=== PATIENT | male | born 1970 | race Caucasian/White ===

== ENCOUNTER 2019-11-02 18:11 | Emergency (ER) | payer SELFPAY ==
[2019-11-02 18:19] VITALS: BP 185/120; PULSE 126; RESP 20; TEMP 36.9; O2SAT 95; BMI 58.6
--- NOTE | 2019-11-02 18:25 | XR_ITS ---
WS: [id number] RIGHT FOOT: 3 VIEW(S) TECHNIQUE: AP, oblique and lateral. HISTORY: injury COMPARISON: None available. No acute fracture or dislocation. Normal tarsal/metatarsal alignment. Large amount soft tissue swelling and edema around the ankle and foot. Small calcaneal spur. XR/XR foot RT min 3V* [id number] IMPRESSION: No fracture identified but there is a large amount of soft tissue edema around the foot.
--- NOTE | 2019-11-02 18:25 | XR_ITS ---
WS: [id number] RIGHT ANKLE: 3 VIEW(S) TECHNIQUE: AP, oblique(s) and lateral. HISTORY: injury COMPARISON: None available. Normal anatomic alignment with no fracture or dislocation. No joint effusion or widening of the ankle mortise. No significant degenerative changes at the joint spaces. Large amount of edema surrounding the ankle. No joint effusion. XR/XR ankle RT min 3V* [id number] IMPRESSION: No fracture identified but there is a large amount of soft tissue edema around the ankle.
--- NOTE | 2019-11-02 21:53 | W.ED.EXTPRO ---
HPI - Extremity Problem General: Chief complaint: Extremity Injury, Lower Stated complaint: foot pain Time Seen by Provider: 11/02/19 21:53 Source: patient Mode of arrival: ambulatory Limitations: no limitations History of Present Illness: HPI Narrative: Patient comes in today for complaints of right foot redness pain and swelling since last week. Patient reports the pain goes up into his calf on the right side. Patient states about a week ago he felt that pop in his foot and at first he did not notice much difference but over the past 2 to 3 days he has had increasing redness and swelling to the extremity. Patient denies any fever. Patient does state that he always tries to wear shoes or flip-flops when he is walking around. Patient has a history of diabetes and hypertension. Review of Systems General: Reports: 10 or more systems reviewed and unremarkable except in HPI and below Musc: Reports: extremity pain PFSH ED PFSH: Social History Smoking and tobacco status: current every day smoker Physical Exam Const: COMMON NORMALS: no acute distress and patient oriented x3 GENERAL APPEARANCE: cooperative HENMT: COMMON NORMALS: normocephalic, TM's normal bilaterally and Normal external nose present HEAD & SCALP: normal to inspection and normocephalic NOSE: Normal external nose present TYMPANIC MEMBRANE: TM's normal bilaterally MOUTH: Normal oral and palatal mucosa present THROAT: posterior oropharynx normal Eye: GENERAL EYE: appearance normal, both eyes and all related structures Neck/C-Spine: COMMON NORMALS: full ROM Lymph: LYMPHATIC: no lymphadenopathy noted Chest: COMMONS NORMALS: normal inspection of the chest Resp: COMMON NORMALS: normal respiratory effort EFFORT & INSPECTION: Yes able to speak in complete sentences Cardio: COMMON NORMALS: regular rate and regular rhythm RATE: regular rate RHYTHM: regular rhythm GI: COMMON NORMALS: non-tender : COMMON NORMALS: Yes no CVA tenderness BLADDER/KIDNEY EXAM: Yes no CVA tenderness Back/Pelvis: COMMON NORMALS: no CVA tenderness and thoracic and lumbar spine normal to inspection Extremity: NARRATIVE EXTREMITY EXAM: Redness and swelling to the right lower leg and foot with swelling. Neuro: COMMON NORMALS: patient oriented x3 and moves all extremities Psych: COMMON NORMALS: mental status grossly normal and cooperative Skin: COMMON NORMALS: no rashes or lesions noted GENERAL SKIN EXAM: no rashes or lesions noted Course ED course: 2239, ultrasound for DVT was negative. Vital Signs: Vital signs: Vital Signs Temperature 98.4 F 11/02/19 18:19 Pulse Rate 126 H 11/02/19 18:19 Respiratory Rate 20 H 11/02/19 18:19 Blood Pressure 185/120 11/02/19 18:19 Pulse Oximetry 95 11/02/19 18:19 MDM - Extremity (Nontraumatic) MDM Narrative: Medical decision making narrative: Patient comes in with redness and swelling to the right lower leg after an injury over 1 week ago. On exam no obvious deformity is noted, patient is weightbearing. Vital signs are noticeable for a slight elevation in pulse at 126, and blood pressure at 185 systolic. Lungs are clear to auscultation. Patient is morbidly obese. Differential diagnosis includes DVT, cellulitis, fracture, gout. Ultrasound was negative for DVT. Patient has mild leukocytosis at 11. Reviewed exam with patient recommended treatment for cellulitis. Patient given naproxen for pain and inflammation and cephalexin for antibiotic treatment. Patient reported understanding agreed to plan. Lab Data: Labs: Lab Results 11/02/19 Range/Units 23:00 WBC 11.4 H (4.0-10.0) 10^3/ uL RBC 5.17 (4.1-5.3) 10^6/u L Hgb 14.4 (11.7-16.6) g/dL Hct 45.2 (42.0-52.0) % MCV 87.4 (80-94) fL MCH 27.9 L (28.0-34.0) pg MCHC 31.9 (30.0-36.0) g/dL RDW 13.5 (12.1-15.1) % Plt Count 251 (130-400) 10^3/c mm MPV 10.9 H (7.4-10.4) fL Neut % (Auto) 71.0 % Lymph % (Auto) 21.1 % [place] % (Auto) 5.6 % Eos % (Auto) 1.7 % Baso % (Auto) 0.3 % Neut # (Auto) 8.1 H (1.8-7.7) 10^3/u L Lymph # (Auto) 2.4 (0.8-4.8) 10^3/u L [place] # (Auto) 0.6 (0.2-0.9) 10^3/u L Eos # (Auto) 0.2 (0.0-0.8) 10^3/u L Baso # (Auto) 0.0 (0.0-0.1) 10^3/u L Nucleated RBC % (a uto) 0 % Nucleated RBCs # 0.0 /100WBC Discharge Plan Discharge Patient Disposition: Home, Self-Care Clinical Impression: Cellulitis and abscess of right leg Condition: Stable Prescriptions: New cephalexin 500 mg capsule 500 mg PO QID 10 Days Qty: 40 RF: 0 naproxen 500 mg tablet 500 mg PO BID Qty: 14 RF: 0 Discharge Orders: Discharge Order (Routine); Ordered 11/02/19 Ordered By: Luis Foss Discharge Diet: Usual diet Discharge Activity: Increase activity as tolerated Patient Instructions: Cellulitis (ED) Activity Restrictions/Additional Instructions: Take antibiotics as directed. Use naproxen twice a day for pain and swelling. Follow-up with primary care in 1 week. Return to the ER for worsening symptoms, high fever, or new concerns. Coding Level of Care Code ED Archival Records Clerk for Ruchi Fwd Exam Comprehensive
--- NOTE | 2019-11-02 21:58 | USCV_ITS ---
Bennie Ho Age: 49 Gender: M : 1970 Exam Date: 11/02/2019 22:28 Ordering Phys: Luis Foss Technologist: Beck Stephenson [place]am Location[place] [facility] [place]: swelling HISTORY: Lower extremity swelling. PROCEDURES: Venous duplex imaging was performed in only the right lower extremity. The following venous structures were evaluated: common femoral vein, profunda vein, proximal portion of the greater saphenous vein, superficial femoral vein, and the popliteal vein. In addition, the posterior tibial and peroneal trunk were evaluated. Serial compression, augmentation maneuvers, and spectral Doppler flow evaluation were performed. FINDINGS: Normal 2-D Doppler and augmentation and compressibility throughout the lower extremity venous structures. Additional imaging through the proximal calf veins also reveals no thrombus. Limited evaluation of the greater saphenous vein is patent with no thrombus. CONCLUSIONS No DVT right lower extremity. Dr. Krissy Franks DO (Electronically Signed) Final Date: 03 Nov 2019 10:49 S
[2019-11-02 23:08] LABS: Basophils % 0.3 %; Eosinophils # 0.2 10^3/uL (0.0-0.8); Eosinophils % 1.7 %; Hematocrit 45.2 % (42.0-52.0); Hemoglobin 14.4 g/dL (11.7-16.6); Lymphocytes # 2.4 10^3/uL (0.8-4.8); Lymphocytes % 21.1 %; Mean Corpuscular HGB Conc 31.9 g/dL (30.0-36.0); Mean Corpuscular Hemoglobin 27.9 pg (28.0-34.0); Mean Corpuscular Volume 87.4 fL (80-94); Mean Platelet Volume 10.9 fL (7.4-10.4); Monocytes # 0.6 10^3/uL (0.2-0.9); Monocytes % 5.6 %; Neutrophils # 8.1 10^3/uL (1.8-7.7); Nucleated Red Blood Cells % 0 %; Platelet Count 251 10^3/cmm (130-400); Red Blood Count 5.17 10^6/uL (4.1-5.3); Red Cell Distribution Width 13.5 % (12.1-15.1); White Blood Count 11.4 10^3/uL (4.0-10.0)
[2019-11-02 23:28] LABS: Alanine Aminotransferase 23 U/L (0-41); Albumin Level 3.7 g/dL (3.5-5.2); Alkaline Phosphatase 122 IU/L (40-130); Aspartate Amino Transferase 17 U/L (0-40); Blood Urea Nitrogen 10 mg/dL (6-20); Calcium 9.1 mg/dL (8.5-10.5); Carbon Dioxide 29 mmol/L (22-29); Chloride 94 mmol/L (98-107); Creatinine Clr Calc Pharmacy 221.5732; Globulin 3.4 g/dL (1.3-4.6); Glomerular Filtration Rate 120.4 mL/min (90-130); Glucose 325 mg/dL (65-115); Osmolality Calculated 287 mOsm/kg (285-295); Sodium 134 mmol/L (136-145); Total Bilirubin 0.3 mg/dL (0.15-1.2); Total Protein 7.1 g/dL (6.6-8.7); Uric Acid 4.8 mg/dL (3.4-7.0)
[2019-11-03] MEDS: naproxen 500 mg Tablet PO (00:25)
[2019-11-03] MEDS: cephALEXin 500 mg Capsule PO (00:25)
[2019-11-03 00:29] VITALS: BP 158/84; PULSE 86; RESP 16; O2SAT 99
== END 2019-11-03 00:31 | disposition home or self-care (01) ==
PROVIDERS: Emergency Provider Nurse Practitioner Family
DX: L03.115 Cellulitis of right lower limb (principal); L02.415 Cutaneous abscess of right lower limb; F17.210 Nicotine dependence, cigarettes, uncomplicated
CPT/HCPCS: 12345; 73610; 73630; 80053; 84550; 85025; 93971; 99281

== ENCOUNTER 2019-11-14 12:26 | Emergency (ER) | payer SELFPAY ==
[2019-11-14 12:31] VITALS: BP 170/76; PULSE 118; RESP 14; TEMP 35.9; O2SAT 95; BMI 58.6
--- NOTE | 2019-11-14 12:36 | W.ED.EXTPRO ---
HPI - Extremity Problem General: Chief complaint: Extremity Problem,Nontraumatic Stated complaint: r foot pain/swelling Time Seen by Provider: 11/14/19 12:35 History of Present Illness: HPI Narrative: Patient is a 49-year-old male who comes to the ED with right foot pain, redness and swelling. He was seen for same complaint 12 days ago and was diagnosed with cellulitis of right foot put on a prescription of cephalexin. Patient says pain, warmth and redness has not really improved. Patient does admit that he has not been taking his antibiotic as prescribed for the past couple days. Patient has a follow-up appointment scheduled with his PCP in the next week. Associated symptoms: Reports rash (Right foot swelling, erythema and warmth.); Deny chest pain or fever(s) Review of Systems Const: Denies: fever(s), chills or fatigue Eyes: Denies: change in vision or eye discomfort ENMT: Denies: throat pain, odynophagia, nasal discharge or nasal congestion Card: Denies: chest pain, palpitations, edema, swelling of feet/ankles, dyspnea on exertion or orthopnea Resp: Denies: dyspnea, productive cough or non-productive cough GI: Denies: abdominal pain, nausea, vomiting, diarrhea, constipation or hematochezia : Denies: flank pain, difficulty urinating, dysuria or hematuria Musc: Denies: neck pain, back pain or extremity swelling Skin/Breast: Reports: rash (Right foot swelling, erythema and warmth.), skin pain, skin tenderness and skin swelling; Denies: new lesions Neuro: Denies: headache(s), numbness in extremities or weakness in extremities [facility] ED PFSH: Social History Smoking and tobacco status: current every day smoker Physical Exam Const: COMMON NORMALS: patient oriented x3 and alert NUTRITIONAL APPEARANCE: obese HENMT: COMMON NORMALS: normocephalic HEAD & SCALP: normocephalic MOUTH: Normal oral and palatal mucosa present THROAT: posterior oropharynx normal and uvula midline Eye: COMMON NORMALS: Equal, round and reactive pupils present PUPIL: Yes Equal, round and reactive pupils present Neck/C-Spine: COMMON NORMALS: supple GENERAL: Yes normal visual inspection Resp: COMMON NORMALS: normal respiratory effort, No retractions, No use of accessory muscles and clear to auscultation bilaterally AUSCULTATION: clear to auscultation bilaterally Cardio: COMMON NORMALS: regular rate, regular rhythm, S1 normal heart sound present, S2 normal heart sound present, No gallops present (Cardio), No clicks present (Cardio), No murmurs present (Cardio) and Peripheral pulses 2+ throughout RATE: regular rate RHYTHM: regular rhythm HEART SOUNDS: S1 normal heart sound present and S2 normal heart sound present PERIPHERAL PULSES: Peripheral pulses 2+ throughout GI: COMMON NORMALS: Normal to inspection, nondistended, normoactive bowel sounds present, Soft to palpation, non-tender and no masses INSPECTION: Yes central obesity PALPATION: Yes Soft to palpation : COMMON NORMALS: Yes no CVA tenderness BLADDER/KIDNEY EXAM: Yes no CVA tenderness Back/Pelvis: COMMON NORMALS: no CVA tenderness Extremity: RIGHT LOWER EXTREMITY: Yes foot & digits Right foot and digits: Yes inspection (Swelling of entire right foot with warmth throughout the foot and erythema. No erythema or warmth noted above ankle.), Yes palpation (mild tenderness), Yes ROM (full) and Yes neurovascular exam (intact) Neuro: COMMON NORMALS: patient oriented x3 and moves all extremities SENSORIUM/ORIENTATION: Yes alert Skin: GENERAL SKIN EXAM: dry skin LESIONS: lesion noted Right foot Lesion location: Right foot Lesion color: Yes erythematous and Yes red Lesion surface: Yes dry, Yes flat, Yes shiny and Yes warm Lesion finding consistent with: Yes cellulitis Course Vital Signs: Vital signs: Vital Signs Temperature 96.6 F L 11/14/19 12:31 Pulse Rate 118 H 11/14/19 12:31 Respiratory Rate 14 11/14/19 12:31 Blood Pressure 170/76 11/14/19 12:31 Pulse Oximetry 95 11/14/19 12:31 MDM - Extremity (Nontraumatic) MDM Narrative: Medical decision making narrative: Patient is a 49-year-old male comes to the ED with right foot pain, erythema and swelling. Patient was seen here in the ED 12 days ago for same complaint and was diagnosed with cellulitis and put on a prescription of cephalexin. Patient return to the ED today because erythema, warmth and pain in right foot has not really improved since taking antibiotic. Physical exam showed redness warmth and swelling of the right foot. No erythema or swelling above ankle. Patient was given a prescription for Bactrim and told to take full course of antibiotic as prescribed. He was told to finish out the last couple doses of cephalexin and start Bactrim. Patient has a PCP appointment within the next week. He was told to return to the ED for reevaluation if symptoms do not improve after 3 days of being on Bactrim. Patient understood and agreed with plan. Discharge Plan Discharge Patient Disposition: Home, Self-Care Clinical Impression: Cellulitis Qualifiers: Site of cellulitis: extremity Site of cellulitis of extremity: lower extremity Laterality: right Qualified Code(s): L03.115 - Cellulitis of right lower limb Condition: Stable Prescriptions: New Bactrim DS 800-160 mg tablet 1 tab PO BID 7 Days Qty: 14 RF: 0 No Action naproxen 500 mg tablet 500 mg PO BID Qty: 14 RF: 0 lisinopril 20 mg Tablet 20 mg PO DAILY RF: 0 Novolin 70/30 U-100 Insulin 100 unit/mL (70-30) Suspension See Rx Instructions .ROUTE .COMPLEX RF: 0 Lantus Solostar U-100 Insulin 100 unit/mL (3 mL) Insulin Pen 10 unit SUBCUT DAILY RF: 0 Trulicity 1.5 mg/0.5 mL Pen Injector 1.5 mg SUBCUT Q7D RF: 0 Discharge Orders: Discharge Order (Routine); Ordered 11/14/19 Ordered By: Bin Dias Discharge Diet: Regular Discharge Activity: Resume usual activity Patient Instructions: Cellulitis (ED) Activity Restrictions/Additional Instructions: Follow-up with your PCP for reevaluation at your next scheduled appointment. Finish out prescription of cephalexin and start the Bactrim antibiotic course. Take ibuprofen or Tylenol for any pain. Return to ED if symptoms continue to worsen after 3 days of being treated on Bactrim. Discharge Date/Time: 11/14/19 13:38 Coding Level of Care Code ED Carpet Or Rug Layer Helper for Ruchi Velez Exam Comprehensive
[2019-11-14] MEDS: ketorolac 30 mg/mL INJ IM (13:06)
== END 2019-11-14 13:38 | disposition home or self-care (01) ==
PROVIDERS: Emergency Provider Physician Assistant
DX: L03.115 Cellulitis of right lower limb (principal); Z79.4 Long term (current) use of insulin; F17.210 Nicotine dependence, cigarettes, uncomplicated
CPT/HCPCS: 12345; 96372; 99281; 99283; J1885

== ENCOUNTER 2019-11-28 17:17 | Inpatient (IN) | payer MEDICARE, MEDICAID, SELFPAY ==
[2019-11-28] VITALS (7 sets, daily range): BP systolic 129–184; BP diastolic 62–73; PULSE 123–148; RESP 15–28; TEMP 37.9; O2SAT 92–98; BMI 59.3
--- NOTE | 2019-11-28 17:52 | XR_ITS ---
WS: [id number] Portable AP upright chest, 11/28/2019 Clinical Data: dyspnea/cough Comparison: Portable chest, 09/29/2017. Findings: No nodules, masses or effusions are seen. The heart is normal. The pulmonary vascularity is not increased. No pneumonia or pneumothorax is seen. XR/XR chest 1V portable [id number] Impression: Negative chest.
--- NOTE | 2019-11-28 17:52 | ECG_ITS ---
Measurements Intervals [place] Rate: 68 P: ND: 0 QRS: 44 QRSD: 161 T: -51 QT: 472 QTc: 503 ATRIAL FIBRILLATION INTRAVENTRICULAR CONDUCTION DELAY [130+ ms QRS DURATION] Compared to ECG 09/29/2017 19:21:23 Intraventricular conduction delay now present Sinus tachycardia no longer present Left anterior fascicular block no longer present Myocardial infarct finding no longer present Electronically Signed On 11-29-2019 7:00:31 CDT by Иван Nunes M.D. [email or web address]
--- NOTE | 2019-11-28 17:52 | XRR_ITS ---
PROCEDURE INFORMATION: Exam: XR Right Foot Complete Exam date and time: 11/28/2019 6:35 PM Age: 49 years old Clinical indication: Pain; Foot; Right; Additional info: Pain swelling TECHNIQUE: Imaging protocol: XR Right foot. Views: 3 or more views. COMPARISON: No relevant prior studies available. FINDINGS: Bones/joints: There is apparent midfoot dislocation with ventral displacement of the posterior midfoot. The forefoot is subluxed dorsally. This finding correlates with a posttraumatic injury. Correlation for mechanism of injury is recommended. This finding requires orthopedic consultation. A bone spur present on the inferior calcaneus. Soft tissues: Diffuse soft tissue edema is seen in the dorsal and lateral aspect of the foot. XR/XR foot RT min 3V* [id number] IMPRESSION: 1. ventral dislocation of the proximal midfoot with dorsal subluxation of the forefoot. 2. No additional acute bony abnormalities seen. 3. Severe soft tissue edema dorsal and lateral foot
--- NOTE | 2019-11-28 18:00 | W.ED.WOUNDLC ---
Documented by User: David Lange DO 11/29/19 14:15 HPI - Wound/Laceration General: Chief Complaint: Wound/Laceration Stated Complaint: wound on foot/feet Time Seen by Provider: 11/28/19 17:32 History of Present Illness: HPI narrative: 49-year-old male presents to the emergency room with a temp of 100.3 reports a temp at home of 101.3. He has a wound on his foot that happened while he was walking he tore some skin off and got like a puncture wound about a month ago never really completely healed he is diabetic that increased swelling and pain especially over the last week. He set up to see wound clinic but has not been there yet is an insulin-dependent diabetic. He initially was placed on Keflex subsequently placed on Bactrim now for last 5 days has been on clindamycin none of it seems to really help very much unfortunately. He has had a little bit of drainage from his been keeping a topical bandage on it. Onset (ago): month(s) (1) Extremity Location: Right: foot Place: home Patient tetanus UTD: No Context: accidental Associated symptoms: Reports chills and fever(s); Denies nausea or vomiting Treatments prior to arrival: bandage and other (Several different antibiotics Keflex Bactrim and clindamycin) Review of Systems Const: Reports: fever(s) and chills ENMT: Denies: throat pain, ear or mastoid pain, nasal discharge or nasal congestion Card: Denies: chest pain, edema, dyspnea on exertion or orthopnea Resp: Denies: dyspnea, productive cough or non-productive cough GI: Denies: abdominal pain, nausea, vomiting, hematemesis, coffee ground emesis, diarrhea, constipation, bloating, hematochezia or melena : Denies: flank pain, dysuria, urinary frequency or urinary urgency Skin/Breast: Denies: rash or pruritus PFSH ED PFSH: Medical History (Updated 11/29/19 @ 09:25 by Jennifer Hernandes MD) Chronic back pain Diabetes mellitus GERD (gastroesophageal reflux disease) Hypertension Morbid obesity Ptosis of eyelid, right Recurrent infection of skin Sleep apnea Smoker Testicular abscess Surgical History History of incision and drainage 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 S/P right knee arthroscopy Family History Other CAD (coronary artery disease) Diabetes Social History Smoking and tobacco status: heavy tobacco smoker cigarettes [ Other cigarette details: 2 packs/day ] Alcohol intake: never Substance/Drug Use: never Household members: significant other Housing: House Physical Exam Const: COMMON NORMALS: no acute distress GENERAL APPEARANCE: cooperative and comfortable ORIENTATION/CONSCIOUSNESS: Yes awake, Yes oriented to person, Yes oriented to place and Yes oriented to time HENMT: COMMON NORMALS: normocephalic, atraumatic, hearing grossly normal bilaterally, external ears normal, EAC's normal, TM's normal bilaterally, Normal nasal mucous membranes and turbinates present, moist oral mucous membranes and oropharynx normal HEAD & SCALP: normocephalic and atraumatic NOSE: Normal nasal mucous membranes and turbinates present EXTERNAL EAR: Yes external ears normal EXTERNAL AUDITORY CANAL: EAC's normal TYMPANIC MEMBRANE: TM's normal bilaterally Eye: COMMON NORMALS: Equal, round and reactive pupils present, EOMs intact bilaterally, conjunctivae normal and no scleral icterus CONJUNCTIVA: Yes conjunctivae normal PUPIL: Yes Equal, round and reactive pupils present Neck/C-Spine: COMMON NORMALS: full ROM, no lymphadenopathy, supple and no JVD Lymph: LYMPHATIC: no lymphadenopathy noted and no lymphedema noted Resp: COMMON NORMALS: normal respiratory effort, No retractions, No use of accessory muscles and clear to auscultation bilaterally AUSCULTATION: clear to auscultation bilaterally Cardio: COMMON NORMALS: no JVD, regular rate, regular rhythm and No murmurs present (Cardio) RATE: regular rate RHYTHM: regular rhythm GI: COMMON NORMALS: Soft to palpation and No hepatosplenomegaly present AUSCULTATION: Yes normoactive bowel sounds PALPATION: Yes Soft to palpation, No Tenderness to palpation present (GI), No Guarding due to palpation present (GI) and Yes No hepatosplenomegaly present Extremity: NARRATIVE EXTREMITY EXAM: Right lower leg warm to the touch tender to palpation with a positive Homans sign the sole of the foot itself is a large portion of skin that is denuded with an underlying erythema and some dry mucousy eschar looks to be healing puncture wound no active drainage with palpation no subcu air palpated. Neuro: SENSORIUM/ORIENTATION: Yes oriented to person, Yes oriented to place and Yes oriented to time Skin: COMMON NORMALS: no rashes or lesions noted GENERAL SKIN EXAM: no rashes or lesions noted Course Vital Signs: Vital signs: Vital Signs Temperature 98.7 F 11/29/19 12:00 Pulse Rate 119 H 11/29/19 12:00 Respiratory Rate 23 H 11/29/19 12:00 Blood Pressure 156/88 11/29/19 12:00 Pulse Oximetry 95 11/29/19 12:00 MDM - Wound/Laceration MDM Narrative: Medical decision making narrative: Care turned over to Dr. Nevarez at change of shift Lab Data: Labs: Lab Results 11/28/19 11/28/19 11/28/19 Range/Units 00:15 18:15 18:17 WBC 17.5 H (4.0-10.0) 10^3/ uL RBC 5.37 H (4.1-5.3) 10^6/u L Hgb 14.7 (11.7-16.6) g/dL Hct 46.9 (42.0-52.0) % MCV 87.3 (80-94) fL MCH 27.4 L (28.0-34.0) pg MCHC 31.3 (30.0-36.0) g/dL RDW 12.9 (12.1-15.1) % Plt Count 333 (130-400) 10^3/c mm MPV 10.8 H (7.4-10.4) fL Neut % (Auto) 89.0 % Lymph % (Auto) 6.0 % Lasalle % (Auto) 4.2 % Eos % (Auto) 0.2 % Baso % (Auto) 0.3 % Neut # (Auto) 15.5 H (1.8-7.7) 10^3/u L Lymph # (Auto) 1.0 (0.8-4.8) 10^3/u L [place] # (Auto) 0.7 (0.2-0.9) 10^3/u L Eos # (Auto) 0.0 (0.0-0.8) 10^3/u L Baso # (Auto) 0.1 (0.0-0.1) 10^3/u L Nucleated RBC % (a uto) 0 % Nucleated RBCs # 0.0 /100WBC Specimen Type Arterial Sample Site Radial, left ABG pH 7.46 H (7.35-7.45) ABG pCO2 42.1 (35-45) mmHg ABG pO2 54.4 L (80.0-100.0) mmH g ABG HCO3 29.8 H (22-26) mmol/L ABG O2 Saturation 91.8 ABG Base Excess 5.3 H (-2.0-2.0) mmol/ L Wesley Test Pos A-a O2 Gradient 40.5 H (5-10) mmHg Hematocrit 46.4 (42-52) % Hgb O2 Saturation 86.0 L (95-100) % Carboxyhemoglobin 5.5 (0.4-20.1) %THgb Methemoglobin 0.9 (0.4-1.5) % Total Hemoglobin 15.2 (14-18) g/dL Sodium 133.0 (131-143) mmol/L Potassium 4.3 (3.5-5.0) mmol/L Glucose 350.0 H (70-115) mg/dL Ionized Calcium 1.2 (1.1-1.4) mmol/L O2 Delivery Device None FiO2 21.0 % Associate Professor Of Pathology ID ed Chloride (98-107) mmol/L Carbon Dioxide (22-29) mmol/L Anion Gap (5-19) BUN (6-20) mg/dL Creatinine (0.7-1.2) mg/dL GFR Calculation (90-130) mL/min Estimat Average Gl ucose Hemoglobin A1c (4.0-6.0) % Calculated Osmolal ity (285-295) mOsm/k g Lactate (0.5-2.2) mmol/L Calcium (8.5-10.5) mg/dL Total Bilirubin (0.15-1.2) mg/dL AST (0-40) U/L ALT (0-41) U/L Alkaline Phosphata se (40-130) IU/L Lactate Dehydrogen ase 185 (135-225) U/L Troponin T Baselin e (0-15) ng/L Troponin T 120 Min nondalton (0-15) ng/L Delta Troponin T (0-10) ABS# Total Protein (6.6-8.7) g/dL Albumin (3.5-5.2) g/dL Globulin (1.3-4.6) g/dL Procalcitonin 0.36 (0-0.5) ng/mL Urine Color (Yellow) Urine Appearance (CLEAR) Urine pH (5-7) Ur Specific Gravit y (1.005-1.030) Urine Protein (Negative) Urine Glucose (UA) (Normal) Urine Ketones (Negative) Urine Blood (Negative) Urine Nitrate (Negative) Urine Bilirubin (NEGATIVE) Urine Urobilinogen (Negative) mg/dL Ur Leukocyte Leanna ase (Negative) Serum Ketones (Negative) 11/28/19 11/28/19 11/28/19 Range/Units 18:17 18:17 18:17 WBC (4.0-10.0) 10^3/ uL RBC (4.1-5.3) 10^6/u L Hgb (11.7-16.6) g/dL Hct (42.0-52.0) % MCV (80-94) fL MCH (28.0-34.0) pg MCHC (30.0-36.0) g/dL RDW (12.1-15.1) % Plt Count (130-400) 10^3/c mm MPV (7.4-10.4) fL Neut % (Auto) % Lymph % (Auto) % [place] % (Auto) % Eos % (Auto) % Baso % (Auto) % Neut # (Auto) (1.8-7.7) 10^3/u L Lymph # (Auto) (0.8-4.8) 10^3/u L [place] # (Auto) (0.2-0.9) 10^3/u L Eos # (Auto) (0.0-0.8) 10^3/u L Baso # (Auto) (0.0-0.1) 10^3/u L Nucleated RBC % (a uto) % Nucleated RBCs # /100WBC Specimen Type Sample Site ABG pH (7.35-7.45) ABG pCO2 (35-45) mmHg ABG pO2 (80.0-100.0) mmH g ABG HCO3 (22-26) mmol/L ABG O2 Saturation ABG Base Excess (-2.0-2.0) mmol/ L Wesley Test A-a O2 Gradient (5-10) mmHg Hematocrit (42-52) % Hgb O2 Saturation (95-100) % Carboxyhemoglobin (0.4-20.1) %THgb Methemoglobin (0.4-1.5) % Total Hemoglobin (14-18) g/dL Sodium 130 L (131-143) mmol/L Potassium 4.6 (3.5-5.0) mmol/L Glucose 386 H (70-115) mg/dL Ionized Calcium (1.1-1.4) mmol/L O2 Delivery Device FiO2 % Associate Professor Of Pathology ID Chloride 91 L (98-107) mmol/L Carbon Dioxide 25 (22-29) mmol/L Anion Gap 18.6 (5-19) BUN 13 (6-20) mg/dL Creatinine 0.7 (0.7-1.2) mg/dL GFR Calculation 120.4 (90-130) mL/min Estimat Average Gl ucose Hemoglobin A1c (4.0-6.0) % Calculated Osmolal ity 282 L (285-295) mOsm/k g Lactate 2.0 (0.5-2.2) mmol/L Calcium 9.0 (8.5-10.5) mg/dL Total Bilirubin 0.4 (0.15-1.2) mg/dL AST 31 (0-40) U/L ALT 29 (0-41) U/L Alkaline Phosphata se 153 H (40-130) IU/L Lactate Dehydrogen ase (135-225) U/L Troponin T Baselin e (0-15) ng/L Troponin T 120 Min nondalton (0-15) ng/L Delta Troponin T (0-10) ABS# Total Protein 7.4 (6.6-8.7) g/dL Albumin 3.6 (3.5-5.2) g/dL Globulin 3.8 (1.3-4.6) g/dL Procalcitonin (0-0.5) ng/mL Urine Color (Yellow) Urine Appearance (CLEAR) Urine pH (5-7) Ur Specific Gravit y (1.005-1.030) Urine Protein (Negative) Urine Glucose (UA) (Normal) Urine Ketones (Negative) Urine Blood (Negative) Urine Nitrate (Negative) Urine Bilirubin (NEGATIVE) Urine Urobilinogen (Negative) mg/dL Ur Leukocyte Leanna ase (Negative) Serum Ketones Negative (Negative) 11/28/19 11/28/19 11/28/19 Range/Units 18:17 18:19 19:58 WBC (4.0-10.0) 10^3/ uL RBC (4.1-5.3) 10^6/u L Hgb (11.7-16.6) g/dL Hct (42.0-52.0) % MCV (80-94) fL MCH (28.0-34.0) pg MCHC (30.0-36.0) g/dL RDW (12.1-15.1) % Plt Count (130-400) 10^3/c mm MPV (7.4-10.4) fL Neut % (Auto) % Lymph % (Auto) % [place] % (Auto) % Eos % (Auto) % Baso % (Auto) % Neut # (Auto) (1.8-7.7) 10^3/u L Lymph # (Auto) (0.8-4.8) 10^3/u L [place] # (Auto) (0.2-0.9) 10^3/u L Eos # (Auto) (0.0-0.8) 10^3/u L Baso # (Auto) (0.0-0.1) 10^3/u L Nucleated RBC % (a uto) % Nucleated RBCs # /100WBC Specimen Type Sample Site ABG pH (7.35-7.45) ABG pCO2 (35-45) mmHg ABG pO2 (80.0-100.0) mmH g ABG HCO3 (22-26) mmol/L ABG O2 Saturation ABG Base Excess (-2.0-2.0) mmol/ L Wesley Test A-a O2 Gradient (5-10) mmHg Hematocrit (42-52) % Hgb O2 Saturation (95-100) % Carboxyhemoglobin (0.4-20.1) %THgb Methemoglobin (0.4-1.5) % Total Hemoglobin (14-18) g/dL Sodium (131-143) mmol/L Potassium (3.5-5.0) mmol/L Glucose (70-115) mg/dL Ionized Calcium (1.1-1.4) mmol/L O2 Delivery Device FiO2 % Associate Professor Of Pathology ID Chloride (98-107) mmol/L Carbon Dioxide (22-29) mmol/L Anion Gap (5-19) BUN (6-20) mg/dL Creatinine (0.7-1.2) mg/dL GFR Calculation (90-130) mL/min Estimat Average Gl ucose 306 Hemoglobin A1c 12.3 H (4.0-6.0) % Calculated Osmolal ity (285-295) mOsm/k g Lactate (0.5-2.2) mmol/L Calcium (8.5-10.5) mg/dL Total Bilirubin (0.15-1.2) mg/dL AST (0-40) U/L ALT (0-41) U/L Alkaline Phosphata se (40-130) IU/L Lactate Dehydrogen ase (135-225) U/L Troponin T Baselin e 23 H (0-15) ng/L Troponin T 120 Min nondalton (0-15) ng/L Delta Troponin T (0-10) ABS# Total Protein (6.6-8.7) g/dL Albumin (3.5-5.2) g/dL Globulin (1.3-4.6) g/dL Procalcitonin (0-0.5) ng/mL Urine Color Yellow (Yellow) Urine Appearance Clear (CLEAR) Urine pH 5 (5-7) Ur Specific Gravit y 1.015 (1.005-1.030) Urine Protein Neg (Negative) Urine Glucose (UA) 4+ H (Normal) Urine Ketones Negative (Negative) Urine Blood Neg (Negative) Urine Nitrate Negative (Negative) Urine Bilirubin Neg (NEGATIVE) Urine Urobilinogen Norm (Negative) mg/dL Ur Leukocyte Leanna ase Negative (Negative) Serum Ketones (Negative) 11/28/19 Range/Units 20:20 WBC (4.0-10.0) 10^3/ uL RBC (4.1-5.3) 10^6/u L Hgb (11.7-16.6) g/dL Hct (42.0-52.0) % MCV (80-94) fL MCH (28.0-34.0) pg MCHC (30.0-36.0) g/dL RDW (12.1-15.1) % Plt Count (130-400) 10^3/c mm MPV (7.4-10.4) fL Neut % (Auto) % Lymph % (Auto) % [place] % (Auto) % Eos % (Auto) % Baso % (Auto) % Neut # (Auto) (1.8-7.7) 10^3/u L Lymph # (Auto) (0.8-4.8) 10^3/u L [place] # (Auto) (0.2-0.9) 10^3/u L Eos # (Auto) (0.0-0.8) 10^3/u L Baso # (Auto) (0.0-0.1) 10^3/u L Nucleated RBC % (a uto) % Nucleated RBCs # /100WBC Specimen Type Sample Site ABG pH (7.35-7.45) ABG pCO2 (35-45) mmHg ABG pO2 (80.0-100.0) mmH g ABG HCO3 (22-26) mmol/L ABG O2 Saturation ABG Base Excess (-2.0-2.0) mmol/ L Wesley Test A-a O2 Gradient (5-10) mmHg Hematocrit (42-52) % Hgb O2 Saturation (95-100) % Carboxyhemoglobin (0.4-20.1) %THgb Methemoglobin (0.4-1.5) % Total Hemoglobin (14-18) g/dL Sodium (131-143) mmol/L Potassium (3.5-5.0) mmol/L Glucose (70-115) mg/dL Ionized Calcium (1.1-1.4) mmol/L O2 Delivery Device FiO2 % Associate Professor Of Pathology ID Chloride (98-107) mmol/L Carbon Dioxide (22-29) mmol/L Anion Gap (5-19) BUN (6-20) mg/dL Creatinine (0.7-1.2) mg/dL GFR Calculation (90-130) mL/min Estimat Average Gl ucose Hemoglobin A1c (4.0-6.0) % Calculated Osmolal ity (285-295) mOsm/k g Lactate (0.5-2.2) mmol/L Calcium (8.5-10.5) mg/dL Total Bilirubin (0.15-1.2) mg/dL AST (0-40) U/L ALT (0-41) U/L Alkaline Phosphata se (40-130) IU/L Lactate Dehydrogen ase (135-225) U/L Troponin T Baselin e (0-15) ng/L Troponin T 120 Min nondalton 24.84 H (0-15) ng/L Delta Troponin T 1.84 (0-10) ABS# Total Protein (6.6-8.7) g/dL Albumin (3.5-5.2) g/dL Globulin (1.3-4.6) g/dL Procalcitonin (0-0.5) ng/mL Urine Color (Yellow) Urine Appearance (CLEAR) Urine pH (5-7) Ur Specific Gravit y (1.005-1.030) Urine Protein (Negative) Urine Glucose (UA) (Normal) Urine Ketones (Negative) Urine Blood (Negative) Urine Nitrate (Negative) Urine Bilirubin (NEGATIVE) Urine Urobilinogen (Negative) mg/dL Ur Leukocyte Leanna ase (Negative) Serum Ketones (Negative) Discharge Plan Discharge Patient Disposition: Admitted As Inpatient Admit Provider: Leoncio Saenz Clinical Impression: Sepsis Qualifiers: Sepsis type: sepsis due to unspecified organism Sepsis acute organ dysfunction status: unspecified Qualified Code(s): A41.9 - Sepsis, unspecified organism Cellulitis Qualifiers: Site of cellulitis: extremity Site of cellulitis of extremity: lower extremity Laterality: right Qualified Code(s): L03.115 - Cellulitis of right lower limb Closed dislocation of foot Qualifiers: Encounter type: initial encounter Laterality: right Qualified Code(s): S93.304A - Unspecified dislocation of right foot, initial encounter Condition: Stable Discharge Date/Time: 11/28/19 23:41 Sign Out Sign Out Data: Patient Sign Out occurred on 11/28/19 at 18:20. Patient's care was discussed, and care was transferred from David Lange DO to Mimi Whitfield. Sign Out Comment: Sepsis labs and imaging pending Last updated by David Lange DO at 11/28/19 18:13 Coding Level of Care Code ED [employer] for Chg Fwd Exam Comprehensive Documented by User: Mimi Sandhu Roseann 11/29/19 05:50 HPI - Wound/Laceration General: Chief Complaint: Wound/Laceration Stated Complaint: wound on foot/feet Time Seen by Provider: 11/28/19 17:32 PFSH ED PFSH: Medical History (Updated 11/29/19 @ 09:25 by Jennifer Hernandes MD) Chronic back pain Diabetes mellitus GERD (gastroesophageal reflux disease) Hypertension Morbid obesity Ptosis of eyelid, right Recurrent infection of skin Sleep apnea Smoker Testicular abscess Surgical History History of incision and drainage 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 S/P right knee arthroscopy Family History Other CAD (coronary artery disease) Diabetes Social History Smoking and tobacco status: heavy tobacco smoker cigarettes [ Other cigarette details: 2 packs/day ] Alcohol intake: never Substance/Drug Use: never Household members: significant other Housing: House Course Vital Signs: Vital signs: Vital Signs Temperature 98.7 F 11/29/19 12:00 Pulse Rate 119 H 11/29/19 12:00 Respiratory Rate 23 H 11/29/19 12:00 Blood Pressure 156/88 11/29/19 12:00 Pulse Oximetry 95 11/29/19 12:00 MDM - Wound/Laceration MDM Narrative: Medical decision making narrative: The case was reviewed with Drs. Saenz and Monserrat, they will admit and consult respectively. Patient was hemodynamically stable here and his heart rate improved after IV fluids and antibiotics. Lab Data: Attestation: I reviewed the patient's lab results. Labs: Lab Results 11/28/19 11/28/19 11/28/19 Range/Units 00:15 18:15 18:17 WBC 17.5 H (4.0-10.0) 10^3/ uL RBC 5.37 H (4.1-5.3) 10^6/u L Hgb 14.7 (11.7-16.6) g/dL Hct 46.9 (42.0-52.0) % MCV 87.3 (80-94) fL MCH 27.4 L (28.0-34.0) pg MCHC 31.3 (30.0-36.0) g/dL RDW 12.9 (12.1-15.1) % Plt Count 333 (130-400) 10^3/c mm MPV 10.8 H (7.4-10.4) fL Neut % (Auto) 89.0 % Lymph % (Auto) 6.0 % [place]alle % (Auto) 4.2 % Eos % (Auto) 0.2 % Baso % (Auto) 0.3 % Neut # (Auto) 15.5 H (1.8-7.7) 10^3/u L Lymph # (Auto) 1.0 (0.8-4.8) 10^3/u L [place] # (Auto) 0.7 (0.2-0.9) 10^3/u L Eos # (Auto) 0.0 (0.0-0.8) 10^3/u L Baso # (Auto) 0.1 (0.0-0.1) 10^3/u L Nucleated RBC % (a uto) 0 % Nucleated RBCs # 0.0 /100WBC Specimen Type Arterial Sample Site Radial, left ABG pH 7.46 H (7.35-7.45) ABG pCO2 42.1 (35-45) mmHg ABG pO2 54.4 L (80.0-100.0) mmH g ABG HCO3 29.8 H (22-26) mmol/L ABG O2 Saturation 91.8 ABG Base Excess 5.3 H (-2.0-2.0) mmol/ L Wesley Test Pos A-a O2 Gradient 40.5 H (5-10) mmHg Hematocrit 46.4 (42-52) % Hgb O2 Saturation 86.0 L (95-100) % Carboxyhemoglobin 5.5 (0.4-20.1) %THgb Methemoglobin 0.9 (0.4-1.5) % Total Hemoglobin 15.2 (14-18) g/dL Sodium 133.0 (131-143) mmol/L Potassium 4.3 (3.5-5.0) mmol/L Glucose 350.0 H (70-115) mg/dL Ionized Calcium 1.2 (1.1-1.4) mmol/L O2 Delivery Device None FiO2 21.0 % Associate Professor Of Pathology ID ed Chloride (98-107) mmol/L Carbon Dioxide (22-29) mmol/L Anion Gap (5-19) BUN (6-20) mg/dL Creatinine (0.7-1.2) mg/dL GFR Calculation (90-130) mL/min Estimat Average Gl ucose Hemoglobin A1c (4.0-6.0) % Calculated Osmolal ity (285-295) mOsm/k g Lactate (0.5-2.2) mmol/L Calcium (8.5-10.5) mg/dL Total Bilirubin (0.15-1.2) mg/dL AST (0-40) U/L ALT (0-41) U/L Alkaline Phosphata se (40-130) IU/L Lactate Dehydrogen ase 185 (135-225) U/L Troponin T Baselin e (0-15) ng/L Troponin T 120 Min nondalton (0-15) ng/L Delta Troponin T (0-10) ABS# Total Protein (6.6-8.7) g/dL Albumin (3.5-5.2) g/dL Globulin (1.3-4.6) g/dL Procalcitonin 0.36 (0-0.5) ng/mL Urine Color (Yellow) Urine Appearance (CLEAR) Urine pH (5-7) Ur Specific Gravit y (1.005-1.030) Urine Protein (Negative) Urine Glucose (UA) (Normal) Urine Ketones (Negative) Urine Blood (Negative) Urine Nitrate (Negative) Urine Bilirubin (NEGATIVE) Urine Urobilinogen (Negative) mg/dL Ur Leukocyte Leanna ase (Negative) Serum Ketones (Negative) 11/28/19 11/28/19 11/28/19 Range/Units 18:17 18:17 18:17 WBC (4.0-10.0) 10^3/ uL RBC (4.1-5.3) 10^6/u L Hgb (11.7-16.6) g/dL Hct (42.0-52.0) % MCV (80-94) fL MCH (28.0-34.0) pg MCHC (30.0-36.0) g/dL RDW (12.1-15.1) % Plt Count (130-400) 10^3/c mm MPV (7.4-10.4) fL Neut % (Auto) % Lymph % (Auto) % [place] % (Auto) % Eos % (Auto) % Baso % (Auto) % Neut # (Auto) (1.8-7.7) 10^3/u L Lymph # (Auto) (0.8-4.8) 10^3/u L [place] # (Auto) (0.2-0.9) 10^3/u L Eos # (Auto) (0.0-0.8) 10^3/u L Baso # (Auto) (0.0-0.1) 10^3/u L Nucleated RBC % (a uto) % Nucleated RBCs # /100WBC Specimen Type Sample Site ABG pH (7.35-7.45) ABG pCO2 (35-45) mmHg ABG pO2 (80.0-100.0) mmH g ABG HCO3 (22-26) mmol/L ABG O2 Saturation ABG Base Excess (-2.0-2.0) mmol/ L Wesley Test A-a O2 Gradient (5-10) mmHg Hematocrit (42-52) % Hgb O2 Saturation (95-100) % Carboxyhemoglobin (0.4-20.1) %THgb Methemoglobin (0.4-1.5) % Total Hemoglobin (14-18) g/dL Sodium 130 L (131-143) mmol/L Potassium 4.6 (3.5-5.0) mmol/L Glucose 386 H (70-115) mg/dL Ionized Calcium (1.1-1.4) mmol/L O2 Delivery Device FiO2 % Associate Professor Of Pathology ID Chloride 91 L (98-107) mmol/L Carbon Dioxide 25 (22-29) mmol/L Anion Gap 18.6 (5-19) BUN 13 (6-20) mg/dL Creatinine 0.7 (0.7-1.2) mg/dL GFR Calculation 120.4 (90-130) mL/min Estimat Average Gl ucose Hemoglobin A1c (4.0-6.0) % Calculated Osmolal ity 282 L (285-295) mOsm/k g Lactate 2.0 (0.5-2.2) mmol/L Calcium 9.0 (8.5-10.5) mg/dL Total Bilirubin 0.4 (0.15-1.2) mg/dL AST 31 (0-40) U/L ALT 29 (0-41) U/L Alkaline Phosphata se 153 H (40-130) IU/L Lactate Dehydrogen ase (135-225) U/L Troponin T Baselin e (0-15) ng/L Troponin T 120 Min nondalton (0-15) ng/L Delta Troponin T (0-10) ABS# Total Protein 7.4 (6.6-8.7) g/dL Albumin 3.6 (3.5-5.2) g/dL Globulin 3.8 (1.3-4.6) g/dL Procalcitonin (0-0.5) ng/mL Urine Color (Yellow) Urine Appearance (CLEAR) Urine pH (5-7) Ur Specific Gravit y (1.005-1.030) Urine Protein (Negative) Urine Glucose (UA) (Normal) Urine Ketones (Negative) Urine Blood (Negative) Urine Nitrate (Negative) Urine Bilirubin (NEGATIVE) Urine Urobilinogen (Negative) mg/dL Ur Leukocyte Leanna ase (Negative) Serum Ketones Negative (Negative) 11/28/19 11/28/19 11/28/19 Range/Units 18:17 18:19 19:58 WBC (4.0-10.0) 10^3/ uL RBC (4.1-5.3) 10^6/u L Hgb (11.7-16.6) g/dL Hct (42.0-52.0) % MCV (80-94) fL MCH (28.0-34.0) pg MCHC (30.0-36.0) g/dL RDW (12.1-15.1) % Plt Count (130-400) 10^3/c mm MPV (7.4-10.4) fL Neut % (Auto) % Lymph % (Auto) % [place] % (Auto) % Eos % (Auto) % Baso % (Auto) % Neut # (Auto) (1.8-7.7) 10^3/u L Lymph # (Auto) (0.8-4.8) 10^3/u L [place] # (Auto) (0.2-0.9) 10^3/u L Eos # (Auto) (0.0-0.8) 10^3/u L Baso # (Auto) (0.0-0.1) 10^3/u L Nucleated RBC % (a uto) % Nucleated RBCs # /100WBC Specimen Type Sample Site ABG pH (7.35-7.45) ABG pCO2 (35-45) mmHg ABG pO2 (80.0-100.0) mmH g ABG HCO3 (22-26) mmol/L ABG O2 Saturation ABG Base Excess (-2.0-2.0) mmol/ L Wesley Test A-a O2 Gradient (5-10) mmHg Hematocrit (42-52) % Hgb O2 Saturation (95-100) % Carboxyhemoglobin (0.4-20.1) %THgb Methemoglobin (0.4-1.5) % Total Hemoglobin (14-18) g/dL Sodium (131-143) mmol/L Potassium (3.5-5.0) mmol/L Glucose (70-115) mg/dL Ionized Calcium (1.1-1.4) mmol/L O2 Delivery Device FiO2 % Associate Professor Of Pathology ID Chloride (98-107) mmol/L Carbon Dioxide (22-29) mmol/L Anion Gap (5-19) BUN (6-20) mg/dL Creatinine (0.7-1.2) mg/dL GFR Calculation (90-130) mL/min Estimat Average Gl ucose 306 Hemoglobin A1c 12.3 H (4.0-6.0) % Calculated Osmolal ity (285-295) mOsm/k g Lactate (0.5-2.2) mmol/L Calcium (8.5-10.5) mg/dL Total Bilirubin (0.15-1.2) mg/dL AST (0-40) U/L ALT (0-41) U/L Alkaline Phosphata se (40-130) IU/L Lactate Dehydrogen ase (135-225) U/L Troponin T Baselin e 23 H (0-15) ng/L Troponin T 120 Min nondalton (0-15) ng/L Delta Troponin T (0-10) ABS# Total Protein (6.6-8.7) g/dL Albumin (3.5-5.2) g/dL Globulin (1.3-4.6) g/dL Procalcitonin (0-0.5) ng/mL Urine Color Yellow (Yellow) Urine Appearance Clear (CLEAR) Urine pH 5 (5-7) Ur Specific Gravit y 1.015 (1.005-1.030) Urine Protein Neg (Negative) Urine Glucose (UA) 4+ H (Normal) Urine Ketones Negative (Negative) Urine Blood Neg (Negative) Urine Nitrate Negative (Negative) Urine Bilirubin Neg (NEGATIVE) Urine Urobilinogen Norm (Negative) mg/dL Ur Leukocyte Leanna ase Negative (Negative) Serum Ketones (Negative) 11/28/19 Range/Units 20:20 WBC (4.0-10.0) 10^3/ uL RBC (4.1-5.3) 10^6/u L Hgb (11.7-16.6) g/dL Hct (42.0-52.0) % MCV (80-94) fL MCH (28.0-34.0) pg MCHC (30.0-36.0) g/dL RDW (12.1-15.1) % Plt Count (130-400) 10^3/c mm MPV (7.4-10.4) fL Neut % (Auto) % Lymph % (Auto) % [place] % (Auto) % Eos % (Auto) % Baso % (Auto) % Neut # (Auto) (1.8-7.7) 10^3/u L Lymph # (Auto) (0.8-4.8) 10^3/u L [place] # (Auto) (0.2-0.9) 10^3/u L Eos # (Auto) (0.0-0.8) 10^3/u L Baso # (Auto) (0.0-0.1) 10^3/u L Nucleated RBC % (a uto) % Nucleated RBCs # /100WBC Specimen Type Sample Site ABG pH (7.35-7.45) ABG pCO2 (35-45) mmHg ABG pO2 (80.0-100.0) mmH g ABG HCO3 (22-26) mmol/L ABG O2 Saturation ABG Base Excess (-2.0-2.0) mmol/ L Wesley Test A-a O2 Gradient (5-10) mmHg Hematocrit (42-52) % Hgb O2 Saturation (95-100) % Carboxyhemoglobin (0.4-20.1) %THgb Methemoglobin (0.4-1.5) % Total Hemoglobin (14-18) g/dL Sodium (131-143) mmol/L Potassium (3.5-5.0) mmol/L Glucose (70-115) mg/dL Ionized Calcium (1.1-1.4) mmol/L O2 Delivery Device FiO2 % Associate Professor Of Pathology ID Chloride (98-107) mmol/L Carbon Dioxide (22-29) mmol/L Anion Gap (5-19) BUN (6-20) mg/dL Creatinine (0.7-1.2) mg/dL GFR Calculation (90-130) mL/min Estimat Average Gl ucose Hemoglobin A1c (4.0-6.0) % Calculated Osmolal ity (285-295) mOsm/k g Lactate (0.5-2.2) mmol/L Calcium (8.5-10.5) mg/dL Total Bilirubin (0.15-1.2) mg/dL AST (0-40) U/L ALT (0-41) U/L Alkaline Phosphata se (40-130) IU/L Lactate Dehydrogen ase (135-225) U/L Troponin T Baselin e (0-15) ng/L Troponin T 120 Min nondalton 24.84 H (0-15) ng/L Delta Troponin T 1.84 (0-10) ABS# Total Protein (6.6-8.7) g/dL Albumin (3.5-5.2) g/dL Globulin (1.3-4.6) g/dL Procalcitonin (0-0.5) ng/mL Urine Color (Yellow) Urine Appearance (CLEAR) Urine pH (5-7) Ur Specific Gravit y (1.005-1.030) Urine Protein (Negative) Urine Glucose (UA) (Normal) Urine Ketones (Negative) Urine Blood (Negative) Urine Nitrate (Negative) Urine Bilirubin (NEGATIVE) Urine Urobilinogen (Negative) mg/dL Ur Leukocyte Leanna ase (Negative) Serum Ketones (Negative) Discharge Plan Discharge Patient Disposition: Admitted As Inpatient Admit Provider: Leoncio Saenz Clinical Impression: Sepsis Qualifiers: Sepsis type: sepsis due to unspecified organism Sepsis acute organ dysfunction status: unspecified Qualified Code(s): A41.9 - Sepsis, unspecified organism Cellulitis Qualifiers: Site of cellulitis: extremity Site of cellulitis of extremity: lower extremity Laterality: right Qualified Code(s): L03.115 - Cellulitis of right lower limb Closed dislocation of foot Qualifiers: Encounter type: initial encounter Laterality: right Qualified Code(s): S93.304A - Unspecified dislocation of right foot, initial encounter Condition: Stable Discharge Date/Time: 11/28/19 23:41 Sign Out Sign Out Data: Patient Sign Out occurred on 11/28/19 at 18:20. Patient's care was discussed, and care was transferred from David Lange DO to Mimi Whitfield. Sign Out Comment: Sepsis labs and imaging pending Last updated by David Lange DO at 11/28/19 18:13 Coding Level of Care Code ED Automotive Glass Mechanic for Chg Fwd Exam Comprehensive
--- NOTE | 2019-11-28 18:06 | USR_ITS ---
PROCEDURE INFORMATION: Exam: US Duplex Right Lower Extremity Veins, Limited Exam date and time: 11/28/2019 6:18 PM Age: 49 years old Clinical indication: Pain; Foot; Right; Additional info: Leg edema TECHNIQUE: Imaging protocol: Real-time Duplex ultrasound of the Right Lower Extremity with 2-D johns scale, color Doppler flow and spectral waveform analysis with image documentation. Limited exam was focused on the right lower extremity veins. COMPARISON: No relevant prior studies available. FINDINGS: Right deep veins: Unremarkable. The common femoral, femoral, proximal profunda femoral and popliteal veins are patent without thrombus. Normal Doppler waveforms. Normal compressibility and/or augmentation response. Right superficial veins: Unremarkable. Saphenofemoral junction is patent without thrombus. Soft tissues: Unremarkable. US/[place] [id number] IMPRESSION: No evidence of deep vein thrombosis.
--- NOTE | 2019-11-28 18:07 | ECG_ITS ---
Measurements Intervals [place] Rate: 134 P: 60 UT: 148 QRS: -59 QRSD: 110 T: 50 QT: 297 QTc: 444 SINUS TACHYCARDIA INDETERMINATE AXIS LOW QRS VOLTAGE IN PRECORDIAL LEADS [QRS DEFLECTION < 1.0 mV IN CHEST LEADS] INCOMPLETE RIGHT BUNDLE BRANCH BLOCK [90+ ms QRS DURATION, TERMINAL R IN V1 LEFT ANTERIOR FASCICULAR BLOCK [QRS AXIS <= -45, QR IN I, RS IN II] POSSIBLE ANTERIOR MYOCARDIAL INFARCTION , OF INDETERMINATE AGE [30 ms Q WAVE IN V3/V4, OR R < 0.2 mV IN V4] PROBABLE INFERIOR MYOCARDIAL INFARCTION , OF INDETERMINATE AGE [35 ms Q WAVE IN INTERPRETATION BASED ON A DEFAULT AGE OF 40 YEARS Compared to ECG 09/29/2017 19:21:23 Incomplete right bundle-branch block now present Myocardial infarct finding still present Electronically Signed On 11-29-2019 6:59:02 CDT by Иван Nunes M.D. [id number]
[2019-11-28 18:25] LABS: ABG PCO2 42.1 mmHg (35-45); ABG PH Result 7.46 (7.35-7.45); Arterial Blood Gas Hematocrit 46.4 % (42-52); Base Excess ABG 5.3 mmol/L (-2.0-2.0); Blood Gas Allen Test Pos; Blood Gas Sample Site Radial, left; Blood Gas Sample Type Arterial; Carboxyhemoglobin 5.5 %THgb (0.4-20.1); HCO3 ABG 29.8 mmol/L (22-26); Ionized Calcium Level - ABG 1.2 mmol/L (1.1-1.4); Methemoglobin 0.9 % (0.4-1.5); Oxygen Saturation ABG 91.8; PO2 ABG 54.4 mmHg (80.0-100.0); Potassium Level - ABG 4.3 mmol/L (3.5-5.0)
[2019-11-28 18:27] LABS: Basophils # 0.1 10^3/uL (0.0-0.1); Basophils % 0.3 %; Eosinophils % 0.2 %; Hematocrit 46.9 % (42.0-52.0); Hemoglobin 14.7 g/dL (11.7-16.6); Mean Corpuscular HGB Conc 31.3 g/dL (30.0-36.0); Mean Corpuscular Hemoglobin 27.4 pg (28.0-34.0); Mean Corpuscular Volume 87.3 fL (80-94); Mean Platelet Volume 10.8 fL (7.4-10.4); Monocytes # 0.7 10^3/uL (0.2-0.9); Monocytes % 4.2 %; Neutrophils # 15.5 10^3/uL (1.8-7.7); Nucleated Red Blood Cells % 0 %; Platelet Count 333 10^3/cmm (130-400); Red Blood Count 5.37 10^6/uL (4.1-5.3); Red Cell Distribution Width 12.9 % (12.1-15.1); White Blood Count 17.5 10^3/uL (4.0-10.0)
[2019-11-28] MEDS: ondansetron 2 mg/ML SDV 2 mL 4 MG IVP (18:36)
[2019-11-28] MEDS: morphine 4 mg/mL SDV 1 mL IVP (18:37)
[2019-11-28 18:48] LABS: Alanine Aminotransferase 29 U/L (0-41); Albumin Level 3.6 g/dL (3.5-5.2); Alkaline Phosphatase 153 IU/L (40-130); Anion Gap 18.6 (5-19); Aspartate Amino Transferase 31 U/L (0-40); Blood Urea Nitrogen 13 mg/dL (6-20); Carbon Dioxide 25 mmol/L (22-29); Chloride 91 mmol/L (98-107); Globulin 3.8 g/dL (1.3-4.6); Glomerular Filtration Rate 120.4 mL/min (90-130); Glucose 386 mg/dL (65-115); Osmolality Calculated 282 mOsm/kg (285-295); Potassium 4.6 mmol/L (3.5-5.1); Sodium 130 mmol/L (136-145); Total Bilirubin 0.4 mg/dL (0.15-1.2); Total Protein 7.4 g/dL (6.6-8.7)
[2019-11-28 18:49] LABS: Troponin(5th) Baseline 23 ng/L (0-15)
--- NOTE | 2019-11-28 18:54 | PC.NURSE ---
Ct unable to perform imaging on patient
[2019-11-28 18:59] LABS: Ketone (Acetest) Serum Negative (Negative)
--- NOTE | 2019-11-28 19:09 | PC.NURSE ---
report received from Roberto, Local Owner Operator Truck Driver, and care transferred to JAVIER Puga
--- NOTE | 2019-11-28 20:07 | ECG_ITS ---
Measurements Intervals [place] Rate: 129 P: 47 ME: 157 QRS: -34 QRSD: 108 T: 45 QT: 305 QTc: 447 SINUS TACHYCARDIA LEFT AXIS DEVIATION [QRS AXIS < -30] LOW QRS VOLTAGE IN PRECORDIAL LEADS [QRS DEFLECTION < 1.0 mV IN CHEST LEADS] POSSIBLE ANTERIOR MYOCARDIAL INFARCTION , OF INDETERMINATE AGE [30 ms Q WAVE IN V3/V4, OR R < 0.2 mV IN V4] POSSIBLE INFERIOR MYOCARDIAL INFARCTION , OF INDETERMINATE AGE [30 ms Q WAVE IN INTERPRETATION BASED ON A DEFAULT AGE OF 40 YEARS Compared to ECG 09/29/2017 19:21:23 Left-axis deviation now present Low QRS voltage now present Left anterior fascicular block no longer present Myocardial infarct finding still present Electronically Signed On 11-29-2019 7:01:30 CDT by Иван Nunes M.D. [id number]
[2019-11-28 20:14] LABS: Add Urine Microscopic? NO
[2019-11-28 20:21] LABS: Urine Appearance Clear (CLEAR); Urine Color Yellow (Yellow)
[2019-11-28 20:22] LABS: Bilirubin Urine Neg (NEGATIVE); Blood Urine Neg (Negative); Glucose Urine UA 4+ (Normal); Ketones Urine Negative (Negative); Leukocyte Esterase Urine Negative (Negative); Nitrate Urine Negative (Negative); Protein Urine Neg (Negative); Specific Gravity, Urine 1.015 (1.005-1.030); Urobilinogen Urine Norm (Negative); pH Urine 5 (5-7)
--- NOTE | 2019-11-28 20:28 | PM.HP ---
Providers/Chief Complaint Primary Care Provider: Oziel Dugan NP Chief Complaint: wound on foot/feet History of Present Illness Bennie Ho is a 49 year old male who has poorly controlled diabetes, hypertension, sleep apnea, morbid obesity recurrent skin abscesses mostly at the site of skin friction coming in today with worsening right foot swelling. Patient is stating that about 4 weeks ago he noticed a popping sensation underneath his right foot when he was in the parking lot of [employer], normally he does not feel much in his feet bilaterally because of diabetic neuropathy, he started noticing that his right foot was swelling gradually, he was seen in the ER initially and was prescribed Keflex, because of worsening swelling and redness, on second visit in the ER due to worsening redness he was started on Bactrim. While he was on Bactrim he went to a river, where he scraped his foot against something, there were a couple of snakes in the periphery but no snake bites, he noticed a small blister after this incident at the sole of his right foot. This blister was getting worse and was draining purulent discharge, he was seen by his primary care physician who started him on clindamycin. Today he started experiencing nausea, fever, generalized malaise, he decided to come to the ED for further evaluation, he is due to see wound care for skin debridement. Diagnosis in the ER revealed sepsis secondary to worsening purulent cellulitis of right foot, foot x-ray is not showing any gas formation, no crepitation on clinical exam, podiatry has been consulted, He has been started on vancomycin Zosyn and clindamycin Blood cultures obtained Not able to obtain CT of his foot because of BMI Hyperglycemia without ketones or acidosis Review of Systems Const: Reports: fever(s), chills, body aches and fatigue Eyes: Denies: change in vision ENMT: Denies: throat pain Card: Denies: chest pain Resp: Denies: dyspnea GI: Reports: nausea and bloating; Denies: abdominal pain or vomiting : Denies: flank pain Musc: Denies: neck pain Skin/Breast: Reports: rash, skin tenderness, skin swelling, new lesions and non-healing lesions Neuro: Denies: headache(s) Psych: Denies: anxiety Endo: Reports: polyuria Edgar/Lymph: Denies: easy bruising All/Imm: Denies: urticaria Medications/Allergies Home Medications Medication Instructions Recorded Confirmed Last Taken Type dulaglutide [Trulicity] 1.5 mg SUBCUT Q7D 11/14/19 11/28/19 11/21/19 History insulin NPH and regular human See Rx Instructions .ROUTE .COMPLEX 11/14/19 11/28/19 11/28/19 History [Novolin 70/30 U-100 Insulin] insulin glargine [Lantus Solostar 10 unit SUBCUT DAILY 11/14/19 11/28/19 11/28/19 History U-100 Insulin] lisinopril 20 mg PO DAILY 11/14/19 11/28/19 11/28/19 History aspirin 81 mg PO DAILY 11/28/19 11/28/19 11/28/19 History clindamycin HCl 300 mg PO TID 11/28/19 11/28/19 11/28/19 History Allergies Allergy/AdvReac Type Severity Reaction Status Date / Time No Known Allergies Allergy Verified 11/28/19 17:33 PFSH Acute PFSH: Medical History Chronic back pain Diabetes mellitus GERD (gastroesophageal reflux disease) Hypertension Morbid obesity Ptosis of eyelid, right Recurrent infection of skin Sleep apnea Smoker Testicular abscess Surgical History History of incision and drainage 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 S/P right knee arthroscopy Family History Other CAD (coronary artery disease) Diabetes Social History (Updated 11/28/19 @ 23:32 by Leoncio Saenz MD) Smoking and tobacco status: heavy tobacco smoker cigarettes [ Other cigarette details: 2 packs/day ] Alcohol intake: never Substance/Drug Use: never Household members: significant other Housing: House Vitals/I&O/Wt Last Vital Signs Temp 100.3 F H 11/28/19 17:26 Pulse 132 H 11/28/19 20:04 Resp 18 11/28/19 20:04 BP 162/62 11/28/19 19:25 Pulse Ox 97 11/28/19 20:04 Weight last 48 hrs Weight 192.777 kg Physical Exam Narrative: EXAM NARRATIVE: Head to toe examination Morbidly obese male in semi-holt position Hypertensive, febrile Tachycardia S1-S2 no signs of heart Hyperemia of lower back no satellite Cushingoid Abdomen soft, distended, bloated, bowel sounds present, nontender Bowel sounds Clear to auscultation Neurologically nonfocal exam Insensate state of lower extremities bilaterally Right foot with open wound exposed fat tissue, granulation tissue with mild purulent border, hyperemia and cellulitis with edema Without vascular compromise Skin is indurated No crepitation Left foot is normal No scrotal abscess Data : 11/28/19 18:17 11/28/19 18:17 Micro: Microbiology 11/28/19 18:19 Blood Culture - Preliminary Blood SPECIMEN COLLECTED 11/28/19 18:17 Blood Culture - Preliminary Blood SPECIMEN COLLECTED A&P Assessment and plan (1) Sepsis: Sepsis criteria met with fever, tachycardia, leukocytosis Sources right foot purulent cellulitis with concern for osteomyelitis No active signs of necrotizing fascia My concern is waterborne microorganisms such as hydrophilia aeromonas, Mycobacterium marinum Would cover him with vancomycin and Zosyn and for toxin suppression with clindamycin Blood cultures obtained Status: Acute (2) Subluxation of foot, acquired: Charcot foot, worsening cellulitis of diabetic foot Podiatry consult With this active sepsis I do not think he will be a candidate for immediate intervention I would continue his antibiotics, diet and DVT prophylaxis We had a lengthy discussion regarding worsening of cellulitis, osteomyelitis, bacteremia, risk of amputation, septic shock, questions were answered to the satisfaction Status: Acute (3) Poorly controlled diabetes mellitus: Hyperglycemia without ketones does not meet DKA criteria, would keep him on moderate dose sliding scale, start him on fluid Check A1c level 2018 A1c level was around 12.8 Status: Acute (4) Smoker: Counseled on smoking cessation and benefits on his health, I also explained potential complications of delayed wound healing He stopped taking Wellbutrin Status: Acute (5) Morbid obesity: Status: Acute Additional A&P Information DVT prophylaxis Would continue him on Lovenox for now, highly doubt surgical intervention in next 24-hour Consistent carbohydrate diet Attestations Medical Necessity Statement*: Anticipating stay in the hospital cross more than 2 midnights needs IV antibiotics and potential surgical intervention Time Spent in Patient Care: 60mins Coding Level of Care Code Acute Retail Marketing Executive for [facility] Diagnoses Sepsis A41.9 Subluxation of foot, acquired S93.303A Poorly controlled diabetes mellitus E11.65 Smoker F17.200 Morbid obesity E66.01
[2019-11-28 20:45] LABS: Troponin 5 2HR 24.84 ng/L (0-15); Troponin 5 2HR Delta 1.84 ABS# (0-10)
[2019-11-28] MEDS: piperacillin-tazobactam 3.375 GM in sodium chloride 0.9% (plus) 50 ML IV (21:19)
[2019-11-29] VITALS (20 sets, daily range): BP systolic 123–191; BP diastolic 54–100; PULSE 105–120; RESP 12–25; TEMP 36.9–37.2; O2SAT 92–97
--- NOTE | 2019-11-29 | PC.NURSE ---
Received report from JAVIER [place]. Patient received from JAVIER Puga. Patient in no apparent distress. Transferred to ICU bed. Orders acknowledged and assessment done. Patient resting in bed. Call light in place. Bed in lowest position.
--- NOTE | 2019-11-29 00:07 | ECG_ITS ---
Measurements Intervals [place] Rate: 118 P: PA: 0 QRS: -6 QRSD: 118 T: 47 QT: 330 QTc: 463 Sinus tachycardia INDETERMINATE AXIS LOW QRS VOLTAGE IN PRECORDIAL LEADS [QRS DEFLECTION < 1.0 mV IN CHEST LEADS] INCOMPLETE RIGHT BUNDLE BRANCH BLOCK [90+ ms QRS DURATION, TERMINAL R IN V1/V2, 40+ ms S IN I/aVL/V4/V5/V6] POSSIBLE ANTERIOR MYOCARDIAL INFARCTION [30 ms Q WAVE IN V3/V4, OR R < 0.2 mV IN V4], OF INDETERMINATE AGE INFERIOR MYOCARDIAL INFARCTION [40+ ms Q WAVE AND/OR ST/T ABNORMALITY IN II/aVF], OF INDETERMINATE AGE Compared to ECG 09/29/2017 19:21:23 Indeterminate axis now present Low QRS voltage now present Incomplete right bundle-branch block now present Left anterior fascicular block no longer present Myocardial infarct finding still present Electronically Signed On 11-29-2019 7:02:46 CDT by Иван Nunes M.D. [id number]
--- NOTE | 2019-11-29 00:27 | PC.PHAR ---
Vancomycin is dosed at 2000mg IVPB every 8 hours to produce a predicted trough level of 10.82 (population based pharmacokinetic analysis). A trough level has been ordered from the lab to be obtained before the fourth dose to confirm and adjust if needed. The Zosyn is dosed at 3.375gm IVPB every 8 hours, each dose to be infused over 4 hours per extended infusion protocol.
[2019-11-29 00:57] LABS: Troponin 5 6HR 26.92 ng/L (0-15); Troponin 5 6HR Delta 3.92 ng/L (0-12)
[2019-11-29] MEDS: enoxaparin 40 mg/0.4 mL Syringe SUBCUT ×2 (01:12→22:04)
[2019-11-29] MEDS: clindamycin 150 mg Capsule 300 MG PO ×4 (01:14→20:10)
[2019-11-29] MEDS: sodium chloride 0.9% 1,000 ML 75 ML IV (01:15)
[2019-11-29 01:19] LABS: Glucose Point of Care 359 mg/dL (70-110)
[2019-11-29 01:22] LABS: Estmated Average Glucose 306; Hemoglobin A1C 12.3 % (4.0-6.0)
[2019-11-29] MEDS: acetaminophen 325 mg Tablet 650 MG PO ×3 (01:26→20:10)
[2019-11-29 02:36] LABS: Procalcitonin 0.36 ng/mL (0-0.5)
[2019-11-29 03:11] LABS: Lactate Dehydrogenase 185 U/L (135-225)
[2019-11-29] MEDS: morphine 4 mg/mL SDV 1 mL IVP ×2 (04:27→09:15)
[2019-11-29 05:33] LABS: Basophils % 0.2 %; Eosinophils # 0.1 10^3/uL (0.0-0.8); Eosinophils % 0.3 %; Hematocrit 42.2 % (42.0-52.0); Hemoglobin 13.2 g/dL (11.7-16.6); Lymphocytes # 2.2 10^3/uL (0.8-4.8); Lymphocytes % 12.4 %; Mean Corpuscular HGB Conc 31.3 g/dL (30.0-36.0); Mean Corpuscular Hemoglobin 27.4 pg (28.0-34.0); Mean Corpuscular Volume 87.7 fL (80-94); Mean Platelet Volume 10.8 fL (7.4-10.4); Monocytes # 1.3 10^3/uL (0.2-0.9); Monocytes % 7.5 %; Neutrophils # 14.2 10^3/uL (1.8-7.7); Neutrophils % 79.2 %; Nucleated Red Blood Cells % 0 %; Platelet Count 267 10^3/cmm (130-400); Red Blood Count 4.81 10^6/uL (4.1-5.3); Red Cell Distribution Width 12.9 % (12.1-15.1); White Blood Count 17.9 10^3/uL (4.0-10.0)
[2019-11-29 05:54] LABS: Anion Gap 14.1 (5-19); Blood Urea Nitrogen 11 mg/dL (6-20); Calcium 9.5 mg/dL (8.5-10.5); Carbon Dioxide 28 mmol/L (22-29); Chloride 96 mmol/L (98-107); Glomerular Filtration Rate 103.2 mL/min (90-130); Glucose 311 mg/dL (65-115); Osmolality Calculated 286 mOsm/kg (285-295); Potassium 4.1 mmol/L (3.5-5.1); Sodium 134 mmol/L (136-145)
[2019-11-29] MEDS: lisinopril 20 mg Tablet PO (06:17)
--- NOTE | 2019-11-29 06:21 | PC.NURSE ---
Patient's blood pressure has been increasing over the last hour. It is currently 191/98. Notified Dr. Saenz who restarted patient's home Lisinopril. Will continue to monitor.
[2019-11-29 06:39] LABS: C Reactive Protein 162.9 mg/L (0.0-4.9)
--- NOTE | 2019-11-29 07:08 | P.CONIM_ITS ---
Providers/Reason For Consult Consulting Physican/Specialty*: Rolando Holcomb D.P.M. Reason for Consult*: Acute Charcot right foot with wound. Attending Physician: Leoncio Saenz MD Primary Care Provider: Oziel Dugan NP History of Present Illness History of Present Illness Bennie Ho is a 49 year old poorly controlled diabetic male A1c 12.3 taken 11/28/2019 with a one-month history of right foot pain and redness. Multiple visits to the emergency room over the past month. His first visit was 11/02/2019 he reports having stepped out of his car at the [facility] parking lot and heard a loud pop and felt some pain to his right foot states he was wearing sandals he was evaluated and discharge on cephalexin and naproxen with primary care follow- up. He returned approximately 2 weeks later this was November 14, 2019 to the emergency department with complaints of unimproved redness with continued swelling and warmth he states that he did take his antibiotics as prescribed. He was discharged on oral Bactrim for cellulitis of the right lower extremity at that time. He presented to the emergency department yesterday 11/28/2019 afebrile with chills and decreased appetite denied any improvement in redness and pain while taking cephalexin or Bactrim. X-ray significant for grossly dislocated midfoot the forefoot is dorsally dislocated on the midfoot. He was admitted to the ICU for sepsis. Patient endorses increased pain and difficulty walking. Patient is morbidly obese he weighs approximately 425 pounds. Review of Systems Const: Reports: fever(s), chills, body aches and fatigue Eyes: Denies: change in vision ENMT: Denies: throat pain Card: Denies: chest pain Resp: Denies: dyspnea GI: Reports: nausea and bloating; Denies: abdominal pain or vomiting : Denies: flank pain Musc: Reports: joint pain, joint stiffness and deformity; Denies: neck pain Skin/Breast: Reports: rash, erythema, skin tenderness, skin swelling, sores, new lesions, non-healing lesions and nail changes Neuro: Reports: numbness in extremities, sensory changes and difficulty walking; Denies: headache(s) Psych: Denies: anxiety Endo: Reports: polyuria Edgar/Lymph: Denies: easy bruising All/Imm: Denies: urticaria Meds/Allergies Home Medications and Allergies Home Medications Medication Instructions Recorded Confirmed Last Taken Type dulaglutide [Trulicity] 1.5 mg SUBCUT Q7D 11/14/19 11/28/19 11/21/19 History insulin NPH and regular human See Rx Instructions .ROUTE .COMPLEX 11/14/19 11/28/19 11/28/19 History [Novolin 70/30 U-100 Insulin] insulin glargine [Lantus Solostar 10 unit SUBCUT DAILY 11/14/19 11/28/19 11/28/19 History U-100 Insulin] lisinopril 20 mg PO DAILY 11/14/19 11/28/19 11/28/19 History aspirin 81 mg PO DAILY 11/28/19 11/28/19 11/28/19 History clindamycin HCl 300 mg PO TID 11/28/19 11/28/19 11/28/19 History Allergies Allergy/AdvReac Type Severity Reaction Status Date / Time No Known Allergies Allergy Verified 11/28/19 17:33 Current Medications Current Medications Generic Name Dose Route Start Last Admin Trade Name Freq PRN Reason Stop Dose Admin Acetaminophen 650 mg 11/28/19 23:56 11/29/19 01:26 Tylenol PO 650 mg Q4H PRN Administration MILD PAIN OR INCREASE TEMP Clindamycin HCl 300 mg 11/28/19 23:56 11/29/19 01:14 Cleocin PO 300 mg TID GONSALO Administration Protocol Enoxaparin Sodium 40 mg 11/28/19 23:56 11/29/19 01:12 Lovenox SUBCUT 40 mg Q24H GONSALO Administration Vancomycin HCl 2,000 mg/ 500 mls @ 250 mls/hr 11/29/19 01:00 11/29/19 03:49 Sodium Chloride IV Infused Q8H GONSALO Infusion Protocol As Directed Sodium Chloride 1,000 mls @ 75 mls/hr 11/28/19 23:56 11/29/19 01:15 Sodium Chloride 0.9% IV 75 mls/hr .[id number] GONSALO Administration Insulin Aspart 0 unit 11/28/19 23:56 11/29/19 01:26 Novolog SUBCUT 14 unit WM&BEDTIME GONSALO Administration Protocol Lisinopril 20 mg 11/29/19 06:10 06/10/20 06:17 Prinivil PO 20 mg DAILY GONSALO Administration Morphine Sulfate 4 mg 11/28/19 23:56 11/29/19 04:27 Morphine IVP 4 mg Q4H PRN Administration SEVERE PAIN PFSH Acute PFSH: Medical History Chronic back pain Diabetes mellitus GERD (gastroesophageal reflux disease) Hypertension Morbid obesity Ptosis of eyelid, right Recurrent infection of skin Sleep apnea Smoker Testicular abscess Surgical History History of incision and drainage 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 S/P right knee arthroscopy Family History Other CAD (coronary artery disease) Diabetes Social History Smoking and tobacco status: heavy tobacco smoker cigarettes [ Other cigarette details: 2 packs/day ] Alcohol intake: never Substance/Drug Use: never Household members: significant other Housing: House Vitals/I&O/Wt Last Vital Signs Temp 98.4 F 11/29/19 03:00 Pulse 115 H 11/29/19 06:00 Resp 18 11/29/19 06:00 BP 191/98 11/29/19 06:00 Pulse Ox 96 11/29/19 06:00 11/28/19 11/29/19 11/29/19 22:59 06:59 14:59 Intake Total 300 / 300 500 / 800 Output Total 2600 / 2600 Balance 300 / 300 -2100 / -1800 Weight last 48 hrs Weight 425 lb Physical Exam Narrative: EXAM NARRATIVE: GENERAL: Patient is alert and oriented ?3 and in no acute distress. The following is a focused bilateral lower extremity exam. VASCULAR: Dorsalis pedis and posterior tibial arteries palpable faintly likely secondary to edema. Capillary refill time less than 3 seconds to the distal hallux bilaterally. Calf is supple and nontender proximally and distally. Diminished hair growth bilateral feet. Significant edema to the right foot, it is red hot and swollen. NEUROLOGICAL: Protective sensation intact 0/10 sites, tested with [place] Bertin monofilament to bilateral feet. DERMATOLOGICAL: Full-thickness wound right plantar midfoot does not probe to bone there truly an area of eschar without fluctuance or purulence fibro- granular base with hyperkeratotic rim. Erythema at the plantar right midfoot coursing proximally up toward the medial malleolus. MUSCULOSKELETAL: Gross instability of the right forefoot to rear foot. There is hypermobility at the Lisfranc joint. Patient able to wiggle toes on command. No pain with right posterior calf squeeze. No pain at the medial or lateral malleolus. No pain at the right calcaneus. Data Micro: Micro: Microbiology 11/28/19 18:19 Blood Culture - Pr eliminary Blood SPECIMEN [facility] 11/28/19 18:17 Blood Culture - Pr eliminary Blood SPECIMEN [facility] A&P Assessment and plan (1) Type 2 diabetes mellitus with Charcot's joint of right foot: Status: Acute (2) Lisfranc dislocation: Status: Acute Qualifiers: Encounter type: initial encounter Laterality: right Qualified Code(s): S93.324A - Dislocation of tarsometatarsal joint of right foot, initial encounter (3) Morbid obesity: Status: Acute (4) Cellulitis: Status: Acute Qualifiers: Laterality: left Site of cellulitis: extremity Site of cellulitis of extremity: lower extremity Qualified Code(s): L03.116 - Cellulitis of left lower limb (5) Sepsis: Status: Acute Qualifiers: Sepsis acute organ dysfunction status: unspecified Sepsis type: sepsis due to unspecified organism Qualified Code(s): A41.9 - Sepsis, unspecified organism Patient examined and evaluated, findings and treatment options discussed with patient at length. Right plantar foot wound was sharply debrided excisional nature down to and including subcutaneous tissue. No zuri purulence appreciated, wound does not probe to bone at this time. Wound was flushed with saline solution, aerobic and anaerobic wound cultures were taken and sent to microbiology for culture and sensitivity. Patient has a grossly dislocated Lisfranc joint with instability this is secondary to Charcot arthropathy. Advised patient to be strict nonweightbearing at all times to his right foot. White blood count this morning 17.9, ESR 77, hemoglobin A1c 12.3. Per my read right foot x-ray significant for complete tarsometatarsal dislocation dorsally and proximally on tarsometatarsal joints 2 through 5 right foot with dorsal and proximal subluxation of the first metatarsal and medial cuneiform. Plantar dislocation of navicular, intermediate, lateral cuneiforms and cuboid. I do not appreciate any erosions or osteolysis indicative of osteomyelitis, no soft tissue emphysema, no foreign body. Recommendations: -Strict nonweightbearing to the right lower extremity. -Recommending MRI right foot with contrast to rule out early osteomyelitis, rule out abscess. -Recommend noninvasive arterial studies to include ankle-brachial index/toe brachial index and pulse volume recordings -No immediate plans for surgical intervention secondary to sepsis and poor soft tissue envelope with significant edema. I attempted closed reduction of his right foot dislocation in the ICU, patient was unable to tolerate this. Consult Attestations Medical Necessity Statement: Sepsis, diabetic foot infection, acute Charcot Coding Level of Care Code Acute Cytotechnologist/Cytology Supervisor for [facility] Diagnoses Type 2 diabetes mellitus with Charcot's joint of right foot E11.610 Lisfranc dislocation S93.324A Encounter type: initial encounter Laterality: right Morbid obesity E66.01 Cellulitis L03.116 Laterality: left Site of cellulitis: extremity Site of cellulitis of extremity: lower extremity Sepsis A41.9 Sepsis acute organ dysfunction status: unspecified Sepsis type: sepsis due to unspecified organism
[2019-11-29 07:29] LABS: Erythrocyte Sedimentation Rate 77 mm/hr (0-10)
[2019-11-29 08:45] LABS: Glucose Point of Care 327 mg/dL (70-110)
--- NOTE | 2019-11-29 09:06 | P.PN_ITS ---
Subjective Subjective: Interval history: Chart reviewed, patient known to me from previous admission, case discussed with Dr. Holcomb, low grade temp overnight of 100.3 F, tachycardic, tachypneic, hypertensive. Leukocytosis persists. Will order MRI and arterial studies. Patient resting in bed, no apparent distress. Unable to do MRI due to weight limit. Discussed possibility of transfer which raegan laws was reluctant to pursue but did not outright refuse. Had a more extensive discussion with Dr. Holcomb reiterating complicated wound, need for multidisciplinary approach, patient's reluctance to amputation currently and his medical comorbidities. Medications: Reviewed: Yes Medication Review Details: Active Medications Generic Name Dose Route Start Last Admin Trade Name Freq PRN Reason Stop Dose Admin Acetaminophen 650 mg 11/28/19 23:56 11/29/19 01:26 Tylenol PO 650 mg Q4H PRN Administration MILD PAIN OR INCR EASE TEMP Aspirin 81 mg 11/29/19 09:00 Aspirin Ec PO DAILY GONSALO Clindamycin HCl 300 mg 11/28/19 23:56 11/29/19 01:14 Cleocin PO 300 mg TID GONSALO Administration Protocol Dextrose 25 ml 11/28/19 23:56 D50w IVP ONCE PRN hypoglycemia prot ocol Protocol Dextrose 50 ml 11/28/19 23:56 D50w IVP PRN PRN hypoglycemia prot ocol Protocol Enoxaparin Sodium 40 mg 11/28/19 23:56 11/29/19 01:12 Lovenox SUBCUT 40 mg Q24H GONSALO Administration Glucagon 1 mg 11/28/19 23:56 Glucagen IM ONCE PRN Adult Acute Hypog lycemia Prot. Protocol Vancomycin HCl 2,0 00 mg/ 500 mls @ 250 mls /hr 11/29/19 01:00 11/29/19 03:49 Sodium Chloride IV Infused Q8H GONSALO Infusion Protocol As Directed Piperacillin Sod/T azobactam 50 mls @ 12.5 mls /hr 11/29/19 10:00 Sod 3.375 gm/ So dium Chloride IV Q8H GONSALO Protocol As Directed Dextrose 500 mls @ 100 mls /hr 11/28/19 23:56 D5w IV ONCE PRN Adult Acute Hypog lycemia Prot Protocol Sodium Chloride 1,000 mls @ 75 ml s/hr 11/28/19 23:56 11/29/19 01:15 Sodium Chloride 0.9% IV 75 mls/hr .[id number] GONSALO Administration Insulin Aspart 0 unit 11/28/19 23:56 11/29/19 08:34 Novolog SUBCUT 12 unit WM&BEDTIME GONSALO Administration Protocol Insulin Glargine 10 unit 11/29/19 21:00 Lantus SUBCUT BEDTIME GONSALO Lisinopril 20 mg 11/29/19 06:10 11/29/19 06:17 Prinivil PO 20 mg DAILY GONSALO Administration Morphine Sulfate 4 mg 11/28/19 23:56 11/29/19 04:27 Morphine IVP 4 mg Q4H PRN Administration SEVERE PAIN Ondansetron HCl 4 mg 11/28/19 23:56 Zofran IVP Q6H PRN NAUSEA AND VOMITI NG No Known Allergies Allergy (Verified 11/28/19 17:33) Vitals/I&O/Wt Last Vital Signs Temp 98.4 F 11/29/19 03:00 Pulse 117 H 11/29/19 08:00 Resp 20 H 11/29/19 08:00 BP 155/84 11/29/19 08:00 Pulse Ox 94 11/29/19 08:00 11/28/19 11/29/19 11/29/19 22:59 06:59 14:59 Intake Total 300 / 300 500 / 800 120 / 120 Output Total 2600 / 2600 Balance 300 / 300 -2100 / -1800 120 / 120 Weight last 48 hrs Weight 192.777 kg Physical Exam Const: COMMON NORMALS: no acute distress, patient oriented x3 and alert GENERAL APPEARANCE: cooperative and comfortable NUTRITIONAL APPEARANCE: obese morbidly obese ORIENTATION/CONSCIOUSNESS: Yes awake HENMT: COMMON NORMALS: normocephalic, atraumatic, hearing grossly normal bilaterally and moist oral mucous membranes HEAD & SCALP: normocephalic and atraumatic Eye: COMMON NORMALS: Equal, round and reactive pupils present, EOMs intact bilaterally and conjunctivae normal CONJUNCTIVA: Yes conjunctivae normal PUPIL: Yes Equal, round and reactive pupils present Neck/C-Spine: COMMON NORMALS: full ROM GENERAL: Yes normal visual inspection and Yes trachea midline OTHER: -short, thick neck Chest: CHEST: Yes Symmetrical chest wall rise Resp: COMMON NORMALS: normal respiratory effort, No retractions, No use of accessory muscles and clear to auscultation bilaterally EFFORT & INSPECTION: Yes able to speak in complete sentences, Yes symmetric chest movement and No tachypneic AUSCULTATION: clear to auscultation bilaterally OTHER: -on 2 L NC -Auscultation limited by body habitus Cardio: COMMON NORMALS: regular rhythm, S1 normal heart sound present, S2 normal heart sound present and No murmurs present (Cardio) RATE: tachycardic RHYTHM: regular rhythm HEART SOUNDS: S1 normal heart sound present and S2 normal heart sound present OTHER: -Auscultation limited by body habitus GI: COMMON NORMALS: Normal to inspection, nondistended, normoactive bowel sounds present, Soft to palpation and non-tender PALPATION: Yes Soft to palpation Extremity: NARRATIVE EXTREMITY EXAM: -bulky dressing in place on RLE; some tenderness on palpation of R calf Neuro: COMMON NORMALS: patient oriented x3, moves all extremities, no focal motor deficits and no sensory deficits noted SENSORIUM/ORIENTATION: Yes alert Psych: COMMON NORMALS: mental status grossly normal, Normal thought process present, cooperative and speech normal SPEECH: Yes normal speech MOOD & AFFECT: Yes Flat affect present THOUGHT PROCESS: Normal thought process present Skin: COMMON NORMALS: no rashes or lesions noted, no jaundice, no petechiae and no mottling NARRATIVE SKIN EXAM: -R foot wound; clean bulky dressing in place GENERAL SKIN EXAM: no rashes or lesions noted Data : 11/29/19 04:45 11/29/19 04:45 Micro: Microbiology 11/28/19 18:19 Blood Culture - Preliminary Blood SPECIMEN COLLECTED 11/28/19 18:17 Blood Culture - Preliminary Blood SPECIMEN COLLECTED A&P Assessment and plan (1) Cellulitis: -clinically has complicated cellulitis of R foot with underlying uncontrolled DM type II -has failed multiple oral antibiotics (Keflex, Bactrim, Clindamycin) -associated sepsis as evidenced by tachycardia, leukocytosis, fever; noted elevated inflammatory markers, tachypnea, -Podiatry consult by Dr. Holcomb appreciated; s/p bedside excisional debridement -imaging reviewed -order arterial studies; no CT or MRI due to body habitus. Venous duplex negative for DVT. Will try to get bone scan -on Zosyn, Vanc, Clindamycin; will need to monitor renal function with abx regimen, contrast study -on IVF hydration -f/u wound cx, blood cx -may need transfer to tertiary center due to complicated wound, underlying comorbidities, extent of surgical intervention required. Contacted [facility], declined transfer without confirmation of OM and formal ortho consult -may eventually need below-knee amputation which would need vascular surgery input Status: Acute Qualifiers: Laterality: right Site of cellulitis: extremity Site of cellulitis of extremity: lower extremity Qualified Code(s): L03.115 - Cellulitis of right lower limb (2) Sepsis: -as noted above -trend WBC Status: Acute Qualifiers: Sepsis acute organ dysfunction status: unspecified Sepsis type: sepsis due to unspecified organism Qualified Code(s): A41.9 - Sepsis, unspecified organism (3) 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 Holcomb -strict NWB on R foot -pain control as needed Status: Acute Qualifiers: Encounter type: initial encounter Laterality: right Qualified Code(s): S93.304A - Unspecified dislocation of right foot, initial encounter (5) Subluxation of foot, acquired: Status: Acute Qualifiers: Encounter type: initial encounter Laterality: right Qualified Code(s): S93.301A - Unspecified subluxation of right foot, initial encounter (6) Lisfranc dislocation: Status: Acute Qualifiers: Encounter type: initial encounter Laterality: right Qualified Code(s): S93.324A - Dislocation of tarsometatarsal joint of right foot, initial encounter (7) Hypertension: -hypertensive, continue to monitor vital signs -on Lisinopril; titrate as needed for optimal BP control Status: Chronic Qualifiers: Hypertension type: essential hypertension Qualified Code(s): I10 - Essential (primary) hypertension (8) Smoker: -heavy smoker, 2 PPD Status: Chronic (9) Morbid obesity: -BMI-59 kg/m2 Status: Chronic Additional A&P Information -FILOMENA; CPAP qhs -GI ppx with PPI -DVT ppx with Lovenox -Dispo: pending further workup -Code status: FULL code -ICU care due to sepsis and complicated R foot wound Attestations Medical Necessity Statement*: Patient requires hospitalization for continued IV antibiotic treatment for complicated cellulitis of right foot as well as foot dislocation pending further work-up. Time Spent in Patient Care: Greater than 35 minutes (>than 50% of time spent in counselling and/or direct pt care on unit) . 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
--- NOTE | 2019-11-29 09:07 | USCV_ITS ---
Bennie Ho Age: 49 Gender: M : 1970 Exam Date: 11/29/2019 14:27 Ordering Phys: Jennifer Hernandes MD Technologist: Letyt Bullock Exam Location: [facility] [place]_ Indication: FOOT WOUND Risk Factors: Previous Vascular Surgery: RIGHT LEFT BP: / BP: 142.0/ 0 Waveform Velocity (cm/s) Velocity (cm/s) Waveform Triphasic 103.8 Iliac Prox Triphasic 106.3 Iliac Mid Triphasic 100.0 Iliac Distal Triphasic SPLITTER MACHINE 103.8 Triphasic 97.5 SFA Prox Triphasic 57.9 SFA Mid Triphasic 65.9 SFA Dist Biphasic 38.6 POP Monophasic 84.9 ADMINISTRATIVE MANAGER Monophasic 102.5 DPA 1.0 KHADIJAH FINDINGS RT ADMINISTRATIVE MANAGER 120 RT DPA 140 CONCLUSIONS Normal resting KHADIJAH on the right side. Abnormal Doppler waveforms in the infrapopliteal vessels, may suggest non obstructive arterial disease Consider TBI or exercise KHADIJAH, to further evaluate, if clinically indicated Dr David Wright MD FACC (Electronically Signed) Final Date: 29 November 2019 19:26 S
[2019-11-29] MEDS: aspirin 81 mg EC Tablet PO (09:20)
[2019-11-29] MEDS: pantoprazole DR 40 mg Tablet PO (10:36)
[2019-11-29] MEDS: lactobacillus 1 Tablet 1 TAB PO ×3 (13:46→20:10)
[2019-11-29] MEDS: piperacillin-tazobactam 3.375 GM in sodium chloride 0.9% (plus) 50 ML IV ×2 (13:46→17:36)
--- NOTE | 2019-11-29 14:15 | PC.NURSE ---
1115 PT got patient up on edge of bed, pt became nauseated. Let patient set on edge until nausea went away, then ate lunch, then I helped him back into bed. No further c/o's.
--- NOTE | 2019-11-29 16:41 | PC.RESP ---
SMOKING CESSATION INFORMATION SENT TO PATIENT.
[2019-11-29 17:16] LABS: Glucose Point of Care 331 mg/dL (70-110)
[2019-11-29 17:16] LABS: Glucose Point of Care 453 mg/dL (70-110)
[2019-11-29 21:59] LABS: Glucose Point of Care 319 mg/dL (70-110)
[2019-11-29] MEDS: insulin glargine 100 units/1 mL 10 UNIT SUBCUT (22:03)
[2019-11-30] VITALS (14 sets, daily range): BP systolic 105–182; BP diastolic 69–100; PULSE 101–122; RESP 20; TEMP 36.9–37.6; O2SAT 91–97
[2019-11-30 00:53] LABS: Vancomycin Trough 16.6 ug/mL (10-15)
[2019-11-30] MEDS: piperacillin-tazobactam 3.375 GM in sodium chloride 0.9% (plus) 50 ML IV ×3 (03:34→17:09)
[2019-11-30 05:32] LABS: Basophils % 0.2 %; Eosinophils # 0.1 10^3/uL (0.0-0.8); Eosinophils % 0.4 %; Hematocrit 40.2 % (42.0-52.0); Hemoglobin 12.5 g/dL (11.7-16.6); Lymphocytes # 1.2 10^3/uL (0.8-4.8); Lymphocytes % 8.5 %; Mean Corpuscular HGB Conc 31.1 g/dL (30.0-36.0); Mean Corpuscular Hemoglobin 27.8 pg (28.0-34.0); Mean Corpuscular Volume 89.3 fL (80-94); Mean Platelet Volume 11.1 fL (7.4-10.4); Monocytes # 0.9 10^3/uL (0.2-0.9); Monocytes % 5.9 %; Neutrophils # 12.2 10^3/uL (1.8-7.7); Neutrophils % 84.6 %; Nucleated Red Blood Cells % 0 %; Platelet Count 243 10^3/cmm (130-400); Red Cell Distribution Width 12.9 % (12.1-15.1); White Blood Count 14.5 10^3/uL (4.0-10.0)
[2019-11-30 06:51] LABS: Anion Gap 17.5 (5-19); Blood Urea Nitrogen 9 mg/dL (6-20); Calcium 9.4 mg/dL (8.5-10.5); Carbon Dioxide 26 mmol/L (22-29); Chloride 94 mmol/L (98-107); Glomerular Filtration Rate 143.8 mL/min (90-130); Glucose 289 mg/dL (65-115); Osmolality Calculated 283 mOsm/kg (285-295); Potassium 4.5 mmol/L (3.5-5.1); Sodium 133 mmol/L (136-145)
[2019-11-30 08:01] LABS: Glucose Point of Care 312 mg/dL (70-110)
[2019-11-30] MEDS: sodium chloride 0.9% 1,000 ML 75 ML IV ×2 (08:19→08:23)
[2019-11-30] MEDS: lactobacillus 1 Tablet 1 TAB PO ×4 (08:21→20:50)
[2019-11-30] MEDS: lisinopril 20 mg Tablet PO (08:21)
[2019-11-30] MEDS: aspirin 81 mg EC Tablet PO (08:21)
[2019-11-30] MEDS: pantoprazole DR 40 mg Tablet PO (08:21)
[2019-11-30] MEDS: morphine 4 mg/mL SDV 1 mL IVP (08:24)
[2019-11-30] MEDS: clindamycin 150 mg Capsule 300 MG PO ×3 (09:25→20:49)
--- NOTE | 2019-11-30 09:25 | P.PN_ITS ---
Subjective Subjective: Interval history: BP better controlled, afebrile, had 1950 mL urine output overnight. Improved leukocytosis, accucheks reviewed. Case discussed with Dr. Richardson. Pending bone scan. Seen later in the afternoon, bone scan results reviewed, seems to be more agreeable to considering below-knee amputation but wants to discuss this further with his . Dr. Holcomb changed dressing earlier this morning at bedside. Medications: Reviewed: Yes Medication Review Details: Active Medications Generic Name Dose Route Start Last Admin Trade Name Freq PRN Reason Stop Dose Admin Acetaminophen 650 mg 11/28/19 23:56 11/29/19 20:10 Tylenol PO 650 mg Q4H PRN Administration MILD PAIN OR INCR EASE TEMP Aspirin 81 mg 11/29/19 09:00 11/30/19 08:21 Aspirin Ec PO 81 mg DAILY GONSALO Administration Clindamycin HCl 300 mg 11/28/19 23:56 11/29/19 20:10 Cleocin PO 300 mg TID GONSALO Administration Protocol Dextrose 25 ml 11/28/19 23:56 D50w IVP ONCE PRN hypoglycemia prot ocol Protocol Dextrose 50 ml 11/28/19 23:56 D50w IVP PRN PRN hypoglycemia prot ocol Protocol Enoxaparin Sodium 40 mg 11/28/19 23:56 11/29/19 22:04 Lovenox SUBCUT 40 mg Q24H GNOSALO Administration Glucagon 1 mg 11/28/19 23:56 Glucagen IM ONCE PRN Adult Acute Hypog lycemia Prot. Protocol Piperacillin Sod/T azobactam 50 mls @ 12.5 mls /hr 11/29/19 10:00 11/30/19 09:22 Sod 3.375 gm/ So dium Chloride IV 12.5 mls/hr Q8H GONSALO Administration Protocol As Directed Dextrose 500 mls @ 100 mls /hr 11/28/19 23:56 D5w IV ONCE PRN Adult Acute Hypog lycemia Prot Protocol Sodium Chloride 1,000 mls @ 75 ml s/hr 11/28/19 23:56 11/30/19 08:23 Sodium Chloride 0.9% IV 75 mls/hr .[id number] GONSALO Administration Vancomycin HCl 2,0 00 mg/ 500 mls @ 250 mls /hr 11/29/19 09:00 11/30/19 09:22 Sodium Chloride IV 260 mls/hr Q8H GONSALO Administration Protocol As Directed Insulin Aspart 0 unit 11/28/19 23:56 11/30/19 08:18 Novolog SUBCUT 12 unit WM&BEDTIME GONSALO Administration Protocol Insulin Glargine 10 unit 11/29/19 21:00 11/29/19 22:03 Lantus SUBCUT 10 unit BEDTIME GONSALO Administration Lactobacillus Acid ophilus 1 tab 11/29/19 13:00 11/30/19 08:21 Floranex PO 1 tab QID GONSALO Administration Lisinopril 20 mg 11/29/19 06:10 11/30/19 08:21 Prinivil PO 20 mg DAILY GONSALO Administration Morphine Sulfate 4 mg 11/28/19 23:56 11/30/19 08:24 Morphine IVP 4 mg Q4H PRN Administration SEVERE PAIN Ondansetron HCl 4 mg 11/28/19 23:56 Zofran IVP Q6H PRN NAUSEA AND VOMITI NG Pantoprazole Sodiu m 40 mg 11/29/19 09:30 11/30/19 08:21 Protonix PO 40 mg DAILY GONSALO Administration No Known Allergies Allergy (Verified 11/28/19 17:33) Vitals/I&O/Wt Last Vital Signs Temp 98.9 F 11/29/19 22:00 Pulse 115 H 11/30/19 08:07 Resp 20 H 11/30/19 08:24 BP 148/76 11/30/19 02:18 Pulse Ox 93 11/30/19 08:07 11/29/19 11/30/19 11/30/19 22:59 06:59 14:59 Intake Total 1317.917 / 3177.917 555 / 555 Output Total 1600 / 3100 1400 / 4500 Balance -282.083 / 77.917 -1400 / -1322.083 555 / 555 Weight last 48 hrs Weight 192.777 kg Physical Exam Const: COMMON NORMALS: no acute distress, patient oriented x3 and alert GENERAL APPEARANCE: cooperative and comfortable NUTRITIONAL APPEARANCE: obese morbidly obese ORIENTATION/CONSCIOUSNESS: Yes awake HENMT: COMMON NORMALS: normocephalic, atraumatic, hearing grossly normal bilaterally and moist oral mucous membranes HEAD & SCALP: normocephalic and atraumatic Eye: COMMON NORMALS: Equal, round and reactive pupils present, EOMs intact bilaterally and conjunctivae normal CONJUNCTIVA: Yes conjunctivae normal PUPIL: Yes Equal, round and reactive pupils present Neck/C-Spine: COMMON NORMALS: full ROM GENERAL: Yes normal visual inspection and Yes trachea midline OTHER: -short, thick neck Chest: CHEST: Yes Symmetrical chest wall rise Resp: COMMON NORMALS: normal respiratory effort, No retractions, No use of accessory muscles and clear to auscultation bilaterally EFFORT & INSPECTION: Yes able to speak in complete sentences, Yes symmetric chest movement and No tachypneic AUSCULTATION: clear to auscultation bilaterally OTHER: -on RA -Auscultation limited by body habitus Cardio: COMMON NORMALS: regular rhythm, S1 normal heart sound present, S2 normal heart sound present and No murmurs present (Cardio) RATE: tachycardic RHYTHM: regular rhythm HEART SOUNDS: S1 normal heart sound present and S2 normal heart sound present OTHER: -Auscultation limited by body habitus GI: COMMON NORMALS: Normal to inspection, nondistended, normoactive bowel sounds present, Soft to palpation and non-tender PALPATION: Yes Soft to palpation Extremity: COMMON NORMALS: normal to inspection, full ROM and no clubbing, cyanosis or edema; negative for no pedal edema NARRATIVE EXTREMITY EXAM: -significant non- pitting edema of R foot, dressing over open wound area, noted eschar on plantar surface; some tenderness on palpation of R calf Neuro: COMMON NORMALS: patient oriented x3, moves all extremities, no focal motor deficits and no sensory deficits noted SENSORIUM/ORIENTATION: Yes alert Psych: COMMON NORMALS: mental status grossly normal, Normal thought process present, cooperative and speech normal SPEECH: Yes normal speech MOOD & AFFECT: Yes Flat affect present THOUGHT PROCESS: Normal thought process present Skin: COMMON NORMALS: no rashes or lesions noted, no jaundice, no petechiae and no mottling NARRATIVE SKIN EXAM: -R foot wound; clean dressing in place GENERAL SKIN EXAM: no rashes or lesions noted Data : 11/30/19 04:47 11/30/19 06:25 Micro: Microbiology 11/28/19 18:19 Blood Culture - Preliminary Blood NEGATIVE TO DATE 11/28/19 18:17 Blood Culture - Preliminary Blood NEGATIVE TO DATE 11/29/19 07:30 Gram Stain - Final Other Source A&P Assessment and plan (1) Cellulitis: -clinically has complicated cellulitis of R foot with underlying uncontrolled DM type II -has failed multiple oral antibiotics (Keflex, Bactrim, Clindamycin) -associated sepsis as evidenced by tachycardia, leukocytosis, fever; noted el evated inflammatory markers, tachypnea, -Podiatry consult by Dr. Holcomb appreciated; s/p bedside excisional debridement -imaging reviewed -noted arterial duplex showing normal resting ABIs, abnormal waveforms in the infrapopliteal vessels which may suggest non-occlussive PAD; no CT or MRI due to body habitus. Venous duplex negative for DVT. Bone scan reported as unlikely to be osteomyelitis -on Zosyn, Vanc, Clindamycin; will need to continue to monitor renal function with abx regimen, contrast study -off IVF hydration -wound cx-mixed superficial ronal, gram stain negative; anaerobic cx-prelim negative -blood cx: prelim negative -may need transfer to tertiary center due to complicated wound, underlying comorbidities, extent of surgical intervention required. Contacted [facility], declined transfer without confirmation of OM and formal ortho consult -may eventually need below-knee amputation which would need vascular surgery input -discussed case and imaging with Dr. 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 Holcomb -strict NWB on R foot -pain control as needed Status: Acute Qualifiers: Encounter type: initial encounter Laterality: right Qualified Code(s): S93.304A - Unspecified dislocation of right foot, initial encounter (5) Subluxation of foot, acquired: Status: Acute Qualifiers: Encounter type: initial encounter Laterality: right Qualified Code(s): S93.301A - Unspecified subluxation of right foot, initial encounter (6) Lisfranc dislocation: Status: Acute Qualifiers: Encounter type: initial encounter Laterality: right Qualified Code(s): S93.324A - Dislocation of tarsometatarsal joint of right foot, initial encounter (7) Hypertension: -BP improved, continue to monitor vital signs -on Lisinopril; titrate as needed for optimal BP control Status: Chronic Qualifiers: Hypertension type: essential hypertension Qualified Code(s): I10 - Essential (primary) hypertension (8) Smoker: -heavy smoker, 2 PPD Status: Chronic (9) Morbid obesity: -BMI-59 kg/m2 Status: Chronic Additional A&P Information -FILOMENA; CPAP qhs -GI ppx with PPI -DVT ppx with Lovenox -Dispo: pending further workup -Code status: FULL code -ICU care due to sepsis and complicated R foot wound Attestations Medical Necessity Statement*: Patient requires hospitalization for continued broad-spectrum IV antibiotics secondary to complicated right lower extremity wound with foot dislocation pending further work-up versus potential transfer. Time Spent in Patient Care: 16 - 35 minutes (>than 50% of time spent in counselling and/or direct pt care on unit) . 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
--- NOTE | 2019-11-30 13:15 | PC.NURSE ---
PATIENT TANGLED IN BED, NO CUFF ON LEADS OFF. IV SITE INFILTRATED AT FIRST ASSESSMENT AND NEW SITE PLACED USING US. HE WAS GIVEN 4 GLASSES OF WATER AND HAS VOIDED 5X SINCE SHIFT START. BLOOD SUGARS REMAIN HIGH. HE DID WELL GETTING UP TO WC WITH A WALKER. BP AND HEART RATE REMAIN ELEVATED EVERN AFTER AM MEDS GIVEN .BONE SCAN COMPLETED ABOUT NOON
[2019-11-30 16:41] LABS: Glucose Point of Care 336 mg/dL (70-110)
[2019-11-30] MEDS: acetaminophen 325 mg Tablet 650 MG PO (17:09)
--- NOTE | 2019-11-30 18:01 | P.PN_ITS ---
Subjective Subjective: Interval history: Patient seen bedside this afternoon, denies any acute events overnight. States that he is not sleeping well. Pain is under control. Vitals/I&O/Wt Last Vital Signs Temp 98.4 F 11/30/19 13:12 Pulse 107 H 11/30/19 17:06 Resp 20 H 11/30/19 16:15 BP 177/85 11/30/19 17:06 Pulse Ox 95 11/30/19 17:06 11/30/19 11/30/19 11/30/19 06:59 14:59 22:59 Intake Total 2054 / 5 400 / 2455 Output Total 1400 / 4500 1500 / 1500 400 / 1900 Balance -1400 / -1322.083 555 / 555 0 / 555 Physical Exam Narrative: EXAM NARRATIVE: Patient is alert and oriented ?3 and in no acute distress. The following is a focused bilateral lower extremity exam. VASCULAR: Dorsalis pedis and posterior tibial arteries palpable faintly likely secondary to edema. Capillary refill time less than 3 seconds to the distal ilyah lux bilaterally. Calf is supple and nontender proximally and distally. Diminished hair growth bilateral feet. Significant edema to the right foot, it is red hot and swollen. NEUROLOGICAL: Protective sensation intact 0/10 sites, tested with [place] Bertin monofilament to bilateral feet. DERMATOLOGICAL: Full-thickness wound right plantar midfoot does not probe to bone there truly an area of eschar without fluctuance or purulence fibro- granular base with hyperkeratotic rim. Erythema at the plantar right midfoot coursing proximally up toward the medial malleolus this is less intense compared to yesterday's evaluation. MUSCULOSKELETAL: Gross instability of the right forefoot to rear foot. There is hypermobility at the Lisfranc joint. Patient able to wiggle toes on command. No pain with right posterior calf squeeze. No pain at the medial or lateral malleolus. No pain at the right calcaneus. Data : 11/30/19 04:47 11/30/19 06:25 Other Labs: Per my read right foot x-ray significant for complete tarsometatarsal dislocation dorsally and proximally on tarsometatarsal joints 2 through 5 right foot with dorsal and proximal subluxation of the first metatarsal and medial cuneiform. Plantar dislocation of navicular, intermediate, lateral cuneiforms and cuboid. I do not appreciate any erosions or osteolysis indicative of osteomyelitis, no soft tissue emphysema, no foreign body. 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 Increased risk factors include morbid obesity, uncontrolled diabetes A1c 12.3, inflammatory markers suggestive of osteomyelitis with ESR 77 mm/h and CRP elevated at 162.9 mg/L, bone scan does not strongly indicate osteomyelitis. Patient is not an operative candidate for a Charcot foot reconstruction and I am recommending a below-knee amputation as his most definitive option. Patient is reasonable with these recommendations he did not express any objection. Below-knee amputation is out of my scope of practice and privileging, would have to defer to my colleagues or another facility for this procedure. Recommendations: -Strict nonweightbearing to the right lower extremity. -Recommend noninvasive arterial studies to include ankle-brachial index/toe brachial index and pulse volume recordings -No immediate plans for surgical intervention secondary to sepsis and poor soft tissue envelope with significant edema. I attempted closed reduction of his right foot dislocation in the ICU, patient was unable to tolerate this. -Dressing change performed today, no purulence, improving cellulitis. Attestations Medical Necessity Statement*: Diabetic foot infection with sepsis, Charcot arthropathy Coding Level of Care Code Acute Stone Trimmer for [facility] Diagnoses Type 2 diabetes mellitus with Charcot's joint of right foot E11.610 Lisfranc dislocation S93.324A Encounter type: initial encounter Laterality: right Morbid obesity E66.01 Cellulitis L03.115 Laterality: right Site of cellulitis: extremity Site of cellulitis of extremity: lower extremity
--- NOTE | 2019-11-30 18:50 | NM_ITS ---
WS: [id number] Nuclear medicine 3 phase bone scan, 11/30/2019 Clinical Data: rule out osteomyelitis of R foot Comparison: Right foot, 11/28/2019. Findings: After the intravenous injection of 26.0 mCi of technetium 99m HDP blood flow imaging was ob tained in the feet. There is no abnormal increased blood flow. There was diminished blood flow over t he midportion of the right foot which corresponds to the site of the patient's dislocation injury. Th e blood pool imaging also shows slight increase in the blood pool images surrounding the right foot d islocation. There is normal blood pool imaging over the left foot. The delayed imaging shows increased activity over the midportion of the right foot which corresponds to the injury. The distribution of radionuclide normal throughout the remainder of the skeleton. No a bnormal increased activity is seen outside of the right foot. NM/NM bone 3 phase 33030 Impression: 1. Increased blood pool activity and delayed activity over the midportion of th e right foot which corresponds to the patient's injury. 2. This increased activity is probably within the soft tissue surrounding the m idportion of the right foot and osteomyelitis is not likely.
[2019-11-30 20:46] LABS: Glucose Point of Care 313 mg/dL (70-110)
[2019-11-30] MEDS: insulin glargine 100 units/1 mL 10 UNIT SUBCUT (20:50)
[2019-11-30] MEDS: ondansetron 2 mg/ML SDV 2 mL 4 MG IVP (22:44)
--- NOTE | 2019-11-30 22:49 | PC.NURSE ---
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 nurse brought patient a sandwich. approximately 15 min patient had thrown up in bed. patient states that he is not in pain, but that he thinks he ate too fast. PRN zofran given IV bby nurse. bed change and patient cleaned up. will continue to monitor.
[2019-12-01] VITALS (19 sets, daily range): BP systolic 91–184; BP diastolic 49–96; PULSE 98–121; RESP 18–26; TEMP 36.6–37.3; O2SAT 91–98
[2019-12-01] MEDS: enoxaparin 40 mg/0.4 mL Syringe SUBCUT (00:24)
[2019-12-01] MEDS: piperacillin-tazobactam 3.375 GM in sodium chloride 0.9% (plus) 50 ML IV ×3 (02:40→18:02)
[2019-12-01 05:59] LABS: Basophils % 0.2 %; Eosinophils # 0.1 10^3/uL (0.0-0.8); Eosinophils % 0.5 %; Hematocrit 36.3 % (42.0-52.0); Hemoglobin 11.3 g/dL (11.7-16.6); Lymphocytes # 1.1 10^3/uL (0.8-4.8); Lymphocytes % 9.1 %; Mean Corpuscular HGB Conc 31.1 g/dL (30.0-36.0); Mean Corpuscular Volume 89.9 fL (80-94); Mean Platelet Volume 10.7 fL (7.4-10.4); Monocytes % 7.7 %; Neutrophils # 10.3 10^3/uL (1.8-7.7); Nucleated Red Blood Cells % 0 %; Platelet Count 257 10^3/cmm (130-400); Red Blood Count 4.04 10^6/uL (4.1-5.3); Red Cell Distribution Width 12.9 % (12.1-15.1); White Blood Count 12.5 10^3/uL (4.0-10.0)
[2019-12-01] MEDS: acetaminophen 325 mg Tablet 650 MG PO (06:17)
[2019-12-01 06:19] LABS: Anion Gap 16.2 (5-19); Blood Urea Nitrogen 10 mg/dL (6-20); Calcium 9.3 mg/dL (8.5-10.5); Carbon Dioxide 28 mmol/L (22-29); Chloride 95 mmol/L (98-107); Glomerular Filtration Rate 120.4 mL/min (90-130); Glucose 285 mg/dL (65-115); Osmolality Calculated 286 mOsm/kg (285-295); Potassium 4.2 mmol/L (3.5-5.1); Sodium 135 mmol/L (136-145)
[2019-12-01 08:02] LABS: Glucose Point of Care 257 mg/dL (70-110)
--- NOTE | 2019-12-01 09:15 | PC.SOCIAL ---
IMM Page 2 of IMM explained to patient. Initialed, dated, and timed and placed in chart. Copy provided to patient.
[2019-12-01] MEDS: lisinopril 20 mg Tablet PO (09:28)
[2019-12-01] MEDS: clindamycin 150 mg Capsule 300 MG PO ×3 (09:28→22:47)
[2019-12-01] MEDS: aspirin 81 mg EC Tablet PO (09:28)
[2019-12-01] MEDS: pantoprazole DR 40 mg Tablet PO (09:28)
[2019-12-01] MEDS: lactobacillus 1 Tablet 1 TAB PO ×4 (09:28→22:47)
--- NOTE | 2019-12-01 12:00 | PC.NURSE ---
MAURA LATE DUE TO THIS RN HAVING TO HELP WITH CENTRAL LINE PLACEMENT ON ANOTHER PATIENT; WILL CONTINUE TO MONITOR
--- NOTE | 2019-12-01 12:24 | P.PN_ITS ---
Subjective Subjective: Interval history: Had 2350 mL urine output overnight, decreasing leukocytosis. No acute overnight events reported, blood pressure better controlled today. Discussed option of LTAC particularly in terms of discharge planning which he is agreeable to. Case discussed earlier with Dr. Harris and Dr. Holcomb who recommend getting an OrthoWedge shoe for offloading and assista nce with transfers in the interim pending amputation. Dressing change done by Dr. Holcomb at bedside. Medications: Reviewed: Yes Medication Review Details: Active Medications Generic Name Dose Route Start Last Admin Trade Name Freq PRN Reason Stop Dose Admin Acetaminophen 650 mg 11/28/19 23:56 12/01/19 06:17 Tylenol PO 650 mg Q4H PRN Administration MILD PAIN OR INCR EASE TEMP Aspirin 81 mg 11/29/19 09:00 12/01/19 09:28 Aspirin Ec PO 81 mg DAILY GONSALO Administration Clindamycin HCl 300 mg 11/28/19 23:56 12/01/19 09:28 Cleocin PO 300 mg TID GONSALO Administration Protocol Dextrose 25 ml 11/28/19 23:56 D50w IVP ONCE PRN hypoglycemia prot ocol Protocol Dextrose 50 ml 11/28/19 23:56 D50w IVP PRN PRN hypoglycemia prot ocol Protocol Enoxaparin Sodium 40 mg 11/28/19 23:56 12/01/19 00:24 Lovenox SUBCUT 40 mg Q24H GONSALO Administration Glucagon 1 mg 11/28/19 23:56 Glucagen IM ONCE PRN Adult Acute Hypog lycemia Prot. Protocol Piperacillin Sod/T azobactam 50 mls @ 12.5 mls /hr 11/29/19 10:00 12/01/19 11:59 Sod 3.375 gm/ So dium Chloride IV 12.5 mls/hr Q8H GONSALO Administration Protocol As Directed Dextrose 500 mls @ 100 mls /hr 11/28/19 23:56 D5w IV ONCE PRN Adult Acute Hypog lycemia Prot Protocol Vancomycin HCl 2,0 00 mg/ 500 mls @ 250 mls /hr 11/29/19 09:00 12/01/19 12:01 Sodium Chloride IV Infused Q8H GONSALO Infusion Protocol As Directed Insulin Aspart 0 unit 11/28/19 23:56 12/01/19 12:22 Novolog SUBCUT 10 unit WM&BEDTIME GONSALO Administration Protocol Insulin Glargine 10 unit 11/29/19 21:00 11/30/19 20:50 Lantus SUBCUT 10 unit BEDTIME GONSALO Administration Lactobacillus Acid ophilus 1 tab 11/29/19 13:00 12/01/19 12:22 Floranex PO 1 tab QID GONSALO Administration Lisinopril 20 mg 11/29/19 06:10 12/01/19 09:28 Prinivil PO 20 mg DAILY GONSALO Administration Morphine Sulfate 4 mg 11/28/19 23:56 11/30/19 08:24 Morphine IVP 4 mg Q4H PRN Administration SEVERE PAIN Ondansetron HCl 4 mg 11/28/19 23:56 11/30/19 22:44 Zofran IVP 4 mg Q6H PRN Administration NAUSEA AND VOMITI NG Pantoprazole Sodiu m 40 mg 11/29/19 09:30 12/01/19 09:28 Protonix PO 40 mg DAILY GONSALO Administration No Known Allergies Allergy (Verified 11/28/19 17:33) Vitals/I&O/Wt Last Vital Signs Temp 98.3 F 12/01/19 06:08 Pulse 112 H 12/01/19 07:43 Resp 18 12/01/19 06:08 BP 175/96 12/01/19 06:08 Pulse Ox 96 12/01/19 07:43 11/30/19 12/01/19 12/01/19 22:59 06:59 14:59 Intake Total 1200 / 3255 1430 / 4685 500 / 500 Output Total 1100 / 2600 1650 / 4250 Balance 100 / 655 -220 / 435 500 / 500 Physical Exam Const: COMMON NORMALS: no acute distress, patient oriented x3 and alert GENERAL APPEARANCE: cooperative and comfortable NUTRITIONAL APPEARANCE: obese morbidly obese ORIENTATION/CONSCIOUSNESS: Yes awake HENMT: COMMON NORMALS: normocephalic, atraumatic, hearing grossly normal bilaterally and moist oral mucous membranes HEAD & SCALP: normocephalic and atraumatic Eye: COMMON NORMALS: Equal, round and reactive pupils present, EOMs intact b ilaterally and conjunctivae normal CONJUNCTIVA: Yes conjunctivae normal PUPIL: Yes Equal, round and reactive pupils present Neck/C-Spine: COMMON NORMALS: full ROM GENERAL: Yes normal visual ins pection and Yes trachea midline OTHER: -short, thick neck Chest: CHEST: Yes Symmetrical chest wall rise Resp: COMMON NORMALS: normal respiratory effort, No retractions, No use of accessory muscles and clear to auscultation bilaterally EFFORT & INSPECTION: Yes able to speak in complete sentences, Yes symmetric chest movement and No tachypneic AUSCULTATION: clear to auscultation bilaterally OTHER: -on RA -Auscultation limited by body habitus Cardio: COMMON NORMALS: regular rhythm, S1 normal heart sound present, S2 normal heart sound present and No murmurs present (Cardio) RATE: tachycardic RHYTHM: regular rhythm HEART SOUNDS: S1 normal heart sound present and S2 normal heart sound present OTHER: -Auscultation limited by body habitus GI: COMMON NORMALS: Normal to inspection, nondistended, normoactive bowel sounds present, Soft to palpation and non-tender PALPATION: Yes Soft to palpation Extremity: COMMON NORMALS: normal to inspection, full ROM and no clubbing, cyanosis or edema; negative for no pedal edema NARRATIVE EXTREMITY EXAM: -significant non- pitting edema of R foot, dressing over open wound area, noted eschar on plantar surface; some tenderness on palpation of R calf Neuro: COMMON NORMALS: patient oriented x3, moves all extremities, no focal motor deficits and no sensory deficits noted SENSORIUM/ORIENTATION: Yes alert Psych: COMMON NORMALS: mental status grossly normal, Normal thought process present, cooperative and speech normal SPEECH: Yes normal speech MOOD & AFFECT: Yes Flat affect present THOUGHT PROCESS: Normal thought process present Skin: COMMON NORMALS: no rashes or lesions noted, no jaundice, no petechiae and no mottling NARRATIVE SKIN EXAM: -R foot wound; clean dressing in place GENERAL SKIN EXAM: no rashes or lesions noted Data : 12/01/19 05:28 12/01/19 05:28 Micro: Microbiology 11/29/19 07:30 Anaerobic Culture - Preliminary Foot - Right 11/29/19 07:30 Gram Stain - Final Other Source Wound Culture - Preliminary Staphylococcus aureus Enterococcus species A&P Assessment and plan (1) Cellulitis: -clinically has complicated cellulitis of R foot with underlying u ncontrolled DM type II -has failed multiple oral antibiotics (Keflex, Bactrim, Clindamycin) -associated sepsis as evidenced by tachycardia, leukocytosis, fever; noted elevated inflammatory markers, tachypnea, -Podiatry consult by Dr. Holcomb appreciated; s/p bedside excisional debridement -imaging reviewed -noted arterial duplex showing normal resting ABIs, abnormal waveforms in the infrapopliteal vessels which may suggest non-occlussive PAD; no CT or MRI due to body habitus. Venous duplex negative for DVT. Bone scan reported as unlikely to be osteomyelitis -on Zosyn, Vanc, Clindamycin; will need to continue to monitor renal function with abx regimen, contrast study -off IVF hydration -wound cx-mixed superficial ronal, gram stain negative; anaerobic cx-prelim negative -blood cx: prelim negative -may need transfer to tertiary center due to complicated wound, underlying comorbidities, extent of surgical intervention required. Contacted [facility], declined transfer without confirmation of OM and formal ortho consult Status: Acute Qualifiers: Laterality: right Site of cellulitis: extremity Site of cellulitis of extremity: lower extremity Qualified Code(s): L03.115 - Cellulitis of right lower limb (2) Sepsis: -as noted above -BP better controlled, tachycardia persists, afebrile; continue to monitor vital signs -trend WBC; leukocytosis improving Status: Acute Qualifiers: Sepsis acute organ dysfunction status: unspecified Sepsis type: sepsis due to unspecified organism Qualified Code(s): A41.9 - Sepsis, unspecified organism (3) Type 2 diabetes mellitus with Charcot's joint of right foot: -has poorly controlled DM type II, insulin dependent, complicated by peripheral neuropathy -A1c-12.3 -Accuchecks, ISS, hypoglycemia precautions; add meal time insulin, increase lantus -consistent carb diet -no evidence of DKA; no ketonuria or ketonemia, normal pH, closed anion gap; hyperglycemic -Charcot arthropathy of R foot; complicated and high risk for failure if pursue reconstructive surgery and would likely need BKA; wound healing will be very challenging with body habitus and uncontrolled DM. Discussed with Dr. Harris as well who concurs and recommends some type of off-loading in the interim for ambulation; will d/w PT -discussed case and imaging with Dr. Richardson, in light of complicated wound, imaging, would most likely need BKA Status: Chronic (4) Closed dislocation of foot: -noted on imaging, findings discussed with Dr. Holcomb -strict NWB on R foot -pain control as needed Status: Acute Qualifiers: Encounter type: initial encounter Laterality: right Qualified Code(s): S93.304A - Unspecified dislocation of right foot, initial encounter (5) Subluxation of foot, acquired: Status: Acute Qualifiers: Encounter type: initial encounter Laterality: right Qualified Code(s): S93.301A - Unspecified subluxation of right foot, initial encounter (6) Lisfranc dislocation: Status: Acute Qualifiers: Encounter type: initial encounter Laterality: right Qualified Code(s): S93.324A - Dislocation of tarsometatarsal joint of right foot, initial encounter (7) Hypertension: -BP improved though still uncontrolled, continue to monitor vital signs -on Lisinopril; titrate as needed for optimal BP control; due to tachycardia, will add BB Status: Chronic Qualifiers: Hypertension type: essential hypertension Qualified Code(s): I10 - Essential (primary) hypertension (8) Smoker: -heavy smoker, 2 PPD Status: Chronic (9) Morbid obesity: -BMI-59 kg/m2 Status: Chronic Additional A&P Information -FILOMENA; CPAP qhs -GI ppx with PPI -DVT ppx with Lovenox -Dispo: pending further workup, will look into LTAC as option -Code status: FULL code -transfer to floor for continued care Attestations Medical Necessity Statement*: Patient requires hospitalization for continued IV antibiotic treatment, BP control, pending amputation. Time Spent in Patient Care: 16 - 35 minutes (>than 50% of time spent in counselling and/or direct pt care on unit) . Coding Level of Care Code Acute Internal Auditor for Chg Fwd Exam Comprehensive Diagnoses Cellulitis L03.115 Laterality: right Site of cellulitis: extremity Site of cellulitis of extremity: lower extremity Sepsis A41.9 Sepsis acute organ dysfunction status: unspecified Sepsis type: sepsis due to unspecified organism 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
[2019-12-01 12:40] LABS: Glucose Point of Care 311 mg/dL (70-110)
[2019-12-01] MEDS: metoprolol tartrate 25 mg Tablet PO ×2 (15:24→17:28)
--- NOTE | 2019-12-01 15:25 | PC.NURSE ---
MEDICATION LATE DUE TO RN BEING TRIPLED AND IN ANOTHER PATIENT'S ROOM FOR AN EXTENDED PERIOD OF TIME; WILL CONTINUE TO MONITOR
[2019-12-01] MEDS: morphine 4 mg/mL SDV 1 mL IVP (15:33)
[2019-12-01 16:35] LABS: Vancomycin Trough 18.3 ug/mL (10-15)
[2019-12-01 16:42] LABS: Glucose Point of Care 332 mg/dL (70-110)
--- NOTE | 2019-12-01 17:08 | PM.PN ---
Vitals/I&O/Wt Last Vital Signs Temp 98.4 F 12/01/19 16:00 Pulse 114 H 12/01/19 16:00 Resp 22 H 12/01/19 16:00 BP 142/88 12/01/19 16:00 Pulse Ox 94 12/01/19 16:00 12/01/19 12/01/19 12/01/19 06:59 14:59 22:59 Intake Total 1430 / 4685 500 / 500 Output Total 1650 / 4250 700 / 700 Balance -220 / 435 500 / 500 -700 / -200 Physical Exam Narrative: EXAM NARRATIVE: Patient is alert and oriented ?3 and in no acute distress. The following is a focused bilateral lower extremity exam. VASCULAR: Dorsalis pedis and posterior tibial arteries palpable faintly likely secondary to edema. Capillary refill time less than 3 seconds to the distal hallux bilaterally. Calf is supple and nontender proximally and distally. Diminished hair growth bilateral feet. Significant edema to the right foot, it is red hot and swollen. NEUROLOGICAL: Protective sensation intact 0/10 sites, tested with [place] Bertin monofilament to bilateral feet. DERMATOLOGICAL: Full-thickness wound right plantar midfoot does not probe to bone there truly an area of eschar without fluctuance or purulence fibro-granular base with hyperkeratotic rim increased fibrotic tissue there is a fibro-granular base with macerated margin this is most significant at 12:00 to 6:00, serous drainage. Erythema at the plantar right midfoot coursing proximally up toward the medial malleolus significantly improved. MUSCULOSKELETAL: Gross instability of the right forefoot to rear foot. There is hypermobility at the Lisfranc joint. Patient able to wiggle toes on command. No pain with right posterior calf squeeze. No pain at the medial or lateral malleolus. No pain at the right calcaneus. No ankle instability. 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 Increased risk factors include morbid obesity, uncontrolled diabetes A1c 12.3, inflammatory markers suggestive of osteomyelitis with ESR 77 mm/h and CRP elevated at 162.9 mg/L, bone scan does not strongly indicate osteomyelitis. -Patient to be fitted with OrthoWedge heel offloading shoe this will enable him for weightbearing, may heel touch for transfers and to work with physical therapy at this time. -Recommend noninvasive arterial studies to include ankle-brachial index/toe brachial index and pulse volume recordings, KHADIJAH was performed, right lower extremity ankle-brachial index is normal. Toe brachial index and pulse 1 recordings would be beneficial. -Dressing change with debridement, patient tolerated well. Significant improvement in cellulitis and erythema. -Patient is not an operative candidate for a Charcot foot reconstruction. Recommend below-knee amputation. Patient is reasonable with these recommendations he did not express any objection. Below-knee amputation is out of my scope of practice and privileging, would have to defer to my colleagues or another facility for this procedure. Attestations Medical Necessity Statement*: Charcot, right foot, diabetic foot infection, right foot sepsis. Coding Level of Care Code Acute Digital Computer Operator for [facility] Diagnoses Type 2 diabetes mellitus with Charcot's joint of right foot E11.610 Lisfranc dislocation S93.324A Encounter type: initial encounter Laterality: right Morbid obesity E66.01 Cellulitis L03.115 Laterality: right Site of cellulitis: extremity Site of cellulitis of extremity: lower extremity
--- NOTE | 2019-12-01 20:02 | PC.NURSE ---
report given to JAVIER Contreras on [facility]. Patient updated on transfer to [facility]. patient has no complaints of pain at this time. resting in bed watching tv. all medications and patient belongings (clothes, patient cell phone/float remover) transferred to floor with patient. patient transferred in bed with O2.
[2019-12-01 22:41] LABS: Glucose Point of Care 353 mg/dL (70-110)
[2019-12-01] MEDS: insulin glargine 100 units/1 mL 20 UNIT SUBCUT (22:48)
[2019-12-02] MEDS: enoxaparin 40 mg/0.4 mL Syringe SUBCUT (01:31)
[2019-12-02 01:42] VITALS: BP 144/76; PULSE 104; RESP 19; TEMP 37.2; O2SAT 96
[2019-12-02] MEDS: acetaminophen 325 mg Tablet 650 MG PO (02:27)
[2019-12-02 04:00] VITALS: BP 182/98; PULSE 121; RESP 20; TEMP 36.7; O2SAT 94
[2019-12-02] MEDS: piperacillin-tazobactam 3.375 GM in sodium chloride 0.9% (plus) 50 ML IV ×2 (04:57→15:10)
[2019-12-02 06:23] LABS: Basophils % 0.2 %; Eosinophils # 0.1 10^3/uL (0.0-0.8); Hematocrit 39.8 % (42.0-52.0); Hemoglobin 12.2 g/dL (11.7-16.6); Lymphocytes # 1.3 10^3/uL (0.8-4.8); Lymphocytes % 11.8 %; Mean Corpuscular HGB Conc 30.7 g/dL (30.0-36.0); Mean Corpuscular Hemoglobin 27.2 pg (28.0-34.0); Mean Corpuscular Volume 88.8 fL (80-94); Mean Platelet Volume 10.5 fL (7.4-10.4); Monocytes # 0.8 10^3/uL (0.2-0.9); Monocytes % 6.8 %; Neutrophils # 8.7 10^3/uL (1.8-7.7); Neutrophils % 79.7 %; Nucleated Red Blood Cells % 0 %; Platelet Count 288 10^3/cmm (130-400); Red Blood Count 4.48 10^6/uL (4.1-5.3); Red Cell Distribution Width 13.1 % (12.1-15.1)
--- NOTE | 2019-12-02 06:28 | PC.NURSE ---
Shift Summary pt slept well tonight with only c/o headache. pt had good urine output. headache relieved with oral meds.
[2019-12-02 06:45] LABS: Anion Gap 15.2 (5-19); Blood Urea Nitrogen 12 mg/dL (6-20); Calcium 9.8 mg/dL (8.5-10.5); Carbon Dioxide 29 mmol/L (22-29); Chloride 96 mmol/L (98-107); Glomerular Filtration Rate 90.1 mL/min (90-130); Glucose 282 mg/dL (65-115); Osmolality Calculated 288 mOsm/kg (285-295); Potassium 4.2 mmol/L (3.5-5.1); Sodium 136 mmol/L (136-145)
[2019-12-02 06:55] LABS: Glucose Point of Care 268 mg/dL (70-110)
[2019-12-02 08:00] VITALS: BP 146/70; PULSE 116; RESP 20; TEMP 36.8; O2SAT 91
[2019-12-02] MEDS: pantoprazole DR 40 mg Tablet PO (08:28)
[2019-12-02] MEDS: metoprolol tartrate 25 mg Tablet PO (08:28)
[2019-12-02] MEDS: lisinopril 20 mg Tablet 40 MG PO (08:28)
[2019-12-02] MEDS: clindamycin 150 mg Capsule 300 MG PO ×2 (08:28→15:10)
[2019-12-02] MEDS: lactobacillus 1 Tablet 1 TAB PO ×2 (08:28→15:10)
[2019-12-02] MEDS: aspirin 81 mg EC Tablet PO (08:28)
[2019-12-02 11:17] LABS: Glucose Point of Care 329 mg/dL (70-110)
[2019-12-02 11:50] VITALS: BP 162/70; PULSE 107; RESP 20; TEMP 36.7; O2SAT 93
--- NOTE | 2019-12-02 13:34 | P.DS_ITS ---
Discharge Providers Date of Admission: 11/28/19 20:28 Date of Discharge: December 02, 2019 Attending Provider at Admission: Leoncio Saenz MD Attending Provider at Discharge: Jennifer Hernandes MD Primary Care Provider: Oziel Dugan NP Diagnoses at Discharge Discharge Diagnosis (1) Cellulitis: Status: Acute Problem details: -clinically has complicated cellulitis of R foot with underlying uncontrolled DM type II -has failed multiple oral antibiotics (Keflex, Bactrim, Clindamycin) -associated sepsis as evidenced by tachycardia, leukocytosis, fever; noted elevated inflammatory markers, tachypnea, -Podiatry consult by Dr. Holcomb appreciated; s/p bedside excisional debridement -imaging reviewed -noted arterial duplex showing normal resting ABIs, abnormal waveforms in the infrapopliteal vessels which may suggest non-occlussive PAD; no CT or MRI due to body habitus. Venous duplex negative for DVT. Bone scan reported as unlikely to be osteomyelitis -on Zosyn, Vanc, Clindamycin; will need to continue to monitor renal function with abx regimen, contrast study -off IVF hydration -wound cx-mixed superficial ronal, gram stain negative; anaerobic cx-prelim negative -blood cx: prelim negative -may need transfer to tertiary center due to complicated wound, underlying comorbidities, extent of surgical intervention required. Contacted [facility], declined transfer without confirmation of OM and formal ortho consult. 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 Discussed with Dr. Harris as well who concurs and recommends some type of off-loading in the interim for ambulation; will d/w PT -discussed case and imaging with Dr. Richardson, in light of complicated wound, imaging, would most likely need BKA (4) Closed dislocation of foot: Status: Acute Problem details: -noted on imaging, findings discussed with Dr. Holcomb -strict NWB on R foot -pain control as needed Qualifiers: Encounter type: initial encounter Laterality: right Qualified Code(s): S93.304A - Unspecified dislocation of right foot, initial encounter (5) Subluxation of foot, acquired: Status: Acute Qualifiers: Encounter type: initial encounter Laterality: right Qualified Code(s): S93.301A - Unspecified subluxation of right foot, initial encounter (6) Lisfranc dislocation: Status: Acute Qualifiers: Encounter type: initial encounter Laterality: right Qualified Code(s): S93.324A - Dislocation of tarsometatarsal joint of right foot, initial encounter (7) Hypertension: Status: Chronic Problem details: -BP improved though still uncontrolled, continue to monitor vital signs -on Lisinopril; titrate as needed for optimal BP control; due to tachycardia, BB added Qualifiers: Hypertension type: essential hypertension Qualified Code(s): I10 - Essential (primary) hypertension (8) Smoker: Status: Chronic Problem details: -heavy smoker, 2 PPD (9) Morbid obesity: Status: Chronic Problem details: -BMI-59 kg/m2 Other Information Additional DC diagnoses/information: -FILOMENA on CPAP qhs Reason for Visit Reason for Visit: wound on foot/feet, osteomyelitis Hospital Course Hospital Course: Patient was admitted to the ICU and started on broad-spectrum IV antibiotics for complicated right foot wound with associated sepsis and with underlying uncontrolled insulin-dependent diabetes. Podiatry was consulted and attempted bedside debridement of right foot wound with patient unable to tolerate closure of the wound. Daily dressing changes were done by Dr. Holcomb. Multiple discussions were had about patient's arthropathy, midfoot dislocation and complexity of surgical intervention that would be required to correct this. In the interim patient was continued to receive IV antibiotic treatment with close monitoring of his blood sugar. Unfortunately due to his body habitus we were unable to get CT scan or MRI of the foot. Bone scan was done instead and was not indicative of osteomyelitis. Following discussion with orthopedics and with Dr. Holcomb as well as some discussion with Dr. Harris it seems that below- knee amputation would be the most realistic option for this patient. Given extent of recovery process, need for medical optimization, need for multidisciplinary approach to this including input from infectious disease, vascular surgery, endocrinology which we do not have available at our facility currently decision was made to transfer patient. I initially attempted to transfer the patient to [facility] in [place], [facility]. Able to transfer patient to [facility] in [place] with understanding that patient would be continued on IV antibiotics with appropriate wound care to the right foot and with specialty consultation would then make decision for timing of below-knee amputation and then the appropriate setting for rehabilitation thereafter. This has been discussed with the patient extensively and he is agreeable to this. He will be discharged to this facility this afternoon. Printed prescriptions were provided for the sole purpose of allowing receiving facility to know what patient has been receiving particularly in terms of antibiotic and insulin regimen. Copy of imaging has also been included in discharge packed (CD). Physical Exam Const: COMMON NORMALS: no acute distress, patient oriented x3 and alert GENERAL APPEARANCE: cooperative and comfortable NUTRITIONAL APPEARANCE: obese morbidly obese ORIENTATION/CONSCIOUSNESS: Yes awake HENMT: COMMON NORMALS: normocephalic, atraumatic, hearing grossly normal bilaterally and moist oral mucous membranes HEAD & SCALP: normocephalic and atraumatic Eye: COMMON NORMALS: Equal, round and reactive pupils present, EOMs intact bilaterally and conjunctivae normal CONJUNCTIVA: Yes conjunctivae normal PUPIL: Yes Equal, round and reactive pupils present Neck/C-Spine: COMMON NORMALS: full ROM GENERAL: Yes normal visual inspection and Yes trachea midline OTHER: -short, thick neck Chest: CHEST: Yes Symmetrical chest wall rise Resp: COMMON NORMALS: normal respiratory effort, No retractions, No use of accessory muscles and clear to auscultation bilaterally EFFORT & INSPECTION: Yes able to speak in complete sentences, Yes symmetric chest movement and No tachypneic AUSCULTATION: clear to auscultation bilaterally OTHER: -on RA -Auscultation limited by body habitus Cardio: COMMON NORMALS: regular rhythm, S1 normal heart sound present, S2 normal heart sound present and No murmurs present (Cardio) RATE: tachycardic RHYTHM: regular rhythm HEART SOUNDS: S1 normal heart sound present and S2 normal heart sound present OTHER: -Auscultation limited by body habitus GI: COMMON NORMALS: Normal to inspection, nondistended, normoactive bowel sounds present, Soft to palpation and non-tender PALPATION: Yes Soft to palpation Extremity: COMMON NORMALS: normal to inspection, full ROM and no clubbing, cyanosis or edema; negative for no pedal edema NARRATIVE EXTREMITY EXAM: -significant non- pitting edema of R foot, dressing over open wound area, noted eschar on plantar surface; some tenderness on palpation of R calf Neuro: COMMON NORMALS: patient oriented x3, moves all extremities, no focal motor deficits and no sensory deficits noted SENSORIUM/ORIENTATION: Yes alert Psych: COMMON NORMALS: mental status grossly normal, Normal thought process present, cooperative and speech normal SPEECH: Yes normal speech MOOD & AFFECT: Yes Flat affect present THOUGHT PROCESS: Normal thought process present Skin: COMMON NORMALS: no rashes or lesions noted, no jaundice, no petechiae and no mottling NARRATIVE SKIN EXAM: -R foot wound; clean dressing in place GENERAL SKIN EXAM: no rashes or lesions noted Discharge Data Data Completed and Pending: Completed Studies During Hospitalization Category Date Time Status XR chest 1V bala ble [id number] Stat Exams 11/28/19 17:52 Completed XR foot RT min 3V * [id number] Stat Exams 11/28/19 17:52 Completed NM bone 3 phase 7 8315 Routine Nuc Med 11/30/19 18:50 [place] [id number] Rout ine Ultrasound 11/29/19 09:07 [place] [id number] Urgent Ultrasound 11/28/19 18:06 Completed Pending at discharge Category Date Time Status Anaerobic Culture Routine Lab 11/29/19 07:30 Results Blood Culture Sta t Lab 11/28/19 18:19 Results Wound Culture and Gram Stain Routin e Lab 11/29/19 07:30 Results Labs from last 24 hours 12/02/19 12/02/19 12/02/19 11:02 06:43 05:53 WBC RBC Hgb Hct MCV MCH MCHC RDW Plt Count MPV Neut % (Auto) Lymph % (Auto) [place] % (Auto) Eos % (Auto) Baso % (Auto) Neut # (Auto) Lymph # (Auto) [place] # (Auto) Eos # (Auto) Baso # (Auto) Nucleated RBC % (a uto) Nucleated RBCs # Sodium 136 Potassium 4.2 Chloride 96 L Carbon Dioxide 29 Anion Gap 15.2 BUN 12 Creatinine 0.9 GFR Calculation 90.1 Glucose 282 H POC Glucose 329 268 Calculated Osmolal ity 288 Calcium 9.8 Vancomycin Trough 12/02/19 12/01/19 12/01/19 05:53 22:39 16:28 WBC 11.0 H RBC 4.48 Hgb 12.2 Hct 39.8 L MCV 88.8 MCH 27.2 L MCHC 30.7 RDW 13.1 Plt Count 288 MPV 10.5 H Neut % (Auto) 79.7 Lymph % (Auto) 11.8 [place] % (Auto) 6.8 Eos % (Auto) 1.0 Baso % (Auto) 0.2 Neut # (Auto) 8.7 H Lymph # (Auto) 1.3 [place] # (Auto) 0.8 Eos # (Auto) 0.1 Baso # (Auto) 0.0 Nucleated RBC % (a uto) 0 Nucleated RBCs # 0.0 Sodium Potassium Chloride Carbon Dioxide Anion Gap BUN Creatinine GFR Calculation Glucose POC Glucose 353 332 Calculated Osmolal ity Calcium Vancomycin Trough 12/01/19 16:08 WBC RBC Hgb Hct MCV MCH MCHC RDW Plt Count MPV Neut % (Auto) Lymph % (Auto) [place] % (Auto) Eos % (Auto) Baso % (Auto) Neut # (Auto) Lymph # (Auto) [place] # (Auto) Eos # (Auto) Baso # (Auto) Nucleated RBC % (a uto) Nucleated RBCs # Sodium Potassium Chloride Carbon Dioxide Anion Gap BUN Creatinine GFR Calculation Glucose POC Glucose Calculated Osmolal ity Calcium Vancomycin Trough 18.3 H Vitals: Last Vital Signs Temp 98.0 F 12/02/19 11:50 Pulse 107 H 12/02/19 11:50 Resp 20 H 12/02/19 11:50 BP 162/70 12/02/19 11:50 Pulse Ox 93 12/02/19 11:50 Discharge Plan Discharge Patient Disposition: Xfer LT Condition: Stable Prescriptions: New Lantus U-100 Insulin 100 unit/mL Solution 20 unit SUBCUT BEDTIME Qty: 1 RF: 0 lisinopril 20 mg Tablet 40 mg PO DAILY Qty: 1 RF: 0 clindamycin HCl 150 mg Capsule 300 mg PO TID Qty: 1 RF: 0 Novolog U-100 Insulin aspart 100 unit/mL Solution 0 unit SUBCUT WM&BEDTIME Qty: 1 RF: 0 Novolog U-100 Insulin aspart 100 unit/mL Solution 10 unit SUBCUT TIDAC Qty: 1 RF: 0 pantoprazole 40 mg Tablet,Delayed Release (Dr/Ec) 40 mg PO DAILY Qty: 1 RF: 0 metoprolol tartrate 25 mg Tablet 25 mg PO BID Qty: 1 RF: 0 Zosyn 3.375 gram recon soln 3.375 gm IVP Q8H 10 Days RF: 0 vancomycin in 0.9 % sodium chl 2 gram/500 mL solution 2 gm IVP Q8H Qty: 3000 RF: 0 Lactobacillus acidoph-L.bulgar [Floranex] 1 million cell Tablet 1 tab PO QID Qty: 1 RF: 0 Continued clindamycin HCl 300 mg capsule 300 mg PO TID RF: 0 aspirin 81 mg Tablet,Delayed Release (Dr/Ec) 81 mg PO DAILY RF: 0 Discontinued lisinopril 20 mg Tablet 20 mg PO DAILY RF: 0 Novolin 70/30 U-100 Insulin 100 unit/mL (70-30) Suspension See Rx Instructions .ROUTE .COMPLEX RF: 0 Lantus Solostar U-100 Insulin 100 unit/mL (3 mL) Insulin Pen 10 unit SUBCUT DAILY RF: 0 Trulicity 1.5 mg/0.5 mL Pen Injector 1.5 mg SUBCUT Q7D RF: 0 Discharge Orders: Discharge Order (Routine); Ordered 12/02/19 Ordered By: Jennifer Hernandes Referrals: Oziel Dugan NP [Primary Care Provider] - (When discharged from hospital) Discharge Diet: Diabetic Discharge Activity: Limit activity as instructed Activity Restrictions/Additional Instructions: -Patient will need to continue IV antibiotics due to complicated R diabetic foot wound -He has an Ortho wedge shoe for off-loading and safe transfers Discharge Attestations Time Spent in Discharge Care*: greater than 30 min Specific Discharge Activities: Specific discharge activities: educating patient, educating and/or supporting family/caregiver, discussing with director of casework/social workers/dc planners, documenting/other paperwork and evaluating patient/reviewing data Status at Discharge: Cognitive status at discharge: cognitively intact , Behavioral status at discharge: cooperative , Functional status at discharge: other assisted ambulation Overall status at discharge: patient has a new baseline Quality Metrics Clinical Quality Measures During this hospital stay, did patient experience: None Coding Level of Care Code Acute Air Conditioning Unit Assembler for Chg Fwd Diagnoses Cellulitis L03.115 Laterality: right Site of cellulitis: extremity Site of cellulitis of extremity: lower extremity Sepsis A41.9 Sepsis acute organ dysfunction status: unspecified Sepsis type: sepsis due to unspecified organism 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
[2019-12-02 16:00] VITALS: BP 147/83; PULSE 101; RESP 18; TEMP 36.7; O2SAT 92
[2019-12-02 16:53] VITALS: BP 147/83; PULSE 101; RESP 18; TEMP 36.7; O2SAT 92
[2019-12-05 14:30] LABS: Alveolar-Arterial Oxygen Gradi 5.4 mmHg (5-10); Glucose Level-ABG 19.4 mg/dL (70-115); Total Hemoglobin 9.4 g/dL (14-18)
== END 2019-12-02 16:54 | DRG 872 ==
LOC: ER 18:20 → ICU 21:29 → MEDSURG 12-01 20:33
PROVIDERS: Emergency Medicine; Family Medicine; Admitting Provider Internal Medicine; PCP Nurse Practitioner Family; Visit Provider Family Medicine
DX: A41.9 Sepsis, unspecified organism (principal); L03.116 Cellulitis of left lower limb; Z68.43 Body mass index [BMI] 50.0-59.9, adult; E11.65 Type 2 diabetes mellitus with hyperglycemia; E11.610 Type 2 diabetes mellitus with diabetic neuropathic arthropathy; M14.671 Charcot's joint, right ankle and foot; S93.301A Unspecified subluxation of right foot, initial encounter; S93.304A Unspecified dislocation of right foot, initial encounter; S93.324A Dislocation of tarsometatarsal joint of right foot, initial encounter; I10 Essential (primary) hypertension; F17.210 Nicotine dependence, cigarettes, uncomplicated; E66.01 Morbid (severe) obesity due to excess calories; G47.33 Obstructive sleep apnea (adult) (pediatric); Z79.82 Long term (current) use of aspirin; Z79.4 Long term (current) use of insulin; G89.29 Other chronic pain; M54.9 Dorsalgia, unspecified; K21.9 Gastro-esophageal reflux disease without esophagitis; H02.401 Unspecified ptosis of right eyelid; X58.XXXA Exposure to other specified factors, initial encounter
CPT/HCPCS: 12345; 36415; 36416; 36600; 71045; 73630; 78315; 80048; 80051; 80053; 80202; 81003; 82009; 82810; 82962; 83036; 83605; 83615; 83986; 84145; 84484; 85025; 85651; 86140; 87040; 87070; 87075; 87077; 87186; 87205; 90686; 93005; 93926; 93971; 96372; 96375; 97161; 97530; 99283; A9270; A9561; J1650; J1815; J2270; J2405; J2543; J3370; J7030; J7040; J7050; L3260

== ENCOUNTER 2020-10-08 14:34 | Outpatient (CLI) | payer MEDICAID, SELFPAY ==
--- NOTE | 2020-10-08 | CT_ITS ---
WS: [id number] CT ORBITS WITH CONTRAST. HISTORY: LEFT ORBITAL EDEMA Technique: All CT scans at [facility] use at least one of these dose optimization techniq ues: automated exposure control; mA and/or kV adjustment per patient size (includes targeted exams wh ere dose is matched to clinical indication); or iterative reconstruction. DLP: 757.34 mGy-cm. COMPARISON: CT head 05/13/2018 Normal enhancement of the globes and orbits. There is no retro-orbital fat stranding or mass. Symmetr ic appearance to the optic nerves and the extraocular muscles. There is no evidence for optic neuriti s. Mild scattered plaque in the intracranial carotid arteries the cavernous sinuses and supraclinoid. No aneurysm is appreciated. There is no soft tissue abnormalities. No abscess. Visualized brain is similar to the prior study of 05/13/2018 which was performed noncontrast. There is mild asymmetry of the lateral ventricles which w as also present on that prior study. CT/CT orbit BI w con [id number] IMPRESSION: 1. No evidence for optic neuritis or mass in the retrobulbar region. 2. Mild atherosclerosis intracranial carotid arteries.
[2020-10-08] MEDS: iohexol 300 mg/mL 100 mL Btl IV (15:20)
== END 2020-10-08 14:35 | disposition home or self-care (01) ==
PROVIDERS: PCP Nurse Practitioner Family; Visit Provider Internal Medicine
DX: H05.222 Edema of left orbit (principal); I65.23 Occlusion and stenosis of bilateral carotid arteries
CPT/HCPCS: 70481; Q9967

== ENCOUNTER → 2022-02-19 08:43 | Outpatient (BNVA) | payer MEDICAID, SELFPAY | PROVIDERS: PCP Nurse Practitioner Family; Visit Provider Podiatrist Foot & Ankle Surgery | DX: B35.3 Tinea pedis (principal); L03.032 Cellulitis of left toe; E11.65 Type 2 diabetes mellitus with hyperglycemia; Z79.4 Long term (current) use of insulin | CPT/HCPCS: 11730 ==

== ENCOUNTER 2022-11-26 12:14 | Outpatient (CLI) | payer MEDICAID, SELFPAY ==
--- NOTE | 2022-11-26 | US_ITS ---
WS: [id number] ULTRASOUND THYROID TECHNIQUE: Ultrasound of the thyroid. CLINICAL INFORMATION: LOW TSH COMPARISON: None. FINDINGS: Thyroid: Enlarged RIGHT greater than LEFT thyroid lobe with heterogeneous echotexture. Dominant solid heterogeneous mid RIGHT thyroid nodule measuring 3.2 x 3.5 x 3.2 cm. A few tiny incidental cysts LEFT thyroid. Right thyroid lobe: 6.8 cm x 2.8 cm x 4.1 cm Left thyroid lobe: 6.6 cm x 2.7 cm x 2.5 cm. Isthmus: 0.7 mm. Cervical lymphadenopathy: None. US/US thyroid [id number] IMPRESSION: Heterogeneous mid RIGHT thyroid nodule measuring 3.2 x 3.5 x 3.2 cm. This can b e further evaluated with FNA.
== END 2022-11-26 12:15 | disposition home or self-care (01) ==
PROVIDERS: PCP Family Medicine; Visit Provider Family Medicine
DX: R94.6 Abnormal results of thyroid function studies (principal); E04.1 Nontoxic single thyroid nodule
CPT/HCPCS: 76536

== ENCOUNTER 2023-04-28 10:28 | Outpatient (CLI) | payer MEDICAID, SELFPAY ==
--- NOTE | 2023-04-28 10:43 | US_ITS ---
WS: [id number] ULTRASOUND THYROID FNA CLINICAL INFORMATION: R THYROID NODULE TECHNIQUE: Ultrasound-guided FNA FINDINGS: The procedure including risks, benefits, and complications were discussed with the patient who agreed to proceed. Timeout was performed. Using sterile technique patient was prepped and draped in usual sterile fashion. After 1% lidocaine, using ultrasound guidance, a 25-gauge needle was advanc ed into the RIGHT thyroid nodule. 4 passes were made with active aspiration. Pathology was present fo r slide preparation. No immediate complications. Patient remained in the ultrasound suite 10 minutes postprocedure with intermittent ultrasound to ens ure no hematoma. No hematoma 10 minutes postprocedure. IMPRESSION: Uncomplicated ultrasound-guided thyroid FNA of the RIGHT mid thyroid nodule
== END 2023-04-28 10:29 | disposition home or self-care (01) ==
LOC: RAD 10:28
PROVIDERS: PCP Family Medicine; Visit Provider Family Medicine
DX: E04.1 Nontoxic single thyroid nodule (principal)
CPT/HCPCS: 10005; 88173

== ENCOUNTER 2024-04-22 22:42 | Inpatient (IN) | payer MEDICARE, MEDICAID, SELFPAY ==
--- NOTE | 2024-04-22 22:41 | ECG_ITS ---
[facility] Date[facility] 2024-[facility]22 Pat Name: Bennie Ho Department: Room: Gender: Male Passenger Service Manager: : 1970 Requested By: Vargas Steward Order Number: [id number] Loco MD: Vic Clinton M.D. Measurements Intervals [place] Rate: 110 P: 58 [place]: 175 QRS: -61 QRSD: 113 T: 73 QT: 353 QTc: 478 Interpretive Statements SINUS TACHYCARDIA INCOMPLETE RIGHT BUNDLE BRANCH BLOCK LEFT ANTERIOR FASCICULAR BLOCK POSSIBLE ANTERIOR MYOCARDIAL INFARCTION , PROBABLY OLD Compared to ECG 11/29/2019 00:15:48 No significant change Electronically Signed On 04-23-2024 14:04:08 MEDICAL RECORD SPECIALIST by Vic Clinton M.D. [email or web address]
[2024-04-22 22:46] VITALS: BP 159/76; PULSE 111; RESP 20; TEMP 36.8; O2SAT 92; BMI 62.7
--- NOTE | 2024-04-22 22:51 | XRR_ITS ---
PROCEDURE INFORMATION: Exam: XR Chest Exam date and time: 04/22/2024 10:55 PM Age: 53 years old Clinical indication: Shortness of breath; Patient HX: C/O SOB TECHNIQUE: Imaging protocol: Radiologic exam of the chest. Views: 1 view. COMPARISON: CR XR chest 1V portable [id number] 11/28/2019 6:16 PM FINDINGS: Lungs: Minimal bibasilar atelectasis. Pleural spaces: Unremarkable. No pleural effusion. No pneumothorax. Heart/Mediastinum: Cardiomegaly with vascular congestion and interstitial edema. Bones/joints: Unremarkable. XR/XR chest 1V portable [id number] IMPRESSION: Cardiomegaly with vascular congestion and interstitial edema.
[2024-04-22] MEDS: FUROsemide 10 mg/mL SDV 10mL 80 MG IVP (23:08)
[2024-04-22 23:10] LABS: ABG PH Result 7.32 (7.35-7.45); Arterial Blood Gas Hematocrit 38.8 % (42-52); Base Excess ABG 4.8 mmol/L (-2.0-2.0); Blood Gas Allen Test Pos; Blood Gas Operator Identificat ED; Blood Gas Sample Site Radial, right; Blood Gas Sample Type Arterial; Carboxyhemoglobin 5.6 %THgb (0.4-20.1); HCO3 ABG 32.8 mmol/L (22-26); Methemoglobin 0.6 % (0.4-1.5); Oxygen Device NC; PO2 ABG 60.2 mmHg (80.0-100.0); PO2 FiO2 Ratio Arterial Blood 136; Total Hemoglobin 12.7 g/dL (14-18)
[2024-04-22 23:12] LABS: Basophils % 0.4 %; Eosinophils # 0.3 10^3/uL (0.0-0.8); Eosinophils % 2.7 %; Hematocrit 43.1 % (37-53); Lymphocytes # 1.4 10^3/uL (0.8-4.8); Lymphocytes % 13.4 %; Mean Corpuscular HGB Conc 29.7 g/dL (30-55); Mean Corpuscular Hemoglobin 26.8 pg (27-33); Mean Corpuscular Volume 90.2 fl (82-101); Mean Platelet Volume 10.7 fL (7.4-10.4); Monocytes # 0.5 10^3/uL (0.2-0.9); Monocytes % 4.4 %; Neutrophils # 8.37 10^3/uL (1.8-7.7); Neutrophils % 78.7 %; Nucleated Red Blood Cells % 0 %; Platelet Count 237 10^3/cmm (157-399); Red Blood Count 4.78 10^6/uL (3.85-5.65); Red Cell Distribution Width 14.6 % (12.1-15.1); White Blood Count 10.64 10^3/uL (3.29-11.43)
--- NOTE | 2024-04-22 23:21 | W.ED.SOB ---
HPI - SOB/Dyspnea General: Chief Complaint: Shortness of Breath/Dyspnea Stated Complaint: SOB/CP Time Seen by Provider: 04/22/24 22:44 History of Present Illness: HPI Narrative: 53-year-old male gentleman who has a history of diabetes and sleep apnea as well as obesity. He presents with chest pain, and significant shortness of breath with respiratory distress that developed at home. Proved now on oxygen from EMS. He is still somewhat short of breath and having pressure in his chest. He denies fever. He has had a bit of a cough. Minimal sputum production that is clear. He notes that his legs are always swollen. Related Data Home Medications Medication Instructions Recorded Confirmed aspirin 81 mg tablet,delayed 81 mg PO DAILY 11/28/19 12/07/22 release clindamycin HCl 300 mg capsule 300 mg PO TID 11/28/19 12/07/22 Previous Rx's Medication Instructions Recorded Lactobacillus acidoph-L.bulgaricus 1 tab PO QID #1 tab 12/02/19 1 million cell tablet (Floranex) clindamycin HCl 150 mg capsule 300 mg (2 x 150 mg) PO TID #1 cap 12/02/19 insulin aspart U-100 100 unit/mL 0 unit (0 mL) SUBCUT WM&BEDTIME #1 12/02/19 subcutaneous solution (Novolog vial U-100 Insulin aspart) insulin aspart U-100 100 unit/mL 10 unit (0.1 mL) SUBCUT TIDAC #1 12/02/19 subcutaneous solution (Novolog vial U-100 Insulin aspart) insulin glargine 100 unit/mL 20 unit (0.2 mL) SUBCUT BEDTIME #1 12/02/19 subcutaneous solution (Lantus vial U-100 Insulin) lisinopril 20 mg tablet 40 mg (2 x 20 mg) PO DAILY #1 tab 12/02/19 metoprolol tartrate 25 mg tablet 25 mg PO BID #1 tab 12/02/19 pantoprazole 40 mg tablet,delayed 40 mg PO DAILY #1 tab 12/02/19 release vancomycin 2 gram/500 mL in 0.9 % 2 gm (500 mL) IV Q8H #3,000 mL 12/02/19 sodium chloride intravenous mupirocin 2 % topical ointment 1 applic topical BID #15 grams 02/19/22 sulfamethoxazole 800 1 tab PO BID #14 tabs 02/19/22 mg-trimethoprim 160 mg tablet (Bactrim DS) Allergies Allergy/AdvReac Type Severity Reaction Status Date / Time No Known Allergies Allergy Verified 12/07/22 09:53 PFSH ED PFSH: Medical History Smoker -heavy smoker, 2 PPD Morbid obesity -BMI-59 kg/m2 Sepsis -as noted above -BP better controlled, tachycardia persists, afebrile; continue to monitor vital signs -trend WBC; leukocytosis improving Smoker Recurrent infection of skin Chronic back pain GERD (gastroesophageal reflux disease) Ptosis of eyelid, right Sleep apnea Morbid obesity Testicular abscess Hypertension -BP improved though still uncontrolled, continue to monitor vital signs -on Lisinopril; titrate as needed for optimal BP control; due to tachycardia, BB added Diabetes mellitus Surgical History History of incision and drainage 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 S/P right knee arthroscopy Family History Other CAD (coronary artery disease) Diabetes Social History Smoking and tobacco/nicotine status: heavy tobacco/nicotine user cigarettes [ Other cigarette details: 2 packs/day] Alcohol intake: never Substance/Drug Use: never Household members: significant other Housing: House Physical Exam Const: GENERAL APPEARANCE: cooperative and ill appearing; not frail appearing HENMT: COMMON NORMALS: normocephalic, atraumatic and Normal external nose present HEAD & SCALP: normocephalic and atraumatic FACE & SINUS: normal facial exam and face symmetric NOSE: Normal external nose present Eye: COMMON NORMALS: Equal, round and reactive pupils present and EOMs intact bilaterally PUPIL: Yes Equal, round and reactive pupils present Neck/C-Spine: GENERAL: Yes trachea midline Chest: CHEST: Yes Symmetrical chest wall rise Resp: EFFORT & INSPECTION: Yes tachypneic and Yes labored AUSCULTATION: rales and diminished lung sounds Cardio: COMMON NORMALS: regular rhythm RATE: tachycardic RHYTHM: regular rhythm GI: COMMON NORMALS: Normal to inspection, nondistended, normoactive bowel sounds present Extremity: GENERAL: Yes edema Neuro: SHAHAB COMA SCALE: document GCS findings Shahab coma scale eye opening: Spontaneous [place] coma scale verbal response: Orientated [place] coma scale motor response: Obey commands [place] coma scale total score: 15 SENSORY EXAM: Yes extremities (intact) Psych: COMMON NORMALS: speech normal SPEECH: Yes normal speech Skin: COMMON NORMALS: no rashes or lesions noted NARRATIVE SKIN EXAM: pressure ulcerations to B LE GENERAL SKIN EXAM: no rashes or lesions noted Course Vital Signs: Vital signs: Vital Signs Temperature 98.2 F 04/22/24 22:46 Pulse Rate 93 04/23/24 01:17 CS T Respiratory Rate 20 H 04/22/24 23:23 Blood Pressure 135/108 04/23/24 01:17 CS T Pulse Oximetry 96 04/23/24 01:17 CS T Oxygen Delivery Me thod BiPAP 04/23/24 01:17 CS T Oxygen Flow Rate 5 04/22/24 22:46 Fraction of Inspir ed Oxygen 40 04/23/24 01:54 CD T MDM - SOB/Dyspnea Medical Decision Making Patient with bilateral lower extremity edema, rales on exam, and pulmonary edema present on chest x-ray. Interestingly his BNP is not significantly elevated. COVID flu and RSV swabs are negative. His pH is 7.32 pCO2 is 64 and pO2 of 60. He is placed on BiPAP because of this with improvement. He is given IV Lasix, nitroglycerin. He is starting to diurese. He was also given a DuoNeb treatment which seems to help. Spoke with hospitalist. He will be admitted for hypoxic hypercapnic respiratory failure with pulmonary edema. Lab Data 04/22/24 22:58 04/22/24 22:58 Labs/Radiology: Radiology Impressions Chest X-Ray 04/22/24 22:51 IMPRESSION: Cardiomegaly with vascular congestion and interstitial edema. Laboratory Results WBC 10.64 10^3/uL (3.29-11.43) 04/22/24 22:58 RBC 4.78 10^6/uL (3.85-5.65) 04/22/24 22:58 Hgb 12.80 g/dL (11.27-16.99) 04/22/24 22:58 Hct 43.1 % (37-53) 04/22/24 22:58 MCV 90.2 fl (82-101) 04/22/24 22:58 MCH 26.8 pg (27-33) L 04/22/24 22:58 MCHC 29.7 g/dL (30-55) L 04/22/24 22:58 RDW 14.6 % (12.1-15.1) 04/22/24 22:58 Plt Count 237 10^3/cmm (157-399) 04/22/24 22:58 MPV 10.7 fL (7.4-10.4) H 04/22/24 22:58 Neut % (Auto) 78.7 % 04/22/24 22:58 Lymph % (Auto) 13.4 % 04/22/24 22:58 [place] % (Auto) 4.4 % 04/22/24 22:58 Eos % (Auto) 2.7 % 04/22/24 22:58 Baso % (Auto) 0.4 % 04/22/24 22:58 Neut # (Auto) 8.37 10^3/uL (1.8-7.7) H 04/22/24 22:58 Lymph # (Auto) 1.4 10^3/uL (0.8-4.8) 04/22/24 22:58 [place] # (Auto) 0.5 10^3/uL (0.2-0.9) 04/22/24 22:58 Eos # (Auto) 0.3 10^3/uL (0.0-0.8) 04/22/24 22:58 Baso # (Auto) 0.0 10^3/uL (0.0-0.1) 04/22/24 22:58 Nucleated RBC % (auto) 0 % 04/22/24 22:58 Nucleated RBCs # 0.0 /100WBC 04/22/24 22:58 Specimen Type Arterial 04/22/24 22:58 Sample Site Radial, right 04/22/24 22:58 ABG pH 7.32 (7.35-7.45) L 04/22/24 22:58 ABG pCO2 64.0 mmHg (35-45) H* 04/22/24 22:58 ABG pO2 60.2 mmHg (80.0-100.0) L 04/22/24 22:58 ABG PO2/FiO2 Ratio 136 04/22/24 22:58 ABG HCO3 32.8 mmol/L (22-26) H 04/22/24 22:58 ABG Base Excess 4.8 mmol/L (-2.0-2.0) H 04/22/24 22:58 Wesley Test Pos 04/22/24 22:58 Hematocrit 38.8 % (42-52) L 04/22/24 22:58 Hgb O2 Saturation 85.0 % (95-100) L 04/22/24 22:58 Carboxyhemoglobin 5.6 %THgb (0.4-20.1) 04/22/24 22:58 Methemoglobin 0.6 % (0.4-1.5) 04/22/24 22:58 Total Hemoglobin 12.7 g/dL (14-18) L 04/22/24 22:58 O2 Delivery Device Nc 04/22/24 22:58 O2 Liters/Min 6.0 % 04/22/24 22:58 FiO2 44.0 % 04/22/24 22:58 Burrer Operator ID Ed 04/22/24 22:58 Sodium 139 mmol/L (136-145) 04/22/24 22:58 Potassium 4.6 mmol/L (3.5-5.1) 04/22/24 22:58 Chloride 100 mmol/L (98-107) 04/22/24 22:58 Carbon Dioxide 30 mmol/L (22-29) H 04/22/24 22:58 Anion Gap 13.6 (5-19) 04/22/24 22:58 BUN 16 mg/dL (6-20) 04/22/24 22:58 Creatinine 1.1 mg/dL (0.7-1.2) 04/22/24 22:58 GFR Calculation 70.3 mL/min (90-130) L 04/22/24 22:58 Glucose 360 mg/dL (65-115) H 04/22/24 22:58 Calculated Osmolality 304 mOsm/kg (285-295) H 04/22/24 22:58 Lactic Acid 2.7 mmol/L (0.5-2.2) H 04/22/24 22:58 Calcium 8.1 mg/dL (8.5-10.5) L 04/22/24 22:58 Troponin T Baseline 33 ng/L (0-15) H 04/22/24 22:58 Troponin T 120 Minute 35.14 ng/L (0-15) H 04/23/24 00:53 Delta Troponin T 2.14 ABS# (0-10) 04/23/24 00:53 NT-Pro-B Natriuret Pep 103 pg/mL (0-125) 04/22/24 22:58 Coronavirus (PCR) Negative (Negative) 04/22/24 23:15 Influenza A (PCR) Negative (Negative) 04/22/24 23:15 Influenza Type B (PCR) Negative (Negative) 04/22/24 23:15 RSV (PCR) Negative (Negative) 04/22/24 23:15 All radiology interpretation(s) finalized by discharge Critical Care Time Critical Care Time: Critical Care Time: Yes Total Critical Care Time: 35 Attestation: This case had a high probability of a clinically significant, sudden, or life threatening deterioration of this patient's condition which required my full and direct attention, intervention and personal management. Time is independent of any procedures performed. Discharge Plan Discharge Patient Disposition: Admitted As Inpatient Admit Provider: José Antonio Gutierrez Clinical Impression: Acute respiratory failure with hypoxia and hypercapnia, Pulmonary edema Condition: Serious Coding Level of Care Code ED Fire Protection Inspector for Ruchi Velez
[2024-04-22 23:23] VITALS: PULSE 100; RESP 20; O2SAT 96
[2024-04-22] MEDS: ipratropium-albuterol 3 mL Neb INHALATION (23:23)
[2024-04-22 23:26] LABS: Lactic Sepsis W/Reflex 2.7 mmol/L (0.5-2.2)
[2024-04-22 23:29] LABS: Troponin(5th) Baseline 33 ng/L (0-15)
[2024-04-22 23:38] LABS: Blood Urea Nitrogen 16 mg/dL (6-20); Calcium 8.1 mg/dL (8.5-10.5); Carbon Dioxide 30 mmol/L (22-29); Chloride 100 mmol/L (98-107); Creatinine Clr Calc Pharmacy 140.9187; Glomerular Filtration Rate 70.3 mL/min (90-130); Glucose 360 mg/dL (65-115); NT Pro B Type Natriuretic Pept 103 pg/mL (0-125); Osmolality Calculated 304 mOsm/kg (285-295); Sodium 139 mmol/L (136-145)
[2024-04-22 23:45] LABS: Anion Gap 13.6 (5-19); Potassium 4.6 mmol/L (3.5-5.1)
[2024-04-22 23:51] VITALS: BP 159/76; PULSE 108; O2SAT 95
[2024-04-23] VITALS (25 sets, daily range): BP systolic 110–175; BP diastolic 72–108; PULSE 80–99; RESP 16–24; TEMP 36.6–37.6; O2SAT 91–99; BMI 62.7
[2024-04-23 00:35] LABS: Covid PCR NEGATIVE (Negative); Influenza A NEGATIVE (Negative); Influenza B NEGATIVE (Negative); Respiratory Syncytial Virus Ce NEGATIVE (Negative)
[2024-04-23 00:49] LABS: Reflex Lactate Order REFLEX LACTIC ORDERD
--- NOTE | 2024-04-23 00:56 | ECG_ITS ---
[facility] Test Date: 2024-04-23 Pat Name: Bennie Ho Department: Room: Gender: Male Silver Buffer: : 1970 Requested By: Vargas Steward Order Number: [id number] Loco MD: Vic Clinton M.D. Measurements Intervals [place] Rate: 93 P: 46 SD: 184 QRS: -48 QRSD: 117 T: 73 QT: 374 QTc: 467 Interpretive Statements SINUS RHYTHM INCOMPLETE RIGHT BUNDLE BRANCH BLOCK LEFT ANTERIOR FASCICULAR BLOCK POSSIBLE ANTERIOR MYOCARDIAL INFARCTION , OF INDETERMINATE AGE Compared to ECG 04/22/2024 22:41:48 Sinus tachycardia no longer present Myocardial infarct finding still present Electronically Signed On 04-23-2024 14:11:41 LINING REPAIRER by Vic Clinton M.D. [id number]
[2024-04-23 01:19] LABS: Troponin 5 2HR 35.14 ng/L (0-15); Troponin 5 2HR Delta 2.14 ABS# (0-10)
[2024-04-23 02:25] LABS: Lactic Acid level (Lactate) 0.9 mmol/L (0.5-2.2)
--- NOTE | 2024-04-23 03:26 | P.HP_ITS ---
Providers/Chief Complaint 2 Admitting Physician: José Antonio Gutierrez MD Primary Care Provider: Cindy Briggs DO Chief Complaint: SOB/CP History of Present Illness Bennie Ho is a 53 year old male with morbid obesity diabetes and sleep apnea states that his Medicare spin down would not cover his CPAP machine and it was taken away. He was wearing it nightly and's reported feeling more rested. Patient has had increasing leg swelling and shortness of breath. He has dyspnea on exertion just trying to walk 6 feet to his bathroom. He had chest pain and presented to the emergency department. Troponin minimally elevated and follow- up troponin no change. Patient was started on BiPAP with significant improvement. 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 once a year no smoking weed he does use Gummies for neuropathy on occasion. Denies meth or street narcotics. He wants full CODE STATUS and is accompanied by his Edna she reports have a 3-year-old child Review of Systems 2 Narrative: Positive for dyspnea on exertion pressure on the chest and shortness of breath has been coughing for 2 weeks worse when supine. With coughing fits that improved with sitting up. Medications/Allergies Home Medications Medication Instructions Recorded Confirmed Last Taken Type aspirin 81 mg tablet,delayed 81 mg PO DAILY 11/28/19 12/07/22 11/28/19 History release clindamycin HCl 300 mg capsule 300 mg PO TID 11/28/19 12/07/22 11/28/19 History Lactobacillus acidoph-L.bulgaricus 1 tab PO QID #1 tab 12/02/19 12/07/22 Unknown Rx 1 million cell tablet (Floranex) clindamycin HCl 150 mg capsule 300 mg (2 x 150 mg) PO TID #1 cap 12/02/19 12/07/22 Unknown Rx insulin aspart U-100 100 unit/mL 0 unit (0 mL) SUBCUT WM&BEDTIME #1 12/02/19 12/07/22 Unknown Rx subcutaneous solution (Novolog vial U-100 Insulin aspart) insulin aspart U-100 100 unit/mL 10 unit (0.1 mL) SUBCUT TIDAC #1 12/02/19 12/07/22 Unknown Rx subcutaneous solution (Novolog vial U-100 Insulin aspart) insulin glargine 100 unit/mL 20 unit (0.2 mL) SUBCUT BEDTIME #1 12/02/19 12/07/22 Unknown Rx subcutaneous solution (Lantus vial U-100 Insulin) lisinopril 20 mg tablet 40 mg (2 x 20 mg) PO DAILY #1 tab 12/02/19 12/07/22 Unknown Rx metoprolol tartrate 25 mg tablet 25 mg PO BID #1 tab 12/02/19 12/07/22 Unknown Rx pantoprazole 40 mg tablet,delayed 40 mg PO DAILY #1 tab 12/02/19 12/07/22 Unknown Rx release vancomycin 2 gram/500 mL in 0.9 % 2 gm (500 mL) IV Q8H #3,000 mL 12/02/19 12/07/22 Unknown Rx sodium chloride intravenous mupirocin 2 % topical ointment 1 applic topical BID #15 grams 02/19/22 12/07/22 Unknown Rx sulfamethoxazole 800 1 tab PO BID #14 tabs 02/19/22 12/07/22 Unknown Rx mg-trimethoprim 160 mg tablet (Bactrim DS) Allergies Allergy/AdvReac Type Severity Reaction Status Date / Time No Known Allergies Allergy Verified 12/07/22 09:53 PFSH Acute 2 PFSH: Medical History Smoker -heavy smoker, 2 PPD Morbid obesity -BMI-59 kg/m2 Sepsis -as noted above -BP better controlled, tachycardia persists, afebrile; continue to monitor vital signs -trend WBC; leukocytosis improving Smoker Recurrent infection of skin Chronic back pain GERD (gastroesophageal reflux disease) Ptosis of eyelid, right Sleep apnea Morbid obesity Testicular abscess Hypertension -BP improved though still uncontrolled, continue to monitor vital signs -on Lisinopril; titrate as needed for optimal BP control; due to tachycardia, BB added Diabetes mellitus Surgical History History of incision and drainage 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 S/P right knee arthroscopy Family History Other CAD (coronary artery disease) Diabetes Social History Smoking and tobacco/nicotine status: heavy tobacco/nicotine user cigarettes [ Other cigarette details: 2 packs/day] Alcohol intake: never Substance/Drug Use: never Household members: significant other Housing: House Vitals/I&O/Wt Last Vital Signs Temp 98.2 F 04/22/24 22:46 Pulse 93 04/23/24 01:17 WIRE HARNESS ASSEMBLER Resp 20 H 04/22/24 23:23 BP 135/108 04/23/24 01:17 WIRE HARNESS ASSEMBLER Pulse Ox 96 04/23/24 01:17 WIRE HARNESS ASSEMBLER O2 Del Method BiPAP 04/23/24 01:17 WIRE HARNESS ASSEMBLER O2 Flow Rate 5 04/22/24 22:46 FiO2 40 04/23/24 01:54 CDT Weight last 48 hrs Weight 204.117 kg Physical Exam 2 Narrative: General Well-developed morbidly obese male on BiPAP comfortable he is able to talk through that but in a weakly audible voice. Patient is alert and oriented CV regular rate and rhythm Lungs crackles in the bases right greater than left Abdomen positive bowel sounds soft obese nontender Right BKA left leg is swollen 2+ with chronic venous stasis changes skin thickening and what appears to be shallow ulceration left pretibial with yellow exudate and blistering consistent with staff aureus possibly MRSA. Oral Mallampati 3 dentition okay Data 04/22/24 22:58 04/22/24 22:58 Micro: Microbiology 04/22/24 23:47 Blood Culture - Preliminary Blood SPECIMEN COLLECTED 04/22/24 23:45 Blood Culture - Preliminary Blood SPECIMEN COLLECTED A&P Assessment and plan (1) Pulmonary edema: Patient with untreated sleep apnea at home severe morbid obesity and suspected acute on chronic congestive heart failure. Will start BiPAP and diurese him. He has CPAP previously taken away when he was unable to afford it without insurance. He denies that it was removed due to lack of usage (2) Acute respiratory failure with hypoxia and hypercapnia: Continue BiPAP (3) Cellulitis and abscess of left leg: Will treat with clindamycin and mupirocin patient needs bath or shower hygiene is poor (4) Morbid obesity with BMI of 60.0-69.9, adult: Counseled regarding weight loss diet. Will start him at [address] he needs to see the dietitian. Counseled him regarding the idea of eating less than BMR and avoiding empty calories. Avoid fad diets such as keto diet Attestations 2 Medical Necessity Statement*: Anticipate the patient's hospital stay will be greater than 2 midnights Coding Level of Care Code 42131 Diagnoses Pulmonary edema J81.1 Acute respiratory failure with hypoxia and hypercapnia J96.01; J96.02 Cellulitis and abscess of left leg L03.116; L02.416 Morbid obesity with BMI of 60.0-69.9, adult E66.01; Z68.44 Time Spent (min) 55
--- NOTE | 2024-04-23 03:56 | ECG_ITS ---
[email or web address] Test Date: 2024-04-23 Pat Name: Bennie Ho Department: Room: 275 Gender: Male Bellows Charger Assembler: : 1970 Requested By: Vargas Steward Order Number: [id number] Loco MD: Vic Clinton M.D. Measurements Intervals [place] Rate: 95 P: 42 [place]: 187 QRS: 40 QRSD: 112 T: 72 QT: 362 QTc: 456 Interpretive Statements SINUS RHYTHM INDETERMINATE AXIS POSSIBLE ANTERIOR MYOCARDIAL INFARCTION , OF INDETERMINATE AGE Compared to ECG 04/23/2024 00:56:21 Myocardial infarct finding still present Electronically Signed On 04-23-2024 14:10:31 BURNING MACHINE OPERATOR by Vic Clinton M.D. [id number]
[2024-04-23 05:33] LABS: Troponin 5 6HR 38.93 ng/L (0-15); Troponin 5 6HR Delta 5.93 ng/L (0-12)
[2024-04-23] MEDS: enoxaparin 40 mg/0.4 mL Syringe SUBCUT ×2 (06:30→16:43)
[2024-04-23 06:37] LABS: Glucose Point of Care 260 mg/dL (70-110)
[2024-04-23] MEDS: budesonide 0.5 mg/2 mL Neb INHALATION ×2 (07:17→20:02)
[2024-04-23] MEDS: ipratropium-albuterol 3 mL Neb INHALATION ×4 (07:17→20:02)
[2024-04-23] MEDS: lisinopril 20 mg Tablet 40 MG PO (09:02)
[2024-04-23] MEDS: pantoprazole DR 40 mg Tablet PO (09:02)
[2024-04-23] MEDS: potassium chloride ER 10 mEq Tablet PO ×2 (09:02→16:44)
[2024-04-23] MEDS: lactobacillus 1 Tablet 1 TAB PO ×4 (09:02→20:57)
[2024-04-23] MEDS: clindamycin 150 mg Capsule 300 MG PO ×2 (09:02→16:44)
[2024-04-23] MEDS: aspirin 81 mg EC Tablet PO (09:02)
[2024-04-23] MEDS: insulin lispro 100 unit/1 mL 10 UNIT SUBCUT ×3 (09:03→16:43)
[2024-04-23] MEDS: insulin lispro 100 unit/1 mL SUBCUT ×4 (09:03→20:56)
[2024-04-23] MEDS: FUROsemide 10 mg/mL SDV 4mL 40 MG IVP ×2 (09:03→16:44)
[2024-04-23] MEDS: metoprolol tartrate 25 mg Tablet PO ×2 (09:31→16:44)
[2024-04-23] MEDS: mupirocin oint 22 gm 1 APPLIC TOPICAL ×2 (09:32→16:46)
[2024-04-23 12:17] LABS: Glucose Point of Care 263 mg/dL (70-110)
[2024-04-23 15:46] LABS: ABG PCO2 72.1 mmHg (35-45); ABG PH Result 7.28 (7.35-7.45); Alveolar-Arterial Oxygen Gradi 19.6 mmHg (5-10); Arterial Blood Gas Hematocrit 37.7 % (42-52); Blood Gas Allen Test Pos; Blood Gas Operator Identificat AMH; Blood Gas Sample Site Radial, left; Blood Gas Sample Type Arterial; Carboxyhemoglobin 1.7 %THgb (0.4-20.1); HCO3 ABG 33.9 mmol/L (22-26); HGB O2 Sat 92.2 % (95-100); Ionized Calcium Level - ABG 1.2 mmol/L (1.1-1.4); Methemoglobin 0.7 % (0.4-1.5); Oxygen Device NC; Oxygen Saturation ABG 94.5; PO2 ABG 75.6 mmHg (80.0-100.0); PO2 FiO2 Ratio Arterial Blood 171; Potassium Level - ABG 4.9 mmol/L (3.5-5.0); Total Hemoglobin 12.3 g/dL (14-18)
[2024-04-23 16:28] LABS: Glucose Point of Care 221 mg/dL (70-110)
--- NOTE | 2024-04-23 17:19 | PM.MISC ---
Miscellaneous Note Purpose of Documentation: Patient was seen and examined this afternoon at around 3:30 PM when he is speech was noted to be incoherent. He was moving both upper and lower extremities, however not responding appropriately to questions. His words did not make sense. He was disoriented and chuckling without any apparent cause. ABG was performed which showed hypercapnia. pH 7.28/CO2 72/pO2 75/bicarb 33.9. He had been on BiPAP through most of the day and had his family members visiting. He has been placed back on BiPAP with this ABG. Repeat ABG ordered in 2 hours.
[2024-04-23] MEDS: methylPREDNISolone sod succ 40 mg/mL INJ IVP (18:11)
--- NOTE | 2024-04-23 18:47 | PC.NURSE ---
Patients daughter Yolanda wishes to be called with any serious changes [phone].
[2024-04-23 20:19] LABS: ABG PH Result 7.27 (7.35-7.45); Arterial Blood Gas Hematocrit 39.4 % (42-52); Base Excess ABG 3.7 mmol/L (-2.0-2.0); Blood Gas Allen Test Pos; Blood Gas Sample Site Radial, left; Blood Gas Sample Type Arterial; HCO3 ABG 32.6 mmol/L (22-26); Oxygen Device NC; PO2 ABG 70.8 mmHg (80.0-100.0)
[2024-04-23 20:20] LABS: ABG PCO2 70.7 mmHg (35-45)
[2024-04-23 20:51] LABS: Glucose Point of Care 324 mg/dL (70-110)
[2024-04-23] MEDS: insulin glargine 100 units/1 mL 20 UNIT SUBCUT (20:56)
[2024-04-23 23:04] LABS: Arterial Blood Gas Hematocrit 40.4 % (42-52); Base Excess ABG 5.4 mmol/L (-2.0-2.0); Blood Gas Sample Site Brachial, left; Blood Gas Sample Type Venous; Carboxyhemoglobin 1.4 %THgb (0.4-20.1); Glucose Level-ABG > 270.0 mg/dL (70-115); HGB O2 Sat 33.9 % (95-100); Ionized Calcium Level - ABG 1.2 mmol/L (1.1-1.4); Methemoglobin 0.8 % (0.4-1.5); Oxygen Device BIPAP; Oxygen Saturation ABG 34.7; PO2 FiO2 Ratio Arterial Blood 76; Total Hemoglobin 13.2 g/dL (14-18)
[2024-04-23 23:05] LABS: ABG PCO2 68.9 mmHg (35-45)
[2024-04-24] VITALS (44 sets, daily range): BP systolic 117–187; BP diastolic 34–91; PULSE 81–99; RESP 17–27; TEMP 36.5–37.2; O2SAT 90–98
[2024-04-24] MEDS: methylPREDNISolone sod succ 40 mg/mL INJ IVP ×3 (01:49→18:41)
--- NOTE | 2024-04-24 01:52 | PC.NURSE ---
Patient has been non-compliant with wearing his biPap during this shift. Upon entering the room, biPap mask was laying on the bedside table, biPap monitor alarming high, and patient wearing no source of oxygen, saturating at 85%. Patient asked do I not get a break from this thing. Patient was educated on the importance of wearing it and about the Co2 levels in his blood. Patient placed mask back on and stated Is that good enough? Plan of care ongoing.
[2024-04-24 04:19] LABS: ABG PH Result 7.28 (7.35-7.45); Arterial Blood Gas Hematocrit 39.8 % (42-52); Base Excess ABG 2.9 mmol/L (-2.0-2.0); Blood Gas Allen Test Pos; Blood Gas Sample Site Radial, left; Blood Gas Sample Type Arterial; HCO3 ABG 31.4 mmol/L (22-26); Oxygen Device BIPAP; PO2 ABG 82.9 mmHg (80.0-100.0); PO2 FiO2 Ratio Arterial Blood 236
[2024-04-24 04:47] LABS: Estmated Average Glucose 246; Hemoglobin A1C 10.2 % (4.0-6.0)
[2024-04-24 05:01] LABS: Anion Gap 14.3 (5-19); Blood Urea Nitrogen 28 mg/dL (6-20); Carbon Dioxide 29 mmol/L (22-29); Chloride 97 mmol/L (98-107); Chol HDL Ratio 2.85 mg/dL (1.0-5.00); Cholesterol 171 mg/dL (0-200); Creatinine Clr Calc Pharmacy 110.7218; Glomerular Filtration Rate 53.2 mL/min (90-130); Glucose 435 mg/dL (65-115); HDL Cholesterol 60 mg/dL (60-100); LDL Cholesterol Calculated 99 mg/dL (50-129); LDL HDL Ratio 1.65 RATIO (0.00-3.22); Osmolality Calculated 302 mOsm/kg (285-295); Phosphorus 3.5 mg/dL (2.5-4.5); Potassium 6.3 mmol/L (3.5-5.1); Sodium 134 mmol/L (136-145); Thyroid Stimulating Hormone 0.43 uIU/mL (0.27-4.20); Triglycerides 58 mg/dL (0-150)
[2024-04-24] MEDS: insulin lispro 100 unit/1 mL 10 UNIT SUBCUT ×2 (06:20→12:05)
[2024-04-24 06:24] LABS: Glucose Point of Care 391 mg/dL (70-110)
[2024-04-24 07:03] LABS: ABG PCO2 66.3 mmHg (35-45)
[2024-04-24] MEDS: lisinopril 20 mg Tablet 40 MG PO (07:50)
[2024-04-24] MEDS: lactobacillus 1 Tablet 1 TAB PO ×4 (07:51→20:32)
[2024-04-24] MEDS: FUROsemide 10 mg/mL SDV 4mL 40 MG IVP ×2 (07:51→14:24)
[2024-04-24] MEDS: pantoprazole DR 40 mg Tablet PO (07:51)
[2024-04-24] MEDS: aspirin 81 mg EC Tablet PO (07:52)
[2024-04-24] MEDS: metoprolol tartrate 25 mg Tablet PO ×2 (07:52→17:00)
[2024-04-24] MEDS: insulin lispro 100 unit/1 mL SUBCUT ×3 (07:54→16:59)
[2024-04-24] MEDS: mupirocin oint 22 gm 1 APPLIC TOPICAL ×2 (07:55→17:06)
[2024-04-24 07:56] LABS: Glucose Point of Care 406 mg/dL (70-110)
[2024-04-24] MEDS: ipratropium-albuterol 3 mL Neb INHALATION ×4 (09:32→20:03)
--- NOTE | 2024-04-24 10:10 | PC.CHAP ---
Pastoral Care Encounter/Spiritual Assessment Type of Contact [] Declined machine silk screen printer visit [] Patient/Family/Request visit [] Outpatient visit [] Follow-up visit [] Physician referral [] Code/Alert [x] Routine visit [] Staff referral [] Actively dying [] Patient sleeping [] Family support [] [] Out of room [] Palliative care [] [] Receiving care in room [] Pre-surgical visit [] Trauma [] Long length of stay [] ICU visit [] Other: Relational/Emotional Strength [] Patient feels connected with others/family/visitors/staff [] Distress [] Loneliness/isolation [] Abandonment Spirituality of Patient [x] Person of Vaishnavi [] Attends Advent of their Vaishnavi [x] Believes in Prayer [] Reads Bible or Scientology materials [] There are Spiritual issues to be addressed Resident Caregiver Interventions [x] Prayer [x] Active listening [] Non-anxious presence [] Spiritual/emotional support [] Crisis/trauma care [] Spiritual counseling [] Bereavement support [] Provided bereavement packet [x] Provided Bible/devotional materials [] Provided toy/stuffed animal, coloring book to patient or family member [] Provided Communion [] Anointing/Island [] Salvation [x] Completed spiritual assessment [] Other: Impact on Illness or Injury [] Angry [] Fearful [] Anxious [] Often cries [] Exhaustion [] Unable to work [] Unable to attend spiritism [] Unable to walk/stand [] Unable to read [] Unable to drive [] Unable to eat/drink [] Unable to sleep [] Unable to be with family [] Patient intubated [] Other: Summary Time spent with patient 10 min
[2024-04-24 11:36] LABS: Glucose Point of Care 386 mg/dL (70-110)
[2024-04-24 13:02] LABS: Blood Gas Operator Identificat HARKR
--- NOTE | 2024-04-24 13:48 | P.PN_ITS ---
Subjective 2 Subjective: Seen this morning. Earlier in the morning pH was 7.28/66. He was placed on BiPAP. At this time when seen he is on 3 L nasal cannula at this time. Patient does complain of generalized swelling to bilateral lower extremities and upper extremities. Right hand and arm in particular are quite swollen. Vitals/I&O/Wt Last Vital Signs Temp 98.3 F 04/24/24 10:56 Pulse 95 04/24/24 11:37 Resp 18 04/24/24 11:37 BP 169/79 04/24/24 10:56 Pulse Ox 95 04/24/24 11:37 O2 Del Method Nasal Cannula 04/24/24 11:37 O2 Flow Rate 3 04/24/24 11:37 FiO2 35 04/24/24 06:48 04/23/24 04/24/24 04/24/24 22:59 06:59 14:59 Intake Total 240 / 240 240 / 240 Balance 240 / 240 240 / 240 Weight last 48 hrs Weight 239.769 kg Weight 204.117 kg Weight 204.117 kg Physical Exam 2 Narrative: General Well-developed morbidly obese alert oriented x 3. Currently on room air sitting up at edge of bed speaking to his family. On 3 L nasal cannula. CV regular rate and rhythm Lungs bilateral crackles present on auscultation. Abdomen positive bowel sounds soft obese nontender Right BKA left leg is swollen 2+ with chronic venous stasis changes skin thickening and what appears to be shallow ulceration left pretibial with yellow exudate and blistering consistent with staff aureus possibly MRSA. Data 04/22/24 22:58 04/24/24 04:18 Micro: Microbiology 04/22/24 23:47 Blood Culture - Preliminary Blood NEGATIVE TO DATE 04/22/24 23:45 Blood Culture - Preliminary Blood NEGATIVE TO DATE A&P Assessment and plan (1) Pulmonary edema: Patient with untreated sleep apnea at home severe morbid obesity and suspected acute on chronic congestive heart failure. Will start BiPAP and diurese him. He has CPAP previously taken away when he was unable to afford it without insurance. He denies that it was removed due to lack of usage (2) Acute respiratory failure with hypoxia and hypercapnia: Continue BiPAP (3) Cellulitis and abscess of left leg: Will treat with clindamycin and mupirocin patient needs bath or shower hygiene is poor (4) Morbid obesity with BMI of 60.0-69.9, adult: Counseled regarding weight loss diet. Will start him at [address] he needs to see the dietitian. Counseled him regarding the idea of eating less than BMR and avoiding empty calories. Avoid fad diets such as keto diet Plan 04/24 Suspect congestive heart failure. Patient previously not on any diuretics at home. ? Echo obtained. Result is pending at this time ? Generalized anasarca present upper extremities worse on lower extremities. Chronic venous stasis changes present ? Switch to Lasix IV 40 twice daily ? Strict intake output. Strict urine output. Order placed for nursing staff to record urine output. ? Patient needs to be on BiPAP at home going forward. He states he was previously on CPAP however that got taken away since he did not have any insurance. We will need to set that up prior to discharge. ? She has had previous sleep studies done in the past. ? Appreciate cellulitis and erythema on left leg. I will continue on doxycycline oral at this time ? Continue Solu-Medrol 40 twice daily. ? Will stop metoprolol titrate twice daily ? Continue aspirin, atorvastatin. ? Generalized anasarca present. Will hold off on amlodipine at this time. Will place on Coreg Attestations 2 Medical Necessity Statement*: Anticipate the patient's hospital stay will be greater than 2 midnights Patient needs further IV diuresis at this time with IV Lasix. Does have bilateral upper extremity arm swelling and cellulitis of left lower extremities. Will need another 48-hour stay at this time. Not medically stable for discharge today. Diagnoses Pulmonary edema J81.1 Acute respiratory failure with hypoxia and hypercapnia J96.01; J96.02 Cellulitis and abscess of left leg L03.116; L02.416 Morbid obesity with BMI of 60.0-69.9, adult E66.01; Z68.44
--- NOTE | 2024-04-24 13:50 | USR_ITS ---
PROCEDURE INFORMATION: Exam: US Abdomen Complete Exam date and time: 04/24/2024 4:55 PM Age: 53 years old Clinical indication: Screening exam; Other: R/O cirhosis TECHNIQUE: Imaging protocol: Real-time ultrasound of the abdomen with image documentation. Complete exam. COMPARISON: US scrotum [id number] 04/27/2017 6:13 PM FINDINGS: Liver: Nodularity of the liver contour with heterogeneous echotexture suggestive of hepatic cirrhosis. Gallbladder: No evidence of definitive evidence of cholelithiasis. Nonspecific borderline gallbladder wall thickening in the setting of cirrhosis. The hogshead roller reports a negative sonographic Ramirez's sign. Biliary ducts: No evidence of intrahepatic biliary dilatation. CBD not well visualized. Pancreas: Not well visualized. Right kidney: The right kidney is normal in echotexture and measures 11.9 cm in length. No hydronephrosis. Left kidney: The left kidney is normal in echotexture and measures 12.6 cm in length. No hydronephrosis. Spleen: Not well visualized. Aorta: Not well visualized. Other: No evidence of ascites. US/US abdomen complete* [id number] IMPRESSION: 1. Nodularity of the liver contour with heterogeneous echotexture suggestive of hepatic cirrhosis.
[2024-04-24 14:52] LABS: Bilirubin Urine Negative (Negative); Blood Urine Negative (Negative); Glucose Urine UA 3+ (Normal); Ketones Urine Negative (Negative); Leukocyte Esterase Urine Negative (Negative); Nitrate Urine Negative (Negative); Protein Urine 1+ (Negative); Specific Gravity, Urine 1.024 (1.005-1.030); Urine Appearance Clear (CLEAR); Urine Color Yellow (Yellow)
[2024-04-24 14:57] LABS: Bacteria Urine None Seen /hpf; Hyaline Casts Urine 5.36 /lpf; RBC Urine 0-2 /hpf (0-2); Squamous Epithelial Cell Urine 0-5 /hpf (0-5); WBC Urine 0-5 /hpf (0-5)
[2024-04-24 15:14] LABS: Ketone (Acetest) Serum Negative (Negative)
[2024-04-24 15:22] LABS: Blood Urea Nitrogen 34 mg/dL (6-20); Calcium 8.3 mg/dL (8.5-10.5); Carbon Dioxide 23 mmol/L (22-29); Chloride 95 mmol/L (98-107); Creatinine Clr Calc Pharmacy 123.1717; Glomerular Filtration Rate 53.2 mL/min (90-130); Glucose 457 mg/dL (65-115); Osmolality Calculated 302 mOsm/kg (285-295); Sodium 132 mmol/L (136-145)
[2024-04-24 15:26] LABS: Anion Gap 19.8 (5-19); Potassium 5.8 mmol/L (3.5-5.1)
[2024-04-24 16:16] LABS: Procalcitonin 0.04 ng/mL (0-0.5)
[2024-04-24 16:32] LABS: Glucose Point of Care 483 mg/dL (70-110)
[2024-04-24] MEDS: insulin lispro 100 unit/1 mL 15 UNIT SUBCUT (16:59)
[2024-04-24] MEDS: enoxaparin 40 mg/0.4 mL Syringe SUBCUT (16:59)
[2024-04-24] MEDS: doxycycline 100 mg Tablet PO (17:00)
[2024-04-24] MEDS: carvedilol 3.125 mg Tablet PO (17:02)
[2024-04-24 17:05] LABS: Phosphorus 3.4 mg/dL (2.5-4.5)
--- NOTE | 2024-04-24 17:29 | USCV_ITS ---
Bennie Ho Age: 53 Gender: M : 1970 Exam Date: 04/24/2024 10:11 Ordering Phys: Ami Yan MD Technologist: Exam Location: [facility] [place] Indication: cp BP: / HR: Rhythm: Sinus Technical Quality: Very technically difficult study MEASUREMENTS (Male / Female) Normal Values FINDINGS Left Ventricle Right Ventricle Right Atrium Left Atrium Mitral Valve Aortic Valve Tricuspid Valve Pulmonic Valve Pericardium Aorta IVC CONCLUSIONS No echo windows, un interpretable Leoncio Coon MD (Electronically Signed) Final Date: 25 April 2024 21:52 S
[2024-04-24 18:20] LABS: Glucose Point of Care 432 mg/dL (70-110)
[2024-04-24] MEDS: INSULIN REGULAR IN 0.9 % NACL 100 UNIT/100 ML BAG 7 UNIT IV (18:38)
[2024-04-24] MEDS: sodium chloride 0.9% 1,000 ML 75 ML IV (18:53)
--- NOTE | 2024-04-24 19:29 | PC.NURSE ---
REcevied patient from [facility] at approximately 1815. Patient is alert. Oriented to person, place, time, and situation Transitioned with 2 person assist form wheelchair to bed. HR: 95, BP: 135/70, RR: 21, SPO2: 92% on 4 LNC. Temp: 97.8 axillary. Upon arrival patient was started on insulin drip and NS. Per protocol/patient weight, insulin drip was to be started at 24 units/HR due to patient weighing 528lbs. Protocol directs anything over 15units/hr to be approved by physician. Nurse called Dr Syed, received verbal order to start at 7 units and hour, assuming an ideal bodyweight of 70 kilos.
[2024-04-24 19:56] LABS: Glucose Point of Care 394 mg/dL (70-110)
[2024-04-24] MEDS: budesonide 0.5 mg/2 mL Neb INHALATION (20:03)
[2024-04-24 20:24] LABS: Anion Gap 12.6 (5-19); Blood Urea Nitrogen 38 mg/dL (6-20); Calcium 8.4 mg/dL (8.5-10.5); Carbon Dioxide 31 mmol/L (22-29); Chloride 97 mmol/L (98-107); Creatinine Clr Calc Pharmacy 114.9603; Glomerular Filtration Rate 49.1 mL/min (90-130); Glucose 395 mg/dL (65-115); Osmolality Calculated 306 mOsm/kg (285-295); Potassium 5.6 mmol/L (3.5-5.1); Sodium 135 mmol/L (136-145)
[2024-04-24 20:43] LABS: Glucose Point of Care 325 mg/dL (70-110)
[2024-04-24 21:52] LABS: Glucose Point of Care 350 mg/dL (70-110)
[2024-04-24 22:54] LABS: Blood Urea Nitrogen 35 mg/dL (6-20); Calcium 8.3 mg/dL (8.5-10.5); Carbon Dioxide 28 mmol/L (22-29); Chloride 97 mmol/L (98-107); Creatinine Clr Calc Pharmacy 132.6465; Glucose 316 mg/dL (65-115); Osmolality Calculated 296 mOsm/kg (285-295); Sodium 133 mmol/L (136-145)
[2024-04-24 23:01] LABS: Anion Gap 13.4 (5-19); Potassium 5.4 mmol/L (3.5-5.1)
[2024-04-24 23:07] LABS: Glucose Point of Care 305 mg/dL (70-110)
[2024-04-25] VITALS (81 sets, daily range): BP systolic 89–195; BP diastolic 50–108; PULSE 79–103; RESP 5–28; TEMP 36.5–36.8; O2SAT 82–100; BMI 72.9
[2024-04-25 00:37] LABS: Glucose Point of Care 217 mg/dL (70-110)
[2024-04-25] MEDS: insulin glargine 100 units/1 mL 50 UNIT SUBCUT (00:58)
--- NOTE | 2024-04-25 01:02 | PC.NURSE ---
Insulin Patient's glucose 217, bicarb 28, anion gap 13.4. Dr. Saenz contacted; order received for 50 units lantus subq at bedtime starting now, medium sliding scale insulin with meals and at bedtime, and a consistent carb diet.
[2024-04-25 01:38] LABS: Glucose Point of Care 177 mg/dL (70-110)
[2024-04-25 02:34] LABS: Glucose Point of Care 147 mg/dL (70-110)
[2024-04-25 03:03] LABS: Anion Gap 12.3 (5-19); Blood Urea Nitrogen 39 mg/dL (6-20); Calcium 8.4 mg/dL (8.5-10.5); Carbon Dioxide 32 mmol/L (22-29); Chloride 99 mmol/L (98-107); Creatinine Clr Calc Pharmacy 132.6465; Glucose 166 mg/dL (65-115); Osmolality Calculated 299 mOsm/kg (285-295); Potassium 5.3 mmol/L (3.5-5.1); Sodium 138 mmol/L (136-145)
[2024-04-25 03:52] LABS: Glucose Point of Care 174 mg/dL (70-110)
[2024-04-25 06:05] LABS: Basophils % 0.1 %; Hematocrit 42.4 % (37-53); Lymphocytes # 1.1 10^3/uL (0.8-4.8); Lymphocytes % 7.3 %; Mean Corpuscular HGB Conc 29.7 g/dL (30-55); Mean Corpuscular Volume 90.8 fl (82-101); Mean Platelet Volume 10.9 fL (7.4-10.4); Monocytes # 0.6 10^3/uL (0.2-0.9); Neutrophils # 12.74 10^3/uL (1.8-7.7); Nucleated Red Blood Cells % 0 %; Platelet Count 252 10^3/cmm (157-399); Red Blood Count 4.67 10^6/uL (3.85-5.65); Red Cell Distribution Width 14.5 % (12.1-15.1); White Blood Count 14.46 10^3/uL (3.29-11.43)
[2024-04-25 06:12] LABS: Arterial Blood Gas Hematocrit 37.6 % (42-52); Base Excess ABG 5.4 mmol/L (-2.0-2.0); Blood Gas Operator Identificat SAM; Blood Gas Sample Site Brachial, right; Blood Gas Sample Type Arterial; Carboxyhemoglobin 1.1 %THgb (0.4-20.1); HCO3 ABG 33.7 mmol/L (22-26); HGB O2 Sat 93.6 % (95-100); Ionized Calcium Level - ABG 1.2 mmol/L (1.1-1.4); Methemoglobin 0.2 % (0.4-1.5); Oxygen Device NC; Oxygen Saturation ABG 94.8; PO2 ABG 76.6 mmHg (80.0-100.0); Total Hemoglobin 12.3 g/dL (14-18)
[2024-04-25 06:23] LABS: Gamma Glutamyl Transferase 58 U/L (8-61)
[2024-04-25 06:24] LABS: Alanine Aminotransferase 40 U/L (0-41); Albumin Level 3.3 g/dL (3.5-5.2); Alkaline Phosphatase 161 U/L (40-130); Aspartate Amino Transferase 16 U/L (0-40); Total Bilirubin 0.3 mg/dL (0.15-1.2); Total Protein 6.3 g/dL (6.6-8.7)
[2024-04-25 06:25] LABS: Alanine Aminotransferase 38 U/L (0-41); Albumin Level 3.2 g/dL (3.5-5.2); Alkaline Phosphatase 167 U/L (40-130); Anion Gap 13.5 (5-19); Aspartate Amino Transferase 16 U/L (0-40); Blood Urea Nitrogen 38 mg/dL (6-20); Calcium 8.3 mg/dL (8.5-10.5); Carbon Dioxide 31 mmol/L (22-29); Chloride 98 mmol/L (98-107); Creatinine Clr Calc Pharmacy 132.6465; Globulin 3.7 g/dL (1.3-4.6); Glucose 247 mg/dL (65-115); Osmolality Calculated 301 mOsm/kg (285-295); Potassium 5.5 mmol/L (3.5-5.1); Sodium 137 mmol/L (136-145); Total Bilirubin 0.3 mg/dL (0.15-1.2); Total Protein 6.9 g/dL (6.6-8.7)
[2024-04-25 06:43] LABS: Hepatitis A Antibody IgM Non-Reactive (Nonreactive); Hepatitis B Core AB, Total Non-Reactive (Nonreactive); Hepatitis B Surface AB < 3.5 (11.5-1000); Hepatitis B Surface Antigen Non-Reactive (Nonreactive); Hepatitis C Virus Antibody Non-Reactive (Nonreactive)
[2024-04-25] MEDS: methylPREDNISolone sod succ 40 mg/mL INJ IVP ×2 (07:01→17:17)
[2024-04-25 07:45] LABS: Glucose Point of Care 263 mg/dL (70-110)
[2024-04-25] MEDS: carvedilol 3.125 mg Tablet PO ×2 (08:21→17:24)
[2024-04-25] MEDS: doxycycline 100 mg Tablet PO ×2 (08:21→17:23)
[2024-04-25] MEDS: lactobacillus 1 Tablet 1 TAB PO ×4 (08:21→21:03)
[2024-04-25] MEDS: pantoprazole DR 40 mg Tablet PO (08:22)
[2024-04-25] MEDS: aspirin 81 mg EC Tablet PO (08:22)
[2024-04-25] MEDS: metoprolol tartrate 25 mg Tablet PO ×2 (08:22→17:23)
[2024-04-25] MEDS: insulin lispro 100 unit/1 mL SUBCUT ×4 (08:23→21:03)
[2024-04-25] MEDS: mupirocin oint 22 gm 1 APPLIC TOPICAL ×2 (08:26→17:24)
[2024-04-25] MEDS: budesonide 0.5 mg/2 mL Neb INHALATION ×2 (09:18→21:16)
[2024-04-25] MEDS: ipratropium-albuterol 3 mL Neb INHALATION ×4 (09:18→21:16)
[2024-04-25 11:33] LABS: Glucose Point of Care 402 mg/dL (70-110)
[2024-04-25 12:40] LABS: ABG PCO2 68.2 mmHg (35-45)
--- NOTE | 2024-04-25 12:42 | PC.NURSE ---
CT chest bd pelvis canceled. Patient is within the weight limit of the CT, but girth exceeds tolerance, unable to complete. NUrse alerted Dr Syed, advised to cancel CT
[2024-04-25] MEDS: FUROsemide 10 mg/mL SDV 4mL 40 MG IVP (14:06)
[2024-04-25 14:23] LABS: Glucose Point of Care 334 mg/dL (70-110)
--- NOTE | 2024-04-25 16:20 | P.PN_ITS ---
Subjective 2 Subjective: Patient's last sleep study was 8 years ago as per patient and his . ? Discussed diagnosis of hepatic cirrhosis with the family. They were unaware of this before. ? Did discuss with patient that we will be ordering a CT abdomen pelvis today which he is agreeable to. However later I was told by nursing staff that patient exceeds the weight limit for the CT scan table. That will have to be deferred and done as an outpatient at an outside facility where they are capable of handling obese patients. MUGA scan was ordered for this morning however patient exceeds the weight limit for that table as well. Patient aware of the above. ? Going forward he will need GI follow-up, cardiology follow-up as an outpatient. ? He is diuresing and anasarca has improved slightly. Creatinine is 1.7 and stable. Yesterday he had to be transferred to ICU for insulin drip due to elevated ion gap and high blood sugars. He has been bridged to Lantus. Blood sugars are still uncontrolled. Discussed plan with and in detail at bedside. Patient reportedly does feel better compared to admission. Vitals/I&O/Wt Last Vital Signs Temp 97.7 F 04/25/24 12:15 Pulse 93 04/25/24 16:18 Resp 18 04/25/24 16:18 BP 146/78 04/25/24 14:45 Pulse Ox 95 04/25/24 16:18 O2 Del Method BiPAP 04/25/24 16:18 O2 Flow Rate 3 04/25/24 14:45 FiO2 32 04/25/24 16:18 04/25/24 04/25/24 04/25/24 06:59 14:59 22:59 Intake Total 1446.267 / 2362.542 360 / 360 Output Total 500 / 1250 885 / 885 650 / 1535 Balance 946.267 / 1112.542 -525 / -525 -650 / -1175 Weight last 48 hrs Weight 237.229 kg Weight 239.769 kg Physical Exam 2 Narrative: General Well-developed morbidly obese alert oriented x 3. Currently on 3 to nasal cannula sitting up in bed. Was on BiPAP but he removed it to talk to me. CV regular rate and rhythm Lungs: Lungs clear to auscultation compared to yesterday. Abdomen positive bowel sounds soft obese nontender Right BKA left leg is swollen 2+ with chronic venous stasis changes skin thickening and what appears to be shallow ulceration left pretibial with yellow exudate and blistering consistent with staff aureus possibly MRSA. Anasarca bilateral upper extremities is improving. Data 04/25/24 05:45 04/25/24 05:45 A&P Assessment and plan (1) Pulmonary edema: Patient with untreated sleep apnea at home severe morbid obesity and suspected acute on chronic congestive heart failure. Will start BiPAP and diurese him. He has CPAP previously taken away when he was unable to afford it without insurance. He denies that it was removed due to lack of usage (2) Acute respiratory failure with hypoxia and hypercapnia: Continue BiPAP (3) Cellulitis and abscess of left leg: Will treat with clindamycin and mupirocin patient needs bath or shower hygiene is poor (4) Morbid obesity with BMI of 60.0-69.9, adult: Counseled regarding weight loss diet. Will start him at 2400 prince he needs to see the dietitian. Counseled him regarding the idea of eating less than BMR and avoiding empty calories. Avoid fad diets such as keto diet Plan 04/25 -Clinically patient probably has congestive heart failure most likely diastolic dysfunction versus systolic. However there is no way for me to confirm that. Transthoracic echo could not obtain good windows. MUGA scan was ordered thereafter however patient is not a candidate for that due to not meeting weight limits for nuclear scan table. ? Lasix has been given IV so far and he is diuresing nicely. I will continue him on Lasix 40 daily at this time. Creatinine is improved to 1.3. I will stop lisinopril. ? Going forward he will go home on Lasix. He will need an outpatient follow-up with cardiology ? Abdominal ultrasound did show evidence of hepatic cirrhosis. Most likely secondary to LAST?. Patient does complain of right upper quadrant pain from time to time however is not having it present at this admission. It is possible he may have had fatty liver?. Unable to do a CT scan secondary to patient exceeding weight limits. ? I have discussed this with the patient to have GI follow-up as an outpatient and [place] hopefully at a bigger facility they can obtain a CT scan for the patient. Hepatitis panel is negative. GGT is normal. ? Anasarca upper extremities is improving slightly. Patient feels better. ? Will continue to diurese for now. ? Discussed with case management regarding CPAP however patient has been refusing to wear BiPAP in the hospital as well at different occasions. He did have a CPAP machine a long time ago however it was taken away due to insurance issues as per patient. His sleep study was 7 or 8 years ago. ? Patient will need a new sleep study as an outpatient to qualify for CPAP again. Discussed this with them. We will provide referral at discharge. ? Change Solu-Medrol to 40 IV daily at this time. ? Blood sugars have been uncontrolled. Patient required insulin drip yesterday. ? She has been bridged back to Lantus. I have changed his Lantus to 55 units at bedtime added 10 units lispro 3 times daily before meals and high-dose intensity sliding scale postmeal. ? Continue aspirin atorvastatin. Continue Coreg. Continue to hold off on amlodipine ? For cellulitis and erythema on left leg which is currently improving at this time. Continue doxycycline. Topical mupirocin to be continued. ? Will add Augmentin for lower extremity cellulitis at this time. Will try to optimize patient as best as we can prior to discharge. ? She will need close follow-up with endocrinology cardiology, gastroenterology as an outpatient. full code DVT prophylaxis: Lovenox 40 twice daily. Adding a higher dose secondary to morbid obesity. Attestations 2 Medical Necessity Statement*: Patient requires continued IV diuresis at this time. Diagnoses Pulmonary edema J81.1 Acute respiratory failure with hypoxia and hypercapnia J96.01; J96.02 Cellulitis and abscess of left leg L03.116; L02.416 Morbid obesity with BMI of 60.0-69.9, adult E66.01; Z68.44
[2024-04-25 16:42] LABS: Glucose Point of Care 331 mg/dL (70-110)
[2024-04-25] MEDS: FUROsemide 10 mg/mL SDV 4mL 60 MG IVP (17:17)
[2024-04-25] MEDS: enoxaparin 40 mg/0.4 mL Syringe SUBCUT (17:20)
[2024-04-25] MEDS: insulin lispro 100 unit/1 mL 10 UNIT SUBCUT (17:21)
[2024-04-25] MEDS: amoxicillin-clav 875-125 mg Tablet 1 TAB PO (17:23)
[2024-04-25 20:46] LABS: Glucose Point of Care 412 mg/dL (70-110)
[2024-04-25] MEDS: insulin glargine 100 units/1 mL 55 UNIT SUBCUT (21:04)
[2024-04-26] VITALS (12 sets, daily range): BP systolic 149–197; BP diastolic 75–84; PULSE 80–94; RESP 17–21; TEMP 36.4–36.5; O2SAT 88–98
[2024-04-26] MEDS: enoxaparin 40 mg/0.4 mL Syringe SUBCUT (04:39)
[2024-04-26 05:59] LABS: Blood Urea Nitrogen 35 mg/dL (6-20); Calcium 8.6 mg/dL (8.5-10.5); Carbon Dioxide 35 mmol/L (22-29); Chloride 97 mmol/L (98-107); Creatinine Clr Calc Pharmacy 151.6231; Glomerular Filtration Rate 70.3 mL/min (90-130); Glucose 314 mg/dL (65-115); Osmolality Calculated 302 mOsm/kg (285-295); Sodium 136 mmol/L (136-145)
[2024-04-26 06:23] LABS: Glucose Point of Care 293 mg/dL (70-110)
[2024-04-26] MEDS: insulin lispro 100 unit/1 mL 10 UNIT SUBCUT (06:28)
[2024-04-26] MEDS: pantoprazole DR 40 mg Tablet PO (08:14)
[2024-04-26] MEDS: amoxicillin-clav 875-125 mg Tablet 1 TAB PO (08:14)
[2024-04-26] MEDS: doxycycline 100 mg Tablet PO (08:14)
[2024-04-26] MEDS: lactobacillus 1 Tablet 1 TAB PO (08:14)
[2024-04-26] MEDS: insulin lispro 100 unit/1 mL SUBCUT ×2 (08:15→12:12)
[2024-04-26] MEDS: metoprolol tartrate 25 mg Tablet PO (08:15)
[2024-04-26] MEDS: aspirin 81 mg EC Tablet PO (08:15)
[2024-04-26] MEDS: carvedilol 3.125 mg Tablet PO (08:16)
[2024-04-26] MEDS: ipratropium-albuterol 3 mL Neb INHALATION ×2 (08:22→11:25)
[2024-04-26] MEDS: budesonide 0.5 mg/2 mL Neb INHALATION (08:22)
--- NOTE | 2024-04-26 08:46 | PC.SOCIAL ---
IMM Updated Updated pt on IMM. No questions voiced. Provided pt a copy. Initialed, dated, & timed a copy & placed in chart.
[2024-04-26] MEDS: mupirocin oint 22 gm 1 APPLIC TOPICAL (09:38)
[2024-04-26 10:47] LABS: Glucose Point of Care 247 mg/dL (70-110)
[2024-04-26] MEDS: insulin lispro 100 unit/1 mL 30 UNIT SUBCUT (11:22)
[2024-04-26 12:18] LABS: Glucose Point of Care 220 mg/dL (70-110)
--- NOTE | 2024-04-26 15:44 | P.DS_ITS ---
Discharge Providers Date of Admission: 04/23/24 01:41 CDT Date of Discharge: April 26, 2024 Attending Provider at Admission: José Antonio Gutierrez MD Attending Provider at Discharge: Jeane Syed MD Primary Care Provider: Cindy Briggs DO Diagnoses at Discharge Discharge Diagnosis (1) Pulmonary edema: Status: Acute (2) Acute respiratory failure with hypoxia and hypercapnia: Status: Acute (3) Cellulitis and abscess of left leg: Status: Acute (4) Morbid obesity with BMI of 60.0-69.9, adult: Status: Acute Reason for Visit Reason for Visit: SOB/CP Hospital Course Hospital Course Initially the patient presented with shortness of breath and did have pulmonary edema on admission. Was placed on BiPAP. He also had cellulitis of left leg. Was placed on mupirocin and doxycycline. Cellulitis has improved and redness is resolved at time of discharge. Clinically he did have congestive heart failure most likely diastolic dysfunction versus systolic however no way for me to confirm that. Echocardiogram could not obtain good windows. MUGA scan was ordered however patient not a candidate for that due to not meeting weight limits for nuclear scan table. He was diuresed with IV Lasix and creatinine did improve to 1.3. Lisinopril was stopped at discharge and he was switched to Coreg. Patient sent home on Lasix and potassium from that standpoint. Also has uncontrolled blood sugars for which she required insulin drip briefly in the ICU and was bridged back to Lantus. I increased his basal insulin to 55 units per night and he is to go home on 30 units 3 times daily with meals of short acting insulin. He has been given endocrinology follow-up at discharge. A1c was 12 prior to admission as per family and now it is 10.8. He did have anasarca which is improved significantly compared to admission. Did have thrombophlebitis of right basilic vein for which I have recommended him warm compresses at this time. Patient has had CPAP in the past however he states he was taken away due to insurance issues. His sleep study was 8 years ago. He will need a new sleep study in order to qualify for CPAP versus BiPAP at this time. We have ordered that at discharge. Abdominal ultrasound was also pursued which shows evidence of hepatic cirrhosis. CT abdomen pelvis cannot be done due to morbid obesity and him exceeding the weight limit for our CT table. ? At discharge he will be sent on Augmentin, doxycycline to complete a 7-day course. He will need close follow-up with endocrinology cardiology gastroenterology as an outpatient including his primary care doctor. He has been referred to GI in [place]. Went over patient's care with him in detail at time of discharge I discussed with him regarding being compliant to medications and keeping his appointments going forward. He appears to be motivated to do that. We will discharge him in stable condition at this time Due to patient's comorbid conditions he is at high risk of readmission at this time. He qualified for 2 L of oxygen at this time. Physical Exam Narrative: General Well-developed morbidly obese alert oriented x 3. Today nasal cannula at this time. CV regular rate and rhythm Lungs: Lungs clear to auscultation compared to yesterday. Abdomen positive bowel sounds soft obese nontender Right BKA left leg is swollen 2+ with chronic venous stasis changes skin thickening and what appears to be shallow ulceration left pretibial with yellow exudate and blistering however has significantly improved. Redness is improved as well. Anasarca: Generally quite improved since admission. Discharge Data Studies Completed and Pending Completed Studies During Hospitalization Category Date Time Status XR chest 1V portable [id number] Stat Exams 04/22/24 22:51 Completed CV. echo complete* [id number] Routine Ultrasound 04/24/24 17:29 Completed US abdomen complete* [id number] Routine Ultrasound 04/24/24 13:50 Completed Pending at discharge Category Date Time Status Blood Culture Stat Lab 04/22/24 23:47 [place] [id number] Urgent Ultrasound 04/26/24 10:38 Ordered Radiology Impressions Chest X-Ray 04/22/24 22:51 IMPRESSION: Cardiomegaly with vascular congestion and interstitial edema. Abdomen Ultrasound 04/24/24 13:50 IMPRESSION: 1. Nodularity of the liver contour with heterogeneous echotexture suggestive of hepatic cirrhosis. Laboratory Results WBC 14.46 10^3/uL (3.29-11.43) H 04/25/24 05:45 RBC 4.67 10^6/uL (3.85-5.65) 04/25/24 05:45 Hgb 12.60 g/dL (11.27-16.99) 04/25/24 05:45 Hct 42.4 % (37-53) 04/25/24 05:45 MCV 90.8 fl (82-101) 04/25/24 05:45 MCH 27.0 pg (27-33) 04/25/24 05:45 MCHC 29.7 g/dL (30-55) L 04/25/24 05:45 RDW 14.5 % (12.1-15.1) 04/25/24 05:45 Plt Count 252 10^3/cmm (157-399) 04/25/24 05:45 MPV 10.9 fL (7.4-10.4) H 04/25/24 05:45 Neut % (Auto) 88.0 % 04/25/24 05:45 Lymph % (Auto) 7.3 % 04/25/24 05:45 [place] % (Auto) 4.0 % 04/25/24 05:45 Eos % (Auto) 0.0 % 04/25/24 05:45 Baso % (Auto) 0.1 % 04/25/24 05:45 Neut # (Auto) 12.74 10^3/uL (1.8-7.7) H 04/25/24 05:45 Lymph # (Auto) 1.1 10^3/uL (0.8-4.8) 04/25/24 05:45 [place] # (Auto) 0.6 10^3/uL (0.2-0.9) 04/25/24 05:45 Eos # (Auto) 0.0 10^3/uL (0.0-0.8) 04/25/24 05:45 Baso # (Auto) 0.0 10^3/uL (0.0-0.1) 04/25/24 05:45 Nucleated RBC % (auto) 0 % 04/25/24 05:45 Nucleated RBCs # 0.0 /100WBC 04/25/24 05:45 Specimen Type Arterial 04/25/24 05:58 Sample Site Brachial, right 04/25/24 05:58 ABG pH 7.30 (7.35-7.45) L 04/25/24 05:58 ABG pCO2 68.2 mmHg (35-45) H* 04/25/24 05:58 ABG pO2 76.6 mmHg (80.0-100.0) L 04/25/24 05:58 ABG PO2/FiO2 Ratio 236 04/24/24 04:08 ABG HCO3 33.7 mmol/L (22-26) H 04/25/24 05:58 ABG O2 Saturation 94.8 04/25/24 05:58 ABG Base Excess 5.4 mmol/L (-2.0-2.0) H 04/25/24 05:58 Wesley Test N/a 04/25/24 05:58 A-a O2 Gradient mmHg (5-10) 04/25/24 05:58 Hematocrit 37.6 % (42-52) L 04/25/24 05:58 Hgb O2 Saturation 93.6 % (95-100) L 04/25/24 05:58 Carboxyhemoglobin 1.1 %THgb (0.4-20.1) 04/25/24 05:58 Methemoglobin 0.2 % (0.4-1.5) L 04/25/24 05:58 Total Hemoglobin 12.3 g/dL (14-18) L 04/25/24 05:58 Sodium 138.0 mmol/L (131-143) 04/25/24 05:58 Potassium 5.0 mmol/L (3.5-5.0) 04/25/24 05:58 Glucose 242.0 mg/dL (70-115) H 04/25/24 05:58 Ionized Calcium 1.2 mmol/L (1.1-1.4) 04/25/24 05:58 O2 Delivery Device Nc 04/25/24 05:58 O2 Liters/Min 3.0 % 04/25/24 05:58 FiO2 35.0 % 04/24/24 04:08 Switchboard Operator Helper ID Denny 04/25/24 05:58 Blood Gas Notified Time crown ironer 04/24/24 04:08 Sodium 136 mmol/L (136-145) 04/26/24 05:04 Potassium 5.0 mmol/L (3.5-5.1) 04/26/24 05:04 Chloride 97 mmol/L (98-107) L 04/26/24 05:04 Carbon Dioxide 35 mmol/L (22-29) H 04/26/24 05:04 Anion Gap 9.0 (5-19) 04/26/24 05:04 BUN 35 mg/dL (6-20) H 04/26/24 05:04 Creatinine 1.1 mg/dL (0.7-1.2) 04/26/24 05:04 GFR Calculation 70.3 mL/min (90-130) L 04/26/24 05:04 Glucose 314 mg/dL (65-115) H 04/26/24 05:04 POC Glucose 220 mg/dL (70-110) H 04/26/24 12:09 Estimat Average Glucose 246 04/24/24 04:18 Hemoglobin A1c 10.2 % (4.0-6.0) H 04/24/24 04:18 Calculated Osmolality 302 mOsm/kg (285-295) H 04/26/24 05:04 Lactic Acid 2.7 mmol/L (0.5-2.2) H 04/22/24 22:58 Lactic Acid (Sepsis) 0.9 mmol/L (0.5-2.2) 04/23/24 01:58 NEMATOLOGIST Calcium 8.6 mg/dL (8.5-10.5) 04/26/24 05:04 Phosphorus 3.4 mg/dL (2.5-4.5) 04/24/24 14:48 Magnesium 2.0 mg/dL (1.7-2.3) 04/24/24 14:48 Magnesium Cancelled 04/24/24 14:48 Total Bilirubin 0.3 mg/dL (0.15-1.2) 04/25/24 05:45 Total Bilirubin 0.3 mg/dL (0.15-1.2) 04/25/24 05:45 Direct Bilirubin 0.20 mg/dL (0.00-0.30) 04/25/24 05:45 GGT 58 U/L (8-61) 04/25/24 05:45 AST 16 U/L (0-40) 04/25/24 05:45 AST 16 U/L (0-40) 04/25/24 05:45 ALT 38 U/L (0-41) 04/25/24 05:45 ALT 40 U/L (0-41) 04/25/24 05:45 Alkaline Phosphatase 161 U/L (40-130) H 04/25/24 05:45 Alkaline Phosphatase 167 U/L (40-130) H 04/25/24 05:45 Troponin T Baseline 33 ng/L (0-15) H 04/22/24 22:58 Troponin T 120 Minute 35.14 ng/L (0-15) H 04/23/24 00:53 Delta Troponin T 2.14 ABS# (0-10) 04/23/24 00:53 Troponin T Hi Sens 6Hr 38.93 ng/L (0-15) H 04/23/24 05:05 Troponin T Hi Sens 6Hr Delta 5.93 ng/L (0-12) 04/23/24 05:05 NT-Pro-B Natriuret Pep 103 pg/mL (0-125) 04/22/24 22:58 Total Protein 6.3 g/dL (6.6-8.7) L 04/25/24 05:45 Total Protein 6.9 g/dL (6.6-8.7) 04/25/24 05:45 Albumin 3.2 g/dL (3.5-5.2) L 04/25/24 05:45 Albumin 3.3 g/dL (3.5-5.2) L 04/25/24 05:45 Globulin 3.0 g/dL (1.3-4.6) 04/25/24 05:45 Globulin 3.7 g/dL (1.3-4.6) 04/25/24 05:45 Triglycerides 58 mg/dL (0-150) 04/24/24 04:18 Cholesterol 171 mg/dL (0-200) 04/24/24 04:18 LDL Cholesterol, Calc 99 mg/dL (50-129) 04/24/24 04:18 HDL Cholesterol 60 mg/dL (60-100) 04/24/24 04:18 LDL/HDL Ratio 1.65 RATIO (0.00-3.22) 04/24/24 04:18 Cholesterol/HDL Ratio 2.85 mg/dL (1.0-5.00) 04/24/24 04:18 Procalcitonin 0.04 ng/mL (0-0.5) 04/24/24 14:48 TSH 0.43 uIU/mL (0.27-4.20) 04/24/24 04:18 Urine Color Yellow (Yellow) 04/24/24 14:42 Urine Appearance Clear (CLEAR) 04/24/24 14:42 Urine pH 5.0 (5-7) 04/24/24 14:42 Ur Specific [place] 1.024 (1.005-1.030) 04/24/24 14:42 Urine Protein 1+ (Negative) A 04/24/24 14:42 Urine Glucose (UA) 3+ (Normal) H 04/24/24 14:42 Urine Ketones Negative (Negative) 04/24/24 14:42 Urine Blood Negative (Negative) 04/24/24 14:42 Urine Nitrate Negative (Negative) 04/24/24 14:42 Urine Bilirubin Negative (Negative) 04/24/24 14:42 Urine Urobilinogen 1.0 mg/dL (Negative) 04/24/24 14:42 Ur Leukocyte Esterase Negative (Negative) 04/24/24 14:42 Urine RBC 0-2 /hpf (0-2) 04/24/24 14:42 Urine WBC 0-5 /hpf (0-5) 04/24/24 14:42 Ur Squamous Epith Cells 0-5 /hpf (0-5) 04/24/24 14:42 Amorphous Sediment Not Reportable 04/24/24 14:42 Urine Bacteria None seen /hpf (NONE) 04/24/24 14:42 Hyaline Casts 5.36 /lpf 04/24/24 14:42 Serum Ketones Negative (Negative) 04/24/24 14:48 Coronavirus (PCR) Negative (Negative) 04/22/24 23:15 Hepatitis A IgM Ab Non-reactive (Nonreactive) 04/25/24 05:45 Hep Bs Antigen Non-reactive (Nonreactive) 04/25/24 05:45 Hep Bs Antibody < 3.5 (11.5-1000) L 04/25/24 05:45 Hep B Core Total Ab Non-reactive (Nonreactive) 04/25/24 05:45 Hepatitis C Antibody Non-reactive (Nonreactive) 04/25/24 05:45 Influenza A (PCR) Negative (Negative) 04/22/24 23:15 Influenza Type B (PCR) Negative (Negative) 04/22/24 23:15 RSV (PCR) Negative (Negative) 04/22/24 23:15 Vitals Last Vital Signs Temp 97.6 F 04/26/24 14:43 Pulse 80 04/26/24 14:43 Resp 18 04/26/24 14:43 BP 149/75 04/26/24 14:43 Pulse Ox 92 04/26/24 14:43 O2 Del Method Nasal Cannula 04/26/24 11:28 O2 Flow Rate 2 04/26/24 11:26 FiO2 32 04/26/24 04:19 Discharge Plan Discharge Patient Disposition: Home Condition: Stable Prescriptions: New doxycycline monohydrate 100 mg Tablet 100 mg PO BID 7 Days Qty: 14 0RF mupirocin 2 % Ointment 1 applic topical BID 7 Days Qty: 30 0RF amoxicillin-pot clavulanate 875-125 mg Tablet 1 tab PO BID 7 Days Qty: 14 0RF prednisone 20 mg tablet 20 mg PO DAILY 2 Days Qty: 2 0RF furosemide [Lasix] 40 mg tablet 60 mg PO DAILY Qty: 60 0RF carvedilol [Coreg] 25 mg tablet 12.5 mg PO BID Qty: 30 0RF Rx Instructions: must administer with a meal/food potassium chloride 8 mEq capsule, extended release 8 meq PO DAILY Qty: 20 0RF Continued aspirin 81 mg Tablet,Delayed Release (Dr/Ec) 81 mg PO DAILY Lactobacillus acidoph-L.bulgar [Floranex] 1 million cell Tablet 1 tab PO QID Qty: 1 0RF atorvastatin 40 mg tablet 40 mg PO QPM Januvia 100 mg tablet 100 mg PO DAILY Fiasp FlexTouch U-100 Insulin 100 unit/mL (3 mL) insulin pen 30 unit SUBCUT TID Changed insulin glargine [Basaglar KwikPen U-100 Insulin] 100 unit/mL (3 mL) insulin pen 55 unit SUBCUT BEDTIME Qty: 10 0RF Discontinued amlodipine 10 mg tablet 10 mg PO DAILY lisinopril 40 mg tablet 40 mg PO DAILY Discharge Orders: Discharge Order (Routine); Ordered 04/26/24 Ordered By: Jeane Syed Other Ambulatory Orders: DME: Oxygen (Order) Location: None Selected Ordered By: eJane Syed Basic Metabolic Panel (Routine) Timeframe: 3 Days Facility: [facility] - Location: Lab - Main Lab Ordered By: Jeane Syed Sleep Study/Titration (Routine) Timeframe: 1 Day Facility: [facility] - Location: [facility] Ordered By: Jeane Syed Referrals: Edna Chen MD [Referring] - 2 weeks (liver cirrhosis We have notified your physician's clinic of the need for a follow-up appointment to be scheduled. If you have not heard from them within the next 2 business days, please call them directly. ) Cindy Briggs, [Primary Care Provider] - 4-7 days (We have notified your physician's clinic of the need for a follow-up appointment to be scheduled. If you have not heard from them within the next 2 business days, please call them directly. ) Leoncio Coon MD [Physician] - 05/10/24 1:00 pm () Abdoul Conner MD [Physician] - 05/31/24 8:00 am () Discharge Diet: Cardiac and Diabetic Discharge Activity: Resume usual activity Patient Instructions: Furosemide (By mouth), Prednisone (By mouth), Amoxicillin/Clavulanate Potassium (By mouth), Carvedilol (By mouth), Pulmonary Edema (GEN), Opioid Safety Discharge Attestations Time Spent in Discharge Care*: greater than 30 min Status at Discharge: Cognitive status at discharge: cognitively intact , Behavioral status at discharge: cooperative , Quality Metrics Clinical Quality Measures [ No reported AMI, CVA or VTE this stay] Coding Level of Care Code 99999 Total time (in minutes) for Discharge: 45 Diagnoses Pulmonary edema J81.1 Acute respiratory failure with hypoxia and hypercapnia J96.01; J96.02 Cellulitis and abscess of left leg L03.116; L02.416 Morbid obesity with BMI of 60.0-69.9, adult E66.01; Z68.44
== END 2024-04-26 15:10 | disposition home or self-care (01) | DRG 189 ==
LOC: ER 23:57 → MEDSURG 04-23 01:59 → ICU 04-24 18:02 → MEDSURG 04-25 18:49
PROVIDERS: Student in an Organized Health Care Education/Training Program; Admitting Provider Internal Medicine; Emergency Provider Emergency Medicine; PCP Family Medicine; Visit Provider Internal Medicine
DX: J96.01 Acute respiratory failure with hypoxia (principal); L03.116 Cellulitis of left lower limb; L02.416 Cutaneous abscess of left lower limb; Z68.45 Body mass index [BMI] 70 or greater, adult; J96.02 Acute respiratory failure with hypercapnia; E66.01 Morbid (severe) obesity due to excess calories; I11.0 Hypertensive heart disease with heart failure; I50.9 Heart failure, unspecified; I80.8 Phlebitis and thrombophlebitis of other sites; K74.60 Unspecified cirrhosis of liver; G47.33 Obstructive sleep apnea (adult) (pediatric); K21.9 Gastro-esophageal reflux disease without esophagitis; E11.9 Type 2 diabetes mellitus without complications; F17.210 Nicotine dependence, cigarettes, uncomplicated; E87.5 Hyperkalemia; Z89.611 Acquired absence of right leg above knee; Z79.82 Long term (current) use of aspirin
CPT/HCPCS: 0241U; 36415; 36416; 36600; 71045; 76700; 80048; 80051; 80053; 80061; 80076; 81001; 82009; 82330; 82803; 82805; 82962; 82977; 83036; 83605; 83735; 83880; 84100; 84145; 84443; 84484; 85025; 86705; 86706; 86709; 86803; 87040; 87340; 93005; 93306; 94640; 94660; 94664; 94760; 96372; 96374; 96376; 97161; 97165; 99291; J1650; J1815; J1940; J2919; J7030; J7626

== ENCOUNTER 2024-08-04 23:42 | Emergency (ER) | payer MEDICAID, SELFPAY ==
[2024-08-04 23:51] VITALS: BP 127/86; PULSE 106; RESP 23; TEMP 37.1; O2SAT 92; BMI 65.5
[2024-08-04 23:57] VITALS: BP 194/87; PULSE 103; RESP 19; O2SAT 93
--- NOTE | 2024-08-04 23:57 | ECG_ITS ---
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1970 Requested By: Patel Dawkins Order Number: [id number] Loco MD: ALMA SYED Measurements Intervals [place] Rate: 103 P: 50 DC: 186 QRS: 7 QRSD: 113 T: 73 QT: 351 QTc: 462 Interpretive Statements SINUS TACHYCARDIA INDETERMINATE AXIS LOW QRS VOLTAGE IN PRECORDIAL LEADS [QRS DEFLECTION < 1.0 mV IN CHEST LEADS] INCOMPLETE RIGHT BUNDLE BRANCH BLOCK [90+ ms QRS DURATION, TERMINAL R IN V1/V2, 40+ ms S IN I/aVL/V4/V5/V6] POSSIBLE ANTERIOR MYOCARDIAL INFARCTION , OF INDETERMINATE AGE [30 ms Q WAVE IN V3/V4, OR R < 0.2 mV IN V4] Compared to ECG 04/23/2024 05:01:28 Low QRS voltage now present Incomplete right bundle-branch block now present Sinus rhythm no longer present Myocardial infarct finding still present Electronically Signed On 08-05-2024 19:32:27 EARLY CHILDHOOD TEACHER ASSISTANT by ALMA SYED [email or web address]
[2024-08-05 00:27] VITALS: BP 176/72; PULSE 98; RESP 17; O2SAT 93
--- NOTE | 2024-08-05 00:35 | XRR_ITS ---
PROCEDURE INFORMATION: Exam: XR Chest Exam date and time: 08/05/2024 12:37 AM Age: 54 years old Clinical indication: Shortness of breath; C/O SOB. TECHNIQUE: Imaging protocol: Radiologic exam of the chest. Views: 1 view. COMPARISON: CR XR chest 1V portable [id number] 04/22/2024 10:55 PM FINDINGS: Lungs: Diffuse bilateral lung interstitial coarsening. Mild central vascular congestion. Pleural spaces: Unremarkable. No pleural effusion. No pneumothorax. Heart/Mediastinum: Mild cardiomegaly. Bones/joints: Unremarkable. XR/XR chest 1V portable [id number] IMPRESSION: CHF with pulmonary edema.
[2024-08-05 00:50] LABS: Basophils % 0.2 %; Eosinophils # 0.3 10^3/uL (0.0-0.8); Eosinophils % 2.6 %; Hematocrit 35.5 % (37-53); Lymphocytes % 10.4 %; Mean Corpuscular HGB Conc 29.9 g/dL (30-55); Mean Corpuscular Volume 90.3 fl (82-101); Mean Platelet Volume 11.2 fL (7.4-10.4); Monocytes # 0.7 10^3/uL (0.2-0.9); Monocytes % 6.6 %; Neutrophils # 7.84 10^3/uL (1.8-7.7); Neutrophils % 79.7 %; Nucleated Red Blood Cells % 0 %; Platelet Count 235 10^3/cmm (157-399); Red Blood Count 3.93 10^6/uL (3.85-5.65); Red Cell Distribution Width 14.3 % (12.1-15.1); White Blood Count 9.84 10^3/uL (3.29-11.43)
[2024-08-05 00:57] VITALS: BP 183/81; PULSE 95; O2SAT 100
[2024-08-05 01:09] LABS: Alanine Aminotransferase 43 U/L (0-41); Albumin Level 3.2 g/dL (3.5-5.2); Alkaline Phosphatase 183 U/L (40-130); Anion Gap 13.3 (5-19); Aspartate Amino Transferase 29 U/L (0-40); Blood Urea Nitrogen 20 mg/dL (6-20); Calcium 9.1 mg/dL (8.5-10.5); Carbon Dioxide 30 mmol/L (22-29); Chloride 98 mmol/L (98-107); Creatinine Clr Calc Pharmacy 131.3611; Globulin 4.1 g/dL (1.3-4.6); Glomerular Filtration Rate 63.3 mL/min (90-130); Glucose 214 mg/dL (65-115); Osmolality Calculated 293 mOsm/kg (285-295); Potassium 4.3 mmol/L (3.5-5.1); Sodium 137 mmol/L (136-145); Total Bilirubin 0.5 mg/dL (0.15-1.2); Total Protein 7.3 g/dL (6.6-8.7)
[2024-08-05 01:10] LABS: NT Pro B Type Natriuretic Pept 180 pg/mL (0-125)
[2024-08-05] MEDS: FUROsemide 10 mg/mL SDV 10mL 120 MG IVP (01:29)
[2024-08-05 01:57] VITALS: BP 170/84; PULSE 97; O2SAT 94
[2024-08-05 02:00] VITALS: BP 168/104; PULSE 95; O2SAT 97
[2024-08-05 02:30] VITALS: BP 168/79; PULSE 94; O2SAT 94
[2024-08-05 03:04] VITALS: BP 150/104; PULSE 93; O2SAT 97
--- NOTE | 2024-08-05 19:30 | W.ED.SOB ---
HPI - SOB/Dyspnea General: Chief Complaint: Shortness of Breath/Dyspnea Stated Complaint: SOB Time Seen by Provider: 08/04/24 23:54 History of Present Illness: HPI Narrative: This patient is a 54-year-old white male who presents to the emergency department with shortness of breath and swelling over his abdomen and extremities. Patient states the fluid has been building up over the past several weeks. Patient was here in April with similar symptoms at which time he was diagnosed with congestive heart failure. He was placed on Lasix but he ran out of the Lasix and has not been taking it for quite some time. He is not having any chest pain. Related Data Home Medications ?Medication ?Instructions ?Recorded ?Confirmed aspirin 81 mg tablet,delayed 81 mg PO DAILY 11/28/19 05/31/24 release atorvastatin 40 mg tablet 40 mg PO QPM 04/23/24 05/31/24 insulin aspart 30 unit SUBCUT TID 04/23/24 05/31/24 (niacinamide)(U-100) 100 unit/mL(3 mL) subcutaneous pen (Fiasp FlexTouch U-100 Insulin) sitagliptin phosphate 100 mg 100 mg PO DAILY 04/23/24 05/31/24 tablet (Januvia) Previous Rx's ?Medication ?Instructions ?Recorded Lactobacillus acidoph-L.bulgaricus 1 tab PO QID #1 tab 12/02/19 1 million cell tablet (Floranex) carvedilol 25 mg tablet (Coreg) 12.5 mg (1/2 x 25 mg) PO BID #30 04/26/24 tabs insulin glargine 100 unit/mL (3 55 unit (0.55 mL) SUBCUT BEDTIME 04/26/24 mL) subcutaneous pen (Basaglar #10 mL KwikPen U-100 Insulin) potassium chloride 8 mEq 8 meq PO DAILY #20 caps 04/26/24 capsule,extended release furosemide 80 mg tablet (Lasix) 80 mg PO DAILY #30 tabs 08/05/24 Allergies Allergy/AdvReac Type Severity Reaction Status Date / Time No Known Allergies Allergy Verified 05/31/24 07:46 Review of Systems General: Reports: 10 or more systems reviewed and unremarkable except in HPI and below Card: Reports: swelling of feet/ankles and other (Edema of the abdominal wall) Resp: Reports: dyspnea [facility] ED PFSH: Medical History Smoker -heavy smoker, 2 PPD Morbid obesity -BMI-59 kg/m2 Sepsis -as noted above -BP better controlled, tachycardia persists, afebrile; continue to monitor vital signs -trend WBC; leukocytosis improving Smoker Recurrent infection of skin Chronic back pain GERD (gastroesophageal reflux disease) Ptosis of eyelid, right Sleep apnea Morbid obesity Testicular abscess Hypertension -BP improved though still uncontrolled, continue to monitor vital signs -on Lisinopril; titrate as needed for optimal BP control; due to tachycardia, BB added Diabetes mellitus Surgical History History of incision and drainage 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 S/P right knee arthroscopy Family History Other CAD (coronary artery disease) Diabetes Social History Smoking and tobacco/nicotine status: heavy tobacco/nicotine user cigarettes [ Other cigarette details: 2 packs/day] Alcohol intake: never Substance/Drug Use: never Household members: significant other Housing: House Physical Exam Const: COMMON NORMALS: no acute distress, patient oriented x3 and no limitations GENERAL APPEARANCE: cooperative and comfortable HENMT: COMMON NORMALS: normocephalic, atraumatic, Normal nasal mucous membranes and turbinates present, moist oral mucous membranes and oropharynx normal HEAD & SCALP: normal to inspection, normocephalic and atraumatic FACE & SINUS: normal facial exam NOSE: Normal nasal mucous membranes and turbinates present Eye: COMMON NORMALS: Equal, round and reactive pupils present, EOMs intact bilaterally and conjunctivae normal GENERAL EYE: appearance normal, both eyes and all related structures CONJUNCTIVA: Yes conjunctivae normal PUPIL: Yes Equal, round and reactive pupils present Neck/C-Spine: COMMON NORMALS: supple and no JVD Chest: COMMONS NORMALS: normal inspection of the chest Resp: COMMON NORMALS: normal respiratory effort and clear to auscultation bilaterally AUSCULTATION: clear to auscultation bilaterally Cardio: COMMON NORMALS: no JVD, regular rate, regular rhythm, No gallops present (Cardio), No murmurs present (Cardio) and No rub (Cardio) RATE: regular rate RHYTHM: regular rhythm GI: COMMON NORMALS: Normal to inspection, nondistended, normoactive bowel sounds present, Soft to palpation and non-tender AUSCULTATION: Yes normoactive bowel sounds PALPATION: Yes Soft to palpation OTHER: Edema over the abdomen. : COMMON NORMALS: Yes no CVA tenderness BLADDER/KIDNEY EXAM: Yes no CVA tenderness Back/Pelvis: COMMON NORMALS: no CVA tenderness and thoracic and lumbar spine normal to inspection Extremity: OTHER: Right BKA. Edema of the right thigh and edema throughout the left leg. Neuro: COMMON NORMALS: patient oriented x3 and CN's II-XII intact bilaterally Psych: COMMON NORMALS: mental status grossly normal, Normal thought process present and cooperative THOUGHT PROCESS: Normal thought process present Skin: COMMON NORMALS: no rashes or lesions noted, turgor normal and no jaundice GENERAL SKIN EXAM: no rashes or lesions noted and turgor normal Course Vital Signs: Vital signs: Vital Signs Temperature 98.8 F 08/04/24 23:51 Pulse Rate 93 08/05/24 03:04 Respiratory Rate 17 08/05/24 00:27 Blood Pressure 150/104 08/05/24 03:04 Pulse Oximetry 97 08/05/24 03:04 Oxygen Delivery Me thod Nasal Cannula 08/04/24 23:57 MDM - SOB/Dyspnea Medical Decision Making EKG was normal. Chest x-ray is consistent with congestive heart failure. CBC and CMP normal. BNP was 180. Patient is on home O2. We did give him 120 mg of Lasix IV. He diuresed well and is feeling significantly better. He was discharged in stable condition with prescription for Lasix 80 mg/day. I recommended he follow-up with his primary care provider within 1 week for recheck. Lab Data 08/05/24 00:10 08/05/24 00:10 Labs/Radiology: Radiology Impressions Chest X-Ray 08/05/24 00:35 IMPRESSION: CHF with pulmonary edema. Laboratory Results WBC 9.84 10^3/uL (3.29-11.43) 08/05/24 00:10 RBC 3.93 10^6/uL (3.85-5.65) 08/05/24 00:10 Hgb 10.60 g/dL (11.27-16.99) L 08/05/24 00:10 Hct 35.5 % (37-53) L 08/05/24 00:10 MCV 90.3 fl (82-101) 08/05/24 00:10 MCH 27.0 pg (27-33) 08/05/24 00:10 MCHC 29.9 g/dL (30-55) L 08/05/24 00:10 RDW 14.3 % (12.1-15.1) 08/05/24 00:10 Plt Count 235 10^3/cmm (157-399) 08/05/24 00:10 MPV 11.2 fL (7.4-10.4) H 08/05/24 00:10 Neut % (Auto) 79.7 % 08/05/24 00:10 Lymph % (Auto) 10.4 % 08/05/24 00:10 [place] % (Auto) 6.6 % 08/05/24 00:10 Eos % (Auto) 2.6 % 08/05/24 00:10 Baso % (Auto) 0.2 % 08/05/24 00:10 Neut # (Auto) 7.84 10^3/uL (1.8-7.7) H 08/05/24 00:10 Lymph # (Auto) 1.0 10^3/uL (0.8-4.8) 08/05/24 00:10 [place] # (Auto) 0.7 10^3/uL (0.2-0.9) 08/05/24 00:10 Eos # (Auto) 0.3 10^3/uL (0.0-0.8) 08/05/24 00:10 Baso # (Auto) 0.0 10^3/uL (0.0-0.1) 08/05/24 00:10 Nucleated RBC % (auto) 0 % 08/05/24 00:10 Nucleated RBCs # 0.0 /100WBC 08/05/24 00:10 Sodium 137 mmol/L (136-145) 08/05/24 00:10 Potassium 4.3 mmol/L (3.5-5.1) 08/05/24 00:10 Chloride 98 mmol/L (98-107) 08/05/24 00:10 Carbon Dioxide 30 mmol/L (22-29) H 08/05/24 00:10 Anion Gap 13.3 (5-19) 08/05/24 00:10 BUN 20 mg/dL (6-20) 08/05/24 00:10 Creatinine 1.2 mg/dL (0.7-1.2) 08/05/24 00:10 GFR Calculation 63.3 mL/min (90-130) L 08/05/24 00:10 Glucose 214 mg/dL (65-115) H 08/05/24 00:10 Calculated Osmolality 293 mOsm/kg (285-295) 08/05/24 00:10 Calcium 9.1 mg/dL (8.5-10.5) 08/05/24 00:10 Total Bilirubin 0.5 mg/dL (0.15-1.2) 08/05/24 00:10 AST 29 U/L (0-40) 08/05/24 00:10 ALT 43 U/L (0-41) H 08/05/24 00:10 Alkaline Phosphatase 183 U/L (40-130) H 08/05/24 00:10 NT-Pro-B Natriuret Pep 180 pg/mL (0-125) H 08/05/24 00:10 Total Protein 7.3 g/dL (6.6-8.7) 08/05/24 00:10 Albumin 3.2 g/dL (3.5-5.2) L 08/05/24 00:10 Globulin 4.1 g/dL (1.3-4.6) 08/05/24 00:10 All radiology interpretation(s) finalized by discharge Discharge Plan Discharge Patient Disposition: Home Clinical Impression: Congestive heart failure Condition: Stable Prescriptions: New furosemide [Lasix] 80 mg tablet 80 mg PO DAILY Qty: 30 0RF Discontinued furosemide [Lasix] 40 mg tablet 60 mg PO DAILY Qty: 60 0RF No Action aspirin 81 mg Tablet,Delayed Release (Dr/Ec) 81 mg PO DAILY Lactobacillus acidoph-L.bulgar [Floranex] 1 million cell Tablet 1 tab PO QID Qty: 1 0RF atorvastatin 40 mg tablet 40 mg PO QPM Januvia 100 mg tablet 100 mg PO DAILY Fiasp FlexTouch U-100 Insulin 100 unit/mL (3 mL) insulin pen 30 unit SUBCUT TID insulin glargine [Basaglar KwikPen U-100 Insulin] 100 unit/mL (3 mL) insulin pen 55 unit SUBCUT BEDTIME Qty: 10 0RF carvedilol [Coreg] 25 mg tablet 12.5 mg PO BID Qty: 30 0RF Rx Instructions: must administer with a meal/food potassium chloride 8 mEq capsule, extended release 8 meq PO DAILY Qty: 20 0RF Discharge Orders: Discharge ED (Routine); Ordered 08/05/24 Ordered By: Patel Dawkins Referrals: Cindy Briggs DO [Primary Care Provider] - Patient Instructions: Heart Failure (DC) Activity Restrictions/Additional Instructions: Follow-up with your primary care provider next week for recheck. Print Language: Macedonian Coding Level of Care Code ED Solar Energy System Installer Helper for Ruchi Velez
== END 2024-08-05 03:20 | disposition home or self-care (01) ==
PROVIDERS: Emergency Provider Emergency Medicine; PCP Family Medicine
DX: I11.0 Hypertensive heart disease with heart failure (principal); I50.9 Heart failure, unspecified; Z79.4 Long term (current) use of insulin; Z79.82 Long term (current) use of aspirin; F17.210 Nicotine dependence, cigarettes, uncomplicated; E11.9 Type 2 diabetes mellitus without complications
CPT/HCPCS: 36415; 71045; 80053; 83880; 85025; 93005; 96374; 99285; J1940

== ENCOUNTER 2024-08-07 14:12 | Inpatient (IN) | payer MEDICARE, MEDICAID, SELFPAY ==
[2024-08-07 14:15] VITALS: BP 182/64; PULSE 108; RESP 18; TEMP 37; O2SAT 90
--- NOTE | 2024-08-07 14:21 | US_ITS ---
WS: [id number] Exam: US scrotum [id number] Date/Time of Exam: 08/07/2024 2:37 PM Reason For Exam: Swollen testicle There is marked thickening of the scrotal sanchez. The testicles demonstrate normal echotexture without evidence of mass or nodule. Both testicles are well perfused. No epididymal abnormalities are seen. No varicocele or hydrocele. The RIGHT testicle measures 4.1 x 2.6 x 2.8 cm. The LEFT testicle measures 4.3 x 2.8 x 2.4 cm. US/US scrotum [id number] IMPRESSION: 1. No indication of testicular mass or torsion. 2. Marked thickening of the scrotal sanchez.
--- NOTE | 2024-08-07 14:22 | ED_ITS ---
HPI - Male Genitourinary 2 General: Chief complaint: ER Hold Stated complaint: Swelling testi. Time Seen by Provider: 08/07/24 14:15 History of Present Illness: 54-year-old male presents to the emergen cy complaining of swelling in his testicles he also has some shortness of breath is coming progressively worse swelling at home he taken some Lasix for it but does not seem to have helped. He is complaining of discomfort due to the degree of swelling. No fever sweats chills or vomiting. No chest pain he has significant exertional dyspnea he is requiring oxygen supplementation usually does not use at home Associated symptoms: Deny dysuria Related Data Home Medications ?Medication ?Instructions ?Recorded ?Confirmed aspirin 81 mg tablet,delayed 81 mg PO DAILY 11/28/19 0 08/07/24 release insulin aspart 30 unit SUBCUT TID 04/23/24 08/07/24 (niacinamide)(U-100) 100 unit/mL(3 mL) subcutaneous pen (Fiasp FlexTouch U-100 Insulin) sitagliptin phosphate 100 mg 100 mg PO DAILY 04/23/24 08/07/24 tablet (Januvia) carvedilol 25 mg tablet (Coreg) 25 mg PO DAILY 5 08/07/24 insulin aspart U-100 100 unit/mL See Rx Instructions . Route .COMPLEX 08/07/24 08/07/24 (3 mL) subcutaneous pen lisinopril 40 mg tablet 40 mg PO DAILY 08/07/2407/22 Previous Rx's ?Medication ?Instructions ?Recorded Lactobacillus acidoph-L.bulgaricus 1 tab PO QID #1 tab 12/02/19 1 million cell tablet (Floranex) insulin glargine 100 unit/mL (3 55 unit (0.55 mL) SUBC UT BEDTIME 04/26/24 mL) subcutaneous pen (Basaglar #10 mL KwikPen U-100 Insulin) potassium chloride 8 mEq 8 meq PO DAILY #20 caps 12/12 capsule,extended release furosemide 80 mg tablet (Lasix) 80 mg PO DAILY #30 tab s 08/05/24 Allergies Allergy/AdvReac Type Severity Reaction Status Date / Time No Known Allergies Allergy Verified 05/31/24 07:46 Review of Systems 2 Const: Denies: fever(s) or chills Card: Denies: chest pain Resp: Reports: dyspnea GI: Denies: abdominal pain : Denies: dysuria, urinary frequency or urinary urgency Musc: Denies: neck pain or back pain Skin/Breast: Denies: rash PFSH ED 2 PFSH: Medical History Smoker -heavy smoker, 2 PPD Morbid obesity -BMI-59 kg/m2 Sepsis -as noted above -BP better controlled, tachycardia persists, afebrile; continue to monitor vital signs -trend WBC; leukocytosis improving Smoker Recurrent infection of skin Chronic back pain GERD (gastroesophageal reflux disease) Ptosis of eyelid, right Sleep apnea Morbid obesity Testicular abscess Hypertension -BP improved though still uncontrolled, continue to monitor vital signs -on Lisinopril; titrate as needed for optimal BP control; due to tachycardia, BB added Diabetes mellitus Surgical History History of incision and drainage 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 S/P right knee arthroscopy Family History Other CAD (coronary artery disease) Diabetes Social History Smoking and tobacco/nicotine status: heavy tobacco/nicotine user cigarettes [ Other cigarette details: 2 packs/day] Alcohol intake: never Substance/Drug Use: never Household members: significant other Housing: House Physical Exam 2 Const: GENERAL APPEARANCE: cooperative and comfortable O RIENTATION/CONSCIOUSNESS: Yes awake, Yes oriented to person, Yes oriented to place and Yes oriented to time HENMT: COMMON NORMALS: normocephalic, atraumatic and hearing grossly normal bilaterally HEAD & SCALP: normocephalic and atraumatic Resp: COMMON NORMALS: normal respiratory effort, No retractions, No use of accessory muscles and clear to auscultation bilaterally AUSCULTATION: clear to auscultation bilaterally Cardio: COMMON NORMALS: regular rate, regular rhythm and No murmurs present (Cardio) RATE: regular rate RHYTHM: regular rhythm GI: COMMON NORMALS: Soft to palpation and No hepatosplenomegaly present A USCULTATION: Yes normoactive bowel sounds PALPATION: Yes Soft to palpation, No Tenderness to palpation present (GI), No Guarding due to palpation present (GI) and Yes No hepatosplenomegaly present Extremity: COMMON NORMALS: normal to inspection, capillary refill normal, no clubbing, cyanosis or edema, no calf tenderness and no pedal edema Neuro: SENSORIUM/ORIENTATION: Yes oriented to person, Yes oriented to place and Yes oriented to time Skin: COMMON NORMALS: no rashes or lesions noted GENERAL SKIN EXAM: no rashes or lesions noted Course 2 Vital Signs: Vital signs: Vital Signs Temperature 98.2 F 08/08/24 15:51 Pulse Rate 93 08/08/24 15:51 Respiratory Rate 18 08/08/24 15:51 Blood Pressure 153/80 08/08/24 15:51 Pulse Oximetry 94 08/08/24 15:51 Oxygen Delivery Me thod Nasal Cannula 08/08/24 15:51 Oxygen Flow Rate 5 08/08/24 04:00 MDM - Male Medical Decision Making Patient is significantly fluid overloaded get him Lasix which did improve his output but he still markedly overloaded he will need to be admitted for reevaluation of his cardiac status and diuresis. He is requiring oxygen supplementation as well. Medical Records I reviewed the patient's medical records. Lab Data I reviewed the patient's lab results. 08/08/24 07:46 08/08/24 07:46 Radiology Impressions Scrotum Ultrasound 08/07/24 14:21 IMPRESSION: 1. No indication of testicular mass or torsion. 2. Marked thickening of the scrotal sanchez. Chest X-Ray 08/07/24 14:33 IMPRESSION: 1. Mild cardiac enlargement with slightly increased pulmonary vascularity. Laboratory Results WBC 10.34 10^3/uL (3.29-11.43) 08/07/24 14:46 RBC 3.90 10^6/uL (3.85-5.65) 08/07/24 14:46 Hgb 10.60 g/dL (11.27-16.99) L 08/07/24 14:46 Hct 34.9 % (37-53) L 08/07/24 14:46 MCV 89.5 fl (82-101) 08/07/24 14:46 MCH 27.2 pg (27-33) 08/07/24 14:46 MCHC 30.4 g/dL (30-55) 08/07/24 14:46 RDW 13.8 % (12.1-15.1) 08/07/24 14:46 Plt Count 249 10^3/cmm (157-399) 08/07/24 14:46 MPV 10.0 fL (7.4-10.4) 08/07/24 14:46 Neut % (Auto) 80.8 % 08/07/24 14:46 Lymph % (Auto) 10.5 % 08/07/24 14:46 [place] % (Auto) 5.5 % 08/07/24 14:46 Eos % (Auto) 2.4 % 08/07/24 14:46 Baso % (Auto) 0.3 % 08/07/24 14:46 Neut # (Auto) 8.35 10^3/uL (1.8-7.7) H 08/07/24 14:46 Lymph # (Auto) 1.1 10^3/uL (0.8-4.8) 08/07/24 14:46 [place] # (Auto) 0.6 10^3/uL (0.2-0.9) 08/07/24 14:46 Eos # (Auto) 0.3 10^3/uL (0.0-0.8) 08/07/24 14:46 Baso # (Auto) 0.0 10^3/uL (0.0-0.1) 08/07/24 14:46 Nucleated RBC % (auto) 0 % 08/07/24 14:46 Nucleated RBCs # 0.0 /100WBC 08/07/24 14:46 D-Dimer 1.16 ug/mLFEU (0-0.59) H 08/07/24 14:46 Sodium 138 mmol/L (136-145) 08/07/24 14:46 Potassium 4.1 mmol/L (3.5-5.1) 08/07/24 14:46 Chloride 95 mmol/L (98-107) L 08/07/24 14:46 Carbon Dioxide 35 mmol/L (22-29) H 08/07/24 14:46 Anion Gap 12.1 (5-19) 08/07/24 14:46 BUN 21 mg/dL (6-20) H 08/07/24 14:46 Creatinine 1.1 mg/dL (0.7-1.2) 08/07/24 14:46 GFR Calculation 70.0 mL/min (90-130) L 08/07/24 14:46 Glucose 282 mg/dL (65-115) H 08/07/24 14:46 Calculated Osmolality 299 mOsm/kg (285-295) H 08/07/24 14:46 Calcium 9.3 mg/dL (8.5-10.5) 08/07/24 14:46 Magnesium 1.7 mg/dL (1.7-2.3) 08/07/24 14:46 Total Bilirubin 0.2 mg/dL (0.15-1.2) 08/07/24 14:46 AST 18 U/L (0-40) 08/07/24 14:46 ALT 28 U/L (0-41) 08/07/24 14:46 Alkaline Phosphatase 152 U/L (40-130) H 08/07/24 14:46 Troponin T Baseline 41 ng/L (0-15) H 08/07/24 14:46 Troponin T 120 Minute 42.35 ng/L (0-15) H 08/07/24 17:44 Delta Troponin T 1.35 ABS# (0-10) 08/07/24 17:44 NT-Pro-B Natriuret Pep 101 pg/mL (0-125) 08/07/24 14:46 Total Protein 6.9 g/dL (6.6-8.7) 08/07/24 14:46 Albumin 3.0 g/dL (3.5-5.2) L 08/07/24 14:46 Globulin 3.9 g/dL (1.3-4.6) 08/07/24 14:46 TSH 0.81 uIU/mL (0.27-4.20) 08/07/24 14:46 Urine Color Yellow (Yellow) 08/07/24 15:40 Urine Appearance Clear (CLEAR) 08/07/24 15:40 Urine pH 6.0 (5-7) 08/07/24 15:40 Ur Specific [place] 1.018 (1.005-1.030) 08/07/24 15:40 Urine Protein 2+ (Negative) A 08/07/24 15:40 Urine Glucose (UA) 2+ (Normal) H 08/07/24 15:40 Urine Ketones Negative (Negative) 08/07/24 15:40 Urine Blood Trace (Negative) A 08/07/24 15:40 Urine Nitrate Negative (Negative) 08/07/24 15:40 Urine Bilirubin Negative (Negative) 08/07/24 15:40 Urine Urobilinogen 1.0 mg/dL (Negative) 08/07/24 15:40 Ur Leukocyte Esterase Negative (Negative) 08/07/24 15:40 Urine RBC 0-2 /hpf (0-2) 08/07/24 15:40 Urine WBC 0-5 /hpf (0-5) 08/07/24 15:40 Ur Squamous Epith Cells 0-5 /hpf (0-5) 08/07/24 15:40 Amorphous Sediment Not Reportable 08/07/24 15:40 Urine Bacteria None seen /hpf (NONE) 08/07/24 15:40 Hyaline Casts 1.21 /lpf 08/07/24 15:40 Influenza A (PCR) Negative (Negative) 08/07/24 16:13 Influenza Type B (PCR) Negative (Negative) 08/07/24 16:13 RSV (PCR) Negative (Negative) 08/07/24 16:13 SARS-CoV-2 (PCR) Negative (Negative) 08/07/24 16:13 All radiology interpretation(s) finalized by discharge Discharge Plan Discharge Patient Disposition: Admitted As Inpatient Admit Provider: Ami Yan Clinical Impression: Congestive heart failure, Morbid obesity with BMI of 60.0-69.9, adult, Anasarca Condition: Stable Coding Level of Care Code ED Cylinder Inspector for Ruchi Velez
--- NOTE | 2024-08-07 14:33 | XR_ITS ---
WS: [id number] Exam: XR chest 1V portable [id number] Date/Time of Exam: 08/07/2024 2:34 PM Reason For Exam: dyspnea/cough Comparison 08/05/2024. There is mild cardiac enlargement. Increased pulmonary vascularity. No infiltrates or pleural effusions. The mediastinum is normal in contour. Bony structures are intact. XR/XR chest 1V portable [id number] IMPRESSION: 1. Mild cardiac enlargement with slightly increased pulmonary vascularity.
[2024-08-07 14:34] VITALS: BP 165/66; PULSE 101; RESP 16; O2SAT 90
--- NOTE | 2024-08-07 14:50 | ECG_ITS ---
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 Measurements Intervals [place] Rate: 99 P: 56 ID: [id number] QRS: 101 QRSD: 113 T: 19 QT: 365 QTc: 470 Interpretive Statements SINUS RHYTHM RIGHT AXIS DEVIATION [QRS AXIS > 100] INCOMPLETE RIGHT BUNDLE BRANCH BLOCK [90+ ms QRS DURATION, TERMINAL R IN V1/V2, 40+ ms S IN I/aVL/V4/V5/V6] POSSIBLE INFERIOR MYOCARDIAL INFARCTION , PROBABLY OLD [30 ms Q WAVE IN II/aVF] Compared to ECG 08/04/2024 23:57:34 Right-axis deviation now present Sinus tachycardia no longer present Indeterminate axis no longer present Myocardial infarct finding still present Electronically Signed On 08-07-2024 20:27:29 MEDIA LAW FACULTY MEMBER by David Wright M.D. [email or web address]
[2024-08-07 15:00] LABS: Basophils % 0.3 %; Eosinophils # 0.3 10^3/uL (0.0-0.8); Eosinophils % 2.4 %; Hematocrit 34.9 % (37-53); Lymphocytes # 1.1 10^3/uL (0.8-4.8); Lymphocytes % 10.5 %; Mean Corpuscular HGB Conc 30.4 g/dL (30-55); Mean Corpuscular Hemoglobin 27.2 pg (27-33); Mean Corpuscular Volume 89.5 fl (82-101); Monocytes # 0.6 10^3/uL (0.2-0.9); Monocytes % 5.5 %; Neutrophils # 8.35 10^3/uL (1.8-7.7); Neutrophils % 80.8 %; Nucleated Red Blood Cells % 0 %; Platelet Count 249 10^3/cmm (157-399); Red Cell Distribution Width 13.8 % (12.1-15.1); White Blood Count 10.34 10^3/uL (3.29-11.43)
[2024-08-07 15:03] VITALS: BP 157/103; PULSE 98; RESP 18; O2SAT 92
[2024-08-07 15:19] LABS: Troponin(5th) Baseline 41 ng/L (0-15)
[2024-08-07 15:29] LABS: Alanine Aminotransferase 28 U/L (0-41); Alkaline Phosphatase 152 U/L (40-130); Anion Gap 12.1 (5-19); Aspartate Amino Transferase 18 U/L (0-40); Blood Urea Nitrogen 21 mg/dL (6-20); Calcium 9.3 mg/dL (8.5-10.5); Carbon Dioxide 35 mmol/L (22-29); Chloride 95 mmol/L (98-107); Creatinine Clr Calc Pharmacy 143.3031; Globulin 3.9 g/dL (1.3-4.6); Glucose 282 mg/dL (65-115); Magnesium 1.7 mg/dL (1.7-2.3); NT Pro B Type Natriuretic Pept 101 pg/mL (0-125); Osmolality Calculated 299 mOsm/kg (285-295); Potassium 4.1 mmol/L (3.5-5.1); Sodium 138 mmol/L (136-145); Total Bilirubin 0.2 mg/dL (0.15-1.2); Total Protein 6.9 g/dL (6.6-8.7)
[2024-08-07] MEDS: FUROsemide 10 mg/mL SDV 10mL 80 MG IVP (15:37)
[2024-08-07 15:47] LABS: Bilirubin Urine Negative (Negative); Blood Urine Trace (Negative); Glucose Urine UA 2+ (Normal); Ketones Urine Negative (Negative); Leukocyte Esterase Urine Negative (Negative); Nitrate Urine Negative (Negative); Protein Urine 2+ (Negative); Specific Gravity, Urine 1.018 (1.005-1.030); Urine Appearance Clear (CLEAR); Urine Color Yellow (Yellow)
[2024-08-07 15:52] LABS: Add Urine Microscopic? YES; Bacteria Urine None Seen /hpf; Hyaline Casts Urine 1.21 /lpf; RBC Urine 0-2 /hpf (0-2); Squamous Epithelial Cell Urine 0-5 /hpf (0-5); WBC Urine 0-5 /hpf (0-5)
--- NOTE | 2024-08-07 16:29 | ECG_ITS ---
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 Measurements Intervals [place] Rate: 97 P: 46 SD: 161 QRS: 94 QRSD: 116 T: 31 QT: 372 QTc: 474 Interpretive Statements SINUS RHYTHM BORDERLINE RIGHT AXIS DEVIATION [QRS AXIS > 90] INCOMPLETE RIGHT BUNDLE BRANCH BLOCK [90+ ms QRS DURATION, TERMINAL R IN V1/V2, 40+ ms S IN I/aVL/V4/V5/V6] POSSIBLE INFERIOR MYOCARDIAL INFARCTION , PROBABLY OLD [30 ms Q WAVE IN II/aVF] Compared to ECG 08/07/2024 14:50:21 No significant changes Electronically Signed On 08-07-2024 20:29:50 HELP DESK CONSULTANT by David Wright M.D. [email or web address]
[2024-08-07 17:17] LABS: Influenza A NEGATIVE (Negative); Influenza B NEGATIVE (Negative); Respiratory Syncytial Virus Ce NEGATIVE (Negative); SARS-CoV-2 PCR NEGATIVE (Negative)
[2024-08-07 17:24] VITALS: BP 148/72; PULSE 97; RESP 16; O2SAT 92
[2024-08-07 18:00] VITALS: BP 165/109; PULSE 94; RESP 20; O2SAT 90
[2024-08-07 18:20] LABS: Troponin 5 2HR 42.35 ng/L (0-15); Troponin 5 2HR Delta 1.35 ABS# (0-10)
--- NOTE | 2024-08-07 18:30 | P.HP_ITS ---
Providers/Chief Complaint 2 Admitting Physician: Ami Yan MD Primary Care Provider: Cindy Briggs DO Chief Complaint: Swelling testi. History of Present Illness Bennie Ho is a 54 year old male with morbid obesity diabetes and sleep apnea, past h/o presumed CHF (unable to have good echocardiographic windows previously) who was recently in the ER with increasing whole body swelling, orthopnea and dyspnea on exertion. He was previously placed on Lasix in 04/2024 however did not have any f/up afterwards. He was out of his Lasix prescription which was resumed on the ER visit on 08/05. He states that edema improved over his upper extremities however he continued to have edema over his lower extremities and over the scrotum. USG scrptum today is negative for any acute pathology. He denies any chest pain. 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 Review of Systems 2 General: Reports: 10 or more systems reviewed and unremarkable except in HPI and below Const: Denies: fever(s), chills or body aches Eyes: Denies: change in vision, blurry vision or photophobia ENMT: Reports: hoarseness; Denies: throat pain, enlarged tonsils, odynophagia or nasal congestion Card: Denies: chest pain, palpitations, irregular heart rhythm, edema, swelling of feet/ankles, lightheadedness, pre-syncope, dyspnea on exertion or orthopnea Resp: Denies: dyspnea, productive cough, non-productive cough, wheezing, stridor, pain on inspiration, change in phlegm color, hemoptysis or chest congestion GI: Denies: abdominal pain, nausea, vomiting, hematemesis, coffee ground emesis, dysphagia, heartburn, diarrhea, constipation, GI cramping, change in stool character, hematochezia or melena : Denies: flank pain, dysuria, urinary frequency, urinary urgency, urinary hesitancy or hematuria Musc: Denies: neck pain, back pain, extremity pain, joint swelling, joint warmth or deformity Neuro: Denies: headache(s), numbness in extremities, weakness in extremities, sensory changes, difficulty walking, frequent falls, dizziness, vertigo, behavioral changes, Slurred speech present or seizure-like activity Psych: Denies: anxiety, depression, suicidal ideation or homicidal ideation Endo: Denies: polyuria, polydipsia, tired all the time, cold intolerance or hot flashes Edgar/Lymph: Denies: easy bruising or easy bleeding Medications/Allergies Home Medications ?Medication ?Instructions ?Recorded ?Confirmed ?Last Taken ?Type aspirin 81 mg tablet,delayed 81 mg PO DAILY 11/28/19 0 08/07/24 04/22/24 History release Lactobacillus acidoph-L.bulgaricus 1 tab PO QID #1 tab 12/02/19 08/07/24 04/22/24 Rx 1 million cell tablet (Floranex) insulin aspart 30 unit SUBCUT TID 04/23/24 08/07/24 04/22/24 History (niacinamide)(U-100) 100 unit/mL(3 mL) subcutaneous pen (Fiasp FlexTouch U-100 Insulin) sitagliptin phosphate 100 mg 100 mg PO DAILY 04/23/24 08/07/24 04/22/24 History tablet (Januvia) insulin glargine 100 unit/mL (3 55 unit (0.55 mL) SUBC UT BEDTIME 04/26/24 08/07/24 04/21/24 Rx mL) subcutaneous pen (Basaglar #10 mL KwikPen U-100 Insulin) potassium chloride 8 mEq 8 meq PO DAILY #20 caps 12/1208/07/24 Unknown Rx capsule,extended release furosemide 80 mg tablet (Lasix) 80 mg PO DAILY #30 tab s 08/05/24 08/07/24 Unknown Rx carvedilol 25 mg tablet (Coreg) 25 mg PO DAILY 5 08/07/24 Unknown History insulin aspart U-100 100 unit/mL See Rx Instructions . Route .COMPLEX 08/07/24 08/07/24 Unknown History (3 mL) subcutaneous pen lisinopril 40 mg tablet 40 mg PO DAILY 08/07/2407/22 Unknown History Allergies Allergy/AdvReac Type Severity Reaction Status Date / Time No Known Allergies Allergy Verified 05/31/24 07:46 PFSH Acute 2 PFSH: Medical History Smoker -heavy smoker, 2 PPD Morbid obesity -BMI-59 kg/m2 Sepsis -as noted above -BP better controlled, tachycardia persists, afebrile; continue to monitor vital signs -trend WBC; leukocytosis improving Smoker Recurrent infection of skin Chronic back pain GERD (gastroesophageal reflux disease) Ptosis of eyelid, right Sleep apnea Morbid obesity Testicular abscess Hypertension -BP improved though still uncontrolled, continue to monitor vital signs -on Lisinopril; titrate as needed for optimal BP control; due to tachycardia, BB added Diabetes mellitus Surgical History History of incision and drainage 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 S/P right knee arthroscopy Family History Other CAD (coronary artery disease) Diabetes Social History Smoking and tobacco/nicotine status: heavy tobacco/nicotine user cigarettes [ Other cigarette details: 2 packs/day] Alcohol intake: never Substance/Drug Use: never Household members: significant other Housing: House Vitals/I&O/Wt Last Vital Signs Temp 98.6 F 08/07/24 14:15 Pulse 96 08/07/24 20:00 Resp 18 08/07/24 20:00 BP 152/76 08/07/24 20:00 Pulse Ox 92 08/07/24 20:00 O2 Del Method Nasal Cannula 08/07/24 20:00 O2 Flow Rate 4 08/07/24 20:00 08/07/24 08/07/24 08/07/24 06:59 14:59 22:59 Intake Total 0 / 0 Balance 0 / 0 Weight last 48 hrs Weight 213.188 kg Physical Exam 2 Narrative: General: No acute distress, AO x3 HEENT: PERRLA, pupils bilaterally equal and reactive, pallors not present Chest: Normal vesicular breath sounds, no added sounds, equal good air entry bilaterally CVS: S1-S2 regular, no murmurs, no tachycardia, no gallops, no rubs Abdomen: Soft, nontender, no organomegaly, bowel sounds present Neuro: No focal deficits, no facial deformity, AO x3, power 5/5 in all limbs Extremities: anasarca+. LLE pitting edema +, RLE prosthesis in place Data 08/07/24 14:46 08/07/24 14:46 Micro: Radiology Impressions Scrotum Ultrasound 08/07/24 14:21 IMPRESSION: 1. No indication of testicular mass or torsion. 2. Marked thickening of the scrotal sanchez. Chest X-Ray 08/07/24 14:33 IMPRESSION: 1. Mild cardiac enlargement with slightly increased pulmonary vascularity. Laboratory Results WBC 10.34 10^3/uL (3.29-11.43) 08/07/24 14:46 RBC 3.90 10^6/uL (3.85-5.65) 08/07/24 14:46 Hgb 10.60 g/dL (11.27-16.99) L 08/07/24 14:46 Hct 34.9 % (37-53) L 08/07/24 14:46 MCV 89.5 fl (82-101) 08/07/24 14:46 MCH 27.2 pg (27-33) 08/07/24 14:46 MCHC 30.4 g/dL (30-55) 08/07/24 14:46 RDW 13.8 % (12.1-15.1) 08/07/24 14:46 Plt Count 249 10^3/cmm (157-399) 08/07/24 14:46 MPV 10.0 fL (7.4-10.4) 08/07/24 14:46 Neut % (Auto) 80.8 % 08/07/24 14:46 Lymph % (Auto) 10.5 % 08/07/24 14:46 [place] % (Auto) 5.5 % 08/07/24 14:46 Eos % (Auto) 2.4 % 08/07/24 14:46 Baso % (Auto) 0.3 % 08/07/24 14:46 Neut # (Auto) 8.35 10^3/uL (1.8-7.7) H 08/07/24 14:46 Lymph # (Auto) 1.1 10^3/uL (0.8-4.8) 08/07/24 14:46 [place] # (Auto) 0.6 10^3/uL (0.2-0.9) 08/07/24 14:46 Eos # (Auto) 0.3 10^3/uL (0.0-0.8) 08/07/24 14:46 Baso # (Auto) 0.0 10^3/uL (0.0-0.1) 08/07/24 14:46 Nucleated RBC % (auto) 0 % 08/07/24 14:46 Nucleated RBCs # 0.0 /100WBC 08/07/24 14:46 D-Dimer 1.16 ug/mLFEU (0-0.59) H 08/07/24 14:46 Sodium 138 mmol/L (136-145) 08/07/24 14:46 Potassium 4.1 mmol/L (3.5-5.1) 08/07/24 14:46 Chloride 95 mmol/L (98-107) L 08/07/24 14:46 Carbon Dioxide 35 mmol/L (22-29) H 08/07/24 14:46 Anion Gap 12.1 (5-19) 08/07/24 14:46 BUN 21 mg/dL (6-20) H 08/07/24 14:46 Creatinine 1.1 mg/dL (0.7-1.2) 08/07/24 14:46 GFR Calculation 70.0 mL/min (90-130) L 08/07/24 14:46 Glucose 282 mg/dL (65-115) H 08/07/24 14:46 Calculated Osmolality 299 mOsm/kg (285-295) H 08/07/24 14:46 Calcium 9.3 mg/dL (8.5-10.5) 08/07/24 14:46 Magnesium 1.7 mg/dL (1.7-2.3) 08/07/24 14:46 Total Bilirubin 0.2 mg/dL (0.15-1.2) 08/07/24 14:46 AST 18 U/L (0-40) 08/07/24 14:46 ALT 28 U/L (0-41) 08/07/24 14:46 Alkaline Phosphatase 152 U/L (40-130) H 08/07/24 14:46 Troponin T Baseline 41 ng/L (0-15) H 08/07/24 14:46 Troponin T 120 Minute 42.35 ng/L (0-15) H 08/07/24 17:44 Delta Troponin T 1.35 ABS# (0-10) 08/07/24 17:44 Troponin T Hi Sens 6Hr 48.68 ng/L (0-15) H 08/07/24 21:08 Troponin T Hi Sens 6Hr Delta 7.68 ng/L (0-12) 08/07/24 21:08 NT-Pro-B Natriuret Pep 101 pg/mL (0-125) 08/07/24 14:46 Total Protein 6.9 g/dL (6.6-8.7) 08/07/24 14:46 Albumin 3.0 g/dL (3.5-5.2) L 08/07/24 14:46 Globulin 3.9 g/dL (1.3-4.6) 08/07/24 14:46 TSH 0.81 uIU/mL (0.27-4.20) 08/07/24 14:46 Urine Color Yellow (Yellow) 08/07/24 15:40 Urine Appearance Clear (CLEAR) 08/07/24 15:40 Urine pH 6.0 (5-7) 08/07/24 15:40 Ur Specific [place] 1.018 (1.005-1.030) 08/07/24 15:40 Urine Protein 2+ (Negative) A 08/07/24 15:40 Urine Glucose (UA) 2+ (Normal) H 08/07/24 15:40 Urine Ketones Negative (Negative) 08/07/24 15:40 Urine Blood Trace (Negative) A 08/07/24 15:40 Urine Nitrate Negative (Negative) 08/07/24 15:40 Urine Bilirubin Negative (Negative) 08/07/24 15:40 Urine Urobilinogen 1.0 mg/dL (Negative) 08/07/24 15:40 Ur Leukocyte Esterase Negative (Negative) 08/07/24 15:40 Urine RBC 0-2 /hpf (0-2) 08/07/24 15:40 Urine WBC 0-5 /hpf (0-5) 08/07/24 15:40 Ur Squamous Epith Cells 0-5 /hpf (0-5) 08/07/24 15:40 Amorphous Sediment Not Reportable 08/07/24 15:40 Urine Bacteria None seen /hpf (NONE) 08/07/24 15:40 Hyaline Casts 1.21 /lpf 08/07/24 15:40 Influenza A (PCR) Negative (Negative) 08/07/24 16:13 Influenza Type B (PCR) Negative (Negative) 08/07/24 16:13 RSV (PCR) Negative (Negative) 08/07/24 16:13 SARS-CoV-2 (PCR) Negative (Negative) 08/07/24 16:13 A&P Assessment and plan (1) Anasarca: increasing anasarca, suboptimal response to po lasix which was recently resumed. Admit to med/surg Start Lasix 40mg iv q12h assess for serial cr and urine output Whitmore catheter for I/O measurement, patient unable to void into urinal or commode due to massive scrotal edema Ekg without acute ST-T changes , baseline trop withotu significant elevation reports compliance with anti hypertensive regimen with lisinopril and amlodipine had similar presentation in 04/2024 at which time cause was presumed to be CHF. Echo did not have good ultrasonic windows, therefore was unable to estimate EF, wall motion abnormalities. MUGA scan was planned however patient was unable to fit on the table due to obesity Possibility of right heart failure related to severe sleep apnea on the differentials Differentials include cirrhosis which was noted on USG abdomen from 04/2024. 2+ proteinuria noted, will check 24 hr urine protein PDMP PDMP Reviewed: Not Reviewed Attestations 2 Medical Necessity Statement*: > 2 midnight admission anticipated for iv diuresis, managament of anasarca Coding Level of Care Code Acute Code for [facility] Diagnoses Anasarca R60.1
[2024-08-07] MEDS: enoxaparin 40 mg/0.4 mL Syringe SUBCUT (19:07)
[2024-08-07 19:39] LABS: D Dimer 1.16 ug/mLFEU (0-0.59)
[2024-08-07 19:53] LABS: Thyroid Stimulating Hormone 0.81 uIU/mL (0.27-4.20)
[2024-08-07 20:00] VITALS: BP 152/76; PULSE 96; RESP 18; O2SAT 92
[2024-08-07 21:42] LABS: Troponin 5 6HR 48.68 ng/L (0-15); Troponin 5 6HR Delta 7.68 ng/L (0-12)
[2024-08-07 23:44] LABS: Glucose Point of Care 258 mg/dL (70-110)
[2024-08-07] MEDS: insulin lispro 100 unit/1 mL SUBCUT (23:50)
[2024-08-08] VITALS (7 sets, daily range): BP systolic 126–170; BP diastolic 65–80; PULSE 87–111; RESP 16–22; TEMP 36.3–36.9; O2SAT 91–96
[2024-08-08] MEDS: FUROsemide 10 mg/mL SDV 4mL 40 MG IVP ×2 (04:08→14:50)
[2024-08-08] MEDS: perflutren protein-a microsphr 0.22 mg/mL SDV 3 mL IV (05:56)
[2024-08-08 06:15] LABS: Glucose Point of Care 253 mg/dL (70-110)
--- NOTE | 2024-08-08 07:48 | PC.NURSE ---
AM labs not noted for this patient. Calls lab, [facility], whom states she will send ehr trainer.
[2024-08-08 07:56] LABS: Basophils % 0.4 %; Eosinophils # 0.2 10^3/uL (0.0-0.8); Hematocrit 36.2 % (37-53); Lymphocytes # 1.3 10^3/uL (0.8-4.8); Lymphocytes % 11.9 %; Mean Corpuscular HGB Conc 30.7 g/dL (30-55); Mean Corpuscular Hemoglobin 27.2 pg (27-33); Mean Corpuscular Volume 88.7 fl (82-101); Mean Platelet Volume 10.4 fL (7.4-10.4); Monocytes # 0.6 10^3/uL (0.2-0.9); Monocytes % 5.3 %; Neutrophils # 8.97 10^3/uL (1.8-7.7); Nucleated Red Blood Cells % 0 %; Platelet Count 302 10^3/cmm (157-399); Red Blood Count 4.08 10^6/uL (3.85-5.65); Red Cell Distribution Width 13.8 % (12.1-15.1); White Blood Count 11.22 10^3/uL (3.29-11.43)
[2024-08-08 08:20] LABS: Alanine Aminotransferase 26 U/L (0-41); Albumin Level 3.3 g/dL (3.5-5.2); Alkaline Phosphatase 154 U/L (40-130); Anion Gap 11.5 (5-19); Aspartate Amino Transferase 17 U/L (0-40); Blood Urea Nitrogen 18 mg/dL (6-20); Calcium 9.5 mg/dL (8.5-10.5); Carbon Dioxide 38 mmol/L (22-29); Chloride 93 mmol/L (98-107); Creatinine Clr Calc Pharmacy 127.9168; Globulin 3.8 g/dL (1.3-4.6); Glucose 293 mg/dL (65-115); Osmolality Calculated 299 mOsm/kg (285-295); Potassium 4.5 mmol/L (3.5-5.1); Sodium 138 mmol/L (136-145); Total Bilirubin 0.4 mg/dL (0.15-1.2); Total Protein 7.1 g/dL (6.6-8.7)
[2024-08-08] MEDS: insulin lispro 100 unit/1 mL SUBCUT ×4 (09:13→21:00)
[2024-08-08] MEDS: lisinopril 20 mg Tablet 40 MG PO (09:13)
[2024-08-08] MEDS: pantoprazole DR 40 mg Tablet PO (09:14)
[2024-08-08] MEDS: aspirin 81 mg EC Tablet PO (09:14)
[2024-08-08] MEDS: acetaminophen 325 mg Tablet 650 MG PO (09:15)
--- NOTE | 2024-08-08 09:22 | PC.CHAP ---
Pastoral Care Encounter/Spiritual Assessment Type of Contact [] Declined cloth weigher visit [] Patient/Family/Request visit [] Outpatient visit [] Follow-up visit [] Physician referral [] Code/Alert [x] Routine visit [] Staff referral [] Actively dying [] Patient sleeping [] Family support [] [] Out of room [] Palliative care [] [] Receiving care in room [] Pre-surgical visit [] Trauma [] Long length of stay [] ICU visit [] Other: Relational/Emotional Strength [x] Patient feels connected with others/family/visitors/staff [] Distress [] Loneliness/isolation [] Abandonment Spirituality of Patient [x] Person of Vaishnavi [] Attends Judaism of their Vaishnavi [x] Believes in Prayer [] Reads Bible or Advent materials [] There are Spiritual issues to be addressed Route Delivery Supervisor Interventions [x] Prayer [x] Active listening [] Non-anxious presence [x] Spiritual/emotional support [] Crisis/trauma care [] Spiritual counseling [] Bereavement support [] Provided bereavement packet [] Provided Bible/devotional materials [] Provided toy/stuffed animal, coloring book to patient or family member [] Provided Communion [] Anointing/[place] [] Salvation [x] Completed spiritual assessment [] Other: Impact on Illness or Injury [] Angry [] Fearful [] Anxious [] Often cries [] Exhaustion [] Unable to work [] Unable to attend tenriism [] Unable to walk/stand [] Unable to read [] Unable to drive [] Unable to eat/drink [] Unable to sleep [] Unable to be with family [] Patient intubated [] Other: Summary Time spent with patient 5 min
[2024-08-08 12:43] LABS: Glucose Point of Care 296 mg/dL (70-110)
--- NOTE | 2024-08-08 16:16 | PICC.NOTE ---
Midline placed to left basilic vein. Referred to vascular access nurse for midline placement due to poor access. Risks and benefits discussed and informed consent obtained from pt. Left arm assessed with left basilic vein measuring 5.4 mm, straight, and apparent best choice for placement. Using sterile technique and MST, left basilic vein accessed x 1 stick. Mid-arm circumference measured 10 cm from left AC 44 cm. Trimmed cath 13 cm with 1 cm external length noted. Line secured with stat-lock. Insertion site covered with Biopatch and TSM. Report given to bedside nurse, JAVIER Cole.
[2024-08-08 16:58] LABS: Glucose Point of Care 282 mg/dL (70-110)
--- NOTE | 2024-08-08 17:10 | P.PN_ITS ---
Subjective 2 Subjective: net negative 1900 cc. LE and scrotal edema overall unchanged compared to admission. C/o pain due to diffuse swelling in Lower extremities. Developed hematuria yesterday, likely traumatic Whitmore. no clots, red colored urine at this time. Vitals/I&O/Wt Last Vital Signs Temp 98.2 F 08/08/24 15:51 Pulse 93 08/08/24 15:51 Resp 18 08/08/24 15:51 BP 153/80 08/08/24 15:51 Pulse Ox 94 08/08/24 15:51 O2 Del Method Nasal Cannula 08/08/24 15:51 O2 Flow Rate 5 08/08/24 04:00 08/08/24 08/08/24 08/08/24 06:59 14:59 22:59 Intake Total 240 / 240 360 / 360 Output Total 600 / 600 1300 / 1300 600 / 1900 Balance -360 / -360 -940 / -940 -600 / -1540 Weight last 48 hrs Weight 178.171 kg Weight 213.188 kg Weight 213.188 kg Physical Exam 2 Narrative: General: No acute distress, AO x3 HEENT: PERRLA, pupils bilaterally equal and reactive, pallors not present Chest: Normal vesicular breath sounds, no added sounds, equal good air entry bilaterally CVS: S1-S2 regular, no murmurs, no tachycardia, no gallops, no rubs Abdomen: Soft, nontender, no organomegaly, bowel sounds present Neuro: No focal deficits, no facial deformity, AO x3, power 5/5 in all limbs Urinary Catheter Management: [place]: Cath Placed During This Visit: yes Reason for Continuing Indwelling Catheter: Other Urinary Catheter Date of Insertion: 08/08/24 Urinary Catheter Time of Insertion: 03:55 Data 08/08/24 07:46 08/08/24 07:46 A&P Assessment and plan (1) Anasarca: increasing anasarca, suboptimal response to po lasix which was recently resumed. Admit to med/surg Start Lasix 40mg iv q12h assess for serial cr and urine output Whit[place] catheter for I/O measurement, patient unable to void into urinal or commode due to massive scrotal edema Ekg without acute ST-T changes , baseline trop withotu significant elevation reports compliance with anti hypertensive regimen with lisinopril and amlodipine had similar presentation in 04/2024 at which time cause was presumed to be CHF. Echo did not have good ultrasonic windows, therefore was unable to estimate EF, wall motion abnormalities. MUGA scan was planned however patient was unable to fit on the table due to obesity Possibility of right heart failure related to severe sleep apnea on the differentials Differentials include cirrhosis which was noted on USG abdomen from 04/2024. 2+ proteinuria noted, will check 24 hr urine protein 08/08/24: Diffuse anasarca, net negative 1900cc thus far, will continue lasix 40mg iv q12h. Kidney function stable currently. Urine is clear red. Add prn morphine for pain control. Etiology for diffuse anasarca at this time unclear- may be related to CHF vs decompensated cirrhosis vs nephrotic syndrome. Awaiting 2D echo, 24hr urine proetin to further assess. Continue iv diuresis in the interim. PDMP PDMP Reviewed: Not Reviewed Attestations 2 Medical Necessity Statement*: continued need for iv diuresis, pain control Coding Level of Care Code Acute Code for [facility] Diagnoses Anasarca R60.1
[2024-08-08] MEDS: enoxaparin 40 mg/0.4 mL Syringe SUBCUT (17:20)
[2024-08-08] MEDS: morphine 4 mg/mL SDV 1 mL IVP (17:21)
--- NOTE | 2024-08-08 18:46 | USCV_ITS ---
Bennie Ho Age: 54 Gender: M : 1970 Exam Date: 08/08/2024 02:15 Ordering Phys: Ami Yan MD Technologist: BRANDON Exam Location: [facility] – [place] Indication: CHF, Morbid Obesity 470 lbs 5ft 11 inches BP: 165 / 109 HR: 93 Rhythm: Sinus Technical Quality: Poor because of body habitus with OPTISON MEASUREMENTS (Male / Female) Normal Values 2D ECHO LV Diastolic Diameter PLAX 5.2 cm 4.2 - 5.9 / 3.9 - 5.3 cm IVS Diastolic Thickness 2.5 cm 0.6 - 1.0 / 0.6 - 0.9 cm IVS Systolic Thickness 2.4 cm LVPW Diastolic Thickness 2.2 cm 0.6 - 1.0 / 0.6 - 0.9 cm LVPW Systolic Thickness 2.3 cm LVOT Diameter 2.3 cm LV Ejection Fraction 2D Teich 62.8 % LV Ejection Fraction MOD 4C 54.5 % LV Ejection Fraction MOD 2C 60.5 % LV Ejection Fraction 2C AL 60.5 % LA Diameter 4.9 cm Aorta at Sinotubular Diameter 3.4 cm IVC Diameter 2.3 cm M-MODE LA Ao Ratio MM 1.7 AV Cusp Separation MM 1.9 cm DOPPLER AV Peak Velocity 248.0 cm/s LVOT Peak Velocity 99.0 cm/s AV Area Cont Eq vti 1.4 cm squared AV Area Cont Eq pk 1.7 cm squared MV Peak Velocity 152.0 cm/s MV Area PHT 7.3 cm squared Mitral E to A Ratio 1.3 TV Peak E Velocity 80.0 cm/s PV Peak Velocity 95.0 cm/s FINDINGS Left Ventricle Technically limited quality echocardiogram because of poor ultrasonic windows. Grossly LV systolic function is normal. Right Ventricle Normal in size and function Right Atrium Not well visualized Left Atrium Grossly dilated Mitral Valve Mitral valve is thickened and calcified. Mild mitral regurgitation. Mildly elevated gradient across mitral valve of 4.6 mmHg. Aortic Valve Aortic valve is thickened and calcified. Mild aortic stenosis with aortic valve area of 1.44cm2 and mean gradient across aortic valve of 13mmHg. Tricuspid Valve Insufficient TR jet to calculate RVSP Pulmonic Valve Not well visualized Pericardium Grossly normal Aorta Normal in size IVC Not well visualized. CONCLUSIONS Technically limited quality echocardiogram because of poor ultrasonic windows. Even with optison contrast, very limited visualization. Grossly LV systolic function is normal. Left ventricle is grossly dilated. Mild mitral regurgitation. Mild aortic stenosis. Stephane Hung MD (Electronically Signed) Final Date: 09 August 2024 13:42 S
[2024-08-08 20:47] LABS: Glucose Point of Care 321 mg/dL (70-110)
[2024-08-09] VITALS (8 sets, daily range): BP systolic 127–176; BP diastolic 72–93; PULSE 85–102; RESP 18–21; TEMP 36.3–37.1; O2SAT 90–98; BMI 53.7
[2024-08-09] MEDS: morphine 4 mg/mL SDV 1 mL IVP ×2 (00:08→09:01)
[2024-08-09] MEDS: FUROsemide 10 mg/mL SDV 4mL 40 MG IVP ×2 (03:24→15:31)
[2024-08-09 05:58] LABS: Urine Total Protein 44.5 mg/dL (0-150)
[2024-08-09 06:11] LABS: Basophils % 0.2 %; Eosinophils # 0.2 10^3/uL (0.0-0.8); Hematocrit 35.5 % (37-53); Lymphocytes # 1.4 10^3/uL (0.8-4.8); Lymphocytes % 12.5 %; Mean Corpuscular HGB Conc 29.6 g/dL (30-55); Mean Corpuscular Hemoglobin 27.2 pg (27-33); Mean Platelet Volume 10.6 fL (7.4-10.4); Monocytes # 0.7 10^3/uL (0.2-0.9); Monocytes % 6.5 %; Neutrophils % 78.3 %; Nucleated Red Blood Cells % 0 %; Platelet Count 252 10^3/cmm (157-399); Red Blood Count 3.86 10^6/uL (3.85-5.65); Red Cell Distribution Width 13.8 % (12.1-15.1); White Blood Count 11.24 10^3/uL (3.29-11.43)
[2024-08-09 06:19] LABS: Total Volume, Urine 4200 mL
[2024-08-09 06:30] LABS: Glucose Point of Care 266 mg/dL (70-110)
[2024-08-09 06:31] LABS: Alanine Aminotransferase 24 U/L (0-41); Albumin Level 3.1 g/dL (3.5-5.2); Alkaline Phosphatase 163 U/L (40-130); Anion Gap 14.3 (5-19); Aspartate Amino Transferase 18 U/L (0-40); Blood Urea Nitrogen 19 mg/dL (6-20); Calcium 9.2 mg/dL (8.5-10.5); Carbon Dioxide 36 mmol/L (22-29); Chloride 90 mmol/L (98-107); Creatinine Clr Calc Pharmacy 117.2571; Glomerular Filtration Rate 63.3 mL/min (90-130); Glucose 258 mg/dL (65-115); Osmolality Calculated 293 mOsm/kg (285-295); Potassium 4.3 mmol/L (3.5-5.1); Sodium 136 mmol/L (136-145); Total Bilirubin 0.4 mg/dL (0.15-1.2); Total Protein 7.1 g/dL (6.6-8.7)
[2024-08-09] MEDS: insulin lispro 100 unit/1 mL SUBCUT ×4 (08:59→20:49)
[2024-08-09] MEDS: aspirin 81 mg EC Tablet PO (09:00)
[2024-08-09] MEDS: lisinopril 20 mg Tablet 40 MG PO (09:00)
[2024-08-09] MEDS: pantoprazole DR 40 mg Tablet PO (09:00)
--- NOTE | 2024-08-09 09:50 | PC.SOCIAL ---
IMM Update pg 2 of IMM Updated and reviewed w/ patient. Copy provided and signed. Copy dated, initialed and placed in chart.
[2024-08-09 10:47] LABS: Glucose Point of Care 315 mg/dL (70-110)
--- NOTE | 2024-08-09 14:59 | PM.PN ---
Subjective Subjective: Continues to have generalized anasarca. Net -3.2 L. Medications: Reviewed: Yes Vitals/I&O/Wt Last Vital Signs Temp 97.9 F 08/09/24 07:59 Pulse 89 08/09/24 11:39 Resp 18 08/09/24 11:39 BP 127/75 08/09/24 11:39 Pulse Ox 95 08/09/24 11:39 O2 Del Method Nasal Cannula 08/09/24 11:39 O2 Flow Rate 5 08/09/24 04:00 08/08/24 08/09/24 08/09/24 22:59 06:59 14:59 Intake Total 720 / 1080 480 / 1560 600 / 600 Output Total 2800 / 4100 1200 / 5300 1050 / 1050 Balance -2080 / -3020 -720 / -3740 -450 / -450 Weight last 48 hrs Weight 174.775 kg Weight 178.171 kg Weight 213.188 kg Physical Exam Narrative: General: No acute distress, AO x3 HEENT: PERRLA, pupils bilaterally equal and reactive, pallors not present Chest: Normal vesicular breath sounds, no added sounds, equal good air entry bilaterally CVS: S1-S2 regular, no murmurs, no tachycardia, no gallops, no rubs Abdomen: Soft, nontender, no organomegaly, bowel sounds present Neuro: No focal deficits, no facial deformity, AO x3, power 5/5 in all limbs EXT: Gross anasarca Urinary Catheter Management: [place]: Cath Placed During This Visit: yes Reason for Continuing Indwelling Catheter: Other Urinary Catheter Date of Insertion: 08/08/24 Urinary Catheter Time of Insertion: 03:55 Data 08/09/24 04:32 08/09/24 04:32 A&P Assessment and plan (1) Anasarca: increasing anasarca, suboptimal response to po lasix which was recently resumed. Admit to med/surg Start Lasix 40mg iv q12h assess for serial cr and urine output [place] catheter for I/O measurement, patient unable to void into urinal or commode due to massive scrotal edema Ekg without acute ST-T changes , baseline trop withotu significant elevation reports compliance with anti hypertensive regimen with lisinopril and amlodipine had similar presentation in 04/2024 at which time cause was presumed to be CHF. Echo did not have good ultrasonic windows, therefore was unable to estimate EF, wall motion abnormalities. MUGA scan was planned however patient was unable to fit on the table due to obesity Possibility of right heart failure related to severe sleep apnea on the differentials Differentials include cirrhosis which was noted on USG abdomen from 04/2024. 2+ proteinuria noted, will check 24 hr urine protein 08/08/24: Diffuse anasarca, net negative 1900cc thus far, will continue lasix 40mg iv q12h. Kidney function stable currently. Urine is clear red. Add prn morphine for pain control. Etiology for diffuse anasarca at this time unclear- may be related to CHF vs decompensated cirrhosis vs nephrotic syndrome. Awaiting 2D echo, 24hr urine proetin to further assess. Continue iv diuresis in the interim. August 09, 2024 net -3.5 L. Anasarca persisting. Continue Lasix 40 mg IV every 12 hours. Noted to be developing metabolic alkalosis likely related to diuresis. Additionally add acetazolamide 500 mg x 1 today. 24h urine protein at 1800 mg, not consistent with nephrotic syndrome. Echocardiogram limited by poor ultrasonic windows. Even with Optison contrast very limited visualization. Grossly LV systolic function appeared to be normal. Left ventricle is grossly dilated PDMP PDMP Reviewed: Not Reviewed Attestations Medical Necessity Statement*: Continued need of IV diuresis. On acetazolamide. Persisting anasarca. Coding Level of Care Code Acute Code for [facility] Diagnoses Anasarca R60.1
[2024-08-09] MEDS: acetaZOLAMIDE 250 mg Tablet 500 MG PO (15:31)
[2024-08-09 16:33] LABS: Glucose Point of Care 201 mg/dL (70-110)
[2024-08-09] MEDS: HYDROcodone-acetaminophen 5-325 mg Tablet 1 TAB PO (17:50)
[2024-08-09 20:39] LABS: Glucose Point of Care 247 mg/dL (70-110)
[2024-08-09] MEDS: HYDROMORPHONE HCL 0.5 MG/0.5 ML INJ IVP (21:15)
[2024-08-10] MEDS: HYDROcodone-acetaminophen 5-325 mg Tablet 1 TAB PO ×4 (01:57→21:40)
[2024-08-10 04:00] VITALS: BP 125/58; PULSE 86; RESP 18; TEMP 37; O2SAT 98
[2024-08-10] MEDS: FUROsemide 10 mg/mL SDV 4mL 40 MG IVP (05:00)
[2024-08-10 05:27] LABS: Basophils % 0.3 %; Eosinophils # 0.3 10^3/uL (0.0-0.8); Eosinophils % 2.4 %; Hematocrit 34.7 % (37-53); Lymphocytes # 1.3 10^3/uL (0.8-4.8); Lymphocytes % 10.9 %; Mean Corpuscular HGB Conc 29.7 g/dL (30-55); Mean Corpuscular Hemoglobin 27.4 pg (27-33); Mean Corpuscular Volume 92.3 fl (82-101); Mean Platelet Volume 10.9 fL (7.4-10.4); Monocytes # 0.6 10^3/uL (0.2-0.9); Monocytes % 5.1 %; Neutrophils # 9.65 10^3/uL (1.8-7.7); Neutrophils % 80.7 %; Nucleated Red Blood Cells % 0 %; Platelet Count 256 10^3/cmm (157-399); Red Blood Count 3.76 10^6/uL (3.85-5.65); Red Cell Distribution Width 13.5 % (12.1-15.1); White Blood Count 11.95 10^3/uL (3.29-11.43)
[2024-08-10 05:42] LABS: Glucose Point of Care 325 mg/dL (70-110)
[2024-08-10 05:48] LABS: Alanine Aminotransferase 23 U/L (0-41); Albumin Level 3.1 g/dL (3.5-5.2); Alkaline Phosphatase 130 U/L (40-130); Anion Gap 11.4 (5-19); Aspartate Amino Transferase 23 U/L (0-40); Blood Urea Nitrogen 19 mg/dL (6-20); Calcium 8.9 mg/dL (8.5-10.5); Carbon Dioxide 36 mmol/L (22-29); Chloride 92 mmol/L (98-107); Creatinine Clr Calc Pharmacy 106.9052; Globulin 3.9 g/dL (1.3-4.6); Glomerular Filtration Rate 57.7 mL/min (90-130); Glucose 271 mg/dL (65-115); Osmolality Calculated 292 mOsm/kg (285-295); Potassium 4.4 mmol/L (3.5-5.1); Sodium 135 mmol/L (136-145); Total Bilirubin 0.3 mg/dL (0.15-1.2)
[2024-08-10 08:04] VITALS: BP 148/74; PULSE 96; RESP 16; TEMP 36.4; O2SAT 94
[2024-08-10] MEDS: lisinopril 20 mg Tablet 40 MG PO (08:50)
[2024-08-10] MEDS: aspirin 81 mg EC Tablet PO (08:50)
[2024-08-10] MEDS: insulin lispro 100 unit/1 mL SUBCUT ×4 (08:50→21:40)
[2024-08-10] MEDS: pantoprazole DR 40 mg Tablet PO (08:50)
[2024-08-10 11:30] LABS: Glucose Point of Care 275 mg/dL (70-110)
[2024-08-10 11:54] VITALS: BP 129/70; PULSE 91; RESP 16; TEMP 36.6; O2SAT 97
--- NOTE | 2024-08-10 12:13 | USCV_ITS ---
Bennie Ho Age: 54 Gender: M : 1970 Exam Date: 08/10/2024 12:34 Ordering Phys: Ami Yan MD Technologist: Rocky Cannon Exam Location: [facility] [place] Indication: assess for dvt PROCEDURES: Venous duplex imaging was performed in only the left lower extremity. The following venous structures were evaluated: common femoral vein, profunda vein, proximal portion of the greater saphenous vein, superficial femoral vein, and the popliteal vein. In addition, the posterior tibial and peroneal trunk were evaluated. Serial compression, augmentation maneuvers, and spectral Doppler flow evaluation were performed. FINDINGS: Very very limited exam. No visualization of left common femoral vein or femoral veins within the left thigh. Limited visualization of the pop, peroneal, ptv, and limited views of gsv appear free of thrombus at this time. Patient is almost 400 pounds. CONCLUSIONS Non diagnostic left lower extremity venous evaluation. Dr. Krissy Franks DO (Electronically Signed) Final Date: 11 August 2024 08:02 S
[2024-08-10 13:16] LABS: ANA SCREEN, IFA NEGATIVE (NEGATIVE)
[2024-08-10 13:40] LABS: COMPLEMENT COMPONENT C3C 236 mg/dL (82-185); COMPLEMENT COMPONENT C4C 37 mg/dL (15-53)
[2024-08-10] MEDS: albumin 12.5 GM/250 ML VIAL IV (13:54)
--- NOTE | 2024-08-10 15:43 | PC.NURSE ---
OT at bedside performing scrotal lymphodema wraps. Pt tolerated well.
[2024-08-10 15:59] VITALS: BP 138/70; PULSE 92; RESP 17; TEMP 36.5; O2SAT 95
--- NOTE | 2024-08-10 16:16 | P.PN_ITS ---
Subjective 2 Subjective: Leg edema appears to be mildly improved, however still continues to have significant scrotal edema. Creatinine rising to 1.3 today. Net -6 L. Medications: Reviewed: Yes Vitals/I&O/Wt Last Vital Signs Temp 97.7 F 08/10/24 15:59 Pulse 92 08/10/24 15:59 Resp 17 08/10/24 15:59 BP 138/70 08/10/24 15:59 Pulse Ox 95 08/10/24 15:59 O2 Del Method Nasal Cannula 08/10/24 15:59 O2 Flow Rate 5 08/10/24 08:00 08/10/24 08/10/24 08/10/24 06:59 14:59 22:59 Intake Total 480 / 1680 1170 / 1170 Output Total 1400 / 4850 4000 / 4000 Balance -920 / -3170 -2830 / -2830 Weight last 48 hrs Weight 174.588 kg Weight 174.775 kg Physical Exam 2 Narrative: General: No acute distress, AO x3 HEENT: PERRLA, pupils bilaterally equal and reactive, pallors not present Chest: Normal vesicular breath sounds, no added sounds, equal good air entry bilaterally CVS: S1-S2 regular, no murmurs, no tachycardia, no gallops, no rubs Abdomen: Soft, nontender, no organomegaly, bowel sounds present Neuro: No focal deficits, no facial deformity, AO x3, power 5/5 in all limbs EXT: Gross anasarca Urinary Catheter Management: Whitmore: Cath Placed During This Visit: yes Reason for Continuing Indwelling Catheter: Acute Urinary Retention or Obstruction Urinary Catheter Date of Insertion: 08/08/24 Urinary Catheter Time of Insertion: 03:55 Data 08/10/24 04:46 08/10/24 04:46 A&P Assessment and plan (1) Anasarca: increasing anasarca, suboptimal response to po lasix which was recently resumed. Admit to med/surg Start Lasix 40mg iv q12h assess for serial cr and urine output Whitmore catheter for I/O measurement, patient unable to void into urinal or commode due to massive scrotal edema Ekg without acute ST-T changes , baseline trop withotu significant elevation reports compliance with anti hypertensive regimen with lisinopril and amlodipine had similar presentation in 04/2024 at which time cause was presumed to be CHF. Echo did not have good ultrasonic windows, therefore was unable to estimate EF, wall motion abnormalities. MUGA scan was planned however patient was unable to fit on the table due to obesity Possibility of right heart failure related to severe sleep apnea on the differentials Differentials include cirrhosis which was noted on USG abdomen from 04/2024. 2+ proteinuria noted, will check 24 hr urine protein 08/08/24: Diffuse anasarca, net negative 1900cc thus far, will continue lasix 40mg iv q12h. Kidney function stable currently. Urine is clear red. Add prn morphine for pain control. Etiology for diffuse anasarca at this time unclear- may be related to CHF vs decompensated cirrhosis vs nephrotic syndrome. Awaiting 2D echo, 24hr urine proetin to further assess. Continue iv diuresis in the interim. August 09, 2024 net -3.5 L. Anasarca persisting. Continue Lasix 40 mg IV every 12 hours. Noted to be developing metabolic alkalosis likely related to diuresis. Additionally add acetazolamide 500 mg x 1 today. 24h urine protein at 1800 mg, not consistent with nephrotic syndrome. Echocardiogram limited by poor ultrasonic windows. Even with Optison contrast very limited visualization. Grossly LV systolic function appeared to be normal. Left ventricle is grossly dilated August 10, 2024 Net -6 L. Anasarca persisting. However leg edema slightly better. Continues to have significant scrotal swelling. Requested lymphedema scrotal and leg wraps with OT today. Creatinine is trending up to 1.3. Additionally noted to have leukocytosis likely related to overdiuresis. Hold Lasix today. Albumin infusion x 1 today. Hold lisinopril as may contribute to JAVIER in the setting. Recheck kidney function and urine output with a.m. labs. PDMP PDMP Reviewed: Not Reviewed Attestations 2 Medical Necessity Statement*: Ongoing need for diuresis, closely monitor kidney function. Holding diuresis today due to JAVIER. OT assessment for scrotal wraps. Coding Level of Care Code Acute Code for g Fwd Diagnoses Anasarca R60.1
[2024-08-10 16:20] LABS: COMPLEMENT, TOTAL (CH50) >60 U/mL (31-60)
[2024-08-10 17:04] LABS: Glucose Point of Care 262 mg/dL (70-110)
[2024-08-10 17:06] LABS: CENTROMERE B ANTIBODY <1.0 NEG AI (<1.0 NEG); JO-1 ANTIBODY <1.0 NEG AI (<1.0 NEG); RNP ANTIBODY <1.0 NEG AI (<1.0 NEG); SCL-70 ANTIBODY <1.0 NEG AI (<1.0 NEG); SJOGREN'S ANTIBODY (SS-A) <1.0 NEG AI (<1.0 NEG); SM ANTIBODY <1.0 NEG AI (<1.0 NEG); SS-B <1.0 NEG AI (<1.0 NEG)
[2024-08-10] MEDS: enoxaparin 40 mg/0.4 mL Syringe SUBCUT (18:09)
[2024-08-10 20:00] VITALS: BP 187/68; PULSE 94; RESP 20; TEMP 37.3; O2SAT 97
[2024-08-10 21:03] LABS: Glucose Point of Care 298 mg/dL (70-110)
--- NOTE | 2024-08-10 23:50 | PC.NURSE ---
patient up to get on the bedside commode and the lymphadema wrap on his scrotum came off. patient back in bed and no complaints at this time.
[2024-08-11] VITALS (7 sets, daily range): BP systolic 138–192; BP diastolic 65–97; PULSE 74–100; RESP 16–20; TEMP 36.5–37; O2SAT 93–99; BMI 53.6
[2024-08-11] MEDS: HYDROMORPHONE HCL 0.5 MG/0.5 ML INJ 1 MG IVP ×2 (00:47→22:04)
[2024-08-11] MEDS: HYDROcodone-acetaminophen 5-325 mg Tablet 1 TAB PO ×2 (02:55→19:39)
[2024-08-11 05:27] LABS: Alanine Aminotransferase 23 U/L (0-41); Albumin Level 3.3 g/dL (3.5-5.2); Alkaline Phosphatase 130 U/L (40-130); Aspartate Amino Transferase 25 U/L (0-40); Blood Urea Nitrogen 26 mg/dL (6-20); Calcium 9.2 mg/dL (8.5-10.5); Carbon Dioxide 35 mmol/L (22-29); Chloride 91 mmol/L (98-107); Creatinine Clr Calc Pharmacy 106.9052; Globulin 4.1 g/dL (1.3-4.6); Glomerular Filtration Rate 57.7 mL/min (90-130); Glucose 271 mg/dL (65-115); Osmolality Calculated 290 mOsm/kg (285-295); Sodium 133 mmol/L (136-145); Total Bilirubin 0.3 mg/dL (0.15-1.2); Total Protein 7.4 g/dL (6.6-8.7)
[2024-08-11 05:32] LABS: Anion Gap 11.7 (5-19); Potassium 4.7 mmol/L (3.5-5.1)
[2024-08-11 06:57] LABS: Glucose Point of Care 278 mg/dL (70-110)
[2024-08-11] MEDS: aspirin 81 mg EC Tablet PO (08:51)
[2024-08-11] MEDS: pantoprazole DR 40 mg Tablet PO (08:51)
[2024-08-11] MEDS: insulin lispro 100 unit/1 mL SUBCUT ×4 (08:51→20:53)
--- NOTE | 2024-08-11 10:01 | PC.SOCIAL ---
IMM Update pg 2 of IMM Updated and reviewed w/ patient. Copy provided and copy dated, initialed and placed in chart.
[2024-08-11 11:36] LABS: Glucose Point of Care 248 mg/dL (70-110)
[2024-08-11] MEDS: bumetanide 0.25 mg/mL SDV 10 mL 2 MG IVP ×2 (13:20→22:03)
[2024-08-11 14:19] LABS: THYROID PEROXIDASE ANTIBODIES 1 IU/mL (<9)
--- NOTE | 2024-08-11 15:40 | P.PN_ITS ---
Subjective 2 Subjective: Creatinine is stable at 1.3 today. Urine output 1800 cc. Overall net -10 L since admission now. Lower extremity edema is improving, however continues to have significant scrotal swelling. Lymphedema scrotal wrap was applied via Occupational Therapy yesterday however it slipped off with patient movement. This is being reapplied today. Medications: Reviewed: Yes Vitals/I&O/Wt Last Vital Signs Temp 97.7 F 08/11/24 15:33 Pulse 74 08/11/24 15:33 Resp 17 08/11/24 15:33 BP 138/74 08/11/24 15:33 Pulse Ox 99 08/11/24 15:33 O2 Del Method Nasal Cannula 08/11/24 15:33 O2 Flow Rate 5 08/11/24 08:00 08/11/24 08/11/24 08/11/24 06:59 14:59 22:59 Intake Total 250 / 1780 840 / 840 Output Total 951 / 951 Balance 250 / -3095 -111 / -111 Weight last 48 hrs Weight 174.588 kg Weight 174.588 kg Physical Exam 2 Narrative: General: No acute distress, AO x3 HEENT: PERRLA, pupils bilaterally equal and reactive, pallors not present Chest: Normal vesicular breath sounds, no added sounds, equal good air entry bilaterally CVS: S1-S2 regular, no murmurs, no tachycardia, no gallops, no rubs Abdomen: Soft, nontender, no organomegaly, bowel sounds present Neuro: No focal deficits, no facial deformity, AO x3, power 5/5 in all limbs EXT: Gross anasarca , slightly improved over his legs, scrotal edema still persisting. Urinary Catheter Management: Whitmore: Cath Placed During This Visit: yes Reason for Continuing Indwelling Catheter: Acute Urinary Retention or Obstruction Urinary Catheter Date of Insertion: 08/08/24 Urinary Catheter Time of Insertion: 03:55 Data 08/10/24 04:46 08/11/24 04:47 A&P Assessment and plan (1) Anasarca: increasing anasarca, suboptimal response to po lasix which was recently resumed. Admit to med/surg Start Lasix 40mg iv q12h assess for serial cr and urine output Whitmore catheter for I/O measurement, patient unable to void into urinal or commode due to massive scrotal edema Ekg without acute ST-T changes , baseline trop withotu significant elevation reports compliance with anti hypertensive regimen with lisinopril and amlodipine had similar presentation in 04/2024 at which time cause was presumed to be CHF. Echo did not have good ultrasonic windows, therefore was unable to estimate EF, wall motion abnormalities. MUGA scan was planned however patient was unable to fit on the table due to obesity Possibility of right heart failure related to severe sleep apnea on the differentials Differentials include cirrhosis which was noted on USG abdomen from 04/2024. 2+ proteinuria noted, will check 24 hr urine protein 08/08/24: Diffuse anasarca, net negative 1900cc thus far, will continue lasix 40mg iv q12h. Kidney function stable currently. Urine is clear red. Add prn morphine for pain control. Etiology for diffuse anasarca at this time unclear- may be related to CHF vs decompensated cirrhosis vs nephrotic syndrome. Awaiting 2D echo, 24hr urine proetin to further assess. Continue iv diuresis in the interim. August 09, 2024 net -3.5 L. Anasarca persisting. Continue Lasix 40 mg IV every 12 hours. Noted to be developing metabolic alkalosis likely related to diuresis. Additionally add acetazolamide 500 mg x 1 today. 24h urine protein at 1800 mg, not consistent with nephrotic syndrome. Echocardiogram limited by poor ultrasonic windows. Even with Optison contrast very limited visualization. Grossly LV systolic function appeared to be normal. Left ventricle is grossly dilated August 10, 2024 Net -6 L. Anasarca persisting. However leg edema slightly better. Continues to have significant scrotal swelling. Requested lymphedema scrotal and leg wraps with OT today. Creatinine is trending up to 1.3. Additionally noted to have leukocytosis likely related to overdiuresis. Hold Lasix today. Albumin infusion x 1 today. Hold lisinopril as may contribute to JAVIER in the setting. Recheck kidney function and urine output with a.m. labs. August 11, 2024 Kidney function is stable today. Blood pressure controlled off of lisinopril. Bumex 2 mg IV x every 12 hours. Closely monitor kidney function with resumption. Continue scrotal wraps, to be replaced today. Pain managemnet optimized to hydromorphone 1 mg IV every 6 hours as needed, p.o. hydrocodone APAP every 6 hours as needed. States pain is a little better controlled compared to yesterday however still persisting. Chiefly he reports pain in the scrotum. States that lymphedema unstrapped helped when they were on, however fell off later PDMP PDMP Reviewed: Not Reviewed Attestations 2 Medical Necessity Statement*: Continued need for iv diuresis, closely monitor kidney function Coding Level of Care Code Acute Code for Chg Fwd Diagnoses Anasarca R60.1
[2024-08-11 16:37] LABS: Glucose Point of Care 286 mg/dL (70-110)
[2024-08-11] MEDS: enoxaparin 40 mg/0.4 mL Syringe SUBCUT (17:42)
--- NOTE | 2024-08-11 19:33 | PC.NURSE ---
The patient was made aware to restrict fluid intake. It was found that his family had been giving him extra fluid in between our documentation, so he has been consuming a significant amount more than was being recorded. This nurse spoke with the pt and his family and explained the importance to follow the fluid restriction. They were educated on the reasons why we restrict fluid when there is significant edema. And with there being none to minimal improvement, it was expressed the uncharted and recorded intake were inaccurate. I took the water cup from his room and told him he is maxed out on fluid until 0700. He stated he understood.
[2024-08-11 19:46] LABS: Alanine Aminotransferase 22 U/L (0-41); Albumin Level 3.1 g/dL (3.5-5.2); Alkaline Phosphatase 127 U/L (40-130); Anion Gap 12.4 (5-19); Aspartate Amino Transferase 21 U/L (0-40); Blood Urea Nitrogen 27 mg/dL (6-20); Carbon Dioxide 35 mmol/L (22-29); Chloride 92 mmol/L (98-107); Creatinine Clr Calc Pharmacy 106.9052; Globulin 3.7 g/dL (1.3-4.6); Glomerular Filtration Rate 57.7 mL/min (90-130); Glucose 263 mg/dL (65-115); Osmolality Calculated 294 mOsm/kg (285-295); Potassium 4.4 mmol/L (3.5-5.1); Sodium 135 mmol/L (136-145); Total Bilirubin 0.3 mg/dL (0.15-1.2); Total Protein 6.8 g/dL (6.6-8.7)
[2024-08-11 20:41] LABS: Glucose Point of Care 302 mg/dL (70-110)
[2024-08-12] VITALS (8 sets, daily range): BP systolic 142–170; BP diastolic 65–95; PULSE 85–106; RESP 16–21; TEMP 36.4–37.1; O2SAT 90–95
[2024-08-12] MEDS: zolpidem 5 mg Tablet PO (00:07)
--- NOTE | 2024-08-12 03:10 | PC.NURSE ---
Pt and daughter have been educated on fluid restriction and importance of compliance. Pt continues to be non-compliant having his daughter get him water, which has been witnessed by [facility] staff. Will continue to educate on fluid restriction and need for compliance.
[2024-08-12] MEDS: HYDROcodone-acetaminophen 5-325 mg Tablet 1 TAB PO ×2 (04:08→17:34)
[2024-08-12 04:51] LABS: Basophils % 0.3 %; Eosinophils # 0.2 10^3/uL (0.0-0.8); Eosinophils % 1.7 %; Hematocrit 34.1 % (37-53); Lymphocytes # 1.1 10^3/uL (0.8-4.8); Lymphocytes % 9.6 %; Mean Corpuscular HGB Conc 29.6 g/dL (30-55); Mean Corpuscular Volume 91.2 fl (82-101); Mean Platelet Volume 10.9 fL (7.4-10.4); Monocytes # 0.7 10^3/uL (0.2-0.9); Monocytes % 6.6 %; Neutrophils % 81.2 %; Nucleated Red Blood Cells % 0 %; Platelet Count 257 10^3/cmm (157-399); Red Blood Count 3.74 10^6/uL (3.85-5.65); Red Cell Distribution Width 13.4 % (12.1-15.1); White Blood Count 11.08 10^3/uL (3.29-11.43)
[2024-08-12 05:19] LABS: Alanine Aminotransferase 20 U/L (0-41); Albumin Level 3.2 g/dL (3.5-5.2); Alkaline Phosphatase 131 U/L (40-130); Anion Gap 15.6 (5-19); Aspartate Amino Transferase 20 U/L (0-40); Blood Urea Nitrogen 27 mg/dL (6-20); Calcium 9.1 mg/dL (8.5-10.5); Carbon Dioxide 33 mmol/L (22-29); Chloride 92 mmol/L (98-107); Creatinine Clr Calc Pharmacy 127.6818; Globulin 4.2 g/dL (1.3-4.6); Glomerular Filtration Rate 57.7 mL/min (90-130); Glucose 384 mg/dL (65-115); Osmolality Calculated 303 mOsm/kg (285-295); Potassium 4.6 mmol/L (3.5-5.1); Sodium 136 mmol/L (136-145); Total Bilirubin 0.3 mg/dL (0.15-1.2); Total Protein 7.4 g/dL (6.6-8.7)
[2024-08-12 06:53] LABS: Glucose Point of Care 374 mg/dL (70-110)
[2024-08-12] MEDS: aspirin 81 mg EC Tablet PO (08:41)
[2024-08-12] MEDS: insulin lispro 100 unit/1 mL SUBCUT ×4 (08:41→20:23)
[2024-08-12] MEDS: pantoprazole DR 40 mg Tablet PO (08:41)
[2024-08-12 10:36] LABS: Glucose Point of Care 313 mg/dL (70-110)
[2024-08-12] MEDS: bumetanide 0.25 mg/mL SDV 10 mL 2 MG IVP ×2 (12:05→22:55)
[2024-08-12 13:13] LABS: ABG PH Result 7.36 (7.35-7.45); Base Excess ABG 12.9 mmol/L (-2.0-2.0); Blood Gas Allen Test Pos; Blood Gas Operator Identificat BROMA; Blood Gas Sample Site Radial, right; Blood Gas Sample Type Arterial; HCO3 ABG 40.8 mmol/L (22-26); Oxygen Device NC; PO2 ABG 73.8 mmHg (80.0-100.0)
[2024-08-12 13:15] LABS: ABG PCO2 72.6 mmHg (35-45)
--- NOTE | 2024-08-12 16:37 | P.PN_ITS ---
Subjective 2 Subjective: patient had Ambien 5 mg overnight at midnight and also hydrocodone at 4 AM. Patient's family reports that this morning patient was confused and disoriented. He was more lethargic. Confused as to his whereabouts. Could not recall that he had been in the hospital these past few days. Lower extremity swelling is improving, scrotal edema appears to be slightly better today. He has a scrotal support in place currently. Medications: Reviewed: Yes Vitals/I&O/Wt Last Vital Signs Temp 98.5 F 08/12/24 15:35 Pulse 93 08/12/24 15:35 Resp 17 08/12/24 15:35 BP 166/76 08/12/24 15:35 Pulse Ox 94 08/12/24 15:35 O2 Del Method Nasal Cannula 08/12/24 15:35 O2 Flow Rate 5 08/12/24 08:00 08/12/24 08/12/24 08/12/24 06:59 14:59 22:59 Intake Total 90 / 1730 1200 / 1200 Output Total 2425 / 6601 1950 / 1950 600 / 2550 Balance -2335 / -4871 -750 / -750 -600 / -1350 Weight last 48 hrs Weight 230.47 kg Weight 174.588 kg Physical Exam 2 Narrative: General: No acute distress, AO x3 HEENT: PERRLA, pupils bilaterally equal and reactive, pallors not present Chest: Normal vesicular breath sounds, no added sounds, equal good air entry bilaterally CVS: S1-S2 regular, no murmurs, no tachycardia, no gallops, no rubs Abdomen: Soft, nontender, no organomegaly, bowel sounds present Neuro: No focal deficits, no facial deformity, AO x3, power 5/5 in all limbs EXT: Gross anasarca , slightly improved over his legs, scrotal edema still persisting. Urinary Catheter Management: Whitmore: Cath Placed During This Visit: yes Reason for Continuing Indwelling Catheter: Other Urinary Catheter Date of Insertion: 08/08/24 Urinary Catheter Time of Insertion: 03:55 Data 08/12/24 03:54 08/12/24 03:54 A&P Assessment and plan (1) Anasarca: increasing anasarca, suboptimal response to po lasix which was recently resumed. Admit to med/surg Start Lasix 40mg iv q12h assess for serial cr and urine output Whitmore catheter for I/O measurement, patient unable to void into urinal or commode due to massive scrotal edema Ekg without acute ST-T changes , baseline trop withotu significant elevation reports compliance with anti hypertensive regimen with lisinopril and amlodipine had similar presentation in 04/2024 at which time cause was presumed to be CHF. Echo did not have good ultrasonic windows, therefore was unable to estimate EF, wall motion abnormalities. MUGA scan was planned however patient was unable to fit on the table due to obesity Possibility of right heart failure related to severe sleep apnea on the differentials Differentials include cirrhosis which was noted on USG abdomen from 04/2024. 2+ proteinuria noted, will check 24 hr urine protein 08/08/24: Diffuse anasarca, net negative 1900cc thus far, will continue lasix 40mg iv q12h. Kidney function stable currently. Urine is clear red. Add prn morphine for pain control. Etiology for diffuse anasarca at this time unclear- may be related to CHF vs decompensated cirrhosis vs nephrotic syndrome. Awaiting 2D echo, 24hr urine proetin to further assess. Continue iv diuresis in the interim. August 09, 2024 net -3.5 L. Anasarca persisting. Continue Lasix 40 mg IV every 12 hours. Noted to be developing metabolic alkalosis likely related to diuresis. Additionally add acetazolamide 500 mg x 1 today. 24h urine protein at 1800 mg, not consistent with nephrotic syndrome. Echocardiogram limited by poor ultrasonic windows. Even with Optison contrast very limited visualization. Grossly LV systolic function appeared to be normal. Left ventricle is grossly dilated August 10, 2024 Net -6 L. Anasarca persisting. However leg edema slightly better. Continues to have significant scrotal swelling. Requested lymphedema scrotal and leg wraps with OT today. Creatinine is trending up to 1.3. Additionally noted to have leukocytosis likely related to overdiuresis. Hold Lasix today. Albumin infusion x 1 today. Hold lisinopril as may contribute to JAVIER in the setting. Recheck kidney function and urine output with a.m. labs. August 11, 2024 Kidney function is stable today. Blood pressure controlled off of lisinopril. Bumex 2 mg IV x every 12 hours. Closely monitor kidney function with resumption. Continue scrotal wraps, to be replaced today. Pain managemnet optimized to hydromorphone 1 mg IV every 6 hours as needed, p.o. hydrocodone APAP every 6 hours as needed. States pain is a little better controlled compared to yesterday however still persisting. Chiefly he reports pain in the scrotum. States that lymphedema unstrapped helped when they were on, however fell off later August 12, 2024 Patient's family reports patient was confused and lethargic this morning. Likely this was related to having received Ambien and hydrocodone overnight. Currently at the time of this assessment patient is alert and awake. He transfers from bed to bedside commode with assistance. He prefers to sit out of bed as it is more comfortable for him. States that scrotum feels slightly more comfortable compared to prior days. His leg is better. Continuing to diurese well with Bumex. Net -4.9 L last 24 hours. Kidney function is stable at 1.3. CPAP was ordered yesterday, however it appears patient did not started overnight. ABG was performed which showed pH of 7.36/pCO2 of 72.6/pO2 of 73.8/bicarb of 40.0. Overall clinical impression is that of chronic hypercapnic respiratory failure which is currently compensated. This is likely related to obesity hypoventilation, sleep apnea versus COPD. Encourage CPAP use at nighttime and during sleep time. Will likely benefit from CPAP at the time of discharge given the degree of hypercapnia. Blood pressure additionally running 1 60-1 70 systolic. Add amlodipine 10 mg p.o. daily. Continue IV diuresis with Bumex today. Hoping to transition from IV to oral diuresis over the next 24 hours. Avoid Ambien tonight. Reduce dose of opiates to hydrocodone APAP 5 mg / 325 mg every 8 hours as needed. Reduce IV Dilaudid to 0.5 mg every 8 hours as needed. Blood sugars are uncontrolled. Add Lantus 20 units at bedtime. In addition to high-dose insulin sliding scale. PDMP PDMP Reviewed: Not Reviewed Attestations 2 Medical Necessity Statement*: continued iv diuresis, add antihypertensives, lantus as above Coding Level of Care Code Acute Code for Chg Fwd High MDM includes number and complexity of problems actively addressed during encounter, amount and/or complexity of data reviewed/ordered and described risk of complication, morbidity or mortality of management as documented Diagnoses [place] R60.1
[2024-08-12 16:40] LABS: Glucose Point of Care 214 mg/dL (70-110)
[2024-08-12] MEDS: clotrimazole 1% cream 30 gm 1 APPLIC TOPICAL (17:32)
[2024-08-12] MEDS: enoxaparin 40 mg/0.4 mL Syringe SUBCUT (17:33)
[2024-08-12] MEDS: carvedilol 25 mg Tablet PO (17:33)
[2024-08-12] MEDS: amlodipine 10 mg Tablet PO (17:33)
[2024-08-12 19:21] LABS: Alanine Aminotransferase 19 U/L (0-41); Alkaline Phosphatase 117 U/L (40-130); Anion Gap 13.1 (5-19); Aspartate Amino Transferase 21 U/L (0-40); Blood Urea Nitrogen 25 mg/dL (6-20); Calcium 9.2 mg/dL (8.5-10.5); Carbon Dioxide 34 mmol/L (22-29); Chloride 94 mmol/L (98-107); Creatinine Clr Calc Pharmacy 138.3219; Glomerular Filtration Rate 63.3 mL/min (90-130); Glucose 322 mg/dL (65-115); Osmolality Calculated 301 mOsm/kg (285-295); Potassium 4.1 mmol/L (3.5-5.1); Sodium 137 mmol/L (136-145); Total Bilirubin 0.3 mg/dL (0.15-1.2)
[2024-08-12] MEDS: ALPRAZolam 0.5 mg Tablet PO (20:23)
[2024-08-12] MEDS: HYDROMORPHONE HCL 0.5 MG/0.5 ML INJ IVP (20:23)
[2024-08-12] MEDS: insulin glargine 100 units/1 mL 20 UNIT SUBCUT (20:23)
[2024-08-12 20:27] LABS: Glucose Point of Care 318 mg/dL (70-110)
--- NOTE | 2024-08-12 21:29 | PC.NURSE ---
Pt's daughter came to the nurses station stating that her dad was suppose to be on a cpap, as the physician stated it was important for him to be on. Instructed the daughter that the RT had already been in his room approximately 15 minutes prior. Pt's daughter also stated he was to have his Alprazolam. Informed the pt's daughter that he had already had his Alprazolam and Dilaudid prior to RT putting cpap in place. Went to pt's room to evaluate what was going on w/the cpap, pt had the mask in his had and stated I don't know how it came off . This nurse reapplied the cpap mask, and informed the daughter that it was in place.
[2024-08-13] VITALS (7 sets, daily range): BP systolic 105–166; BP diastolic 60–85; PULSE 71–79; RESP 16–19; TEMP 36.3–36.7; O2SAT 91–99
--- NOTE | 2024-08-13 00:43 | PC.NURSE ---
Pt daughter came to nurses station stating that her father was irritated and in pain. Discussed w/pt and daughter when next pain medication is available. Pt's daughter pulled this nurse off to the side stating that her dad has made statements that he does not want to be here anymore . Told daughter I would refer to hospitalist for review. Dr. Saenz notified, NNO. Will administer pain medication when available.
[2024-08-13] MEDS: HYDROcodone-acetaminophen 5-325 mg Tablet 1 TAB PO ×2 (01:22→19:29)
[2024-08-13 02:55] LABS: DNA AB (DS) CRITHIDIA,IFA NEGATIVE (NEGATIVE)
[2024-08-13] MEDS: HYDROMORPHONE HCL 0.5 MG/0.5 ML INJ IVP (03:07)
--- NOTE | 2024-08-13 05:32 | PC.NURSE ---
Pt removed cpap off of his face, placed back on O2 cannula per his request. As this nurse was leaving the pt room, pt began yelling that he wanted up. This nurse returned to the room to help him. Upon re-entry to the room pt asked for water, and was informed he couldn't have more until 0700 b/c of his fluid restriction. Oral swab was provided. Pt became irritated and began slamming his hand against the rail of the bed and throwing his call light in the floor. Pt stated he just wanted to get up . Pt then stated he wanted a pain pill , this nurse informed him that he had no other pain medication available to him at this time. Pt then began to yell at this nurse because he wanted up. Pt assisted to the BSC per his request. W/in 1 minute pt was again on his call light and yelling out that he wanted assistance back into the bed. Pt assisted back to the bed per his request, and call light was handed back to him.
[2024-08-13 06:02] LABS: Basophils % 0.4 %; Eosinophils # 0.3 10^3/uL (0.0-0.8); Eosinophils % 2.6 %; Hematocrit 33.4 % (37-53); Lymphocytes # 1.3 10^3/uL (0.8-4.8); Lymphocytes % 11.4 %; Mean Corpuscular Hemoglobin 26.9 pg (27-33); Mean Corpuscular Volume 92.8 fl (82-101); Mean Platelet Volume 11.1 fL (7.4-10.4); Monocytes # 0.7 10^3/uL (0.2-0.9); Monocytes % 6.3 %; Neutrophils # 8.95 10^3/uL (1.8-7.7); Neutrophils % 78.8 %; Nucleated Red Blood Cells % 0 %; Platelet Count 245 10^3/cmm (157-399); Red Cell Distribution Width 13.4 % (12.1-15.1); White Blood Count 11.34 10^3/uL (3.29-11.43)
[2024-08-13 06:20] LABS: Alanine Aminotransferase 19 U/L (0-41); Albumin Level 3.1 g/dL (3.5-5.2); Alkaline Phosphatase 117 U/L (40-130); Anion Gap 11.3 (5-19); Aspartate Amino Transferase 22 U/L (0-40); Blood Urea Nitrogen 27 mg/dL (6-20); Calcium 9.2 mg/dL (8.5-10.5); Carbon Dioxide 37 mmol/L (22-29); Chloride 93 mmol/L (98-107); Creatinine Clr Calc Pharmacy 118.2485; Globulin 3.9 g/dL (1.3-4.6); Glucose 302 mg/dL (65-115); Osmolality Calculated 300 mOsm/kg (285-295); Potassium 4.3 mmol/L (3.5-5.1); Sodium 137 mmol/L (136-145); Total Bilirubin 0.4 mg/dL (0.15-1.2)
[2024-08-13 06:30] LABS: Glucose Point of Care 329 mg/dL (70-110)
[2024-08-13] MEDS: pantoprazole DR 40 mg Tablet PO (09:02)
[2024-08-13] MEDS: amlodipine 10 mg Tablet PO (09:02)
[2024-08-13] MEDS: insulin lispro 100 unit/1 mL SUBCUT ×4 (09:02→20:30)
[2024-08-13] MEDS: carvedilol 25 mg Tablet PO (09:02)
[2024-08-13] MEDS: aspirin 81 mg EC Tablet PO (09:03)
--- NOTE | 2024-08-13 10:07 | PC.NURSE ---
Patient told this CODING ASSISTANT that his catheter has been causing him pain. CODING ASSISTANT had nurse check on the catheter. He then stated I know they want me to keep this cather for another day or two, but i am going to start going ape shit crazy and throwing shit
[2024-08-13] MEDS: albumin 12.5 GM/250 ML VIAL IV (10:43)
[2024-08-13 11:21] LABS: Glucose Point of Care 281 mg/dL (70-110)
[2024-08-13] MEDS: clotrimazole 1% cream 30 gm 1 APPLIC TOPICAL ×2 (11:49→18:14)
[2024-08-13 12:40] LABS: Bilirubin Urine Negative (Negative); Blood Urine 2+ (Negative); Glucose Urine UA Trace (Normal); Ketones Urine Negative (Negative); Leukocyte Esterase Urine 3+ (Negative); Nitrate Urine Negative (Negative); Protein Urine 3+ (Negative); Specific Gravity, Urine 1.027 (1.005-1.030); Urine Appearance Turbid (CLEAR); pH Urine >=9.0 (5-7)
[2024-08-13 12:58] LABS: Urine Color Orange (Yellow)
[2024-08-13 12:59] LABS: Add Urine Culture? Yes; Add Urine Microscopic? YES; Bacteria Urine 2+ /hpf; RBC Urine 0-4 /hpf (0-2); UA Manual Slide Review YES; UA Slide Review UA Slide Review Perf
--- NOTE | 2024-08-13 15:15 | P.PN_ITS ---
Subjective 2 Subjective: Lower extremity swelling is much improved today. Continues to have scrotal swelling, however appearing to be less distended compared to yesterday. He does have some superficial excoriations now developing over the posterior scrotum. There is some leakage encountered. Patient was unable to tolerate sitting in the recliner yesterday. Overall had net -16 L. Creatinine trending up to 1.4. He wore his BiPAP overnight and states that he was able to sleep much better. Hematuria is nearly resolved. Medications: Reviewed: Yes Vitals/I&O/Wt Last Vital Signs Temp 97.4 F L 08/13/24 11:20 Pulse 79 08/13/24 11:20 Resp 16 08/13/24 11:20 BP 105/60 08/13/24 11:20 Pulse Ox 95 08/13/24 11:20 O2 Del Method Nasal Cannula 08/13/24 11:20 O2 Flow Rate 5 08/13/24 08:00 08/13/24 08/13/24 08/13/24 06:59 14:59 22:59 Intake Total 210 / 1800 1110 / 1110 Output Total 600 / 3925 700 / 700 Balance -390 / -2125 410 / 410 Weight last 48 hrs Weight 229.563 kg Weight 230.47 kg Physical Exam 2 Narrative: General: No acute distress, AO x3 HEENT: PERRLA, pupils bilaterally equal and reactive, pallors not present Chest: Normal vesicular breath sounds, no added sounds, equal good air entry bilaterally CVS: S1-S2 regular, no murmurs, no tachycardia, no gallops, no rubs Abdomen: Soft, nontender, no organomegaly, bowel sounds present Neuro: No focal deficits, no facial deformity, AO x3, power 5/5 in all limbs EXT: Gross anasarca , improving over lower extremities. Continues to have scrotal swelling. Urinary Catheter Management: Whitmore: Cath Placed During This Visit: yes Reason for Continuing Indwelling Catheter: Accurate Measurement of Urinary Output in Critically Ill Patients Urinary Catheter Date of Insertion: 08/08/24 Urinary Catheter Time of Insertion: 03:55 Data 08/13/24 04:55 08/13/24 04:55 A&P Assessment and plan (1) Anasarca: increasing anasarca, suboptimal response to po lasix which was recently resumed. Admit to med/surg Start Lasix 40mg iv q12h assess for serial cr and urine output Whitmore catheter for I/O measurement, patient unable to void into urinal or commode due to massive scrotal edema Ekg without acute ST-T changes , baseline trop withotu significant elevation reports compliance with anti hypertensive regimen with lisinopril and amlodipine had similar presentation in 04/2024 at which time cause was presumed to be CHF. Echo did not have good ultrasonic windows, therefore was unable to estimate EF, wall motion abnormalities. MUGA scan was planned however patient was unable to fit on the table due to obesity Possibility of right heart failure related to severe sleep apnea on the differentials Differentials include cirrhosis which was noted on USG abdomen from 04/2024. 2+ proteinuria noted, will check 24 hr urine protein 08/08/24: Diffuse anasarca, net negative 1900cc thus far, will continue lasix 40mg iv q12h. Kidney function stable currently. Urine is clear red. Add prn morphine for pain control. Etiology for diffuse anasarca at this time unclear- may be related to CHF vs decompensated cirrhosis vs nephrotic syndrome. Awaiting 2D echo, 24hr urine proetin to further assess. Continue iv diuresis in the interim. August 09, 2024 net -3.5 L. Anasarca persisting. Continue Lasix 40 mg IV every 12 hours. Noted to be developing metabolic alkalosis likely related to diuresis. Additionally add acetazolamide 500 mg x 1 today. 24h urine protein at 1800 mg, not consistent with nephrotic syndrome. Echocardiogram limited by poor ultrasonic windows. Even with Optison contrast very limited visualization. Grossly LV systolic function appeared to be normal. Left ventricle is grossly dilated August 10, 2024 Net -6 L. Anasarca persisting. However leg edema slightly better. Continues to have significant scrotal swelling. Requested lymphedema scrotal and leg wraps with OT today. Creatinine is trending up to 1.3. Additionally noted to have leukocytosis likely related to overdiuresis. Hold Lasix today. Albumin infusion x 1 today. Hold lisinopril as may contribute to JAVIER in the setting. Recheck kidney function and urine output with a.m. labs. August 11, 2024 Kidney function is stable today. Blood pressure controlled off of lisinopril. Bumex 2 mg IV x every 12 hours. Closely monitor kidney function with resumption. Continue scrotal wraps, to be replaced today. Pain managemnet optimized to hydromorphone 1 mg IV every 6 hours as needed, p.o. hydrocodone APAP every 6 hours as needed. States pain is a little better controlled compared to yesterday however still persisting. Chiefly he reports pain in the scrotum. States that lymphedema unstrapped helped when they were on, however fell off later August 12, 2024 Patient's family reports patient was confused and lethargic this morning. Likely this was related to having received Ambien and hydrocodone overnight. Currently at the time of this assessment patient is alert and awake. He transfers from bed to bedside commode with assistance. He prefers to sit out of bed as it is more comfortable for him. States that scrotum feels slightly more comfortable compared to prior days. His leg is better. Continuing to diurese well with Bumex. Net -4.9 L last 24 hours. Kidney function is stable at 1.3. CPAP was ordered yesterday, however it appears patient did not started overnight. ABG was performed which showed pH of 7.36/pCO2 of 72.6/pO2 of 73.8/bicarb of 40.0. Overall clinical impression is that of chronic hypercapnic respiratory failure which is currently compensated. This is likely related to obesity hypoventilation, sleep apnea versus COPD. Encourage CPAP use at nighttime and during sleep time. Will likely benefit from CPAP at the time of discharge given the degree of hypercapnia. Blood pressure additionally running 1 60-1 70 systolic. Add amlodipine 10 mg p.o. daily. Continue IV diuresis with Bumex today. Hoping to transition from IV to oral diuresis over the next 24 hours. Avoid Ambien tonight. Reduce dose of opiates to hydrocodone APAP 5 mg / 325 mg every 8 hours as needed. Reduce IV Dilaudid to 0.5 mg every 8 hours as needed. Blood sugars are uncontrolled. Add Lantus 20 units at bedtime. In addition to high-dose insulin sliding scale. August 13, 2024 Patient states he slept better overnight with the CPAP on. Family states that he appeared less confused upon waking up in the morning. At the time of this assessment patient is currently awake alert oriented x 4. Attempted to sit in a bedside recliner, however was unable to due to scrotal swelling yesterday. Overall net -16 L. Creatinine trending up today at 1.4. Will hold further doses of Bumex today. Recheck creatinine with a.m. labs. Patient accidentally pulled out his midline today. Will likely place him on oral Bumex when ready to resume. Scrotal swelling is still persisting, though overall appearing to be better compared to admission. Discussed with family and late expectation that resolution of scrotal swelling will likely take several weeks and would not be expected to resolve all at once. We have placed a referral to continue scrotal wraps as outpatient with occupational therapy. Patient is encouraged to be out of bed. Physical therapy evaluation ordered to assess if he may need any other assistive devices beyond his current right leg prosthetic. He is unable to effectively wear the right leg prosthetic at this time due to right stump swelling, even though it is much improved. reports that patient was ambulating in a wheelchair last month due to large swelling. Will additionally order CPAP for home use. Given the discovery of chronic hyper Respiratory failure, favor this to be related to obesity hypoventilation syndrome, patient will benefit from CPAP use at night. His blood pressure is additionally much better controlled today. Will reduce amlodipine to 5 mg daily. Increase Lantus to 30 units at bedtime. He is developing mild excoriation over the posterior scrotum related to rubbing on the bed. He requests removal of bedsheets, discussed with him that constant rubbing of the scrotum against the mattress cover is not recommended as it makes his skin more prone to shaving. Add topical antibiotic to prevent cellulitis. Extensively counseled the need to maintain bedsheet in a towel to avoid further skin breakdown. He has developed significant crural candidiasis involving his groin folds and axillary folds. Add fluconazole in addition to clotrimazole and nystatin already ordered yesterday. Overall patient is clinically improving from an anasarca perspective. If kidney function is improving on lab check tomorrow, will likely be able to discharge home on oral diuretics with strong emphasis on medication compliance. PDMP PDMP Reviewed: Not Reviewed Attestations 2 Medical Necessity Statement*: Hold diuresis today, closely monitor creatinine. Encourage out of bed today. PT assessment Coding Level of Care Code Acute Code for Chg Fwd Diagnoses Anasarca R60.1
[2024-08-13] MEDS: nystatin powder 15 gm Btl 1 APPLIC TOPICAL (15:52)
[2024-08-13 16:43] LABS: Glucose Point of Care 247 mg/dL (70-110)
[2024-08-13] MEDS: enoxaparin 40 mg/0.4 mL Syringe SUBCUT (18:13)
[2024-08-13] MEDS: fluconazole 100 mg Tablet PO (18:13)
[2024-08-13] MEDS: ALPRAZolam 0.5 mg Tablet PO (19:29)
--- NOTE | 2024-08-13 20:00 | PC.NURSE ---
Upon assessing patient at the beginning of the shift, pt was requesting his tubing be adjusted. Catheter and oxygen tubing was adjusted per pt request. Pt stated it wasn't right, and stated what's the pts name . This nurse said the pts name is Bennie and that is you. Pt then stated exactly . Pt was becoming increasingly rude w/this nurse. This nurse instructed the pt that I would help him anyway that I could, he just needed to tell me how to make him more comfortable. Pt's scrotum was adjusted, along with pain and anxiety medication being administered. At the end of caring for the pt he stated he was sorry for being rude to this chart writer.
[2024-08-13 20:28] LABS: Glucose Point of Care 326 mg/dL (70-110)
[2024-08-13] MEDS: insulin glargine 100 units/1 mL 30 UNIT SUBCUT (20:30)
[2024-08-14] VITALS (8 sets, daily range): BP systolic 138–176; BP diastolic 74–86; PULSE 73–86; RESP 16–24; TEMP 36.3–36.8; O2SAT 87–98
[2024-08-14 03:21] LABS: Basophils % 0.3 %; Eosinophils # 0.3 10^3/uL (0.0-0.8); Hematocrit 32.9 % (37-53); Lymphocytes # 1.2 10^3/uL (0.8-4.8); Lymphocytes % 10.1 %; Mean Corpuscular HGB Conc 29.5 g/dL (30-55); Mean Corpuscular Hemoglobin 26.8 pg (27-33); Mean Corpuscular Volume 90.9 fl (82-101); Mean Platelet Volume 10.9 fL (7.4-10.4); Monocytes # 0.6 10^3/uL (0.2-0.9); Monocytes % 5.6 %; Neutrophils # 9.16 10^3/uL (1.8-7.7); Neutrophils % 80.6 %; Nucleated Red Blood Cells % 0 %; Platelet Count 226 10^3/cmm (157-399); Red Blood Count 3.62 10^6/uL (3.85-5.65); Red Cell Distribution Width 13.3 % (12.1-15.1); White Blood Count 11.35 10^3/uL (3.29-11.43)
[2024-08-14] MEDS: HYDROcodone-acetaminophen 5-325 mg Tablet 1 TAB PO ×3 (03:34→17:55)
[2024-08-14 03:46] LABS: Alanine Aminotransferase 19 U/L (0-41); Albumin Level 3.2 g/dL (3.5-5.2); Alkaline Phosphatase 112 U/L (40-130); Ammonia 83 umol/L (16-60); Anion Gap 9.3 (5-19); Aspartate Amino Transferase 19 U/L (0-40); Blood Urea Nitrogen 30 mg/dL (6-20); Calcium 8.9 mg/dL (8.5-10.5); Carbon Dioxide 38 mmol/L (22-29); Chloride 92 mmol/L (98-107); Creatinine Clr Calc Pharmacy 127.3446; Globulin 3.7 g/dL (1.3-4.6); Glomerular Filtration Rate 57.7 mL/min (90-130); Glucose 208 mg/dL (65-115); Osmolality Calculated 292 mOsm/kg (285-295); Potassium 4.3 mmol/L (3.5-5.1); Sodium 135 mmol/L (136-145); Total Bilirubin 0.3 mg/dL (0.15-1.2); Total Protein 6.9 g/dL (6.6-8.7)
[2024-08-14 03:58] LABS: Iron 43 ug/dL (59-158)
[2024-08-14 04:00] LABS: Folate Level 7.7 ng/mL (4.5-32.2)
[2024-08-14 04:15] LABS: Vitamin B12 657 pg/mL (232-1245)
[2024-08-14 06:26] LABS: Glucose Point of Care 227 mg/dL (70-110)
[2024-08-14] MEDS: acetaminophen 325 mg Tablet 650 MG PO (07:45)
[2024-08-14] MEDS: amlodipine 10 mg Tablet 5 MG PO (07:47)
[2024-08-14] MEDS: carvedilol 25 mg Tablet PO (07:47)
[2024-08-14] MEDS: pantoprazole DR 40 mg Tablet PO (07:47)
[2024-08-14] MEDS: insulin lispro 100 unit/1 mL SUBCUT ×4 (07:47→20:59)
[2024-08-14] MEDS: fluconazole 100 mg Tablet PO (07:48)
[2024-08-14] MEDS: clotrimazole 1% cream 30 gm 1 APPLIC TOPICAL ×2 (07:48→17:19)
[2024-08-14] MEDS: nystatin powder 15 gm Btl 1 APPLIC TOPICAL (07:48)
[2024-08-14] MEDS: aspirin 81 mg EC Tablet PO (07:48)
[2024-08-14 11:28] LABS: Glucose Point of Care 372 mg/dL (70-110)
--- NOTE | 2024-08-14 12:42 | P.PN_ITS ---
Subjective 2 Subjective: Seen this morning. Patient states he is very puffy today and unable to even put his pants on because his scrotum is very large due to swelling secondary to heart failure. He states that he was supposed to be seeing cardiology but has not made it to any appointment for unknown reasons. I see that there is a missed appointment with endocrinology and 2 appointments messed with cardiology in June this year. At previous discharge in April he was referred to GI in [place] however he did not attend those appointments either. Patient has had CPAP in the past however it was taken away secondary to insurance issues patient states. Sleep study was ordered at previous hospitalization however secondary to scheduling issues patient was unable to attend that either. In the past patient has been exceeding the weight limit for our CT table and was unable to have a CT scan of his abdomen pelvis and unable to have a MUGA scan due to poor ultrasonic windows. At this visit we have removed 16 L of fluids off of him. Patient is still quite edematous and his scrotum is a size of a small watermelon. He has a Whitmore catheter in place at this time. Patient is so edematous that there is pitting edema in his dependent areas around the buttocks. He could not fit his right leg into prosthesis secondary to swelling. He is on Lasix 80 mg daily at home. Patient does have a power wheelchair at home. He states he is open to the idea of going home however cannot even put his clothes on at this time. Vitals/I&O/Wt Last Vital Signs Temp 98.2 F 08/14/24 12:00 Pulse 73 08/14/24 12:00 Resp 20 H 08/14/24 12:00 BP 138/78 08/14/24 12:00 Pulse Ox 98 08/14/24 12:09 O2 Del Method Nasal Cannula 08/14/24 12:00 O2 Flow Rate 10 08/14/24 12:09 08/13/24 08/14/24 08/14/24 22:59 06:59 14:59 Intake Total 640 / 1750 240 / 240 Output Total 400 / 1100 525 / 1625 Balance 240 / 650 -525 / 125 240 / 240 Weight last 48 hrs Weight 229.472 kg Weight 229.563 kg Physical Exam 2 Narrative: General: No acute distress, AO x3 HEENT: PERRLA, pupils bilaterally equal and reactive, pallors not present Chest: Normal vesicular breath sounds, no added sounds, equal good air entry bilaterally CVS: S1-S2 regular, no murmurs, no tachycardia, no gallops, no rubs Abdomen: Soft, nontender, no organomegaly, bowel sounds present Neuro: No focal deficits, no facial deformity, AO x3, power 5/5 in all limbs EXT: Gross anasarca , Continues to have scrotal swelling. Scrotum is size of a small watermelon and is erythematous. Significant edema bilateral lower extremities. Urinary Catheter Management: Whitmore: Cath Placed During This Visit: yes Reason for Continuing Indwelling Catheter: Other Urinary Catheter Date of Insertion: 08/08/24 Urinary Catheter Time of Insertion: 03:55 Data 08/14/24 01:40 08/14/24 01:40 Micro: Microbiology 08/13/24 12:25 Urine Culture - Preliminary Urine,Clean Catch Gram Negative Rods A&P Assessment and plan (1) Anasarca: increasing anasarca, suboptimal response to po lasix which was recently resumed. Admit to med/surg Start Lasix 40mg iv q12h assess for serial cr and urine output Whitmore catheter for I/O measurement, patient unable to void into urinal or commode due to massive scrotal edema Ekg without acute ST-T changes , baseline trop withotu significant elevation reports compliance with anti hypertensive regimen with lisinopril and amlodipine had similar presentation in 04/2024 at which time cause was presumed to be CHF. Echo did not have good ultrasonic windows, therefore was unable to estimate EF, wall motion abnormalities. MUGA scan was planned however patient was unable to fit on the table due to obesity Possibility of right heart failure related to severe sleep apnea on the differentials Differentials include cirrhosis which was noted on USG abdomen from 04/2024. 2+ proteinuria noted, will check 24 hr urine protein 08/08/24: Diffuse anasarca, net negative 1900cc thus far, will continue lasix 40mg iv q12h. Kidney function stable currently. Urine is clear red. Add prn morphine for pain control. Etiology for diffuse anasarca at this time unclear- may be related to CHF vs decompensated cirrhosis vs nephrotic syndrome. Awaiting 2D echo, 24hr urine proetin to further assess. Continue iv diuresis in the interim. August 09, 2024 net -3.5 L. Anasarca persisting. Continue Lasix 40 mg IV every 12 hours. Noted to be developing metabolic alkalosis likely related to diuresis. Additionally add acetazolamide 500 mg x 1 today. 24h urine protein at 1800 mg, not consistent with nephrotic syndrome. Echocardiogram limited by poor ultrasonic windows. Even with Optison contrast very limited visualization. Grossly LV systolic function appeared to be normal. Left ventricle is grossly dilated August 10, 2024 Net -6 L. Anasarca persisting. However leg edema slightly better. Continues to have significant scrotal swelling. Requested lymphedema scrotal and leg wraps with OT today. Creatinine is trending up to 1.3. Additionally noted to have leukocytosis likely related to overdiuresis. Hold Lasix today. Albumin infusion x 1 today. Hold lisinopril as may contribute to JAVIER in the setting. Recheck kidney function and urine output with a.m. labs. August 11, 2024 Kidney function is stable today. Blood pressure controlled off of lisinopril. Bumex 2 mg IV x every 12 hours. Closely monitor kidney function with resumption. Continue scrotal wraps, to be replaced today. Pain managemnet optimized to hydromorphone 1 mg IV every 6 hours as needed, p.o. hydrocodone APAP every 6 hours as needed. States pain is a little better controlled compared to yesterday however still persisting. Chiefly he reports pain in the scrotum. States that lymphedema unstrapped helped when they were on, however fell off later August 12, 2024 Patient's family reports patient was confused and lethargic this morning. Likely this was related to having received Ambien and hydrocodone overnight. Currently at the time of this assessment patient is alert and awake. He transfers from bed to bedside commode with assistance. He prefers to sit out of bed as it is more comfortable for him. States that scrotum feels slightly more comfortable compared to prior days. His leg is better. Continuing to diurese well with Bumex. Net -4.9 L last 24 hours. Kidney function is stable at 1.3. CPAP was ordered yesterday, however it appears patient did not started overnight. ABG was performed which showed pH of 7.36/pCO2 of 72.6/pO2 of 73.8/bicarb of 40.0. Overall clinical impression is that of chronic hypercapnic respiratory failure which is currently compensated. This is likely related to obesity hypoventilation, sleep apnea versus COPD. Encourage CPAP use at nighttime and during sleep time. Will likely benefit from CPAP at the time of discharge given the degree of hypercapnia. Blood pressure additionally running 1 60-1 70 systolic. Add amlodipine 10 mg p.o. daily. Continue IV diuresis with Bumex today. Hoping to transition from IV to oral diuresis over the next 24 hours. Avoid Ambien tonight. Reduce dose of opiates to hydrocodone APAP 5 mg / 325 mg every 8 hours as needed. Reduce IV Dilaudid to 0.5 mg every 8 hours as needed. Blood sugars are uncontrolled. Add Lantus 20 units at bedtime. In addition to high-dose insulin sliding scale. August 13, 2024 Patient states he slept better overnight with the CPAP on. Family states that he appeared less confused upon waking up in the morning. At the time of this assessment patient is currently awake alert oriented x 4. Attempted to sit in a bedside recliner, however was unable to due to scrotal swelling yesterday. Overall net -16 L. Creatinine trending up today at 1.4. Will hold further doses of Bumex today. Recheck creatinine with a.m. labs. Patient accidentally pulled out his midline today. Will likely place him on oral Bumex when ready to resume. Scrotal swelling is still persisting, though overall appearing to be better compared to admission. Discussed with family and late expectation that resolution of scrotal swelling will likely take several weeks and would not be expected to resolve all at once. We have placed a referral to continue scrotal wraps as outpatient with occupational therapy. Patient is encouraged to be out of bed. Physical therapy evaluation ordered to assess if he may need any other assistive devices beyond his current right leg prosthetic. He is unable to effectively wear the right leg prosthetic at this time due to right stump swelling, even though it is much improved. reports that patient was ambulating in a wheelchair last month due to large swelling. Will additionally order CPAP for home use. Given the discovery of chronic hyper Respiratory failure, favor this to be related to obesity hypoventilation syndrome, patient will benefit from CPAP use at night. His blood pressure is additionally much better controlled today. Will reduce amlodipine to 5 mg daily. Increase Lantus to 30 units at bedtime. He is developing mild excoriation over the posterior scrotum related to rubbing on the bed. He requests removal of bedsheets, discussed with him that constant rubbing of the scrotum against the mattress cover is not recommended as it makes his skin more prone to shaving. Add topical antibiotic to prevent cellulitis. Extensively counseled the need to maintain bedsheet in a towel to avoid further skin breakdown. He has developed significant crural candidiasis involving his groin folds and axillary folds. Add fluconazole in addition to clotrimazole and nystatin already ordered yesterday. Overall patient is clinically improving from an anasarca perspective. If kidney function is improving on lab check tomorrow, will likely be able to discharge home on oral diuretics with strong emphasis on medication compliance. 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 He is on glargine 55 units at night and on Januvia at home. His A1c back in April was 12.0. He did have evidence of liver cirrhosis on abdominal ultrasound. CT abdomen pelvis could not be performed secondary to patient exceeding weight limit for CT table. He was given follow-ups with endocrinology cardiology gastroenterology however patient did not go to any of this appointments. At this point he is got generalized anasarca and is quite fluid overloaded. Has been diuresed 60 L negative so far since admission. Still appears to be fluid overloaded. He is hypoxic needing 5 L nasal cannula most likely secondary to obesity hypoventilation syndrome. He is to have a CPAP at home however no longer does so. He will need to have an outpatient sleep study done which was given to him as an outpatient but patient could not have it completed secondary to scheduling issues. Going forward his scrotum is the size of a small watermelon and is erythematous. Outpatient lymphedema wraps have been ordered for his scrotal area. Plan is to diurese him further however with continued IV Bumex creatinine started to trend upwards. Patient may require transfer to another facility where CT scans and further workup could be performed. Our facility she is not equipped to perform imaging studies for patients affected by obesity. Patient's BMI is 70.6. I will go ahead and consult nephrology today. Possibility of dialysis for diuresis?. Will discuss with nephrology going forward. Continue IV Bumex 2 mg IV twice daily and closely monitor kidney function. Check CBC CMP daily. At this time patient requires continued hospitalization to be fully medically optimized in order to be able to go home and function. Today patient is unable to even put his pants or shorts on secondary to extremely large scrotum. It is physically impossible for patient to leave in the state and it is also unsafe in my medical opinion. PDMP PDMP Reviewed: Not Reviewed Attestations 2 Medical Necessity Statement*: Requires continued hospitalization for IV diuresis. 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
--- NOTE | 2024-08-14 15:47 | PC.SOCIAL ---
IMM updated IMM dated and initialed, copy given to patient and copy placed in chart.
[2024-08-14 16:57] LABS: Glucose Point of Care 309 mg/dL (70-110)
[2024-08-14] MEDS: enoxaparin 40 mg/0.4 mL Syringe SUBCUT (17:20)
[2024-08-14 20:36] LABS: Glucose Point of Care 277 mg/dL (70-110)
[2024-08-14] MEDS: bumetanide 1 mg Tablet 2 MG PO (20:59)
[2024-08-14] MEDS: insulin glargine 100 units/1 mL 30 UNIT SUBCUT (20:59)
[2024-08-15] VITALS (56 sets, daily range): BP systolic 123–194; BP diastolic 65–104; PULSE 76–123; RESP 15–24; TEMP 36.5–37; O2SAT 89–99
[2024-08-15] MEDS: HYDROcodone-acetaminophen 5-325 mg Tablet 1 TAB PO ×2 (02:10→10:26)
[2024-08-15 04:56] LABS: Basophils % 0.2 %; Eosinophils # 0.4 10^3/uL (0.0-0.8); Eosinophils % 3.6 %; Hematocrit 32.6 % (37-53); Lymphocytes # 1.4 10^3/uL (0.8-4.8); Lymphocytes % 14.2 %; Mean Corpuscular HGB Conc 30.4 g/dL (30-55); Mean Corpuscular Hemoglobin 27.4 pg (27-33); Mean Corpuscular Volume 90.3 fl (82-101); Mean Platelet Volume 10.4 fL (7.4-10.4); Monocytes # 0.6 10^3/uL (0.2-0.9); Monocytes % 5.8 %; Neutrophils % 75.7 %; Nucleated Red Blood Cells % 0 %; Platelet Count 260 10^3/cmm (157-399); Red Blood Count 3.61 10^6/uL (3.85-5.65); Red Cell Distribution Width 13.4 % (12.1-15.1); White Blood Count 9.65 10^3/uL (3.29-11.43)
[2024-08-15 05:19] LABS: Alanine Aminotransferase 17 U/L (0-41); Albumin Level 3.3 g/dL (3.5-5.2); Alkaline Phosphatase 105 U/L (40-130); Anion Gap 8.4 (5-19); Aspartate Amino Transferase 17 U/L (0-40); Blood Urea Nitrogen 22 mg/dL (6-20); Calcium 9.1 mg/dL (8.5-10.5); Carbon Dioxide 39 mmol/L (22-29); Chloride 94 mmol/L (98-107); Creatinine Clr Calc Pharmacy 134.4899; Globulin 3.5 g/dL (1.3-4.6); Glomerular Filtration Rate 63.3 mL/min (90-130); Glucose 223 mg/dL (65-115); Osmolality Calculated 294 mOsm/kg (285-295); Potassium 4.4 mmol/L (3.5-5.1); Sodium 137 mmol/L (136-145); Total Bilirubin 0.3 mg/dL (0.15-1.2); Total Protein 6.8 g/dL (6.6-8.7)
[2024-08-15 06:42] LABS: Glucose Point of Care 219 mg/dL (70-110)
[2024-08-15] MEDS: insulin lispro 100 unit/1 mL SUBCUT ×4 (08:03→20:16)
[2024-08-15] MEDS: bumetanide 1 mg Tablet 2 MG PO (08:04)
[2024-08-15] MEDS: amlodipine 10 mg Tablet 5 MG PO (08:04)
[2024-08-15] MEDS: clotrimazole 1% cream 30 gm 1 APPLIC TOPICAL (08:04)
[2024-08-15] MEDS: pantoprazole DR 40 mg Tablet PO (08:04)
[2024-08-15] MEDS: nystatin powder 15 gm Btl 1 APPLIC TOPICAL (08:04)
[2024-08-15] MEDS: aspirin 81 mg EC Tablet PO (08:04)
[2024-08-15] MEDS: carvedilol 25 mg Tablet PO (08:04)
[2024-08-15] MEDS: fluconazole 100 mg Tablet PO (08:04)
--- NOTE | 2024-08-15 10:05 | P.CONIM_ITS ---
Providers/Reason For Consult 2 Consulting Physician/Specialty*: kommana/Nephrology Reason for Consult*: JAVIER, Sinana Attending Physician: Jeane Syed MD Primary Care Provider: Cindy Briggs DO History of Present Illness History of Present Illness Bennie Ho is a 54 year old male Patient is a 54-year-old male with morbid obesity, diabetes, sleep apnea, CHF presented to the emergency department due to orthopnea lower extremity edema shortness of breath on exertion. Also complains of scrotal edema. Patient noted to have anasarca and was placed on Bumex and he had his well but he continued significant while volume overloaded this time. Echocardiogram was an incomplete study but LVEF grossly normal per report. Nephrology consulted for further management of his volume/diuresis. Creatinine at presentation was 1.1 currently at 1.2, creatinine did bump up to 1.4 during the hospital course. Urine analysis showed 3+ protein and 2+ blood. Review of Systems 2 Narrative: Other review of systems negative Medications/Allergies Home Medications ?Medication ?Instructions ?Recorded ?Confirmed ?Last Taken ?Type aspirin 81 mg tablet,delayed 81 mg PO DAILY 11/28/19 0 08/07/24 04/22/24 History release Lactobacillus acidoph-L.bulgaricus 1 tab PO QID #1 tab 12/02/19 08/07/24 04/22/24 Rx 1 million cell tablet (Floranex) insulin aspart 30 unit SUBCUT TID 04/23/24 08/07/24 04/22/24 History (niacinamide)(U-100) 100 unit/mL(3 mL) subcutaneous pen (Fiasp FlexTouch U-100 Insulin) sitagliptin phosphate 100 mg 100 mg PO DAILY 04/23/24 08/07/24 04/22/24 History tablet (Januvia) insulin glargine 100 unit/mL (3 55 unit (0.55 mL) SUBC UT BEDTIME 04/26/24 08/07/24 04/21/24 Rx mL) subcutaneous pen (Basaglar #10 mL KwikPen U-100 Insulin) potassium chloride 8 mEq 8 meq PO DAILY #20 caps 11/12/1208/07/24 Unknown Rx capsule,extended release furosemide 80 mg tablet (Lasix) 80 mg PO DAILY #30 tab s 08/05/24 08/07/24 Unknown Rx carvedilol 25 mg tablet (Coreg) 25 mg PO DAILY 5 08/07/24 Unknown History insulin aspart U-100 100 unit/mL See Rx Instructions . Route .COMPLEX 08/07/24 08/07/24 Unknown History (3 mL) subcutaneous pen lisinopril 40 mg tablet 40 mg PO DAILY 08/07/2407/22 Unknown History Allergies Allergy/AdvReac Type Severity Reaction Status Date / Time No Known Allergies Allergy Verified 05/31/24 07:46 Current Medications Generic Name Dose Route Start Last Admin Trade Name Freq PRN Reason Stop Dose Admin Acetaminophen 650 mg 08/07/24 18:46 08/14/24 07:45 Acetaminophen 325 Mg Tablet PO 650 mg Q6H PRN Administration Mild/Mod Pain Or Temp >/= 101 Hydrocodone Bitart/Acetaminophen 1 tab 08/12/24 12:58 08/15/24 02:10 Hydrocodone-Acetaminophen 5-325 Mg Tablet PO 1 tab Q8H PRN Administration MODERATE PAIN Alprazolam 0.5 mg 08/12/24 12:55 08/13/24 19:29 Alprazolam 0.5 Mg Tablet PO 0.5 mg BEDTIME PRN Administration sleep Amlodipine Besylate 5 mg 08/14/24 09:00 08/15/24 08:04 Amlodipine 10 Mg Tablet PO 5 mg DAILY GONSALO Administration Aspirin 81 mg 08/08/24 09:00 08/15/24 08:04 Aspirin 81 Mg Ec Tablet PO 81 mg DAILY GONSALO Administration Bumetanide 2 mg 08/14/24 21:00 08/15/24 08:04 Bumetanide 1 Mg Tablet PO 2 mg BID GONSALO Administration Carvedilol 25 mg 08/12/24 17:00 08/15/24 08:04 Carvedilol 25 Mg Tablet PO 25 mg DAILY GONSALO Administration Clotrimazole 1 applic 08/12/24 18:00 08/15/24 08:04 Clotrimazole 1% Cream 30 Gm TOPICAL 1 applic BID GONSALO Administration Enoxaparin Sodium 40 mg 08/07/24 19:00 08/14/24 17:20 Enoxaparin 40 Mg/0.4 Ml Syringe SUBCUT 40 mg Q24H GONSALO Administration Fluconazole 100 mg 08/13/24 13:15 08/15/24 08:04 Fluconazole 100 Mg Tablet PO 100 mg DAILY GONSALO Administration Hydromorphone HCl 0.5 mg 08/12/24 12:58 08/13/24 03:07 Hydromorphone Hcl 0.5 Mg/0.5 Ml Inj IVP 0.5 mg Q6H PRN Administration SEVERE PAIN Insulin Glargine 30 unit 08/13/24 21:00 08/14/24 20:59 Insulin Glargine 100 Units/1 Ml SUBCUT 30 unit BEDTIME GONSALO Administration Insulin Human Lispro 0 unit 08/13/24 18:00 08/15/24 08:03 Insulin Lispro 100 Unit/1 Ml SUBCUT 8 unit WM&BEDTIME GONSALO Administration Protocol Nystatin 1 applic 08/13/24 15:00 08/15/24 08:04 Nystatin Powder 15 Gm Btl TOPICAL 1 applic DAILY GONSALO Administration Pantoprazole Sodium 40 mg 08/08/24 09:00 08/15/24 08:[address] 40 Mg Tablet PO 40 mg DAILY GONSALO Administration PFSH Acute 2 PFSH: Medical History Smoker -heavy smoker, 2 PPD Morbid obesity -BMI-59 kg/m2 Sepsis -as noted above -BP better controlled, tachycardia persists, afebrile; continue to monitor vital signs -trend WBC; leukocytosis improving Smoker Recurrent infection of skin Chronic back pain GERD (gastroesophageal reflux disease) Ptosis of eyelid, right Sleep apnea Morbid obesity Testicular abscess Hypertension -BP improved though still uncontrolled, continue to monitor vital signs -on Lisinopril; titrate as needed for optimal BP control; due to tachycardia, BB added Diabetes mellitus Surgical History History of incision and drainage 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 S/P right knee arthroscopy Family History Other CAD (coronary artery disease) Diabetes Social History Smoking and tobacco/nicotine status: heavy tobacco/nicotine user cigarettes [ Other cigarette details: 2 packs/day] Alcohol intake: never Substance/Drug Use: never Household members: significant other Housing: House Current occupation: disabled Vitals/I&O/Wt Last Vital Signs Temp 98.1 F 08/15/24 07:35 Pulse 84 08/15/24 07:35 Resp 18 08/15/24 07:35 BP 159/104 08/15/24 07:35 Pulse Ox 96 08/15/24 07:35 O2 Del Method Nasal Cannula 08/15/24 07:35 O2 Flow Rate 4 08/15/24 07:41 08/14/24 08/15/24 08/15/24 22:59 06:59 14:59 Intake Total 468 / 708 0 / 708 360 / 360 Output Total 700 / 700 2400 / 3100 Balance -232 / 8 -2400 / -2392 360 / 360 Weight last 48 hrs Weight 220.956 kg Weight 229.472 kg Physical Exam 2 Narrative: Patient is awake alert, on CPAP Morbidly obese S1-S2 regular rate and rhythm Lungs clear per report Urinary Catheter Management: Whitmore: Cath Placed During This Visit: yes Reason for Continuing Indwelling Catheter: Other Urinary Catheter Date of Insertion: 08/08/24 Urinary Catheter Time of Insertion: 03:55 Data 08/15/24 04:50 08/15/24 04:50 Micro: Microbiology 08/13/24 12:25 Urine Culture - Preliminary Urine,Clean Catch Gram Negative Rods A&P Assessment and plan (1) Acute kidney injury: 1. Acute kidney injury: Baseline creatinine was 1.1-1.2 range creatinine peak was 0.4 likely in setting of diuresis will continue to monitor renal function for now Patient has anasarca and also has proteinuria-will check urine protein to creatinine ratio, also check serologies, I suspect patient has diabetic nephropathy and possible nephrotic range proteinuria -Will place on IV Bumex and IV albumin for more aggressive diuresis. If patient fails on diuretic we will consider dialysis for volume management 2. Morbid obesity and anasarca: Diuresis as above 3. History of CHF: Echo was an incomplete study due to his body habitus, LV function grossly normal per report 4. Hypertension: Stable 5. Anemia, check iron studies and monitor Patient evaluated using audiovisual cart. Time spent 45 minutes. (2) Anasarca: PDMP PDMP Reviewed: Not Reviewed Consult Attestations 2 Medical Necessity Statement: Per medicine team Coding Level of Care Code Acute Code for [facility] Fwd Diagnoses Acute kidney injury N17.9 Anasarca R60.1
[2024-08-15 10:22] LABS: Complement C3 174 mg/dL (90-180)
[2024-08-15] MEDS: albumin 25 G/100 ML BAG 60 G IV ×2 (10:52→17:48)
[2024-08-15 11:11] LABS: Creatinine Urine, Random 64 mg/dL (39-259); Total Protein, Random Urine 143.8 mg/dL (0.0-20.0)
[2024-08-15 11:24] LABS: Glucose Point of Care 244 mg/dL (70-110)
--- NOTE | 2024-08-15 13:02 | P.PN_ITS ---
Subjective 2 Subjective: Seen this morning. 19 L negative since admission. Vitals/I&O/Wt Last Vital Signs Temp 97.7 F 08/15/24 12:00 Pulse 77 08/15/24 12:00 Resp 18 08/15/24 12:00 BP 123/65 08/15/24 12:00 Pulse Ox 91 08/15/24 12:00 O2 Del Method CPAP 08/15/24 12:00 O2 Flow Rate 4 08/15/24 12:00 08/14/24 08/15/24 08/15/24 22:59 06:59 14:59 Intake Total 468 / 708 0 / 708 700 / 700 Output Total 700 / 700 2400 / 3100 850 / 850 Balance -232 / 8 -2400 / -2392 -150 / -150 Weight last 48 hrs Weight 220.956 kg Weight 229.472 kg Physical Exam 2 Narrative: General: No acute distress, AO x3 HEENT: PERRLA, pupils bilaterally equal and reactive, pallors not present Chest: Normal vesicular breath sounds, no added sounds, equal good air entry bilaterally CVS: S1-S2 regular, no murmurs, no tachycardia, no gallops, no rubs Abdomen: Soft, nontender, no organomegaly, bowel sounds present Neuro: No focal deficits, no facial deformity, AO x3, power 5/5 in all limbs EXT: Gross anasarca , Continues to have scrotal swelling with slight improvement. Scrotum is size of a small watermelon and is erythematous. Significant edema bilateral lower extremities. Urinary Catheter Management: Whitmore: Cath Placed During This Visit: yes Reason for Continuing Indwelling Catheter: Other Urinary Catheter Date of Insertion: 08/08/24 Urinary Catheter Time of Insertion: 03:55 Data 08/15/24 04:50 08/15/24 04:50 Micro: Microbiology 08/13/24 12:25 Urine Culture - Preliminary Urine,Clean Catch Gram Negative Rods A&P Assessment and plan (1) Anasarca: increasing anasarca, suboptimal response to po lasix which was recently resumed. Admit to med/surg Start Lasix 40mg iv q12h assess for serial cr and urine output Whitmore catheter for I/O measurement, patient unable to void into urinal or commode due to massive scrotal edema Ekg without acute ST-T changes , baseline trop withotu significant elevation reports compliance with anti hypertensive regimen with lisinopril and amlodipine had similar presentation in 04/2024 at which time cause was presumed to be CHF. Echo did not have good ultrasonic windows, therefore was unable to estimate EF, wall motion abnormalities. MUGA scan was planned however patient was unable to fit on the table due to obesity Possibility of right heart failure related to severe sleep apnea on the differentials Differentials include cirrhosis which was noted on USG abdomen from 04/2024. 2+ proteinuria noted, will check 24 hr urine protein 08/08/24: Diffuse anasarca, net negative 1900cc thus far, will continue lasix 40mg iv q12h. Kidney function stable currently. Urine is clear red. Add prn morphine for pain control. Etiology for diffuse anasarca at this time unclear- may be related to CHF vs decompensated cirrhosis vs nephrotic syndrome. Awaiting 2D echo, 24hr urine proetin to further assess. Continue iv diuresis in the interim. August 09, 2024 net -3.5 L. Anasarca persisting. Continue Lasix 40 mg IV every 12 hours. Noted to be developing metabolic alkalosis likely related to diuresis. Additionally add acetazolamide 500 mg x 1 today. 24h urine protein at 1800 mg, not consistent with nephrotic syndrome. Echocardiogram limited by poor ultrasonic windows. Even with Optison contrast very limited visualization. Grossly LV systolic function appeared to be normal. Left ventricle is grossly dilated August 10, 2024 Net -6 L. Anasarca persisting. However leg edema slightly better. Continues to have significant scrotal swelling. Requested lymphedema scrotal and leg wraps with OT today. Creatinine is trending up to 1.3. Additionally noted to have leukocytosis likely related to overdiuresis. Hold Lasix today. Albumin infusion x 1 today. Hold lisinopril as may contribute to JAVIER in the setting. Recheck kidney function and urine output with a.m. labs. August 11, 2024 Kidney function is stable today. Blood pressure controlled off of lisinopril. Bumex 2 mg IV x every 12 hours. Closely monitor kidney function with resumption. Continue scrotal wraps, to be replaced today. Pain managemnet optimized to hydromorphone 1 mg IV every 6 hours as needed, p.o. hydrocodone APAP every 6 hours as needed. States pain is a little better controlled compared to yesterday however still persisting. Chiefly he reports pain in the scrotum. States that lymphedema unstrapped helped when they were on, however fell off later August 12, 2024 Patient's family reports patient was confused and lethargic this morning. Likely this was related to having received Ambien and hydrocodone overnight. Currently at the time of this assessment patient is alert and awake. He transfers from bed to bedside commode with assistance. He prefers to sit out of bed as it is more comfortable for him. States that scrotum feels slightly more comfortable compared to prior days. His leg is better. Continuing to diurese well with Bumex. Net -4.9 L last 24 hours. Kidney function is stable at 1.3. CPAP was ordered yesterday, however it appears patient did not started overnight. ABG was performed which showed pH of 7.36/pCO2 of 72.6/pO2 of 73.8/bicarb of 40.0. Overall clinical impression is that of chronic hypercapnic respiratory failure which is currently compensated. This is likely related to obesity hypoventilation, sleep apnea versus COPD. Encourage CPAP use at nighttime and during sleep time. Will likely benefit from CPAP at the time of discharge given the degree of hypercapnia. Blood pressure additionally running 1 60-1 70 systolic. Add amlodipine 10 mg p.o. daily. Continue IV diuresis with Bumex today. Hoping to transition from IV to oral diuresis over the next 24 hours. Avoid Ambien tonight. Reduce dose of opiates to hydrocodone APAP 5 mg / 325 mg every 8 hours as needed. Reduce IV Dilaudid to 0.5 mg every 8 hours as needed. Blood sugars are uncontrolled. Add Lantus 20 units at bedtime. In addition to high-dose insulin sliding scale. August 13, 2024 Patient states he slept better overnight with the CPAP on. Family states that he appeared less confused upon waking up in the morning. At the time of this assessment patient is currently awake alert oriented x 4. Attempted to sit in a bedside recliner, however was unable to due to scrotal swelling yesterday. Overall net -16 L. Creatinine trending up today at 1.4. Will hold further doses of Bumex today. Recheck creatinine with a.m. labs. Patient accidentally pulled out his midline today. Will likely place him on oral Bumex when ready to resume. Scrotal swelling is still persisting, though overall appearing to be better compared to admission. Discussed with family and late expectation that resolution of scrotal swelling will likely take several weeks and would not be expected to resolve all at once. We have placed a referral to continue scrotal wraps as outpatient with occupational therapy. Patient is encouraged to be out of bed. Physical therapy evaluation ordered to assess if he may need any other assistive devices beyond his current right leg prosthetic. He is unable to effectively wear the right leg prosthetic at this time due to right stump swelling, even though it is much improved. reports that patient was ambulating in a wheelchair last month due to large swelling. Will additionally order CPAP for home use. Given the discovery of chronic hyper Respiratory failure, favor this to be related to obesity hypoventilation syndrome, patient will benefit from CPAP use at night. His blood pressure is additionally much better controlled today. Will reduce amlodipine to 5 mg daily. Increase Lantus to 30 units at bedtime. He is developing mild excoriation over the posterior scrotum related to rubbing on the bed. He requests removal of bedsheets, discussed with him that constant rubbing of the scrotum against the mattress cover is not recommended as it makes his skin more prone to shaving. Add topical antibiotic to prevent cellulitis. Extensively counseled the need to maintain bedsheet in a towel to avoid further skin breakdown. He has developed significant crural candidiasis involving his groin folds and axillary folds. Add fluconazole in addition to clotrimazole and nystatin already ordered yesterday. Overall patient is clinically improving from an anasarca perspective. If kidney function is improving on lab check tomorrow, will likely be able to discharge home on oral diuretics with strong emphasis on medication compliance. 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 He is on glargine 55 units at night and on Januvia at home. His A1c back in April was 12.0. He did have evidence of liver cirrhosis on abdominal ultrasound. CT abdomen pelvis could not be performed secondary to patient exceeding weight limit for CT table. He was given follow-ups with endocrinology cardiology gastroenterology however patient did not go to any of this appointments. At this point he is got generalized anasarca and is quite fluid overloaded. Has been diuresed 60 L negative so far since admission. Still appears to be fluid overloaded. He is hypoxic needing 5 L nasal cannula most likely secondary to obesity hypoventilation syndrome. He is to have a CPAP at home however no longer does so. He will need to have an outpatient sleep study done which was given to him as an outpatient but patient could not have it completed secondary to scheduling issues. Going forward his scrotum is the size of a small watermelon and is erythematous. Outpatient lymphedema wraps have been ordered for his scrotal area. Plan is to diurese him further however with continued IV Bumex creatinine started to trend upwards. Patient may require transfer to another facility where CT scans and further workup could be performed. Our facility she is not equipped to perform imaging studies for patients affected by obesity. Patient's BMI is 70.6. I will go ahead and consult nephrology today. Possibility of dialysis for diuresis?. Will discuss with nephrology going forward. Continue IV Bumex 2 mg IV twice daily and closely monitor kidney function. Check CBC CMP daily. At this time patient requires continued hospitalization to be fully medically optimized in order to be able to go home and function. Today patient is unable to even put his pants or shorts on secondary to extremely large scrotum. It is physically impossible for patient to leave in the state and it is also unsafe in my medical opinion. 08/15/2024 Nephrology consulted on the patient. Suspicion of diabetic nephropathy nephrotic range proteinuria. Plan for albumin drip along with Bumex drip for next 48 hours. If patient fails adequate diuresis plan to dialyze for fluid removal. ? PICC line to be placed today for lab draws and administration of IV medications. Continue scrotal wraps. Very mild improvement noted Patient and myself discussed transfer to [facility] however due to long wait times as possible patient may be able to get discharged from our facility and follow-up with specialist as an outpatient. For now we will hold off on transfer. Patient states he would like to continue management as planned out at this time. Creatinine has normalized to 1.2 today. We will transfer patient to ICU for Bumex drip. PDMP PDMP Reviewed: Not Reviewed Attestations 2 Medical Necessity Statement*: Requires continued hospitalization for IV diuresis. 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
[2024-08-15] MEDS: bumetanide 25 MG in empty flexible container 1 EACH 4 MG IV (13:20)
--- NOTE | 2024-08-15 13:22 | XR_ITS ---
WS: [id number] CHEST XRAY TECHNIQUE: Portable chest. CLINICAL INFORMATION: Post PICC insertion FINDINGS: RIGHT PICC with tip distal SVC in good position. No pneumothorax. Cardiomegaly. Mild pulmonary vascular congestion. XR/XR chest 1V portable [id number] IMPRESSION: RIGHT PICC line with tip in distal SVC
--- NOTE | 2024-08-15 13:26 | PC.NURSE ---
Patient arrived to ICU at 1315. Placed on monitor. A&Ox3
--- NOTE | 2024-08-15 14:44 | PICC.NOTE ---
Triple lumen PICC placed to right brachial vein. Referred to vascular access nurse for PICC placement due to bumex drip. Pt previously had a midline in the left arm but states it was accidentally pulled out. Risks and benefits discussed and informed consent obtained from pt. Right arm assessed with right brachial vein measuring 5.0 mm, straight, and apparent best choice for placement. Using sterile technique and MST, right brachial vein accessed x 1 stick. Mid-arm circumference measured 10 cm from right AC 50 cm. Trimmed cath 52 cm with 2 cm external length noted. CXR shows tip in distal SVC, in good position for use per radiologist. Line secured with stat-lock. Insertion site covered with Biopatch and TSM. Report given to bedside nurse, JAVIER Hopkins.
[2024-08-15 17:44] LABS: Glucose Point of Care 315 mg/dL (70-110)
[2024-08-15] MEDS: HYDROMORPHONE HCL 0.5 MG/0.5 ML INJ IVP (17:47)
[2024-08-15] MEDS: enoxaparin 40 mg/0.4 mL Syringe SUBCUT (18:07)
[2024-08-15 20:13] LABS: Glucose Point of Care 338 mg/dL (70-110)
[2024-08-15] MEDS: insulin glargine 100 units/1 mL 30 UNIT SUBCUT (20:17)
--- NOTE | 2024-08-15 23:59 | PC.NURSE ---
Spoke with Dr. Saenz in reference to patient's aprox. 6L output so far today with the Bumex drip. Received orders for a BMP now.
[2024-08-16] VITALS (51 sets, daily range): BP systolic 134–183; BP diastolic 58–97; PULSE 74–134; RESP 12–26; TEMP 36.9–37.4; O2SAT 73–99
[2024-08-16] MEDS: albumin 25 G/100 ML BAG 60 G IV ×3 (02:38→17:51)
[2024-08-16] MEDS: HYDROcodone-acetaminophen 5-325 mg Tablet 1 TAB PO ×2 (02:44→10:53)
[2024-08-16 04:25] LABS: Basophils % 0.2 %; Eosinophils # 0.3 10^3/uL (0.0-0.8); Eosinophils % 2.6 %; Hematocrit 32.5 % (37-53); Lymphocytes # 1.2 10^3/uL (0.8-4.8); Lymphocytes % 12.9 %; Mean Corpuscular HGB Conc 30.2 g/dL (30-55); Mean Corpuscular Hemoglobin 26.9 pg (27-33); Mean Corpuscular Volume 89.3 fl (82-101); Mean Platelet Volume 10.8 fL (7.4-10.4); Monocytes # 0.7 10^3/uL (0.2-0.9); Monocytes % 7.5 %; Neutrophils # 7.25 10^3/uL (1.8-7.7); Neutrophils % 76.4 %; Nucleated Red Blood Cells % 0 %; Platelet Count 257 10^3/cmm (157-399); Red Blood Count 3.64 10^6/uL (3.85-5.65); Red Cell Distribution Width 13.4 % (12.1-15.1); White Blood Count 9.49 10^3/uL (3.29-11.43)
[2024-08-16] MEDS: HYDROMORPHONE HCL 0.5 MG/0.5 ML INJ IVP (04:31)
[2024-08-16 04:46] LABS: Anion Gap 12.9 (5-19); Blood Urea Nitrogen 20 mg/dL (6-20); Calcium 8.9 mg/dL (8.5-10.5); Chloride 90 mmol/L (98-107); Creatinine Clr Calc Pharmacy 134.4899; Glomerular Filtration Rate 63.3 mL/min (90-130); Glucose 212 mg/dL (65-115); Magnesium 1.8 mg/dL (1.7-2.3); Osmolality Calculated 299 mOsm/kg (285-295); Phosphorus 3.8 mg/dL (2.5-4.5); Potassium 3.9 mmol/L (3.5-5.1); Sodium 140 mmol/L (136-145)
[2024-08-16 04:59] LABS: Carbon Dioxide 41 mmol/L (22-29)
--- NOTE | 2024-08-16 05:42 | PC.NURSE ---
Addendum entered by SEYMOUR Ruiz 08/16/24 05:45: Incident occurred aprox. 0028. Original Note: Entered the patient's room to find patient on the floor out of his bed. Assessed patient, stated he tried to get up but can't remember why . Assessed patient: Complained of no pain, PICC line had been lost, miller stat lock had broken, and scrotal sling had been torn, but otherwise no new injuries were found. Notified Dr. Saenz, no new orders received.
[2024-08-16 07:41] LABS: Glucose Point of Care 320 mg/dL (70-110)
[2024-08-16] MEDS: insulin lispro 100 unit/1 mL SUBCUT ×4 (08:34→22:22)
[2024-08-16] MEDS: amlodipine 10 mg Tablet 5 MG PO (08:34)
[2024-08-16] MEDS: fluconazole 100 mg Tablet PO (08:34)
[2024-08-16] MEDS: aspirin 81 mg EC Tablet PO (08:34)
[2024-08-16] MEDS: carvedilol 25 mg Tablet PO (08:34)
[2024-08-16] MEDS: pantoprazole DR 40 mg Tablet PO (08:34)
[2024-08-16] MEDS: nystatin powder 15 gm Btl 1 APPLIC TOPICAL (08:35)
[2024-08-16 08:56] LABS: Alanine Aminotransferase 17 U/L (0-41); Albumin Level 3.7 g/dL (3.5-5.2); Alkaline Phosphatase 96 U/L (40-130); Aspartate Amino Transferase 18 U/L (0-40); Globulin 3.3 g/dL (1.3-4.6); Total Bilirubin 0.4 mg/dL (0.15-1.2)
[2024-08-16] MEDS: clotrimazole 1% cream 30 gm 1 APPLIC TOPICAL (09:13)
[2024-08-16] MEDS: bumetanide 25 MG in empty flexible container 1 EACH 4 MG IV (11:32)
[2024-08-16 12:00] LABS: Glucose Point of Care 289 mg/dL (70-110)
--- NOTE | 2024-08-16 12:04 | PC.OT ---
A.M. OT TREATMENT ATTEMPTED; PATIENT PIC LINE TO BE PLACED. WILL ATTEMPT IN THE P.M.
--- NOTE | 2024-08-16 12:47 | P.PN_ITS ---
Subjective 2 Subjective: Good diuresis Medications: Reviewed: Yes Vitals/I&O/Wt Last Vital Signs Temp 98.4 F 08/16/24 07:30 Pulse 74 08/16/24 12:30 Resp 16 08/16/24 12:30 BP 151/76 08/16/24 11:30 Pulse Ox 97 08/16/24 12:30 O2 Del Method Nasal Cannula 08/16/24 11:30 O2 Flow Rate 5 08/16/24 11:30 08/15/24 08/16/24 08/16/24 22:59 06:59 14:59 Intake Total 280 / 980 800 / 1780 448.8 / 448.8 Output Total 6550 / 7400 1800 / 9200 1600 / 1600 Balance -6270 / -6420 -1000 / -7420 -1151.2 / -1151.2 Weight last 48 hrs Weight 222.578 kg Weight 220.956 kg Physical Exam 2 Narrative: Patient is awake alert, on CPAP Morbidly obese S1-S2 regular rate and rhythm Lungs clear per report Urinary Catheter Management: Whitmore: Cath Placed During This Visit: yes Reason for Continuing Indwelling Catheter: Accurate Measurement of Urinary Output in Critically Ill Patients Urinary Catheter Date of Insertion: 08/08/24 Urinary Catheter Time of Insertion: 03:55 Data 08/16/24 04:10 08/16/24 04:10 Micro: Microbiology 08/13/24 12:25 Urine Culture - Final Urine,Clean Catch Proteus mirabilis A&P Assessment and plan (1) Acute kidney injury: 1. Acute kidney injury: Baseline creatinine was 1.1-1.2 range creatinine peak was 0.4 likely in setting of diuresis will continue to monitor renal function for now Patient has anasarca and also has proteinuria-will check urine protein to creatinine ratio, also check serologies, I suspect patient has diabetic nephropathy and possible nephrotic range proteinuria - on IV Bumex and IV albumin , good diuresis, If patient fails on diuretic we will consider dialysis for volume management 2. Morbid obesity and anasarca: Diuresis as above 3. History of CHF: Echo was an incomplete study due to his body habitus, LV function grossly normal per report 4. Hypertension: Stable 5. Anemia, check iron studies and monitor Patient evaluated using audiovisual cart. Time spent 45 minutes. (2) Anasarca: PDMP PDMP Reviewed: Not Reviewed Attestations 2 Medical Necessity Statement*: per madeline Coding Level of Care Code Acute Code for Chg Fwd Diagnoses Acute kidney injury N17.9 Anasarca R60.1
--- NOTE | 2024-08-16 12:59 | PC.SOCIAL ---
IMM Updated Updated pt on IMM. No questions voiced. Provided pt a copy. Initialed, dated, & timed copy in chart.
--- NOTE | 2024-08-16 13:10 | PC.NURSE ---
Picc line placement failed. Attempted both right basilic and right brachial. Veins are very deep and patient is very swollen.
--- NOTE | 2024-08-16 13:45 | P.PN_ITS ---
Subjective 2 Subjective: Seen this morning. Overnight event noted. 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 Patient did have very good urine output overnight. 8 L in last 24 hours. He is 28 L negative since admission. Scrotal size is also reduced however still quite large. His scrotal wrap also came off during the process of the fall. Vitals/I&O/Wt Last Vital Signs Temp 98.4 F 08/16/24 07:30 Pulse 74 08/16/24 12:30 Resp 16 08/16/24 12:30 BP 151/76 08/16/24 11:30 Pulse Ox 97 08/16/24 12:30 O2 Del Method Nasal Cannula 08/16/24 11:30 O2 Flow Rate 5 08/16/24 11:30 08/15/24 08/16/24 08/16/24 22:59 06:59 14:59 Intake Total 280 / 980 800 / 1780 908.8 / 908.8 Output Total 6550 / 7400 1800 / 9200 2400 / 2400 Balance -6270 / -6420 -1000 / -7420 -1491.2 / -1491.2 Weight last 48 hrs Weight 222.578 kg Weight 220.956 kg Physical Exam 2 Narrative: General: No acute distress, AO x3 HEENT: PERRLA, pupils bilaterally equal and reactive, pallors not present Chest: Normal vesicular breath sounds, no added sounds, equal good air entry bilaterally CVS: S1-S2 regular, no murmurs, no tachycardia, no gallops, no rubs Abdomen: Soft, nontender, no organomegaly, bowel sounds present Neuro: No focal deficits, no facial deformity, AO x3, power 5/5 in all limbs EXT: Gross anasarca , Continues to have scrotal swelling with significant improvement scrotum is size of a small grapefruit Significant edema bilateral lower extremities. Urinary Catheter Management: Whitmore: Cath Placed During This Visit: yes Reason for Continuing Indwelling Catheter: Accurate Measurement of Urinary Output in Critically Ill Patients Urinary Catheter Date of Insertion: 08/08/24 Urinary Catheter Time of Insertion: 03:55 Data 08/16/24 04:10 08/16/24 04:10 Micro: Microbiology 08/13/24 12:25 Urine Culture - Final Urine,Clean Catch Proteus mirabilis A&P Assessment and plan (1) Anasarca: increasing anasarca, suboptimal response to po lasix which was recently resumed. Admit to med/surg Start Lasix 40mg iv q12h assess for serial cr and urine output Whitmore catheter for I/O measurement, patient unable to void into urinal or commode due to massive scrotal edema Ekg without acute ST-T changes , baseline trop withotu significant elevation reports compliance with anti hypertensive regimen with lisinopril and amlodipine had similar presentation in 04/2024 at which time cause was presumed to be CHF. Echo did not have good ultrasonic windows, therefore was unable to estimate EF, wall motion abnormalities. MUGA scan was planned however patient was unable to fit on the table due to obesity Possibility of right heart failure related to severe sleep apnea on the differentials Differentials include cirrhosis which was noted on USG abdomen from 04/2024. 2+ proteinuria noted, will check 24 hr urine protein 08/08/24: Diffuse anasarca, net negative 1900cc thus far, will continue lasix 40mg iv q12h. Kidney function stable currently. Urine is clear red. Add prn morphine for pain control. Etiology for diffuse anasarca at this time unclear- may be related to CHF vs decompensated cirrhosis vs nephrotic syndrome. Awaiting 2D echo, 24hr urine proetin to further assess. Continue iv diuresis in the interim. August 09, 2024 net -3.5 L. Anasarca persisting. Continue Lasix 40 mg IV every 12 hours. Noted to be developing metabolic alkalosis likely related to diuresis. Additionally add acetazolamide 500 mg x 1 today. 24h urine protein at 1800 mg, not consistent with nephrotic syndrome. Echocardiogram limited by poor ultrasonic windows. Even with Optison contrast very limited visualization. Grossly LV systolic function appeared to be normal. Left ventricle is grossly dilated August 10, 2024 Net -6 L. Anasarca persisting. However leg edema slightly better. Continues to have significant scrotal swelling. Requested lymphedema scrotal and leg wraps with OT today. Creatinine is trending up to 1.3. Additionally noted to have leukocytosis likely related to overdiuresis. Hold Lasix today. Albumin infusion x 1 today. Hold lisinopril as may contribute to JAVIER in the setting. Recheck kidney function and urine output with a.m. labs. August 11, 2024 Kidney function is stable today. Blood pressure controlled off of lisinopril. Bumex 2 mg IV x every 12 hours. Closely monitor kidney function with resumption. Continue scrotal wraps, to be replaced today. Pain managemnet optimized to hydromorphone 1 mg IV every 6 hours as needed, p.o. hydrocodone APAP every 6 hours as needed. States pain is a little better controlled compared to yesterday however still persisting. Chiefly he reports pain in the scrotum. States that lymphedema unstrapped helped when they were on, however fell off later August 12, 2024 Patient's family reports patient was confused and lethargic this morning. Likely this was related to having received Ambien and hydrocodone overnight. Currently at the time of this assessment patient is alert and awake. He transfers from bed to bedside commode with assistance. He prefers to sit out of bed as it is more comfortable for him. States that scrotum feels slightly more comfortable compared to prior days. His leg is better. Continuing to diurese well with Bumex. Net -4.9 L last 24 hours. Kidney function is stable at 1.3. CPAP was ordered yesterday, however it appears patient did not started overnight. ABG was performed which showed pH of 7.36/pCO2 of 72.6/pO2 of 73.8/bicarb of 40.0. Overall clinical impression is that of chronic hypercapnic respiratory failure which is currently compensated. This is likely related to obesity hypoventilation, sleep apnea versus COPD. Encourage CPAP use at nighttime and during sleep time. Will likely benefit from CPAP at the time of discharge given the degree of hypercapnia. Blood pressure additionally running 1 60-1 70 systolic. Add amlodipine 10 mg p.o. daily. Continue IV diuresis with Bumex today. Hoping to transition from IV to oral diuresis over the next 24 hours. Avoid Ambien tonight. Reduce dose of opiates to hydrocodone APAP 5 mg / 325 mg every 8 hours as needed. Reduce IV Dilaudid to 0.5 mg every 8 hours as needed. Blood sugars are uncontrolled. Add Lantus 20 units at bedtime. In addition to high-dose insulin sliding scale. August 13, 2024 Patient states he slept better overnight with the CPAP on. Family states that he appeared less confused upon waking up in the morning. At the time of this assessment patient is currently awake alert oriented x 4. Attempted to sit in a bedside recliner, however was unable to due to scrotal swelling yesterday. Overall net -16 L. Creatinine trending up today at 1.4. Will hold further doses of Bumex today. Recheck creatinine with a.m. labs. Patient accidentally pulled out his midline today. Will likely place him on oral Bumex when ready to resume. Scrotal swelling is still persisting, though overall appearing to be better compared to admission. Discussed with family and late expectation that resolution of scrotal swelling will likely take several weeks and would not be expected to resolve all at once. We have placed a referral to continue scrotal wraps as outpatient with occupational therapy. Patient is encouraged to be out of bed. Physical therapy evaluation ordered to assess if he may need any other assistive devices beyond his current right leg prosthetic. He is unable to effectively wear the right leg prosthetic at this time due to right stump swelling, even though it is much improved. reports that patient was ambulating in a wheelchair last month due to large swelling. Will additionally order CPAP for home use. Given the discovery of chronic hyper Respiratory failure, favor this to be related to obesity hypoventilation syndrome, patient will benefit from CPAP use at night. His blood pressure is additionally much better controlled today. Will reduce amlodipine to 5 mg daily. Increase Lantus to 30 units at bedtime. He is developing mild excoriation over the posterior scrotum related to rubbing on the bed. He requests removal of bedsheets, discussed with him that constant rubbing of the scrotum against the mattress cover is not recommended as it makes his skin more prone to shaving. Add topical antibiotic to prevent cellulitis. Extensively counseled the need to maintain bedsheet in a towel to avoid further skin breakdown. He has developed significant crural candidiasis involving his groin folds and axillary folds. Add fluconazole in addition to clotrimazole and nystatin already ordered yesterday. Overall patient is clinically improving from an anasarca perspective. If kidney function is improving on lab check tomorrow, will likely be able to discharge home on oral diuretics with strong emphasis on medication compliance. 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 He is on glargine 55 units at night and on Januvia at home. His A1c back in April was 12.0. He did have evidence of liver cirrhosis on abdominal ultrasound. CT abdomen pelvis could not be performed secondary to patient exceeding weight limit for CT table. He was given follow-ups with endocrinology cardiology gastroenterology however patient did not go to any of this appointments. At this point he is got generalized anasarca and is quite fluid overloaded. Has been diuresed 60 L negative so far since admission. Still appears to be fluid overloaded. He is hypoxic needing 5 L nasal cannula most likely secondary to obesity hypoventilation syndrome. He is to have a CPAP at home however no longer does so. He will need to have an outpatient sleep study done which was given to him as an outpatient but patient could not have it completed secondary to scheduling issues. Going forward his scrotum is the size of a small watermelon and is erythematous. Outpatient lymphedema wraps have been ordered for his scrotal area. Plan is to diurese him further however with continued IV Bumex creatinine started to trend upwards. Patient may require transfer to another facility where CT scans and further workup could be performed. Our facility she is not equipped to perform imaging studies for patients affected by obesity. Patient's BMI is 70.6. I will go ahead and consult nephrology today. Possibility of dialysis for diuresis?. Will discuss with nephrology going forward. Continue IV Bumex 2 mg IV twice daily and closely monitor kidney function. Check CBC CMP daily. At this time patient requires continued hospitalization to be fully medically optimized in order to be able to go home and function. Today patient is unable to even put his pants or shorts on secondary to extremely large scrotum. It is physically impossible for patient to leave in the state and it is also unsafe in my medical opinion. 08/15/2024 Nephrology consulted on the patient. Suspicion of diabetic nephropathy nephrotic range proteinuria. Plan for albumin drip along with Bumex drip for next 48 hours. If patient fails adequate diuresis plan to dialyze for fluid removal. ? PICC line to be placed today for lab draws and administration of IV medications. Continue scrotal wraps. Very mild improvement noted Patient and myself discussed transfer to [facility] however due to long wait times as possible patient may be able to get discharged from our facility and follow-up with specialist as an outpatient. For now we will hold off on transfer. Patient states he would like to continue management as planned out at this time. Creatinine has normalized to 1.2 today. We will transfer patient to ICU for Bumex drip. 08/16/2024 Continue albumin and Bumex drip as per nephrology recommendations. Will reattempt PICC line placement today however if unable to place we will attempt for peripheral. If IV access becomes difficult going forward we will have to reconsider another line. Creatinine 1.2. Nephrology following. Continue current treatment as indicated above. Oxygen 4 L nasal cannula. Patient will need outpatient sleep study after discharge. Continue scrotal wraps. PDMP PDMP Reviewed: Not Reviewed Attestations 2 Medical Necessity Statement*: Requires continued hospitalization for IV diuresis. 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
[2024-08-16] MEDS: morphine 4 mg/mL SDV 1 mL IVP (13:58)
[2024-08-16 17:49] LABS: Glucose Point of Care 307 mg/dL (70-110)
[2024-08-16] MEDS: enoxaparin 40 mg/0.4 mL Syringe SUBCUT (19:40)
[2024-08-16] MEDS: acetaminophen 325 mg Tablet 650 MG PO (19:55)
[2024-08-16 22:06] LABS: Glucose Point of Care 322 mg/dL (70-110)
[2024-08-16] MEDS: insulin glargine 100 units/1 mL 30 UNIT SUBCUT (22:22)
[2024-08-17] VITALS (47 sets, daily range): BP systolic 127–192; BP diastolic 65–100; PULSE 72–129; RESP 13–25; TEMP 36.3–37.1; O2SAT 72–100
[2024-08-17] MEDS: albumin 25 G/100 ML BAG 60 G IV ×3 (02:38→18:07)
[2024-08-17 03:45] LABS: Basophils % 0.4 %; Eosinophils # 0.3 10^3/uL (0.0-0.8); Eosinophils % 3.7 %; Hematocrit 33.9 % (37-53); Lymphocytes # 1.3 10^3/uL (0.8-4.8); Lymphocytes % 14.9 %; Mean Corpuscular HGB Conc 30.1 g/dL (30-55); Mean Corpuscular Hemoglobin 26.8 pg (27-33); Mean Corpuscular Volume 89.2 fl (82-101); Mean Platelet Volume 10.3 fL (7.4-10.4); Monocytes # 0.6 10^3/uL (0.2-0.9); Monocytes % 7.1 %; Neutrophils % 73.5 %; Nucleated Red Blood Cells % 0 %; Platelet Count 258 10^3/cmm (157-399); Red Cell Distribution Width 13.5 % (12.1-15.1); White Blood Count 8.43 10^3/uL (3.29-11.43)
[2024-08-17 04:10] LABS: Alanine Aminotransferase 19 U/L (0-41); Albumin Level 3.9 g/dL (3.5-5.2); Alkaline Phosphatase 95 U/L (40-130); Aspartate Amino Transferase 21 U/L (0-40); Blood Urea Nitrogen 23 mg/dL (6-20); Calcium 9.1 mg/dL (8.5-10.5); Chloride 85 mmol/L (98-107); Globulin 3.9 g/dL (1.3-4.6); Glucose 274 mg/dL (65-115); Osmolality Calculated 301 mOsm/kg (285-295); Sodium 139 mmol/L (136-145); Total Bilirubin 0.4 mg/dL (0.15-1.2); Total Protein 7.8 g/dL (6.6-8.7)
[2024-08-17 04:33] LABS: Carbon Dioxide 43 mmol/L (22-29)
[2024-08-17 07:18] LABS: Glucose Point of Care 337 mg/dL (70-110)
[2024-08-17] MEDS: HYDROcodone-acetaminophen 5-325 mg Tablet 1 TAB PO ×2 (07:19→15:13)
[2024-08-17] MEDS: fluconazole 100 mg Tablet PO (08:54)
[2024-08-17] MEDS: pantoprazole DR 40 mg Tablet PO (08:54)
[2024-08-17] MEDS: aspirin 81 mg EC Tablet PO (08:54)
[2024-08-17] MEDS: carvedilol 25 mg Tablet PO (08:55)
[2024-08-17] MEDS: insulin lispro 100 unit/1 mL SUBCUT ×4 (08:55→20:35)
[2024-08-17] MEDS: amlodipine 10 mg Tablet 5 MG PO (08:55)
[2024-08-17] MEDS: nystatin powder 15 gm Btl 1 APPLIC TOPICAL (08:56)
[2024-08-17] MEDS: clotrimazole 1% cream 30 gm 1 APPLIC TOPICAL ×2 (08:56→18:08)
--- NOTE | 2024-08-17 09:49 | P.PN_ITS ---
Subjective 2 Subjective: No new complaints, good diuresis Medications: Reviewed: Yes Vitals/I&O/Wt Last Vital Signs Temp 98.2 F 08/17/24 04:00 Pulse 84 08/17/24 06:00 Resp 14 08/17/24 04:00 BP 162/83 08/17/24 04:00 Pulse Ox 100 08/17/24 04:00 O2 Del Method Nasal Cannula 08/17/24 04:00 O2 Flow Rate 5 08/17/24 04:00 08/16/24 08/17/24 08/17/24 22:59 06:59 14:59 Intake Total 700 / 1608.8 100 / 1708.8 Output Total 2875 / 5275 2700 / 7975 Balance -2175 / -3666.2 -2600 / -6266.2 Weight last 48 hrs Weight 217.588 kg Weight 222.578 kg Physical Exam 2 Narrative: Patient is awake alert, on CPAP Morbidly obese S1-S2 regular rate and rhythm Lungs clear per report Urinary Catheter Management: Whitmore: Cath Placed During This Visit: yes Reason for Continuing Indwelling Catheter: Accurate Measurement of Urinary Output in Critically Ill Patients Urinary Catheter Date of Insertion: 08/08/24 Urinary Catheter Time of Insertion: 03:55 Data 08/17/24 03:20 08/17/24 03:20 A&P Assessment and plan (1) Acute kidney injury: 1. Acute kidney injury: Baseline creatinine was 1.1-1.2 range creatinine peak was 0.4 likely in setting of diuresis will continue to monitor renal function for now Patient has anasarca and also has proteinuria-will check urine protein to creatinine ratio, also check serologies, I suspect patient has diabetic nephropathy and possible nephrotic range proteinuria - on IV Bumex and IV albumin , good diuresis, will switch to oral Bumex tomorrow 2. Morbid obesity and anasarca: Diuresis as above 3. History of CHF: Echo was an incomplete study due to his body habitus, LV function grossly normal per report 4. Hypertension: Stable 5. Anemia, check iron studies and monitor 6. Metabolic alkalosis contraction alkalosis from diuresis, monitor for now Patient evaluated using audiovisual cart. Time spent 45 minutes. (2) Anasarca: PDMP PDMP Reviewed: Not Reviewed Attestations 2 Medical Necessity Statement*: Per medicine team Coding Level of Care Code Acute Code for Chg Fwd Diagnoses Acute kidney injury N17.9 Anasarca R60.1
[2024-08-17] MEDS: bumetanide 25 MG in empty flexible container 1 EACH 4 MG IV (11:37)
[2024-08-17 11:52] LABS: Glucose Point of Care 277 mg/dL (70-110)
--- NOTE | 2024-08-17 14:14 | PM.PN ---
Subjective Subjective: Seen this morning. Patient is 33 L negative since admission. He states he is starting to feel better. Scrotal size has also improved. Vitals/I&O/Wt Last Vital Signs Temp 98.2 F 08/17/24 04:00 Pulse 78 08/17/24 12:30 Resp 19 H 08/17/24 12:30 BP 168/82 08/17/24 12:00 Pulse Ox 94 08/17/24 12:30 O2 Del Method Nasal Cannula 08/17/24 11:30 O2 Flow Rate 5 08/17/24 11:30 08/16/24 08/17/24 08/17/24 22:59 06:59 14:59 Intake Total 700 / 1608.8 100 / 1708.8 336.333 / 336.333 Output Total 2875 / 5275 2700 / 7975 1850 / 1850 Balance -2175 / -3666.2 -2600 / -6266.2 -1513.667 / -1513.667 Weight last 48 hrs Weight 217.588 kg Weight 222.578 kg Physical Exam Narrative: General: No acute distress, AO x3 HEENT: PERRLA, pupils bilaterally equal and reactive, pallors not present Chest: Normal vesicular breath sounds, no added sounds, equal good air entry bilaterally CVS: S1-S2 regular, no murmurs, no tachycardia, no gallops, no rubs Abdomen: Soft, nontender, bowel sounds present Neuro: No focal deficits, no facial deformity, AO x3, EXT: Gross anasarca , Continues to have scrotal swelling with significant improvement scrotum, currently has scrotal wrap in place. Definitely looks much smaller compared to Wednesday. Bilateral lower extremity edema present. Urinary Catheter Management: Whitmore: Cath Placed During This Visit: yes Reason for Continuing Indwelling Catheter: Accurate Measurement of Urinary Output in Critically Ill Patients Urinary Catheter Date of Insertion: 08/08/24 Urinary Catheter Time of Insertion: 03:55 Data 08/17/24 03:20 08/17/24 03:20 A&P Assessment and plan (1) Anasarca: increasing anasarca, suboptimal response to po lasix which was recently resumed. Admit to med/surg Start Lasix 40mg iv q12h assess for serial cr and urine output Whitmore catheter for I/O measurement, patient unable to void into urinal or commode due to massive scrotal edema Ekg without acute ST-T changes , baseline trop withotu significant elevation reports compliance with anti hypertensive regimen with lisinopril and amlodipine had similar presentation in 04/2024 at which time cause was presumed to be CHF. Echo did not have good ultrasonic windows, therefore was unable to estimate EF, wall motion abnormalities. MUGA scan was planned however patient was unable to fit on the table due to obesity Possibility of right heart failure related to severe sleep apnea on the differentials Differentials include cirrhosis which was noted on USG abdomen from 04/2024. 2+ proteinuria noted, will check 24 hr urine protein 08/08/24: Diffuse anasarca, net negative 1900cc thus far, will continue lasix 40mg iv q12h. Kidney function stable currently. Urine is clear red. Add prn morphine for pain control. Etiology for diffuse anasarca at this time unclear- may be related to CHF vs decompensated cirrhosis vs nephrotic syndrome. Awaiting 2D echo, 24hr urine proetin to further assess. Continue iv diuresis in the interim. August 09, 2024 net -3.5 L. Anasarca persisting. Continue Lasix 40 mg IV every 12 hours. Noted to be developing metabolic alkalosis likely related to diuresis. Additionally add acetazolamide 500 mg x 1 today. 24h urine protein at 1800 mg, not consistent with nephrotic syndrome. Echocardiogram limited by poor ultrasonic windows. Even with Optison contrast very limited visualization. Grossly LV systolic function appeared to be normal. Left ventricle is grossly dilated August 10, 2024 Net -6 L. Anasarca persisting. However leg edema slightly better. Continues to have significant scrotal swelling. Requested lymphedema scrotal and leg wraps with OT today. Creatinine is trending up to 1.3. Additionally noted to have leukocytosis likely related to overdiuresis. Hold Lasix today. Albumin infusion x 1 today. Hold lisinopril as may contribute to JAVIER in the setting. Recheck kidney function and urine output with a.m. labs. August 11, 2024 Kidney function is stable today. Blood pressure controlled off of lisinopril. Bumex 2 mg IV x every 12 hours. Closely monitor kidney function with resumption. Continue scrotal wraps, to be replaced today. Pain managemnet optimized to hydromorphone 1 mg IV every 6 hours as needed, p.o. hydrocodone APAP every 6 hours as needed. States pain is a little better controlled compared to yesterday however still persisting. Chiefly he reports pain in the scrotum. States that lymphedema unstrapped helped when they were on, however fell off later August 12, 2024 Patient's family reports patient was confused and lethargic this morning. Likely this was related to having received Ambien and hydrocodone overnight. Currently at the time of this assessment patient is alert and awake. He transfers from bed to bedside commode with assistance. He prefers to sit out of bed as it is more comfortable for him. States that scrotum feels slightly more comfortable compared to prior days. His leg is better. Continuing to diurese well with Bumex. Net -4.9 L last 24 hours. Kidney function is stable at 1.3. CPAP was ordered yesterday, however it appears patient did not started overnight. ABG was performed which showed pH of 7.36/pCO2 of 72.6/pO2 of 73.8/bicarb of 40.0. Overall clinical impression is that of chronic hypercapnic respiratory failure which is currently compensated. This is likely related to obesity hypoventilation, sleep apnea versus COPD. Encourage CPAP use at nighttime and during sleep time. Will likely benefit from CPAP at the time of discharge given the degree of hypercapnia. Blood pressure additionally running 1 60-1 70 systolic. Add amlodipine 10 mg p.o. daily. Continue IV diuresis with Bumex today. Hoping to transition from IV to oral diuresis over the next 24 hours. Avoid Ambien tonight. Reduce dose of opiates to hydrocodone APAP 5 mg / 325 mg every 8 hours as needed. Reduce IV Dilaudid to 0.5 mg every 8 hours as needed. Blood sugars are uncontrolled. Add Lantus 20 units at bedtime. In addition to high-dose insulin sliding scale. August 13, 2024 Patient states he slept better overnight with the CPAP on. Family states that he appeared less confused upon waking up in the morning. At the time of this assessment patient is currently awake alert oriented x 4. Attempted to sit in a bedside recliner, however was unable to due to scrotal swelling yesterday. Overall net -16 L. Creatinine trending up today at 1.4. Will hold further doses of Bumex today. Recheck creatinine with a.m. labs. Patient accidentally pulled out his midline today. Will likely place him on oral Bumex when ready to resume. Scrotal swelling is still persisting, though overall appearing to be better compared to admission. Discussed with family and late expectation that resolution of scrotal swelling will likely take several weeks and would not be expected to resolve all at once. We have placed a referral to continue scrotal wraps as outpatient with occupational therapy. Patient is encouraged to be out of bed. Physical therapy evaluation ordered to assess if he may need any other assistive devices beyond his current right leg prosthetic. He is unable to effectively wear the right leg prosthetic at this time due to right stump swelling, even though it is much improved. reports that patient was ambulating in a wheelchair last month due to large swelling. Will additionally order CPAP for home use. Given the discovery of chronic hyper Respiratory failure, favor this to be related to obesity hypoventilation syndrome, patient will benefit from CPAP use at night. His blood pressure is additionally much better controlled today. Will reduce amlodipine to 5 mg daily. Increase Lantus to 30 units at bedtime. He is developing mild excoriation over the posterior scrotum related to rubbing on the bed. He requests removal of bedsheets, discussed with him that constant rubbing of the scrotum against the mattress cover is not recommended as it makes his skin more prone to shaving. Add topical antibiotic to prevent cellulitis. Extensively counseled the need to maintain bedsheet in a towel to avoid further skin breakdown. He has developed significant crural candidiasis involving his groin folds and axillary folds. Add fluconazole in addition to clotrimazole and nystatin already ordered yesterday. Overall patient is clinically improving from an anasarca perspective. If kidney function is improving on lab check tomorrow, will likely be able to discharge home on oral diuretics with strong emphasis on medication compliance. 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 He is on glargine 55 units at night and on Januvia at home. His A1c back in April was 12.0. He did have evidence of liver cirrhosis on abdominal ultrasound. CT abdomen pelvis could not be performed secondary to patient exceeding weight limit for CT table. He was given follow-ups with endocrinology cardiology gastroenterology however patient did not go to any of this appointments. At this point he is got generalized anasarca and is quite fluid overloaded. Has been diuresed 60 L negative so far since admission. Still appears to be fluid overloaded. He is hypoxic needing 5 L nasal cannula most likely secondary to obesity hypoventilation syndrome. He is to have a CPAP at home however no longer does so. He will need to have an outpatient sleep study done which was given to him as an outpatient but patient could not have it completed secondary to scheduling issues. Going forward his scrotum is the size of a small watermelon and is erythematous. Outpatient lymphedema wraps have been ordered for his scrotal area. Plan is to diurese him further however with continued IV Bumex creatinine started to trend upwards. Patient may require transfer to another facility where CT scans and further workup could be performed. Our facility she is not equipped to perform imaging studies for patients affected by obesity. Patient's BMI is 70.6. I will go ahead and consult nephrology today. Possibility of dialysis for diuresis?. Will discuss with nephrology going forward. Continue IV Bumex 2 mg IV twice daily and closely monitor kidney function. Check CBC CMP daily. At this time patient requires continued hospitalization to be fully medically optimized in order to be able to go home and function. Today patient is unable to even put his pants or shorts on secondary to extremely large scrotum. It is physically impossible for patient to leave in the state and it is also unsafe in my medical opinion. 08/15/2024 Nephrology consulted on the patient. Suspicion of diabetic nephropathy nephrotic range proteinuria. Plan for albumin drip along with Bumex drip for next 48 hours. If patient fails adequate diuresis plan to dialyze for fluid removal. ? PICC line to be placed today for lab draws and administration of IV medications. Continue scrotal wraps. Very mild improvement noted Patient and myself discussed transfer to [facility] however due to long wait times as possible patient may be able to get discharged from our facility and follow-up with specialist as an outpatient. For now we will hold off on transfer. Patient states he would like to continue management as planned out at this time. Creatinine has normalized to 1.2 today. We will transfer patient to ICU for Bumex drip. 08/16/2024 Continue albumin and Bumex drip as per nephrology recommendations. Will reattempt PICC line placement today however if unable to place we will attempt for peripheral. If IV access becomes difficult going forward we will have to reconsider another line. Creatinine 1.2. Nephrology following. Continue current treatment as indicated above. Oxygen 4 L nasal cannula. Patient will need outpatient sleep study after discharge. Continue scrotal wraps. 08/17/2024 Continue albumin along with Bumex drip as per nephrology recommendations for another 24 hours. May consider switching to oral after 24 to 48 hours. Discussed with nephrology in detail. Creatinine 1.4. This is expected secondary to aggressive diuresis. Patient is 33 L negative since admission. Developing mild alkalosis. Bicarb 43 today. Continue scrotal wraps. Patient's will be taught how to do wraps at home as well today. Patient has peripheral IV at this time. I will hold off on adding another PICC line. Patient may be able to discharge in next 48 to 72 hours if continues to improve. He is currently being treated on presumptive acute on chronic diastolic heart failure. Echo did not have good ultrasonic windows. EF appears to be grossly normal. His fluid overload could be secondary to possible nephrotic syndrome versus diastolic heart failure. PDMP PDMP Reviewed: Not Reviewed Attestations Medical Necessity Statement*: Requires continued hospitalization for IV diuresis. 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
[2024-08-17 17:16] LABS: Glucose Point of Care 401 mg/dL (70-110)
[2024-08-17] MEDS: ondansetron 2 mg/ML SDV 2 mL 4 MG IVP (18:07)
[2024-08-17] MEDS: enoxaparin 40 mg/0.4 mL Syringe SUBCUT (18:07)
[2024-08-17 20:25] LABS: Glucose Point of Care 374 mg/dL (70-110)
[2024-08-17] MEDS: insulin glargine 100 units/1 mL 30 UNIT SUBCUT (20:35)
[2024-08-18] VITALS (29 sets, daily range): BP systolic 134–179; BP diastolic 71–87; PULSE 78–180; RESP 12–25; TEMP 36.3–36.9; O2SAT 88–100
[2024-08-18] MEDS: albumin 25 G/100 ML BAG 60 G IV ×2 (01:47→09:30)
[2024-08-18 07:34] LABS: Glucose Point of Care 280 mg/dL (70-110)
[2024-08-18] MEDS: insulin lispro 100 unit/1 mL SUBCUT ×2 (09:23→12:35)
[2024-08-18] MEDS: amlodipine 10 mg Tablet 5 MG PO (09:24)
[2024-08-18] MEDS: fluconazole 100 mg Tablet PO (09:24)
[2024-08-18] MEDS: carvedilol 25 mg Tablet PO (09:24)
[2024-08-18] MEDS: aspirin 81 mg EC Tablet PO (09:24)
[2024-08-18] MEDS: pantoprazole DR 40 mg Tablet PO (09:24)
[2024-08-18] MEDS: clotrimazole 1% cream 30 gm 1 APPLIC TOPICAL (09:26)
[2024-08-18] MEDS: nystatin powder 15 gm Btl 1 APPLIC TOPICAL (09:26)
--- NOTE | 2024-08-18 09:50 | P.PN_ITS ---
Subjective 2 Subjective: no new complaints Medications: Reviewed: Yes Vitals/I&O/Wt Last Vital Signs Temp 98.5 F 08/18/24 09:30 Pulse 85 08/18/24 09:30 Resp 17 08/18/24 09:30 BP 163/85 08/18/24 09:30 Pulse Ox 96 08/18/24 09:30 O2 Del Method Nasal Cannula 08/18/24 04:00 O2 Flow Rate 5 08/18/24 04:00 08/17/24 08/18/24 08/18/24 22:59 06:59 14:59 Intake Total 200 / 896.333 100 / 996.333 240 / 240 Output Total 650 / 3850 2700 / 6550 1500 / 1500 Balance -450 / -2953.667 -2600 / -5553.667 -1260 / -1260 Weight last 48 hrs Weight 198.22 kg Weight 217.588 kg Physical Exam 2 Narrative: Patient is awake alert, on CPAP Morbidly obese S1-S2 regular rate and rhythm Lungs clear per report Urinary Catheter Management: Whitmore: Cath Placed During This Visit: yes Reason for Continuing Indwelling Catheter: Accurate Measurement of Urinary Output in Critically Ill Patients Urinary Catheter Date of Insertion: 08/08/24 Urinary Catheter Time of Insertion: 03:55 Data 08/17/24 03:20 08/18/24 09:28 A&P Assessment and plan (1) Acute kidney injury: 1. Acute kidney injury: Baseline creatinine was 1.1-1.2 range creatinine peak was 0.4 likely in setting of diuresis will continue to monitor renal function for now Patient has anasarca and also has proteinuria-UPCR was 1800, normal complements, negative hepatitis, negative JESSICA panel , I suspect patient has diabetic nephropathy and possible nephrotic range proteinuria - on IV Bumex and IV albumin , good diuresis, will switch to oral Bumex today- start 2 mg Bumex p.o. twice daily -Need to be on 2 g sodium restriction and 1500 mL fluid restriction to discharge -Arrange outpatient nephrology follow-up in 1 to 2 weeks -Consider adding BERRY inhibitor or ARB once renal function stable in 1 to 2 weeks as outpatient 2. Morbid obesity and anasarca: Diuresis as above 3. History of CHF: Echo was an incomplete study due to his body habitus, LV function grossly normal per report 4. Hypertension: Stable 5. Anemia, check iron studies and monitor 6. Metabolic alkalosis contraction alkalosis from diuresis, monitor for now Patient evaluated using audiovisual cart. Time spent 45 minutes. (2) Anasarca: PDMP PDMP Reviewed: Not Reviewed Attestations 2 Medical Necessity Statement*: Per medicine team Coding Level of Care Code Acute Code for g Fwd Diagnoses Acute kidney injury N17.9 Anasarca R60.1
[2024-08-18 09:58] LABS: Anion Gap 13.5 (5-19); Blood Urea Nitrogen 25 mg/dL (6-20); Chloride 82 mmol/L (98-107); Creatinine Clr Calc Pharmacy 115.6914; Glomerular Filtration Rate 57.7 mL/min (90-130); Glucose 327 mg/dL (65-115); Osmolality Calculated 299 mOsm/kg (285-295); Potassium 4.5 mmol/L (3.5-5.1); Sodium 136 mmol/L (136-145)
[2024-08-18 10:02] LABS: Carbon Dioxide 45 mmol/L (22-29)
--- NOTE | 2024-08-18 11:11 | P.DS_ITS ---
Discharge Providers Date of Admission: 08/07/24 17:48 Date of Discharge: August 18, 2024 Attending Provider at Admission: Ami Yan MD Attending Provider at Discharge: Jeane Syed MD Primary Care Provider: Cindy Briggs DO Diagnoses at Discharge Discharge Diagnosis (1) Acute kidney injury: Status: Resolved (2) Anasarca: Status: Acute Reason for Visit Reason for Visit: Swelling testi. Hospital Course Hospital Course Patient presented with worsening anasarca and was diuresed in the hospital and was 16 L negative finally and plan was to go home with compression wraps to scrotal area however he was unable to put his clothes on and the scrotum was the size of a small watermelon. Nephrology was then consulted who suspected nephrotic range proteinuria and patient received albumin and Bumex drip and was further diuresed and finally is 33 L negative. He will be discharged home on oral Bumex at this time.'s scrotal compression wraps have been done during hospitalization and has been taught how to do them at home as well. He will be discharged home in stable condition at this time. He is to have repeat labs done upcoming Wednesday versus Wednesday. I personally told the patient to come in for labs. He is to follow-up with cardiology nephrology, GI as outpatient. He is to have a sleep study done as an outpatient for which he is already scheduling for. I will hold lisinopril at discharge. Will continue fluconazole for another 4 days. Advised patient to check daily weights at home and watch for greater than 5 pound weight gain in 24 to 48-hour period. Physical Exam Narrative: General: No acute distress, AO x3 HEENT: PERRLA, pupils bilaterally equal and reactive, pallors not present Chest: Normal vesicular breath sounds, no added sounds, equal good air entry bilaterally CVS: S1-S2 regular, no murmurs, no tachycardia, no gallops, no rubs Abdomen: Soft, nontender, bowel sounds present Neuro: No focal deficits, no facial deformity, AO x3, EXT: Improved anasarca, scrotum much improved and has had a 10 to 12 cm reduction in size compared to 5 days ago. Bilateral lower extremity edema significantly improved. Urinary Catheter Management: [place]: Cath Placed During This Visit: yes Reason for Continuing Indwelling Catheter: Accurate Measurement of Urinary Output in Critically Ill Patients Urinary Catheter Date of Insertion: 08/08/24 Urinary Catheter Time of Insertion: 03:55 Discharge Data Studies Completed and Pending Completed Studies During Hospitalization Category Date Time Status CXRP [XR chest 1V portable [id number]] Routine Exams 08/15/24 13:22 Completed XR chest 1V portable [id number] Stat Exams 08/07/24 14:33 [place] [address] Routine Ultrasound 08/10/24 12:13 Completed CV. echo wo/w contrast [id number] Routine Ultrasound 08/08/24 18:46 Completed US scrotum 12092 Stat Ultrasound 08/07/24 14:21 Completed Pending at discharge Category Date Time Status Occult Blood Stool [Immunochemical Fecal OCB] AM LABS Lab 08/14/24 04:00 U ncollected Radiology Impressions Scrotum Ultrasound 08/07/24 14:21 IMPRESSION: 1. No indication of testicular mass or torsion. 2. Marked thickening of the scrotal sanchez. Chest X-Ray 08/15/24 13:22 IMPRESSION: RIGHT PICC line with tip in distal SVC Laboratory Results WBC 8.43 10^3/uL (3.29-11.43) 08/17/24 03:20 RBC 3.80 10^6/uL (3.85-5.65) L 08/17/24 03:20 Hgb 10.20 g/dL (11.27-16.99) L 08/17/24 03:20 Hct 33.9 % (37-53) L 08/17/24 03:20 MCV 89.2 fl (82-101) 08/17/24 03:20 MCH 26.8 pg (27-33) L 08/17/24 03:20 MCHC 30.1 g/dL (30-55) 08/17/24 03:20 RDW 13.5 % (12.1-15.1) 08/17/24 03:20 Plt Count 258 10^3/cmm (157-399) 08/17/24 03:20 MPV 10.3 fL (7.4-10.4) 08/17/24 03:20 Neut % (Auto) 73.5 % 08/17/24 03:20 Lymph % (Auto) 14.9 % 08/17/24 03:20 [place] % (Auto) 7.1 % 08/17/24 03:20 Eos % (Auto) 3.7 % 08/17/24 03:20 Baso % (Auto) 0.4 % 08/17/24 03:20 Neut # (Auto) 6.20 10^3/uL (1.8-7.7) 08/17/24 03:20 Lymph # (Auto) 1.3 10^3/uL (0.8-4.8) 08/17/24 03:20 [place] # (Auto) 0.6 10^3/uL (0.2-0.9) 08/17/24 03:20 Eos # (Auto) 0.3 10^3/uL (0.0-0.8) 08/17/24 03:20 Baso # (Auto) 0.0 10^3/uL (0.0-0.1) 08/17/24 03:20 Nucleated RBC % (auto) 0 % 08/17/24 03:20 Nucleated RBCs # 0.0 /100WBC 08/17/24 03:20 D-Dimer 1.16 ug/mLFEU (0-0.59) H 08/07/24 14:46 Specimen Type Arterial 08/12/24 13:00 Sample Site Radial, right 08/12/24 13:00 ABG pH 7.36 (7.35-7.45) 08/12/24 13:00 ABG pCO2 72.6 mmHg (35-45) H* 08/12/24 13:00 ABG pO2 73.8 mmHg (80.0-100.0) L 08/12/24 13:00 ABG HCO3 40.8 mmol/L (22-26) H 08/12/24 13:00 ABG Base Excess 12.9 mmol/L (-2.0-2.0) H 08/12/24 13:00 Wesley Test Pos 08/12/24 13:00 Hematocrit 32.0 % (42-52) L 08/12/24 13:00 O2 Delivery Device Nc 08/12/24 13:00 O2 Liters/Min 5.0 % 08/12/24 13:00 Catalyst Concentration Operator ID Broma 08/12/24 13:00 Sodium 136 mmol/L (136-145) 08/18/24 09:28 Potassium 4.5 mmol/L (3.5-5.1) 08/18/24 09:28 Chloride 82 mmol/L (98-107) L 08/18/24 09:28 Carbon Dioxide 45 mmol/L (22-29) H* 08/18/24 09:28 Anion Gap 13.5 (5-19) 08/18/24 09:28 BUN 25 mg/dL (6-20) H 08/18/24 09:28 Creatinine 1.3 mg/dL (0.7-1.2) H 08/18/24 09:28 GFR Calculation 57.7 mL/min (90-130) L 08/18/24 09:28 Glucose 327 mg/dL (65-115) H 08/18/24 09:28 POC Glucose 280 mg/dL (70-110) H 08/18/24 07:31 Calculated Osmolality 299 mOsm/kg (285-295) H 08/18/24 09:28 Calcium 10.0 mg/dL (8.5-10.5) 08/18/24 09:28 Phosphorus 3.8 mg/dL (2.5-4.5) 08/16/24 04:10 Magnesium 1.8 mg/dL (1.7-2.3) 08/16/24 04:10 Iron 43 ug/dL (59-158) L 08/14/24 01:40 Total Bilirubin 0.4 mg/dL (0.15-1.2) 08/17/24 03:20 Direct Bilirubin 0.20 mg/dL (0.00-0.30) 08/16/24 04:10 AST 21 U/L (0-40) 08/17/24 03:20 ALT 19 U/L (0-41) 08/17/24 03:20 Alkaline Phosphatase 95 U/L (40-130) 08/17/24 03:20 Ammonia 83 umol/L (16-60) H 08/14/24 01:40 Troponin T Baseline 41 ng/L (0-15) H 08/07/24 14:46 Troponin T 120 Minute 42.35 ng/L (0-15) H 08/07/24 17:44 Delta Troponin T 1.35 ABS# (0-10) 08/07/24 17:44 Troponin T Hi Sens 6Hr 48.68 ng/L (0-15) H 08/07/24 21:08 Troponin T Hi Sens 6Hr Delta 7.68 ng/L (0-12) 08/07/24 21:08 NT-Pro-B Natriuret Pep 101 pg/mL (0-125) 08/07/24 14:46 Total Protein 7.8 g/dL (6.6-8.7) 08/17/24 03:20 Albumin 3.9 g/dL (3.5-5.2) 08/17/24 03:20 Globulin 3.9 g/dL (1.3-4.6) 08/17/24 03:20 Vitamin B12 657 pg/mL (232-1245) 08/14/24 01:40 Folate 7.7 ng/mL (4.5-32.2) 08/14/24 01:40 TSH 0.81 uIU/mL (0.27-4.20) 08/07/24 14:46 Urine Color [place] (Yellow) A 08/13/24 12:25 Urine Appearance Turbid (CLEAR) A 08/13/24 12:25 Urine pH >=9.0 (5-7) A 08/13/24 12:25 Ur Specific [place] 1.027 (1.005-1.030) 08/13/24 12:25 Urine Protein 3+ (Negative) A 08/13/24 12: Urine Glucose (UA) Trace (Normal) H 08/13/24 12:25 Urine Ketones Negative (Negative) 08/13/24 12:25 Urine Blood 2+ (Negative) A 08/13/24 12:25 Urine Nitrate Negative (Negative) 08/13/24 12:25 Urine Bilirubin Negative (Negative) 08/13/24 12:25 Urine Urobilinogen 1.0 mg/dL (Negative) 08/13/24 12:25 Ur Leukocyte Esterase 3+ (Negative) A 08/13/24 12:25 Urine RBC 0-4 /hpf (0-2) H 08/13/24 12:25 Urine WBC 10-15 /hpf (0-5) H 08/13/24 12:25 Ur Squamous Epith Cells None /hpf (0-5) 08/13/24 12:25 Amorphous Sediment Not Reportable 08/13/24 12:25 Urine Bacteria 2+ /hpf (NONE) H 08/13/24 12:25 Hyaline Casts 1.21 /lpf 08/07/24 15:40 Urine Total Volume 4200 mL 08/08/24 02:00 Urine Creatinine 64 mg/dL (39-259) 08/15/24 10:10 Ur Total Protein 24 Hr 1869.0 mg/24hr (0-150) H 08/08/24 02:00 Urine Total Protein 143.8 mg/dL (0.0-20.0) H 08/15/24 10:10 JESSICA IFA Animal Tis Res Negative (NEGATIVE) 08/08/24 07:46 JOE-1 Antibody <1.0 neg AI (<1.0 NEG) 08/08/24 07:46 SS-A Antibody <1.0 neg AI (<1.0 NEG) 08/08/24 07:46 SS-B Antibody <1.0 neg AI (<1.0 NEG) 08/08/24 07:46 Sm (Joseph) Antibody <1.0 neg AI (<1.0 NEG) 08/08/24 07:46 APIGEE DEVELOPER Antibody <1.0 neg AI (<1.0 NEG) 08/08/24 07:46 Scl-70 Antibody <1.0 neg AI (<1.0 NEG) 08/08/24 07:46 Anti-ds DNA IgG (Crith) Negative (NEGATIVE) 08/08/24 07:46 Centromere B Antibody <1.0 neg AI (<1.0 NEG) 08/08/24 07:46 Thyroid Peroxidase Ab 1 IU/mL (<9) 08/08/24 07:46 Complement C3 174 mg/dL (90-180) 08/15/24 04:50 Complement C3c 236 mg/dL (82-185) H 08/08/24 07:46 Complement C4 30 mg/dL (10-40) 08/15/24 04:50 Complement C4c 37 mg/dL (15-53) 08/08/24 07:46 CH50 Classical Pathway >60 U/mL (31-60) H 08/08/24 07:46 Influenza A (PCR) Negative (Negative) 08/07/24 16:13 Influenza Type B (PCR) Negative (Negative) 08/07/24 16:13 RSV (PCR) Negative (Negative) 08/07/24 16:13 SARS-CoV-2 (PCR) Negative (Negative) 08/07/24 16:13 Vitals Last Vital Signs Temp 98.5 F 08/18/24 09:30 Pulse 85 08/18/24 09:30 Resp 17 08/18/24 09:30 BP 163/85 08/18/24 09:30 Pulse Ox 96 08/18/24 09:30 O2 Del Method Nasal Cannula 08/18/24 04:00 O2 Flow Rate 5 08/18/24 04:00 Discharge Plan Discharge Patient Disposition: Home Condition: Stable Prescriptions: New amlodipine 10 mg Tablet 5 mg PO DAILY Qty: 30 0RF bumetanide 2 mg tablet 2 mg PO BID Qty: 60 0RF fluconazole 100 mg Tablet 100 mg PO DAILY 4 Days Qty: 4 0RF clotrimazole 1 % Cream 1 applic topical BID 7 Days Qty: 30 0RF nystatin [Nystop] 100,000 unit/gram Powder 1 applic topical DAILY 7 Days Qty: 100 0RF Continued aspirin 81 mg Tablet,Delayed Release (Dr/Ec) 81 mg PO DAILY Lactobacillus acidoph-L.bulgar [Floranex] 1 million cell Tablet 1 tab PO QID Qty: 1 0RF Januvia 100 mg tablet 100 mg PO DAILY Fiasp FlexTouch U-100 Insulin 100 unit/mL (3 mL) insulin pen 30 unit SUBCUT TID insulin glargine [Basaglar KwikPen U-100 Insulin] 100 unit/mL (3 mL) insulin pen 55 unit SUBCUT BEDTIME Qty: 10 0RF potassium chloride 8 mEq capsule, extended release 8 meq PO DAILY Qty: 20 0RF carvedilol [Coreg] 25 mg tablet 25 mg PO DAILY Rx Instructions: must administer with a meal/food insulin aspart U-100 100 unit/mL (3 mL) insulin pen See Rx Instructions .ROUTE .COMPLEX Rx Instructions: subcutaneously Held lisinopril 40 mg tablet 40 mg PO DAILY Hold Instructions: hold till seen by nephrology Discontinued furosemide [Lasix] 80 mg tablet 80 mg PO DAILY Qty: 30 0RF Discharge Orders: Discharge Order (Routine); Ordered 08/18/24 Ordered By: Jeane Syed Other Ambulatory Orders: DME: CPAP (Order) Location: None Selected Ordered By: Ami Yan DME: Walker (Order) Location: None Selected Ordered By: Jeane Syed Physical Therapy Eval and Treat Outpatient (Order) Timeframe: 3 Days Facility: [facility] - Location: Physical Therapy Ordered By: Ami Yan Basic Metabolic Panel (Routine) Timeframe: 3 Days Facility: [facility] - Location: Lab - Main Lab Ordered By: Jeane Syed Complete Blood Count w/Auto (Routine) Timeframe: 3 Days Location: Determined by Patient Ordered By: Jeane Syed Referrals: [facility] Gastro[facility] [Other] - 3 weeks (liver cirrhosis Reji Briggs to evaluate for this referral and recommened for referral .) Count Includes [facility] Nephrology [Outside] - 4-7 days (have faxed face sheet /left message for this clinic to call patient with appointment status for this visit ) [facility] Outpatient Therapy [Outside] (We have notified Outpatient services of the need for a follow-up appointment to be scheduled for lymphedema wraps. If you have not heard from them within the next 2 business days, please call them directly. ) Cindy Briggs DO [Primary Care Provider] - 08/18/24 1:30 pm (this appointment clinic was aware on this date for cancelation of being inpatient at [facility] ,notifed clinic will need to call patient for new appointment date and time.) Leoncio Coon MD [Physician] - (has appointment scheduled for august 31, 2024 ) Discharge Diet: Cardiac and Diabetic Discharge Activity: Use walker/crutches as instructed, Wheelchair as instructed and As per PT/OT instructions Patient Instructions: Clotrimazole (Into the vagina) (3 Day Vaginal Cream, Gyne-Lotrimin,..., Bumetanide (By mouth) (Bumex), Nystatin (On the skin), Fluconazole (By mouth) (Diflucan), Amlodipine (By mouth) (Hypertenipine-2.5, Norvasc, Norliqva), Heart Failure (DC), Cellulitis (GEN), Fluid Restriction (DC), CHF Stoplight, Opioid Safety Discharge Attestations Time Spent in Discharge Care*: greater than 30 min Status at Discharge: Cognitive status at discharge: cognitively intact , Behavioral status at discharge: cooperative , Quality Metrics Clinical Quality Measures [ No reported AMI, CVA or VTE this stay] Coding Level of Care Code Acute Code for Chg Fwd Diagnoses Acute kidney injury N17.9 Anasarca R60.1
--- NOTE | 2024-08-18 11:22 | PC.SOCIAL ---
IMM Updated Updated pt on IMM. No questions voiced. Provided pt a copy. Initialed, dated, & timed copy in chart.
[2024-08-18 12:11] LABS: Glucose Point of Care 329 mg/dL (70-110)
--- NOTE | 2024-08-18 14:31 | PC.NURSE ---
Discharge Note Patient discharged to home via wheelchair accompanied by significant other & family. Discharge instructions reviewed with patient and family, all questions answered at this time. All prescriptions provided via meds to beds before patient discharged. All patient belongings returned upon discharge including prosthetic right leg, clothing and phone.
== END 2024-08-18 14:20 | disposition home or self-care (01) | DRG 698 ==
LOC: ER 14:24 → ER IP 17:49 → MEDSURG 08-08 02:01 → ICU 08-15 13:14
PROVIDERS: Hospitalist; Admitting Provider Student in an Organized Health Care Education/Training Program; Emergency Provider Family Medicine; PCP Family Medicine; Visit Provider Internal Medicine
DX: E11.21 Type 2 diabetes mellitus with diabetic nephropathy (principal); I50.33 Acute on chronic diastolic (congestive) heart failure; L03.115 Cellulitis of right lower limb; E66.2 Morbid (severe) obesity with alveolar hypoventilation; Z68.44 Body mass index [BMI] 60.0-69.9, adult; J96.12 Chronic respiratory failure with hypercapnia; E87.3 Alkalosis; R60.1 Generalized edema; E87.79 Other fluid overload; W06.XXXA Fall from bed, initial encounter; Y92.230 Patient room in hospital as the place of occurrence of the external cause; N17.9 Acute kidney failure, unspecified; Z79.82 Long term (current) use of aspirin; Z79.84 Long term (current) use of oral hypoglycemic drugs; F17.210 Nicotine dependence, cigarettes, uncomplicated; G89.29 Other chronic pain; I11.0 Hypertensive heart disease with heart failure; D63.1 Anemia in chronic kidney disease; K74.60 Unspecified cirrhosis of liver; L89.152 Pressure ulcer of sacral region, stage 2; B37.2 Candidiasis of skin and nail; E11.65 Type 2 diabetes mellitus with hyperglycemia; Z79.4 Long term (current) use of insulin; R41.0 Disorientation, unspecified; T42.6X5A Adverse effect of other antiepileptic and sedative-hypnotic drugs, initial encounter; T40.2X5A Adverse effect of other opioids, initial encounter; R31.9 Hematuria, unspecified; N50.89 Other specified disorders of the male genital organs; M54.9 Dorsalgia, unspecified; K21.9 Gastro-esophageal reflux disease without esophagitis; H02.401 Unspecified ptosis of right eyelid; Z91.199 Patient's noncompliance with other medical treatment and regimen due to unspecified reason; Z89.611 Acquired absence of right leg above knee
CPT/HCPCS: 36415; 36416; 36569; 36573; 51702; 71045; 76870; 80048; 80053; 80076; 81001; 82140; 82575; 82607; 82746; 82803; 82962; 83540; 83735; 83880; 84100; 84156; 84443; 84484; 85025; 85378; 86160; 86162; 86235; 86255; 86376; 87077; 87086; 87186; 87637; 93005; 93971; 94660; 94760; 96372; 96374; 97124; 97161; 97167; 99285; C1751; C8929; J1171; J1650; J1815; J1940; J2270; J2405; J3490; P9045; P9046

== ENCOUNTER 2024-09-27 14:30 | Outpatient (CLI) | payer MEDICARE, MEDICAID, SELFPAY ==
[2024-09-27 15:35] LABS: Basophils % 0.3 %; Eosinophils # 0.3 10^3/uL (0.0-0.8); Eosinophils % 2.2 %; Hematocrit 37.5 % (37-53); Lymphocytes # 1.6 10^3/uL (0.8-4.8); Lymphocytes % 14.3 %; Mean Corpuscular HGB Conc 31.5 g/dL (30-55); Mean Corpuscular Hemoglobin 27.3 pg (27-33); Mean Corpuscular Volume 86.6 fl (82-101); Monocytes # 0.5 10^3/uL (0.2-0.9); Monocytes % 4.1 %; Neutrophils # 8.84 10^3/uL (1.8-7.7); Neutrophils % 78.7 %; Nucleated Red Blood Cells % 0 %; Platelet Count 254 10^3/cmm (157-399); Red Blood Count 4.33 10^6/uL (3.85-5.65); Red Cell Distribution Width 13.2 % (12.1-15.1); White Blood Count 11.22 10^3/uL (3.29-11.43)
[2024-09-27 16:11] LABS: Estmated Average Glucose 272; Hemoglobin A1C 11.1 % (4.0-6.0)
[2024-09-27 16:27] LABS: Thyroid Stimulating Hormone 0.21 uIU/mL (0.27-4.20)
== END 2024-09-27 14:31 | disposition home or self-care (01) ==
PROVIDERS: Visit Provider Family Medicine
DX: I50.9 Heart failure, unspecified (principal); E11.65 Type 2 diabetes mellitus with hyperglycemia
CPT/HCPCS: 36415; 83036; 84443; 85025

== ENCOUNTER 2024-10-14 14:54 | Emergency (ER) | payer SELFPAY ==
[2024-10-14 15:04] VITALS: BP 191/88; PULSE 91; RESP 18; TEMP 36.4; O2SAT 96; BMI 62.7
--- NOTE | 2024-10-14 15:08 | XRR_ITS ---
PROCEDURE INFORMATION: Exam: XR Left Foot Exam date and time: 10/14/2024 3:24 PM Age: 54 years old Clinical indication: Left; Lt foot pain; Possible diabetic ulcer to 4th lt digit; Additional info: Injury TECHNIQUE: Imaging protocol: Radiologic exam of the left foot. Views: 3 or more views. COMPARISON: No relevant prior studies available. FINDINGS: Bones/joints: No acute fracture or traumatic malalignment. Mild midfoot arthrosis. Plantar and posterior calcaneal spurring. Soft tissues: Soft tissue swelling of the foot. Vasculature: Vascular calcifications. XR/XR foot LT min 3V* [id number] IMPRESSION: As above.
--- NOTE | 2024-10-14 15:20 | ED_ITS ---
HPI - Extremity Problem General: Chief complaint: Extremity Injury, Lower Stated complaint: lft foot injury Time Seen by Provider: 10/14/24 15:02 History of Present Illness: 54-year-old male patient comes in today for complaints of wound to the left foot interphalangeal area between the 4th and 3rd digit. Patient reports last night he got out of the shower while staying at hotel in [place] and had went to lay down and felt stinging in his foot. Patient noticed some blood in his bowels noticed a laceration between the toes. Patient does not remember if he had struck the shower door or stepped on something. Patient's tetanus shot was 5 years old. 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 Related Data Home Medications ?Medication ?Instructions ?Recorded ?Confirmed aspirin 81 mg tablet,delayed 81 mg PO DAILY 11/28/19 0 08/07/24 release insulin aspart 30 unit SUBCUT TID 04/23/24 08/07/24 (niacinamide)(U-100) 100 unit/mL(3 mL) subcutaneous pen (Fiasp FlexTouch U-100 Insulin) sitagliptin phosphate 100 mg 100 mg PO DAILY 04/23/24 08/07/24 tablet (Januvia) carvedilol 25 mg tablet (Coreg) 25 mg PO DAILY 5 08/07/24 insulin aspart U-100 100 unit/mL See Rx Instructions . Route .COMPLEX 08/07/24 08/07/24 (3 mL) subcutaneous pen lisinopril 40 mg tablet 40 mg PO DAILY 08/07/2407/22 Held on 08/18/24. Instructions: hold till seen by nephrology Previous Rx's ?Medication ?Instructions ?Recorded Lactobacillus acidoph-L.bulgaricus 1 tab PO QID #1 tab 12/02/19 1 million cell tablet (Floranex) insulin glargine 100 unit/mL (3 55 unit (0.55 mL) SUBC UT BEDTIME 04/26/24 mL) subcutaneous pen (Basaglar #10 mL KwikPen U-100 Insulin) potassium chloride 8 mEq 8 meq PO DAILY #20 caps 12/12 capsule,extended release amlodipine 10 mg tablet 5 mg (1/2 x 10 mg) PO DAILY #30 08/18/24 tabs bumetanide 2 mg tablet 2 mg PO BID #60 tabs 5 doxycycline hyclate 100 mg capsule 100 mg PO BID 10 da ys #20 caps 10/14/24 Allergies Allergy/AdvReac Type Severity Reaction Status Date / Time No Known Allergies Allergy Verified 05/31/24 07:46 Review of Systems General: Reports: 10 or more systems reviewed and unremarkable except in HPI and below PFSH ED PFSH: Medical History Smoker -heavy smoker, 2 PPD Morbid obesity -BMI-59 kg/m2 Sepsis -as noted above -BP better controlled, tachycardia persists, afebrile; continue to monitor vital signs -trend WBC; leukocytosis improving Smoker Recurrent infection of skin Chronic back pain GERD (gastroesophageal reflux disease) Ptosis of eyelid, right Sleep apnea Morbid obesity Testicular abscess Hypertension -BP improved though still uncontrolled, continue to monitor vital signs -on Lisinopril; titrate as needed for optimal BP control; due to tachycardia, BB added Diabetes mellitus Surgical History History of incision and drainage 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 S/P right knee arthroscopy Family History Other CAD (coronary artery disease) Diabetes Social History Smoking and tobacco/nicotine status: heavy tobacco/nicotine user cigarettes [ Other cigarette details: 2 packs/day] Alcohol intake: never Substance/Drug Use: never Household members: significant other Housing: House Current occupation: disabled Physical Exam Const: COMMON NORMALS: alert HENMT: COMMON NORMALS: normocephalic HEAD & SCALP: normocephalic Neck/C-Spine: COMMON NORMALS: full ROM Chest: COMMONS NORMALS: normal inspection of the chest Resp: COMMON NORMALS: normal respiratory effort GI: COMMON NORMALS: Soft to palpation and non-tender PALPATION: Yes Soft to palpation : COMMON NORMALS: Yes normal external exam Extremity: LEFT LOWER EXTREMITY: Yes foot & digits (2 cm laceration webbing of 3rd and 4th digit) Neuro: SENSORIUM/ORIENTATION: Yes alert Psych: COMMON NORMALS: cooperative Skin: TRAUMA: laceration (Left foot) Course Vital Signs: Vital signs: Vital Signs Temperature 97.6 F 10/14/24 15:04 Pulse Rate 91 10/14/24 15:04 Respiratory Rate 18 10/14/24 15:04 Blood Pressure 191/88 10/14/24 15:04 Pulse Oximetry 96 10/14/24 15:04 Oxygen Delivery Me thod Nasal Cannula 10/14/24 15:04 Oxygen Flow Rate 2 10/14/24 15:04 MDM - Extremity (Nontraumatic) Medical Decision Making 54-year-old male patient comes in today for injury to the left foot. On exam patient has a 2 cm laceration in the webbing of the 3rd and 4th digit of the left foot. No significant redness is noted to the area. Wound is dry and clean. Differential diagnosis includes laceration, need for prophylaxis antibiotic, need for prophylaxis tetanus, fracture, foreign body. Patient's tetanus shot is up-to-date. No foreign bodies noted within the wound. X-ray of the foot noted no obvious fracture per radiologist review. Patient be started on doxycycline 100 mg twice daily for prophylaxis treatment of wound. Recommended follow-up with foot and ankle specialist within 2 to 3 days. Josie echols reported understanding. Lab Data Radiology Impressions Foot X-Ray 10/14/24 15:08 IMPRESSION: As above. All radiology interpretation(s) finalized by discharge Discharge Plan Discharge Patient Disposition: Home Clinical Impression: Laceration of toe of left foot Qualifiers: Encounter type: initial encounter Toe: lesser toe Damage to nail status: without damage Foreign body presence: without foreign body Qualified Code(s): S91.115A - Laceration without foreign body of left lesser toe(s) without damage to nail, initial encounter Condition: Stable Prescriptions: New doxycycline hyclate 100 mg capsule 100 mg PO BID 10 Days Qty: 20 0RF No Action aspirin 81 mg Tablet,Delayed Release (Dr/Ec) 81 mg PO DAILY Lactobacillus acidoph-L.bulgar [Floranex] 1 million cell Tablet 1 tab PO QID Qty: 1 0RF Januvia 100 mg tablet 100 mg PO DAILY Fiasp FlexTouch U-100 Insulin 100 unit/mL (3 mL) insulin pen 30 unit SUBCUT TID insulin glargine [Basaglar KwikPen U-100 Insulin] 100 unit/mL (3 mL) insulin pen 55 unit SUBCUT BEDTIME Qty: 10 0RF potassium chloride 8 mEq capsule, extended release 8 meq PO DAILY Qty: 20 0RF carvedilol [Coreg] 25 mg tablet 25 mg PO DAILY Rx Instructions: must administer with a meal/food lisinopril 40 mg tablet 40 mg PO DAILY insulin aspart U-100 100 unit/mL (3 mL) insulin pen See Rx Instructions .ROUTE .COMPLEX Rx Instructions: subcutaneously amlodipine 10 mg Tablet 5 mg PO DAILY Qty: 30 0RF bumetanide 2 mg tablet 2 mg PO BID Qty: 60 0RF Discharge Orders: Discharge ED (Routine); Ordered 10/14/24 Ordered By: Luis Foss Referrals: Rolando Holcomb DPM [Physician] - (call to make appointment to see next week) Discharge Diet: Usual diet Discharge Activity: Increase activity as tolerated Patient Instructions: Laceration (ED) Activity Restrictions/Additional Instructions: Keep wound clean and dry. Elevate foot to help with swelling and discomfort. Change the dressing daily. Use nonstick dry dressing to the wound site. Follow-up with foot and ankle specialist within 3 days for recheck. Contact Dr. Holcomb's office and let them know that you were seen in the ER and were recommended to follow-up with them the time. Print Language: Macedonian Coding Level of Care Code ED Chassis Mechanic for Ruchi Velez
[2024-10-14] MEDS: doxycycline 100 mg Tablet PO (15:56)
[2024-10-14 16:01] VITALS: BP 132/72; PULSE 101; O2SAT 97
== END 2024-10-14 16:07 | disposition home or self-care (01) ==
PROVIDERS: Emergency Provider Nurse Practitioner Family
DX: S91.115A Laceration without foreign body of left lesser toe(s) without damage to nail, initial encounter (principal); Z79.4 Long term (current) use of insulin; F17.210 Nicotine dependence, cigarettes, uncomplicated; E11.9 Type 2 diabetes mellitus without complications; I10 Essential (primary) hypertension; X58.XXXA Exposure to other specified factors, initial encounter
CPT/HCPCS: 73630; 99283; J9999